=== PATIENT | female | born 1945 | race Caucasian/White ===

== ENCOUNTER 2017-01-01 18:23 | Observation (INO) ==
[2017-01-01 19:30] LABS: Activated Partial Thrombo Time 50.4 Seconds (26.0-36.0)
[2017-01-01 19:34] LABS: Prothrombin Time 44.6 Seconds (9.4-12.1)
--- NOTE | 2017-01-01 20:12 | Emergency Department Note ---
START Narrative - START START: Patient was sent in by primary care provider for recheck of coags as she had an elevated INR drawn at 3:30 this morning. It was greater than six. When I went in to assess the patient. She was sleeping quite soundly bent over the chair with her upper torso between her legs and her head, nearly touching the floor. She was difficult to arouse. Once awake, she was a note 3, however slightly confused and rather somnolent. I went to get her blanket, multivitamin back. She was already asleep again. Her vitals show mild tachycardia and hypoxia. This is new for her. She has a history of lung cancer and has a very productive sounding cough. Her repeat INR is four and she does not report any active bleeding. However, given her current presentation, I feel that she will require further evaluation than that which can be easily provided in a fast- track room.
[2017-01-01 20:48] LABS: Basophils % 0.4 %; Eosinophils # 0.1 K/mcL (0.0-0.6); Eosinophils % 0.8 %; Hematocrit 40.1 % (35.3-44.9); Immature Granulocytes % 0.6 % (0-4); Lymphocytes # 2.4 K/mcL (0.6-4.6); Lymphocytes % 30.4 %; Mean Corpuscular HGB Conc 32.4 g/dL (31.6-35.5); Mean Corpuscular Volume 95.7 fL (83.0-100.0); Mean Platelet Volume 11.5 fL (9.4-12.4); Monocytes # 0.6 K/mcL (0.0-1.3); Neutrophils # 4.8 K/mcL (1.6-8.9); Platelet Count 462 K/mcL (140-400); Red Blood Count 4.19 M/mcL (3.82-4.97); Red Cell Distribution Width 13.2 % (11.5-14.5); Segmented Neutrophils % 60.8 %
[2017-01-01 20:56] LABS: BUN/Creatinine Ratio 24 (6-26); Blood Urea Nitrogen 19 mg/dL (7-20); Calcium 9.6 mg/dL (8.6-10.8); Carbon Dioxide 28 mEq/L (19-29); Chloride 101 mEq/L (98-109); Glucose 123 mg/dL (70-99); Osmolality,Calculated 288 (280-300); Potassium 3.6 mEq/L (3.5-4.5); Sodium 137 mEq/L (136-145); eGFR For African Americans > 60 (> 60); eGFR For Non-African Americans > 60 (> 60)
--- NOTE | 2017-01-01 22:25 | Emergency Department Note ---
Disposition Clinical Impression: Shortness of breath, Elevated troponin Lung cancer Qualifiers: Laterality: unspecified laterality Lung location: unspecified part of lung Qualified Code(s): C34.90 - Malignant neoplasm of unspecified part of unspecified bronchus or lung Disposition: Admitted As Inpatient Condition: Fair Referrals: Martínez Ellis MD [Primary Care Provider] - Forms: ED Satisfaction Letter General Adult HPI - General Chief complaint: ED Recheck/Abnormal Lab/Rx Stated complaint: lab recheck Time Seen by Provider: 01/01/17 18:33 Nursing Notes Reviewed: Yes Vital Signs Reviewed: Yes - History of Present Illness HPI Narrative: Patient does have a history of lung cancer and was initially seen in triage and I did review this record however the patient was dyspneic and I did evaluate her and she does have a history of lung cancer and her dyspnea is worse than usual and is worse with exertion but she denies any chest pain or tightness or discomfort. Does have a dry cough. No hemoptysis. No complaint of fever. She did initially present because of a elevated INR for vitamin K and the story is that the INR was 0.0. She does not have any pain or swelling of the lower extremities, vomiting. Social history: She is still smoking. Does use home oxygen 2 Liters Pain Scale: 3 - Related Data Home Medications Medication Instructions Recorded Confirmed Ascorbic Acid [Vitamin C] 500 mg PO DAILY 10/22/15 11/09/16 Cyanocobalamin (Vitamin B-12) 1,000 mcg PO DAILY 10/22/15 11/09/16 [Vitamin B12] Acetaminophen [Tylenol] 500 mg PO Q6HR PRN 12/25/15 11/09/16 Budesonide/Formoterol 160/4.5 1 puff IH BIDR 12/25/15 11/09/16 [Symbicort 160/4.5] Calcium Carbonate/Vitamin D3 1 each PO DAILY 12/25/15 11/09/16 [Calcium 600 + Vit D Tablet] Promethazine [Phenergan] 25 mg PO Q8HR PRN 12/25/15 11/09/16 LevETIRAcetam [Levetiracetam] 500 mg PO BID 03/16/16 11/09/16 Sertraline [Zoloft] 50 mg PO DAILY 03/16/16 11/09/16 Simvastatin [Zocor] 20 mg PO DAILY 03/16/16 11/09/16 Previous Rx's Medication Instructions Recorded Loratadine [Claritin] 10 mg PO DAILY #30 tablet 11/21/14 Amitriptyline [Elavil] 50 mg PO HS #30 tablet 03/20/16 Butalbital/Aspirin/Caffeine 1 each PO TID PRN #10 capsule 03/20/16 [Fiorinal 50-325-40 mg Capsule] Gabapentin [Neurontin] 300 mg PO TID #30 capsule 03/20/16 OxyCODONE ER (12 HR) [OxyCONTIN] 20 mg PO Q12HR #20 tab.er.12h 03/20/16 OxyCODONE Immed Rel [Roxicodone 5 10 mg PO Q6HR PRN #20 tablet 03/20/16 MG] Warfarin [Coumadin] 5 mg PO HS #7 tablet 03/21/16 Allergies Allergy/AdvReac Type Severity Reaction Status Date / Time No Known Allergies Allergy Verified 10/22/15 16:45 Review of Systems: Constitutional: No fever Vision: No blurred vision ENT: No rhinorrhea Respiratory: + cough Allergic: No allergies : No blood in urine GI: No blood in stool Hematologic: No bruising Dermatologic: No skin rash Musculoskeletal: No pain in the extremities Neuro: No numbness of the extremities Past Medical History - Past Medical History Medical history: Reports: cancer, COPD, DVT, hypertension, osteoporosis, seizures, other Surgical history: Reports: hip replacement (Left hip repairs), orthopedic, other (Bilateral carpal tunnel release surgeries, left humerus fracture repair) , other (Tubal ligation) Psychiatric history: Reports: anxiety, depression MICROSTRATEGY BI DEVELOPER history: Reports: no MICROSTRATEGY BI DEVELOPER history - Social History Smoking Status: Current every day smoker Smokeless Tobacco Status: No Alcohol use: Reports: none Drug use: Reports: none Physical Exam CONSTITUTIONAL: Alert and oriented X3, well-nourished, well appearing, in no apparent distress HEAD: Normocephalic; atraumatic. EYES: PERRL, no scleral icterus. NOSE: The nose is normal in appearance without rhinorrhea RESP: Normal chest excursion with respiration; breath sounds with bilateral rhonchi which are symmetric, no wheezing CARD: Regular rhythm, without murmurs, rub or gallop ABD: Non-distended; non-tender, soft,without rigidity, rebound or guarding SKIN: Normal for age and race; warm and dry; no apparent lesions EXTREMITIES: Pulses are 2 plus and equal times 4 extremities, no peripheral edema or calf muscle pain. - General General appearance: alert, in no apparent distress Course Vital Signs Temperature 98 F 01/01/17 18:28 Pulse Rate 104 01/01/17 18:28 Respiratory Rate 18 01/01/17 18:28 Blood Pressure 130/75 01/01/17 18:28 O2 Sat by Pulse Oximetry 91 01/01/17 18:28 Temperature 98 F 01/01/17 18:28 Pulse Rate 83 01/01/17 22:36 Respiratory Rate 16 01/01/17 22:36 Blood Pressure 160/92 01/01/17 22:36 O2 Sat by Pulse Oximetry 98 01/01/17 22:36 Oxygen Delivery Oxygen Delivery Nasal Cannula Medical Decision Making - MDM Narrative Medical decision making narrative: I did review the patient's labs do show elevated troponin, the patient is on oxygen, will receive a DuoNeb, I did speak with the hospitalist who accepts the patient for admission. I did review the labs. 2025 I did review the patient's EKG showing normal sinus rhythm with a rate of 85 without evidence of acute change. The patient will be admitted. 2256 - Medical Records Medical records reviewed: Yes I reviewed the patient's medical records. - Lab Data Lab results reviewed: Yes I reviewed the patient's lab results. Result diagrams: 01/01/17 19:10 01/01/17 19:10 Lab Results 01/01/17 01/01/17 01/01/17 Range/Units 19:10 19:10 19:10 WBC 7.9 (4.3-11.1) K/mcL RBC 4.19 (3.82-4.97) M/mcL Hgb 13.0 (11.5-15.4) g/dL Hct 40.1 (35.3-44.9) % MCV 95.7 (83.0-100.0) fL MCH 31.0 (28.0-33.3) pg MCHC 32.4 (31.6-35.5) g/dL RDW 13.2 (11.5-14.5) % Plt Count 462 H (140-400) K/mcL MPV 11.5 (9.4-12.4) fL Immature Gran % 0.6 (0-4) % Seg Neutrophils % 60.8 % Lymphocytes % 30.4 % Monocytes % 7.0 % Eosinophils % 0.8 % Basophils % 0.4 % Neutrophils # 4.8 (1.6-8.9) K/mcL Lymphocytes # 2.4 (0.6-4.6) K/mcL Monocytes # 0.6 (0.0-1.3) K/mcL Eosinophils # 0.1 (0.0-0.6) K/mcL Basophils # 0.0 (0.0-0.2) K/mcL PT 44.6 H* (9.4-12.1) Seconds INR 4.0 APTT 50.4 H (26.0-36.0) Seconds Sodium 137 (136-145) mEq/L Potassium 3.6 (3.5-4.5) mEq/L Chloride 101 (98-109) mEq/L Carbon Dioxide 28 (19-29) mEq/L BUN 19 (7-20) mg/dL Creatinine 0.80 (0.57-1.11) mg/dL Est GFR ( Amer) > 60 (> 60) Est GFR (Non-Af Amer) > 60 (> 60) BUN/Creatinine Ratio 24 (6-26) Glucose 123 H (70-99) mg/dL Calculated Osmolality 288 (280-300) Calcium 9.6 (8.6-10.8) mg/dL Troponin I (0-0.03) ng/mL B-Natriuretic Peptide (0-100) pg/mL 01/01/17 01/01/17 Range/Units 19:10 19:10 WBC (4.3-11.1) K/mcL RBC (3.82-4.97) M/mcL Hgb (11.5-15.4) g/dL Hct (35.3-44.9) % MCV (83.0-100.0) fL MCH (28.0-33.3) pg MCHC (31.6-35.5) g/dL RDW (11.5-14.5) % Plt Count (140-400) K/mcL MPV (9.4-12.4) fL Immature Gran % (0-4) % Seg Neutrophils % % Lymphocytes % % Monocytes % % Eosinophils % % Basophils % % Neutrophils # (1.6-8.9) K/mcL Lymphocytes # (0.6-4.6) K/mcL Monocytes # (0.0-1.3) K/mcL Eosinophils # (0.0-0.6) K/mcL Basophils # (0.0-0.2) K/mcL PT (9.4-12.1) Seconds INR APTT (26.0-36.0) Seconds Sodium (136-145) mEq/L Potassium (3.5-4.5) mEq/L Chloride (98-109) mEq/L Carbon Dioxide (19-29) mEq/L BUN (7-20) mg/dL Creatinine (0.57-1.11) mg/dL Est GFR ( Amer) (> 60) Est GFR (Non-Af Amer) (> 60) BUN/Creatinine Ratio (6-26) Glucose (70-99) mg/dL Calculated Osmolality (280-300) Calcium (8.6-10.8) mg/dL Troponin I 0.06 H* (0-0.03) ng/mL B-Natriuretic Peptide 489 H (0-100) pg/mL - Radiology Data Radiology results reviewed: Yes I reviewed the patient's radiology results.
--- NOTE | 2017-01-01 23:47 | Internal Med History&Physical ---
<Addison Chambers - Last Filed: 01/02/17 00:21> Date of Encounter: 01/02/17 Time of Encounter: 23:10 Assessment and Plan (1) Bronchitis Current visit: Yes Status: Acute Patient reports subjective fever, but she did not measure, and dry cough for several days. She was seen by her PCP on 12/30/16 and was started on Levaquin at that time (which is likely what caused her increased INR). Chest x-ray showed no acute abnormalities, no leukocytosis present, and patient afebrile. She is on her home dose of oxygen and has no complaints of shortness of breath or productive cough. Likely patient has bronchitis, possibly viral. Will continue with started by her PCP. We will continue by mouth Levaquin We will continue to monitor INR Continuous pulse oximetry (2) Supratherapeutic INR Current visit: No Status: Resolved Patient found to have subtherapeutic INR as outpatient, up to 6.8. Sent to emergency department because of concern of elevated level INR. Patient has no complaints of bleeding, hematochezia, hematemesis, hemoptysis, hematuria. Will recheck in emergency room INR is 4.0. Elevation INR likely due to initiation of Levaquin for bronchitis yesterday. We will continue to monitor with repeat INR Hold Coumadin (3) Elevated troponin Current visit: Yes Status: Acute Patient has elevation of troponin 0.06, previously normal. Patient elevated troponin likely demand with recent respiratory infection and supratherapeutic INR. Highly unlikely as ACS given supratherapeutic INR and lack of ACS symptoms. Heart score 4, LENA Score 2. We will trend troponins Continue telemetry while troponins trended (4) Lung cancer Current visit: Yes Status: Acute Patient has history of left lung cancer, previously treated with radiation in . She was determined not to be candidate for chemotherapy or surgery at that time. She reports that in the past 6 months she has had a 30 pound weight loss , night sweats, and weakness. When as she is not interested in additional treatment at this time. Patient is with her [facility]. Qualifiers: Laterality: left Lung location: unspecified part of lung Qualified Code(s ): C34.92 - Malignant neoplasm of unspecified part of left bronchus or lung (5) COPD (chronic obstructive pulmonary disease) Current visit: No Status: Chronic Patient has history of COPD and admits to continuing to smoke. She does state she is decreasing the amount of cigarettes. She currently is at 5 cigarettes a day and previously she had been smoking a pack a day. No wheezings and auscultation. No shortness of breath and no increased phlegm production. Not in exacerbation currently. Continue home dose oxygen Continue home inhalers Breathing treatments as needed Qualifiers: COPD type: emphysema Emphysema type: unspecified Qualified Code(s): J43.9 - Emphysema, unspecified (6) History of seizure Current visit: No Status: Chronic Stable, patient reports no seizure in the last 6 years. Continue home medications Seizure precautions (7) DVT prophylaxis Current visit: No Status: Acute Patient on Coumadin, currently a suprapubic INR likely due to initiation of Levaquin therapy while taking Coumadin. Hold dose Coumadin Coumadin per pharmacy Continue monitor INR/PT (8) Tobacco abuse Current visit: No Status: Acute Patient reports actively trying to quit. She is down to 5 cigarettes a day from [address] [facility] Internal Medicine - H&P: HPI Chief complaint: Abnormal Labs Admitted From: Home Plans for Post Hospital Care: Home History of present illness: Ms. Hodge is a 71 year old female with prior medical history of DVT 6 years ago ( systolic Coumadin), COPD (still smoking), seizures, hypertension, and lung cancer (treated with radiation 1 year ago) who presented to [facility] today due to the finding of abnormal lab work. It was found she had an elevated INR of 6.8 was told to come the emergency room. She denies any bleeding currently, denies change in diet, reports only starting Levaquin for bronchitis yesterday. Recheck of INR in the emergency room was 4. Patient reports that she has had a slight, dry cough as well as subjective fever that she has not measured for the last few days which prompted her PCP started her on Levaquin. She reports that she has had subjective fevers, constipation, and diaphoresis. When asked she states she has had a 30 pound weight loss last 6 months, night sweats, and weakness and does have a history of lung cancer. She appears to received radiation treatment that was completed in 12/27/15 and was not a candidate for surgery or chemotherapy at that time. When asked today she is not interested in pursuing more treatment. She denies any shortness of breath or wheezing. Patient states she is with [facility] is not interested in further treatment, but when spoken to she reports that she would like to be a full code. When asked further she states she has a well visit. Relates her wishes, but no documents are present. Currently unsure what her wishes would be. Past Med Surg Social Fam HX - Past Medical History Medical history: cancer, COPD, DVT, hypertension, osteoporosis, seizures, other Psychiatric history: anxiety, depression - Past Surgical History Surgical History: hip replacement (Left hip repairs), orthopedic, other ( Bilateral carpal tunnel release surgeries, left humerus fracture repair), other (Tubal ligation) - Social History Smoking Status: Current every day smoker Smokeless Tobacco Status: No Alcohol use: none Drug use: none - Family History Father Hx Family Cardiac Disorders: Yes (CHF) Internal Medicine - H&P: Meds Loratadine [Claritin] 10 mg PO DAILY #30 tablet 11/21/14 [Rx] Ascorbic Acid [Vitamin C] 500 mg PO DAILY 10/22/15 [History] Cyanocobalamin (Vitamin B-12) [Vitamin B12] 1,000 mcg PO DAILY 10/22/15 [History ] Acetaminophen [Tylenol] 500 mg PO Q6HR PRN 12/25/15 [History] Budesonide/Formoterol 160/4.5 [Symbicort 160/4.5] 1 puff IH BIDR 12/25/15 [ History] Calcium Carbonate/Vitamin D3 [Calcium 600 + Vit D Tablet] 1 each PO DAILY [History] Promethazine [Phenergan] 25 mg PO Q8HR PRN 12/25/15 [History] LevETIRAcetam [Levetiracetam] 500 mg PO BID 03/16/16 [History] Sertraline [Zoloft] 50 mg PO DAILY 03/16/16 [History] Simvastatin [Zocor] 20 mg PO DAILY 03/16/16 [History] Amitriptyline [Elavil] 50 mg PO HS #30 tablet 03/20/16 [Rx] Butalbital/Aspirin/Caffeine [Fiorinal 50-325-40 mg Capsule] 1 each PO TID PRN # 10 capsule 03/20/16 [Rx] Gabapentin [Neurontin] 300 mg PO TID #30 capsule 03/20/16 [Rx] OxyCODONE ER (12 HR) [OxyCONTIN] 20 mg PO Q12HR #20 tab.er.12h 03/20/16 [Rx] OxyCODONE Immed Rel [Roxicodone 5 MG] 10 mg PO Q6HR PRN #20 tablet 03/20/16 [Rx] Warfarin [Coumadin] 5 mg PO HS #7 tablet 03/21/16 [Rx] 3 Allergy/AdvReac Type Severity Reaction Status Date / Time No Known Allergies Allergy Verified 10/22/15 16:45 All Systems PM: Gen: Reports fever and chills, reports weightloss, reports weakness, denies fatigue, reports diaphoresis CV: Denies chest pain, denies palpitations Resp: Denies shortness of breath, denies pleuritic pain, reports dry cough, denies changes in phlegm production, denies wheeze GI: Denies nausea, denies vomiting, denies abdominal pain, reports constipation , denies diarrhea, denies hematochezia, denies melena MSK: Reports chronic pain in back and legs, denies muscle weakness Neuro: Denies headache, denies confusion, denies focal weakness, denies numbness , denies tingling, denies vision changes Skin: Denies bruising, denies rash : Denies flank pain, denies dysuria, denies hematuria - Constitutional Vitals: Temp Pulse Resp BP Pulse Ox 98 F 83 12 144/88 98 01/01/17 18:28 01/01/17 22:36 01/01/17 23:32 01/01/17 23:32 01/01/17 22:36 Exam: General: Cooperative, pleasant, no acute distress, alert and oriented 3, answers questions appropriately, cachectic, slumped, on 2.5 L oxygen (her home dose) HEENT: Normocephalic, atraumatic, neck supple, trachea midline, Conjunctiva pink , sclera anicteric, PERRL, oral mucosa moist, no orophargeal erythema or exudates Respiratory: No accessory muscle usage, bibasilar Rales present right greater than left Cardiovascular: Regular rate and rhythm, S1 and S2 present, no murmurs/rubs/ gallops/clicks appreciated GI/abdominal: Nondistended, nontender, soft, normal bowel sounds, no peritoneal signs Extremities: No calf tenderness, noncyanotic, no pedal edema appreciated, warm, lower extremity pulses palpable and symmetrical Neurological: Alert and oriented 3, no facial droop, no focal deficits Skin: Dry, intact, normal color Internal Med - H&P Results - Labs CBC & Chem 7: 01/01/17 19:10 01/01/17 19:10 <Byron Celaya - Last Filed: 01/02/17 00:52> Date of Encounter: 01/02/17 Internal Medicine - H&P: HPI History of present illness: Ms. Hodge is a 71 year old female All Systems PM: A 10-system review of systems was performed and is negative for pertinent findings except as documented above in the HPI. - Constitutional Vitals: Temp Pulse Resp BP Pulse Ox 97.4 F L 83 16 153/94 92 01/02/17 00:32 01/02/17 00:32 01/02/17 00:32 01/02/17 00:32 01/02/17 00:32 Internal Med - H&P Results - Labs CBC & Chem 7: 01/01/17 19:10 01/01/17 19:10 - Attending Attestation I have independently seen and examined this patient on 01/02/17 and reviewed plan of care with the HEALTH INFORMATION ASSISTANT/resident physician and the patient 71 F with chronic respiratory failure on home O2, COPD/Emphysema, Lung CA, bronchitis on Levaquin, she drove herself to the ER on referral by her PCP for elevated INR following use of Levaquin for bronchitis. She denies any symptoms. She does not have chest pain, SOB is at baseline, she does not have any symptoms and she is actually really upset for being admitted to observation Physical exam: VSS, chronically ill-looking, not in distress, and ambulatory, she has a barrel-shaped chest, which is clear to auscultation. HS S1, S2 only, no m/g/r, abdomen is soft and not tender, no pedal edema Labs and Imaging reviewed: CBC: thrombocytosis otherwise unremarkable, troponin 0.06, BNP 485. EKG NSR, LAFB, no ST segment changes. CXR with no pulmonary edema, chronic fibrotic changes. Assessment/Plan: Supratherapeutic INR, Bronchitis, Elevated troponin, possibly from patients chronic hypoxia, patient is asymptomatic, trend troponin, continue Levaquin for bronchitis treatment, hold Coumadin, monitor INR. Rest of details as in resident physicians documentation
[2017-01-01] MEDS ORDERED: Acetaminophen 325 MG TABLET PO PRN (23:52)
[2017-01-01] MEDS ORDERED: Ondansetron 4 MG/2 ML VIAL IVP PRN (23:52)
[2017-01-01] MEDS ORDERED: Naloxone 0.4 MG/ML INJ IVP PRN (23:52)
[2017-01-02] MEDS ORDERED: *HR* OxyCODONE Immed Rel 5 MG TABLET PO PRN (00:11)
[2017-01-02] MEDS ORDERED: FIORINAL PO PRN (00:11)
[2017-01-02] MEDS ORDERED: Ipratropium/Albuterol Neb 3 ML IH PRN (00:18)
[2017-01-02] MEDS: Nicotine 7 MG PATCH.TD24 TD SCH ×2 (00:59→09:41)
[2017-01-02] MEDS ORDERED: *HR* OxyCODONE ER (12 HR) 20 MG TABLET PO SCH (06:00)
[2017-01-02 06:53] LABS: Basophils # 0.1 K/mcL (0.0-0.2); Basophils % 0.9 %; Eosinophils # 0.1 K/mcL (0.0-0.6); Eosinophils % 1.3 %; Hematocrit 36.2 % (35.3-44.9); Immature Granulocytes % 0.5 % (0-4); Lymphocytes # 2.1 K/mcL (0.6-4.6); Lymphocytes % 38.4 %; Mean Corpuscular HGB Conc 31.2 g/dL (31.6-35.5); Mean Corpuscular Hemoglobin 29.7 pg (28.0-33.3); Mean Corpuscular Volume 95.3 fL (83.0-100.0); Mean Platelet Volume 10.6 fL (9.4-12.4); Monocytes # 0.4 K/mcL (0.0-1.3); Monocytes % 7.9 %; Neutrophils # 2.8 K/mcL (1.6-8.9); Platelet Count 378 K/mcL (140-400); Red Cell Distribution Width 13.2 % (11.5-14.5)
[2017-01-02 06:57] LABS: INR 2.7; Prothrombin Time 29.3 Seconds (9.4-12.1)
[2017-01-02 06:59] LABS: Activated Partial Thrombo Time 43.5 Seconds (26.0-36.0)
[2017-01-02 07:00] LABS: Hemoglobin 11.3 g/dL (11.5-15.4)
[2017-01-02 07:05] LABS: BUN/Creatinine Ratio 22 (6-26); Blood Urea Nitrogen 15 mg/dL (7-20); Calcium 8.9 mg/dL (8.6-10.8); Carbon Dioxide 28 mEq/L (19-29); Chloride 105 mEq/L (98-109); Glucose 85 mg/dL (70-99); Magnesium 1.2 mg/dL (1.6-2.6); Osmolality,Calculated 288 (280-300); Phosphorous 3.4 mg/dL (2.3-4.7); Sodium 139 mEq/L (136-145); eGFR For African Americans > 60 (> 60); eGFR For Non-African Americans > 60 (> 60)
[2017-01-02] MEDS ORDERED: Magnesium Sulfate 2 GM in D5% in Water 100 ML IVPB ONE (07:54)
[2017-01-02] MEDS ORDERED: Loratadine 10 MG TABLET PO SCH (09:00)
[2017-01-02] MEDS ORDERED: Gabapentin 300 MG CAPSULE PO SCH (09:00)
[2017-01-02] MEDS ORDERED: levoFLOXacin 500 MG TABLET PO SCH (09:00)
[2017-01-02] MEDS ORDERED: Cyanocobalamin (B-12) 1,000 MCG TABLET PO SCH (09:00)
[2017-01-02] MEDS ORDERED: Calcium 600 + Vit D PO SCH (09:00)
[2017-01-02] MEDS ORDERED: levETIRAcetam 250 MG TABLET PO SCH (09:00)
[2017-01-02] MEDS ORDERED: Ascorbic Acid 500 MG TABLET PO SCH (09:00)
--- NOTE | 2017-01-02 09:27 | Discharge Summary ---
Date of Encounter: 01/02/17 Time of Encounter: 09:19 - Discharge Diagnosis (1) Bronchitis Priority: Primary Status: Acute (2) Elevated troponin Priority: Primary Status: Resolved (3) Supratherapeutic INR Priority: Primary Status: Resolved (4) Anxiety Priority: Secondary Status: Chronic (5) Depression Priority: Secondary Status: Chronic Qualifiers: Depression Type: unspecified Qualified Code(s): F32.9 - Major depressive disorder, single episode, unspecified (6) History of seizure Priority: Secondary Status: Chronic (7) Tobacco abuse Priority: Secondary Status: Chronic (8) HTN (hypertension) Priority: Secondary Status: Chronic Qualifiers: Hypertension type: essential hypertension Qualified Code(s): I10 - Essential (primary) hypertension (9) Cancer of left lung Priority: Secondary Status: Chronic Qualifiers: Lung location: upper lobe of lung Qualified Code(s): C34.12 - Malignant neoplasm of upper lobe, left bronchus or lung (10) COPD (chronic obstructive pulmonary disease) Priority: Secondary Status: Chronic Qualifiers: COPD type: emphysema Emphysema type: unspecified Qualified Code(s): J43.9 - Emphysema, unspecified - Discharge Medications Prescriptions: levoFLOXacin [Levaquin] 500 mg PO DAILY #4 tablet Home Medications: Loratadine [Claritin] 10 mg PO DAILY #30 tablet 11/21/14 [Rx] Ascorbic Acid [Vitamin C] 500 mg PO DAILY 10/22/15 [History] Cyanocobalamin (Vitamin B-12) [Vitamin B12] 1,000 mcg PO DAILY 10/22/15 [History ] Acetaminophen [Tylenol] 500 mg PO Q6HR PRN 12/25/15 [History] Budesonide/Formoterol 160/4.5 [Symbicort 160/4.5] 1 puff IH BIDR 12/25/15 [ History] Calcium Carbonate/Vitamin D3 [Calcium 600 + Vit D Tablet] 1 each PO DAILY [History] Promethazine [Phenergan] 25 mg PO Q8HR PRN 12/25/15 [History] LevETIRAcetam [Levetiracetam] 500 mg PO BID 03/16/16 [History] Sertraline [Zoloft] 50 mg PO DAILY 03/16/16 [History] Simvastatin [Zocor] 20 mg PO DAILY 03/16/16 [History] Amitriptyline [Elavil] 50 mg PO HS #30 tablet 03/20/16 [Rx] Butalbital/Aspirin/Caffeine [Fiorinal 50-325-40 mg Capsule] 1 each PO TID PRN # 10 capsule 03/20/16 [Rx] Gabapentin [Neurontin] 300 mg PO TID #30 capsule 03/20/16 [Rx] OxyCODONE ER (12 HR) [OxyCONTIN] 20 mg PO Q12HR #20 tab.er.12h 03/20/16 [Rx] OxyCODONE Immed Rel [Roxicodone 5 MG] 10 mg PO Q6HR PRN #20 tablet 03/20/16 [Rx] Warfarin [Coumadin] 2.5 mg PO HS #7 tablet 01/02/17 [Rx] levoFLOXacin [Levaquin] 500 mg PO DAILY #4 tablet 01/02/17 [Rx] Allergies/Adverse Reactions: 3 Allergy/AdvReac Type Severity Reaction Status Date / Time No Known Allergies Allergy Verified 10/22/15 16:45 Date of admission: 01/01/17 22:57 Primary care physician: Martínez Ellis MD Consults: 01/02/17 00:00 Consult to Counseling Services Manager [CONS] Routine Reason for SW Consult: Rescouces, d/c planning, [facility] hosp[facility] patient (?) 01/02/17 00:19 Consult to Nutrition [CONS] Routine Comment: Consulting Provider: NUTRITION Reason for Dietary Consult: MST Score Discharging clinician: Queenie Peralta Anticipated date of discharge: 01/02/17 - Patient Status Disposition: Home, Self-Care Condition: Fair Functional capacity at discharge: uses cane/walker Overall status at discharge: patient is progressing back to baseline - Discharge Instructions Instructions: Acute Bronchitis (DC), Elevated INR (DC) Follow Up With: Martínez Ellis MD [Primary Care Provider] - Additional Instructions: F/up with Coumadin clinic in 3 days for INR check F/up with PCP in 1-2 weeks - Diet and Activity Activity: resume usual activities as tolerated, wear oxygen at all times Diet: low fat, low cholesterol, low salt diet Hospital course: Ms. Hodge is a 71 year old female with history of COPD , lung cancer and DVT, who was admitted due to abnormal labs. She was noted to have supratherapeutic INR of 6.7 in the outpatient clinic and was referred to the emergency room. Patient was recently started on a course of oral levofloxacin for symptoms of acute bronchitis, which she still continues to have. Concomitant use of antibiotics was thought to be the reason for elevated INR. Coumadin has been held since admission and her INR quickly improved to 2.7 today. Patient was noted to have mild troponin leak, which is likely due to hypoxia and respiratory issues and demand ischemia. Her troponin is normal this morning. Patient continues to smoke, which contributes to some of her respiratory symptoms. She is otherwise medically stable and wishes to go home today. She is encouraged to follow up in Coumadin clinic in 2-3 days and she verbalized understanding. Her Coumadin is being restarted at a lower dose. - Time Spent with Patient Total time spent providing and/or coordinating discharge services: Greater than 30 minutes (40 min) - Constitutional Vitals: Temp Pulse Resp BP Pulse Ox 97.8 F 86 12 135/80 98 01/02/17 07:50 01/02/17 07:50 01/02/17 08:00 01/02/17 07:50 01/02/17 08:00 General appearance: Present: A&O X 3, answers questions appropriately - Respiratory Respiratory exam: Present: CTAB (coarse breath sounds B/L). Absent: accessory muscle use, rales, rhonchi, wheezes
[2017-01-02] MEDS ORDERED: Budesonide/Formoterol 160/4.5 MDI IH SCH (10:00)
[2017-01-02 11:22] VITALS: BP 132/77
[2017-01-02] MEDS ORDERED: Warfarin perPT PO PRN (18:00)
--- NOTE | 2017-01-04 08:38 | Electrocardiograph Report ---
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
== END 2017-01-02 13:42 | disposition home or self-care (01) ==
LOC: 2ANU 18:23 → EMEROO 18:23 → 2ANU 23:45
PROVIDERS: ADMIT Internal Medicine; ATTEND Internal Medicine

== ENCOUNTER 2017-01-04 13:34 | Inpatient (IN) ==
--- NOTE | 2017-01-04 14:04 | Emergency Department Note ---
Disposition Clinical Impression: Acute and chronic respiratory failure, Elevated troponin, Concussion Fall Qualifiers: Encounter type: initial encounter Qualified Code(s): W19.XXXA - Unspecified fall, initial encounter Disposition: Admitted As Inpatient Condition: Fair Time of Disposition: 17:17 Fall HPI - General Chief Complaint: ED Back Pain/Injury Stated Complaint: fall, neck/back pain Time Seen by Provider: 01/04/17 13:40 Source: patient Mode of arrival: EMS Limitations: no limitations Nursing Notes Reviewed: Yes Vital Signs Reviewed: Yes - History of Present Illness HPI Narrative: 71-year-old female hx of COPD O2 dependent on 2.5L presents status post mechanical fall she rolled out of bed hit her head and neck. Patient states that she is unsure if she lost consciousness patient reports 6 out of 10 pain, she says that the back of her head. She also states that she has pain "all over " patient does take warfarin she is anticoagulated for history of DVTs, patient has no chest pain or shortness of breath. Pt Subjective Complaint: fall Fall From: out of bed Fall Witnessed: yes Place Fall Occurred: home Loss of Consciousness: unsure Prolonged Down Time?: no Symptoms Prior to Fall: lightheadedness Location of injury: head, neck Severity: mild Associated symptoms (after fall): Reports: denies. Denies: headache, neck pain , numbness, weakness - Related Data Home Medications Medication Instructions Recorded Confirmed Ascorbic Acid [Vitamin C] 500 mg PO DAILY 10/22/15 11/09/16 Cyanocobalamin (Vitamin B-12) 1,000 mcg PO DAILY 10/22/15 01/02/17 [Vitamin B12] Acetaminophen [Tylenol] 500 mg PO Q6HR PRN 12/25/15 11/09/16 Budesonide/Formoterol 160/4.5 1 puff IH BIDR 12/25/15 11/09/16 [Symbicort 160/4.5] Calcium Carbonate/Vitamin D3 1 each PO DAILY 12/25/15 01/02/17 [Calcium 600 + Vit D Tablet] Promethazine [Phenergan] 25 mg PO Q8HR PRN 12/25/15 11/09/16 LevETIRAcetam [Levetiracetam] 500 mg PO BID 03/16/16 01/02/17 Sertraline [Zoloft] 50 mg PO DAILY 03/16/16 11/09/16 Simvastatin [Zocor] 20 mg PO DAILY 03/16/16 01/02/17 Previous Rx's Medication Instructions Recorded Loratadine [Claritin] 10 mg PO DAILY #30 tablet 11/21/14 Amitriptyline [Elavil] 50 mg PO HS #30 tablet 03/20/16 Butalbital/Aspirin/Caffeine 1 each PO TID PRN #10 capsule 03/20/16 [Fiorinal 50-325-40 mg Capsule] Gabapentin [Neurontin] 300 mg PO TID #30 capsule 03/20/16 OxyCODONE ER (12 HR) [OxyCONTIN] 20 mg PO Q12HR #20 tab.er.12h 03/20/16 OxyCODONE Immed Rel [Roxicodone 5 10 mg PO Q6HR PRN #20 tablet 03/20/16 MG] Warfarin [Coumadin] 2.5 mg PO HS #7 tablet 01/02/17 levoFLOXacin [Levaquin] 500 mg PO DAILY #4 tablet 01/02/17 Allergies Allergy/AdvReac Type Severity Reaction Status Date / Time No Known Allergies Allergy Verified 10/22/15 16:45 All systems ED: reviewed and negative except as stated. Review of Systems: As Per HPI Constitutional: Denies: fever, chills Eyes: Denies: eye pain ENT ED: Denies: ear pain Cardiovascular: Denies: chest pain Respiratory: Denies: cough Gastrointestinal: Denies: abdominal pain, nausea Genitourinary: Denies: urgency Musculoskeletal: Reports: as per HPI, back pain, neck pain Integumentary: Denies: rash Neurological: Reports: as per HPI, headache Fall PMH - Past Medical History Medical history: Reports: cancer, COPD, DVT, hypertension, osteoporosis, seizures, other Surgical history: Reports: hip replacement (Left hip repairs), orthopedic, other (Bilateral carpal tunnel release surgeries, left humerus fracture repair) , other (Tubal ligation) Psychiatric history: Reports: anxiety, depression 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: Reports: no 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 - Social History Smoking Status: Current every day smoker Alcohol use: Reports: none Drug use: Reports: none Physical Exam Constitutional: NAD, cachectic thin appearing female Head: NCAT mild ttp at occiput with no hematoma Eyes: PERRLA, sclera anicteric ENT & Mouth: MMM Neck: normal inspection, midline tenderness to palpation C3-C6, Cspine precautions in place Resp: scattered wheezes CV: RRR, no m/g/r +2 pulses UE and LE Back: no palpable stepoff or deformity mild ttp upper nad lower back diffusely t and l spine GI: normal inspection, soft, no guarding or rigidity Neuro: A&O3, CNII-XII grossly intact, MUNOZ Skin: on limited exam, skin intact with no rashes or lesions - General Limitations: no limitations General appearance: alert, in no apparent distress Course Course Narrative: 71yof with possible mechanical versus syncopal fall, her CBC BMP troponin basic lab work including C-spine T-spine and L-spine and head CT scan - Reevaluation(s) Reevaluation #1: Elevated troponin 0.04, given that the patient is antibiotic related on warfarin decision was and she no symptoms of chest pain or shortness of breath, and denies is currently plan is to follow up on additional anticoagulation at this time, she is previously supratherapeutic on her INR her INR today is 1.5, she did have a bicarbonate was elevated after I discussed the hospitalist, decision was made to have an ABG, this result was obtained under ABG, she was not acidemic but did have an elevated CO2 of 74, with bicarbonate showed appropriate metabolic compensation for respiratory acidosis however we will place patient on BiPAP, patient was transferred to the floor with respiratory placing BiPAP at bedside in her room into 2A Time: 17:16 Vital Signs Temperature 97.7 F 01/04/17 13:40 Pulse Rate 98 01/04/17 13:40 Respiratory Rate 20 01/04/17 13:40 Blood Pressure 149/82 01/04/17 13:40 O2 Sat by Pulse Oximetry 93 01/04/17 13:40 Temperature 96.6 F L 01/04/17 17:14 Pulse Rate 89 01/04/17 17:14 Respiratory Rate 17 01/04/17 17:14 Blood Pressure 118/76 01/04/17 17:14 O2 Sat by Pulse Oximetry 97 01/04/17 17:14 Oxygen Delivery Oxygen Delivery Nasal Cannula Fall - [facility] Narrative Medical decision making narrative: [address] 138 QRS [address] segment elevations or depressions - Differential Diagnosis Likely: traumatic injury - Medical Records Medical records reviewed: Yes I reviewed the patient's medical records. - Lab Data Lab results reviewed: Yes I reviewed the patient's lab results. Result diagrams: 01/04/17 14:50 01/04/17 14:50 Lab Results 01/04/17 01/04/17 01/04/17 Range/Units 14:50 14:50 14:50 WBC 6.1 (4.3-11.1) K/mcL RBC 4.12 (3.82-4.97) M/mcL Hgb 12.7 (11.5-15.4) g/dL Hct 40.0 (35.3-44.9) % MCV 97.1 (83.0-100.0) fL MCH 30.8 (28.0-33.3) pg MCHC 31.8 (31.6-35.5) g/dL RDW 13.2 (11.5-14.5) % Plt Count 444 H (140-400) K/mcL MPV 10.5 (9.4-12.4) fL Immature Gran % 0.3 (0-4) % Seg Neutrophils % 73.7 % Lymphocytes % 18.5 % Monocytes % 6.7 % Eosinophils % 0.3 % Basophils % 0.5 % Neutrophils # 4.5 (1.6-8.9) K/mcL Lymphocytes # 1.1 (0.6-4.6) K/mcL Monocytes # 0.4 (0.0-1.3) K/mcL Eosinophils # 0.0 (0.0-0.6) K/mcL Basophils # 0.0 (0.0-0.2) K/mcL PT (9.4-12.1) Seconds INR ABG pH (7.32-7.45) pH Units ABG pCO2 (35-45) mmHg ABG pO2 (85-104) mmHg ABG HCO3 (21-27) mEq/L ABG Total CO2 (20-26) mEq/L ABG O2 Saturation (95-98) % ABG Base Excess (-2.0 to 3.0) mEq/L Liter Flow L/MIN Blood Gas Modality Inspired O2 % Sodium 137 (136-145) mEq/L Potassium 3.9 (3.5-4.5) mEq/L Chloride 97 L (98-109) mEq/L Carbon Dioxide 33 H (19-29) mEq/L BUN 15 (7-20) mg/dL Creatinine 0.80 (0.57-1.11) mg/dL Est GFR ( Amer) > 60 (> 60) Est GFR (Non-Af Amer) > 60 (> 60) BUN/Creatinine Ratio 19 (6-26) Glucose 129 H (70-99) mg/dL Calculated Osmolality 287 (280-300) Calcium 10.3 D (8.6-10.8) mg/dL Troponin I 0.04 H* (0-0.03) ng/mL 01/04/17 01/04/17 Range/Units 14:50 16:22 WBC (4.3-11.1) K/mcL RBC (3.82-4.97) M/mcL Hgb (11.5-15.4) g/dL Hct (35.3-44.9) % MCV (83.0-100.0) fL MCH (28.0-33.3) pg MCHC (31.6-35.5) g/dL RDW (11.5-14.5) % Plt Count (140-400) K/mcL MPV (9.4-12.4) fL Immature Gran % (0-4) % Seg Neutrophils % % Lymphocytes % % Monocytes % % Eosinophils % % Basophils % % Neutrophils # (1.6-8.9) K/mcL Lymphocytes # (0.6-4.6) K/mcL Monocytes # (0.0-1.3) K/mcL Eosinophils # (0.0-0.6) K/mcL Basophils # (0.0-0.2) K/mcL PT 15.0 H (9.4-12.1) Seconds INR 1.4 ABG pH 7.35 (7.32-7.45) pH Units ABG pCO2 73 H* (35-45) mmHg ABG pO2 73 L (85-104) mmHg ABG HCO3 40 H (21-27) mEq/L ABG Total CO2 43 H (20-26) mEq/L ABG O2 Saturation 94 L (95-98) % ABG Base Excess 11.6 H (-2.0 to 3.0) mEq/L Liter Flow 3 L/MIN Blood Gas Modality NC Inspired O2 32 % Sodium (136-145) mEq/L Potassium (3.5-4.5) mEq/L Chloride (98-109) mEq/L Carbon Dioxide (19-29) mEq/L BUN (7-20) mg/dL Creatinine (0.57-1.11) mg/dL Est GFR ( Amer) (> 60) Est GFR (Non-Af Amer) (> 60) BUN/Creatinine Ratio (6-26) Glucose (70-99) mg/dL Calculated Osmolality (280-300) Calcium (8.6-10.8) mg/dL Troponin I (0-0.03) ng/mL - Radiology Data Radiology results reviewed: Yes I reviewed the patient's radiology results. Cervical Spine CT 01/04/17 14:00 IMPRESSION: 1. No acute abnormality of the cervical spine. D/ / Marck Munoz MD / Marck Munoz MD Interpreting Provider: Marck Munoz MD Head CT 01/04/17 14:00 IMPRESSION: No acute intracranial abnormality. D/ / Edgar Hernandez / Edgar Hernandez Interpreting Provider: Edgar Hernandez Lumbar Spine CT 01/04/17 14:00 IMPRESSION: 1. No acute abnormality in the thoracic or lumbar spine. 2. Degenerative changes are detailed above. D/ / Justo Koenig MD / Justo Koenig MD Interpreting Provider: Justo Koenig MD Thoracic Spine CT 01/04/17 14:00 IMPRESSION: 1. No acute abnormality in the thoracic or lumbar spine. 2. Degenerative changes are detailed above. D/ / Justo Koenig MD / Justo Koenig MD Interpreting Provider: Justo Koenig MD Chest X-Ray 01/04/17 14:01 IMPRESSION: 1. Stable cardiopulmonary status since 01/01/2017. D/ / 01/04/2017 14:57:33 Sofi Marquez MD / kaz Interpreting Provider: Sofi Marquez MD Pelvis X-Ray 01/04/17 14:01 IMPRESSION: No displaced fracture. D/ / Juan Luis Slade / Juan Luis Slade Interpreting Provider: Juan Luis Slade - EKG Data EKG attestation: Yes I reviewed and interpreted this EKG. EKG shows normal: sinus rhythm Rate: normal Rhythm: NSR [place]/QRS: normal Interpretation: no acute changes - Core Measures AMI Core Measures Followed: No Measure Exclusions: contraindicated (head injury and warfarin use) Attestation Statement - Attestation Attestation: I examined this patient and my medical decision-making was reviewed with the Resident Physician, Dr. Mzaa. I agree with the documented findings, disposition and treatment plan as described except to the extent set forth below. Patient is a 71-year-old elderly white female who is brought to us today by EMS after she sustained a mechanical fall. Patient reports that she was sleeping and rolled out of her bed causing her to fall onto the floor. Patient complains that she hit the back of her head and she is on Coumadin for history of DVTs. Patient denies any loss of consciousness no complaints of nausea or vomiting, no neck discomfort, no chest pain or pressure, no shortness of breath , no abdominal pain or extremity injuries. Patient denies any low back pain. Patient does complain of pain in the back of her head and there is a small palpable contusion in the area. Patient is very frail and osteoporotic appearing. Patient's not having any signs of respiratory distress. She is very drowsy but easily awakens to loud voice and answers questions appropriately with no focal neurologic deficits or slurred speech. Patient does have a history of COPD and is on 2-1/2 L nasal cannula oxygen at home. On arrival patient was placed on a monitor and continuous pulse ox and was placed on her home O2. Patient was placed in cervical spine precautions due to fall. I agree with patient's physical exam findings as documented. Patient's vital signs were stable on arrival. Patient was sent for CT of the head, CT of the cervical thoracic and lumbar spines as well as chest and pelvis. All of patient's imaging is unremarkable. On reevaluation we removed her cervical collar patient was do not very drowsy although awakened easily with loud voice. No evidence of head bleed on CT but concerned so obtain ABG. ABG shows a compensated respiratory acidosis with a CO2 of 73. We will place the patient on BiPAP for the hypercarbia, see this improves her mental status. Patient will also be observed for her headache injury on Coumadin with possible serial imaging. Patient's labs also showed an elevated troponin. We will recommend serial troponins on the patient as she is not having any chest pain has no EKG changes to suggest acute AL or ischemia. With watching her for neurologic changes at this time we will hold off on any anticoagulants further. Patient is subtherapeutic with her INR at this time. Discussed the case with the hospitalist who agrees with current management and accepted the patient for admission for further evaluation and management. Patient's neurologic status has remained stable over time in the ED. Patient with no EKG changes over time. Patient will be admitted for mechanical fall with closed head injury on anticoagulants, elevated troponin, and hypercarbia.
[2017-01-04 15:00] LABS: Basophils % 0.5 %; Eosinophils % 0.3 %; Hemoglobin 12.7 g/dL (11.5-15.4); Immature Granulocytes % 0.3 % (0-4); Lymphocytes # 1.1 K/mcL (0.6-4.6); Lymphocytes % 18.5 %; Mean Corpuscular HGB Conc 31.8 g/dL (31.6-35.5); Mean Corpuscular Hemoglobin 30.8 pg (28.0-33.3); Mean Corpuscular Volume 97.1 fL (83.0-100.0); Mean Platelet Volume 10.5 fL (9.4-12.4); Monocytes # 0.4 K/mcL (0.0-1.3); Monocytes % 6.7 %; Neutrophils # 4.5 K/mcL (1.6-8.9); Platelet Count 444 K/mcL (140-400); Red Blood Count 4.12 M/mcL (3.82-4.97); Red Cell Distribution Width 13.2 % (11.5-14.5); Segmented Neutrophils % 73.7 %
[2017-01-04 15:10] LABS: BUN/Creatinine Ratio 19 (6-26); Blood Urea Nitrogen 15 mg/dL (7-20); Carbon Dioxide 33 mEq/L (19-29); Chloride 97 mEq/L (98-109); Glucose 129 mg/dL (70-99); Osmolality,Calculated 287 (280-300); Potassium 3.9 mEq/L (3.5-4.5); Sodium 137 mEq/L (136-145); eGFR For African Americans > 60 (> 60); eGFR For Non-African Americans > 60 (> 60)
[2017-01-04 15:13] LABS: Calcium 10.3 mg/dL (8.6-10.8)
[2017-01-04 15:22] LABS: INR 1.4
[2017-01-04 16:31] LABS: ABG Base Excess 11.6 mEq/L (-2.0 to 3.0); ABG HCO3 40 mEq/L (21-27); ABG Oxygen Saturation 94 % (95-98); ABG PH 7.35 pH Units (7.32-7.45); ABG PO2 73 mmHg (85-104); ABG TCO2 43 mEq/L (20-26)
[2017-01-04 16:33] LABS: ABG PCO2 73 mmHg (35-45); Blood Gas Liter Flow 3 L/MIN; Blood Gas Modality NC
[2017-01-04 16:34] LABS: Blood Gas FiO2 32 %
[2017-01-04] MEDS ORDERED: Acetaminophen 325 MG TABLET PO PRN (16:59)
[2017-01-04] MEDS ORDERED: Ondansetron 4 MG/2 ML VIAL IVP PRN (16:59)
[2017-01-04] MEDS ORDERED: *HR* Promethazine 25 MG/ML VIAL IVP PRN (16:59)
[2017-01-04] MEDS ORDERED: Naloxone 0.4 MG/ML INJ IVP PRN (16:59)
--- NOTE | 2017-01-04 17:17 | Internal Med History&Physical ---
Date of Encounter: 01/04/17 Time of Encounter: 16:30 Assessment and Plan (1) Acute and chronic respiratory failure with hypercapnia Current visit: Yes Status: Acute Will admit the pt into Tele Reviewed ABG showed Acute respiratory acidosis with hypercapnea will start her on BiPAP 15/8, Fio2 40 repeat ABG in AM Duoneb and IV steroids (2) Acute and chronic respiratory failure with hypoxia Current visit: Yes Status: Acute see above (3) Acute delirium Current visit: Yes Status: Acute Mostly due to hypercapneic resp failure cont close monitoring (4) Syncope Current visit: Yes Status: Acute Unclear etiology could be due to resp failure however still need to r/o ACS, and arrythamias on Tele check serial trop 2 D Ehco and Carotid doppler resume all other home meds Qualifiers: Qualified Code(s): R55 - Syncope and collapse (5) History of DVT of lower extremity Current visit: No Status: Chronic resumed Coumadin INR - 1.4, will give higher dose tonight (6) Tobacco abuse Current visit: No Status: Chronic counseled to quit on nicotine patch (7) HTN (hypertension) Current visit: No Status: Chronic stable Qualifiers: Hypertension type: essential hypertension Qualified Code(s): I10 - Essential (primary) hypertension (8) Cancer of left lung Current visit: No Status: Chronic Qualifiers: Lung location: upper lobe of lung Qualified Code(s): C34.12 - Malignant neoplasm of upper lobe, left bronchus or lung (9) Fall Current visit: No Status: Acute PT / OT eval CT of head- negative for any hemorrhage Reviewed CT of Cervical, Thoracic spine -no fracture Qualifiers: Encounter type: initial encounter Qualified Code(s): W19.XXXA - Unspecified fall, initial encounter Internal Medicine - H&P: HPI Chief complaint: Fall / Syncope / Confused Admitted From: Emergency Dept Plans for Post Hospital Care: Home History of present illness: Ms. Hodge is a 71 year old female with hx of COPD O2 dependent on 2.5L. Lung cancer, h/o Left Leg DVT on Coumadin for anticoagulation, chronic tobacco dependence pt who was recently admitted here for acute bronchitis now she presented to ER after a mechanical fall she rolled out of bed hit her head and neck. Patient states that she is unsure if she lost consciousness. patient reports 6 out of 10 pain, she says that the back of her head. She looks little somnolent however she is alert, awake and O x 3, but falling asleep while talking to me. Denied any CP. Denied any cough with expectoration Past Med Surg Social Fam HX - Past Medical History Medical history: cancer, COPD, DVT, hypertension, osteoporosis, seizures, other Psychiatric history: anxiety, depression - Past Surgical History Surgical History: hip replacement (Left hip repairs), orthopedic, other ( Bilateral carpal tunnel release surgeries, left humerus fracture repair), other (Tubal ligation) - Social History Smoking Status: Current every day smoker Smokeless Tobacco Status: No Alcohol use: none Drug use: none - Family History Mother Hx Family Respiratory Disorders: Yes (COPD, emphysemza) Father Hx Family Cardiac Disorders: Yes (CHF) Internal Medicine - H&P: Meds Loratadine [Claritin] 10 mg PO DAILY #30 tablet 11/21/14 [Rx] Ascorbic Acid [Vitamin C] 500 mg PO DAILY 10/22/15 [History] Cyanocobalamin (Vitamin B-12) [Vitamin B12] 1,000 mcg PO DAILY 10/22/15 [History ] Acetaminophen [Tylenol] 500 mg PO Q6HR PRN 12/25/15 [History] Budesonide/Formoterol 160/4.5 [Symbicort 160/4.5] 1 puff IH BIDR 12/25/15 [ History] Calcium Carbonate/Vitamin D3 [Calcium 600 + Vit D Tablet] 1 each PO DAILY [History] Promethazine [Phenergan] 25 mg PO Q8HR PRN 12/25/15 [History] LevETIRAcetam [Levetiracetam] 500 mg PO BID 03/16/16 [History] Sertraline [Zoloft] 50 mg PO DAILY 03/16/16 [History] Simvastatin [Zocor] 20 mg PO DAILY 03/16/16 [History] Amitriptyline [Elavil] 50 mg PO HS #30 tablet 03/20/16 [Rx] Butalbital/Aspirin/Caffeine [Fiorinal 50-325-40 mg Capsule] 1 each PO TID PRN # 10 capsule 03/20/16 [Rx] Gabapentin [Neurontin] 300 mg PO TID #30 capsule 03/20/16 [Rx] OxyCODONE ER (12 HR) [OxyCONTIN] 20 mg PO Q12HR #20 tab.er.12h 03/20/16 [Rx] OxyCODONE Immed Rel [Roxicodone 5 MG] 10 mg PO Q6HR PRN #20 tablet 03/20/16 [Rx] Warfarin [Coumadin] 2.5 mg PO HS #7 tablet 01/02/17 [Rx] levoFLOXacin [Levaquin] 500 mg PO DAILY #4 tablet 01/02/17 [Rx] 3 Allergy/AdvReac Type Severity Reaction Status Date / Time No Known Allergies Allergy Verified 10/22/15 16:45 All Systems PM: A 10-system review of systems was performed and is negative for pertinent findings except as documented above in the HPI. Review of systems: All the systems are reviewed everything is benign except the systems and symptoms I mentioned in the history of present illness - Constitutional Vitals: Temp Pulse Resp BP Pulse Ox 97.7 F 91 18 154/86 99 01/04/17 16:48 01/04/17 15:54 01/04/17 16:54 01/04/17 16:48 01/04/17 16:54 General appearance: Present: A&O X 3 Exam: lethargic and sleepy. - Head Head exam: Present: atraumatic, normal inspection - Respiratory Respiratory exam: Present: decreased breath sounds, wheezes (moderate). Absent : rales, respiratory distress, rhonchi - Cardiovascular Cardiovascular exam: Present: RRR, +S1, +S2. Absent: diastolic murmur, gallop, rubs, systolic murmur - GI/Abdominal GI/Abdominal exam: Present: soft. Absent: rebound, rigid, tenderness - Extremities Exam Extremities exam: Absent: calf tenderness, pedal edema, tenderness - Neurological Exam Neurological exam: Present: alert, altered (slightly), oriented X3 - Psychiatric Psychiatric exam: Present: normal affect, normal mood Internal Med - H&P Results - Labs CBC & Chem 7: 01/04/17 14:50 01/04/17 14:50
[2017-01-04] MEDS ORDERED: *HR* Warfarin 3 MG TABLET PO ONE (18:00)
[2017-01-04] MEDS ORDERED: Warfarin perPT PO PRN (18:00)
[2017-01-04] MEDS: MethylPREDNISolone 40 MG/ML VIAL IVP SCH (18:25)
[2017-01-04] MEDS: *HR* HYDROcodone/Acet 5/325 mg TABLET PO PRN (18:29)
[2017-01-04] MEDS: Ipratropium/Albuterol Neb 3 ML IH SCH ×2 (19:42→23:35)
[2017-01-04] MEDS: *HR* Morphine 2 MG/ML SYRINGE IVP PRN (21:35)
[2017-01-04] MEDS: Famotidine 20 MG TABLET PO SCH (21:35)
--- NOTE | 2017-01-04 23:07 | Carotid Imaging Report ---
Carotid Duplex Patient Name:Claudia Hodge Order Number:[id number] Procedure Date:01/04/2017 Date:1945ge:71 yrs Gender:Female Lt BP:118 / 76 mmHg Rt.BP:118 / 76 mmHgHeart Rate: Location:[facility] Room #: 2A42 Environmental Health And Safety Manager:Azam Lo Referring MD:Jaqueline Barclay MD bilingual student tutor:Martínez Ellis M.D. Reading MD:Dada Patel MD , FACS Primary Indications:Syncope Risk Factors Yes/No Hypertension Yes Smoking Current Yes Impressions: Findings: Bilateral ICA have a moderate, 40-59% stenosis. Findings Carotid Duplex: Right: There is nonstenotic plaque in the right bifurcation. There is smooth homogeneous plaque. There is 40-59% stenosis in the right proximal internal carotid artery. There is smooth homogeneous plaque. There is 60-79% stenosis in the right mid internal carotid artery. There is smooth homogeneous plaque. Left: There is nonstenotic plaque in the left bifurcation. There is irregular homogeneous plaque. There is nonstenotic plaque in the left proximal internal carotid artery. There is smooth homogeneous plaque. There is 40-59% stenosis in the left distal internal carotid artery. There is smooth homogeneous plaque. Carotid Results Right PSV EDV Assessment Proximal CCA 79 13 Normal Mid CCA 91 18 Normal Distal CCA 87 28 Normal Bifurcation 69 18 Non Stenotic Plaque Proximal ICA 131 28 40-59% stenosis Mid ICA 135 52 60-79% stenosis Distal ICA 107 30 Post stenotic flow ECA 59 15 Normal Vertebral Artery 66 21 Antegrade Flow Left PSV EDV Assessment Proximal CCA 90 19 Normal Mid CCA 101 25 Normal Distal CCA 94 20 Normal Bifurcation 87 18 Non Stenotic Plaque Proximal ICA 86 27 Non Stenotic Plaque Mid ICA 92 27 Non Stenotic Plaque Distal ICA 132 49 40-59% stenosis ECA 77 6 Normal Vertebral Artery 58 11 Antegrade Flow Ratio's Right ICA/CCA Ratio: 1.48 ICA/CCA Values: 135/91 Left ICA/CCA Ratio: 1.31 ICA/CCA Values: 132/101 Updated by Dada Patel MD, FACS on 01/04/2017 11:01:45 PM Dada Patel MD electronically signed on 01/04/2017 11:02:05 PM with status of Final
[2017-01-05] MEDS: MethylPREDNISolone 40 MG/ML VIAL IVP SCH ×3 (02:54→11:24)
[2017-01-05] MEDS: *HR* HYDROcodone/Acet 5/325 mg TABLET PO PRN ×2 (03:14→09:28)
[2017-01-05] MEDS: Ipratropium/Albuterol Neb 3 ML IH SCH ×6 (03:21→23:34)
[2017-01-05 04:49] LABS: INR 1.4; Prothrombin Time 15.2 Seconds (9.4-12.1)
[2017-01-05 04:59] LABS: BUN/Creatinine Ratio 18 (6-26); Blood Urea Nitrogen 13 mg/dL (7-20); Calcium 9.4 mg/dL (8.6-10.8); Carbon Dioxide 32 mEq/L (19-29); Chloride 100 mEq/L (98-109); Glucose 124 mg/dL (70-99); Magnesium 1.2 mg/dL (1.6-2.6); Osmolality,Calculated 288 (280-300); Potassium 4.5 mEq/L (3.5-4.5); Sodium 138 mEq/L (136-145); eGFR For African Americans > 60 (> 60); eGFR For Non-African Americans > 60 (> 60)
[2017-01-05 05:04] LABS: Basophils % 0.7 %; Hematocrit 38.6 % (35.3-44.9); Immature Granulocytes % 0.5 % (0-4); Lymphocytes % 24.5 %; Mean Corpuscular HGB Conc 31.1 g/dL (31.6-35.5); Mean Corpuscular Hemoglobin 30.2 pg (28.0-33.3); Mean Platelet Volume 10.7 fL (9.4-12.4); Monocytes # 0.2 K/mcL (0.0-1.3); Monocytes % 3.6 %; Platelet Count 403 K/mcL (140-400); Red Blood Count 3.98 M/mcL (3.82-4.97); Red Cell Distribution Width 13.3 % (11.5-14.5); Segmented Neutrophils % 70.7 %
[2017-01-05] MEDS: *HR* Morphine 2 MG/ML SYRINGE IVP PRN (06:39)
[2017-01-05] MEDS: Famotidine 20 MG TABLET PO SCH ×2 (07:19→20:58)
[2017-01-05] MEDS ORDERED: Magnesium Sulfate 4 GM in D5% in Water 100 ML IVPB ONE (12:07)
[2017-01-05] MEDS ORDERED: Magnesium Sulfate 2 GM in D5% in Water 100 ML IVPB SCH (12:08)
--- NOTE | 2017-01-05 12:14 | Internal Med Progress Note ---
Date of Encounter: 01/05/17 Time of Encounter: 12:10 - Subjective Interval history: Ms. Claudia Hodge is a 71-year-old female who came in with his syncopal episode. And is on Coumadin for history of DVT and also has hypercapnic chronic respiratory failure while she still smokes. She is on heavy dose narcotic medication. Apparently she was trying to get out of bed and fell and hit her head with bed railing. CT head in ER is negative. Patient denies any unconsciousness. Patient seen and examined and discuss care and PCR around levels reviewed. #1 fall/near syncopal episode. CT head is negative as well as echocardiogram and ultrasound of the carotids. Carotid ultrasound showed 40-59% possible stenosis bilaterally while cardiac echocardiogram showed EF of 60%. Continue observing however I suspect it has to do something with her high-dose narcotic medication and hypercapnia and counseling provided. Check UA #2 acute on chronic hypercapnic respiratory failure continue nebulizer and BiPAP #3 history of DVT continue following INR. Patient failed outpatient antibiotic treatment. IV Solu-Medrol maintenance Mucinex added. Pain medication change to his home medication which is OxyContin and oxycodone at a lower dose though. - Constitutional Vitals: Temp Pulse Resp BP Pulse Ox 98.2 F 82 16 120/70 98 01/05/17 10:51 01/05/17 10:51 01/05/17 11:10 01/05/17 10:51 01/05/17 11:10 General appearance: Present: A&O X 3 - Head Head exam: Present: atraumatic, normocephalic - Eye Eye exam: Present: PERRL, conjuntiva pink, sclera anicteric Pupils: Present: PERRL - Neck Neck exam general surgery: Present: supple, trachea midline. Absent: lymphadenopathy - Respiratory Respiratory exam: Present: CTAB, rhonchi, wheezes. Absent: accessory muscle use , rales - Cardiovascular Cardiovascular exam: Present: RRR, +S1, +S2. Absent: diastolic murmur, gallop, rubs, systolic murmur - GI/Abdominal GI/Abdominal exam: Present: normal bowel sounds, soft, no peritoneal signs. Absent: distended, tenderness - Extremities Exam Extremities exam: Present: warm, radial pulses palpable and symmetrical. Absent : calf tenderness, cyanotic, pedal edema - Neurological Exam Neurological exam: Present: CN II-XII intact, oriented X3, no focal deficits. Absent: pronater drift, facial droop, speech deficit - Skin Skin exam: Present: dry, intact Internal Medicine: Result - Labs CBC & Chem 7: 01/05/17 04:34 01/05/17 04:34 Labs: Short CBC 01/05/17 Range/Units 04:34 WBC 4.2 L (4.3-11.1) K/mcL Hgb 12.0 (11.5-15.4) g/dL Hct 38.6 (35.3-44.9) % Plt Count 403 H (140-400) K/mcL Neutrophils # 3.0 (1.6-8.9) K/mcL BMP 01/05/17 04:34 Sodium 138 Potassium 4.5 Chloride 100 Carbon Dioxide 32 H BUN 13 Creatinine 0.71 Glucose 124 H Calcium 9.4 Cardiac Enzymes 01/04/17 01/05/17 Range/Units 21:29 04:34 Troponin I 0.03 0.02 (0-0.03) ng/mL - ABG Interpretation ABG results: ABG ABG pH 7.35 pH Units (7.32-7.45) 01/04/17 16:22 ABG pCO2 73 mmHg (35-45) H* 01/04/17 16:22 ABG pO2 73 mmHg (85-104) L 01/04/17 16:22 ABG O2 Saturation 94 % (95-98) L 01/04/17 16:22 PT/INR, D-dimer PT 15.2 Seconds (9.4-12.1) H 01/05/17 04:34 - Impressions Impressions Echocardiogram 01/04/17 17:06 Impressions: LVEF 60%. Normal left ventricular size and systolic function. There is evidence of mild diastolic dysfunction of the left ventricle. Normal right ventricular size and function. Mild pulmonic regurgitation. No pulmonary hypertension. Left Ventricular Wall Motion: Rest Echo Findings All wall segments showed normal motion. Findings: Study Quality * Technically adequate exam. ECG Findings * Normal sinus rhythm. Left Ventricle * LVEF 60%. * Normal LV chamber size, wall thickness and function. * Mild left ventricular diastolic dysfunction. Aorta * Normally sized aortic root. Aortic Valve * No aortic regurgitation. * No aortic stenosis. * Trileaflet aortic valve. * Normal aortic valve structure. Mitral Valve * No mitral regurgitation. * Normal mitral valve structure. * No mitral stenosis. Tricuspid Valve * Trace tricuspid regurgitation. * Normal tricuspid valve structure. * Estimated RA pressure is 3 mmHg. * Estimated RVSP is 21 mmHg. * No pulmonary hypertension. Pulmonic Valve * Pulmonic valve is not well visualized. * No pulmonic stenosis. * Mild pulmonic regurgitation. Pulmonary Artery * Pulmonary artery not well visualized. Right Ventricle * Normal RV size. Function appears normal. Lat S Venkat not performed. Left Atrium * Normal left atrial size. Right Atrium * Normal right atrial size. Pericardium * There is no pericardial effusion present. Interatrial Septum * No evidence of PFO by color Doppler. IVC * The IVC is not dilated. Consult Discharge Plan - Plan Referrals: Martínez Ellis MD [Primary Care Provider] -
[2017-01-05] MEDS: Magnesium Sulfate 2 GM in D5% in Water 100 ML IVPB SCH ×2 (14:18→16:43)
[2017-01-05] MEDS: *HR* OxyCODONE Immed Rel 5 MG TABLET PO PRN (16:42)
[2017-01-05] MEDS: levoFLOXacin 500 MG TABLET PO SCH (16:42)
[2017-01-05] MEDS: levETIRAcetam 250 MG TABLET PO SCH (17:42)
[2017-01-05] MEDS: *HR* LORazepam 0.5 MG TABLET PO PRN (17:59)
[2017-01-05] MEDS: Nicotine 21 MG PATCH.TD24 TD SCH (17:59)
[2017-01-05] MEDS ORDERED: *HR* Warfarin 2.5 MG TABLET PO ONE (18:00)
--- NOTE | 2017-01-05 19:11 | Electrocardiograph Report ---
[address] [address] Test Date: 2017-01-04 Pat Name: Claudia Hodge Department: 103 Room: 2A42 Gender: F Education Reporter: EKP : 1945 Requested By: Kade Maza Order Number: [id number] Reading MD: Beatrice Hassan Measurements Intervals [place] Rate: 96 P: 73 MT: 138 QRS: 47 QRSD: 91 T: 67 QT: 334 QTc: 388 Interpretive Statements SINUS RHYTHM Electronically Signed On 01-05-2017 19:09:43 EDT by Beatrice Hassan
[2017-01-05 20:08] LABS: Bilirubin,Urine Negative (Negative); Blood,Urine Trace (Negative); Clarity,Urine Clear (Clear); Color,Urine Yellow (Yellow); Glucose,Urine (UA) Normal (Normal); Ketones,Urine Negative (Negative); Leukocyte Esterase,Urine Trace (Negative); Nitrite,Urine Negative (Negative); Protein,Urine Negative (Neg-Trace); Specific Gravity,Urine 1.015 (1.010-1.025); Urobilinogen,Urine Normal (Normal)
[2017-01-05 20:11] LABS: Bacteria,Urine None Seen per hpf (None-Few); Hyaline Casts,Urine None Seen per lpf (None-Few); Squamous Epithelial Cell,Urine Many per lpf (None-Few)
[2017-01-05] MEDS: methylPREDNISolone 125 MG/2 ML VIAL IVP SCH (20:58)
[2017-01-06] MEDS: Ipratropium/Albuterol Neb 3 ML IH SCH ×5 (03:33→20:29)
[2017-01-06] MEDS: methylPREDNISolone 125 MG/2 ML VIAL IVP SCH ×3 (03:45→21:05)
[2017-01-06] MEDS: *HR* OxyCODONE Immed Rel 5 MG TABLET PO PRN ×3 (03:49→16:47)
[2017-01-06 05:32] LABS: INR 1.5; Prothrombin Time 16.8 Seconds (9.4-12.1)
[2017-01-06 05:38] LABS: Alanine Aminotransferase 22 Units/L (0-55); Albumin 2.4 g/dL (3.5-5.0); Albumin/Globulin Ratio 0.4 (1.1-2.2); Alkaline Phosphatase 88 Units/L (38-126); Aspartate Amino Transferase 25 Units/L (5-34); BUN/Creatinine Ratio 25 (6-26); Bilirubin,Total 0.3 mg/dL (0.2-1.2); Blood Urea Nitrogen 19 mg/dL (7-20); Calcium 9.5 mg/dL (8.6-10.8); Carbon Dioxide 32 mEq/L (19-29); Chloride 99 mEq/L (98-109); Globulin 5.6 g/dL (2.4-3.5); Glucose 115 mg/dL (70-99); Magnesium 1.8 mg/dL (1.6-2.6); Osmolality,Calculated 291 (280-300); Potassium 3.9 mEq/L (3.5-4.5); Sodium 139 mEq/L (136-145); eGFR For African Americans > 60 (> 60); eGFR For Non-African Americans > 60 (> 60)
[2017-01-06] MEDS: levETIRAcetam 250 MG TABLET PO SCH ×2 (06:02→17:14)
[2017-01-06] MEDS: Famotidine 20 MG TABLET PO SCH ×2 (09:02→21:04)
[2017-01-06] MEDS: levoFLOXacin 500 MG TABLET PO SCH (09:02)
[2017-01-06] MEDS: Nicotine 21 MG PATCH.TD24 TD SCH (09:03)
--- NOTE | 2017-01-06 16:47 | Internal Med Progress Note ---
Date of Encounter: 01/06/17 Time of Encounter: 16:43 - Assessment and plan (1) COPD with acute exacerbation Current Visit: Yes Status: Acute (2) DVT (deep venous thrombosis) Current Visit: Yes Status: Acute Qualifiers: DVT location: lower extremity Affected thrombotic vein of extremity: unspecified lower extremity distal vein Laterality: left Qualified Code(s): I82.4Z2 - Acute embolism and thrombosis of unspecified deep veins of left distal lower extremity (3) Tobacco abuse Current Visit: Yes Status: Chronic (4) Cancer of left lung Current Visit: No Status: Chronic Qualifiers: Lung location: upper lobe of lung Qualified Code(s): C34.12 - Malignant neoplasm of upper lobe, left bronchus or lung (5) Fall Current Visit: Yes Status: Acute Qualifiers: Encounter type: initial encounter Qualified Code(s): W19.XXXA - Unspecified fall, initial encounter (6) Acute and chronic respiratory failure with hypercapnia Current Visit: Yes Status: Acute (7) Syncope Current Visit: Yes Status: Acute Qualifiers: Syncope type: unspecified Qualified Code(s): R55 - Syncope and collapse - Subjective Interval history: Ms. Claudia Hodge is a 71-year-old female who came in with his syncopal episode. And is on Coumadin for history of DVT and also has hypercapnic chronic respiratory failure while she still smokes. She is on heavy dose narcotic medication. Apparently she was trying to get out of bed and fell and hit her head with bed railing. CT head in ER is negative. Patient denies any unconsciousness. Patient seen and examined and discuss care and PCR around levels reviewed. Patient seems much better as she was restarted on nebulizers and Solu-Medrol. She is on lower dose of her pain medication but is still quite comfortable and does not complain of any pain. #1 fall/near syncopal episode. CT head is negative as well as echocardiogram and ultrasound of the carotids. Carotid ultrasound showed 40-59% possible stenosis bilaterally while cardiac echocardiogram showed EF of 60%. Continue observing however I suspect it has to do something with her high-dose narcotic medication and hypercapnia and counseling provided. Urine though contaminated shows some leukocytes but negative for nitrite cultures pending. Patient is already on Levaquin #2 acute on chronic hypercapnic respiratory failure continue nebulizer. Patient failed outpatient antibiotic treatment. IV Solu-Medrol maintenance Mucinex added. Levaquin 500 added #3 history of DVT continue following INR. He is on Coumadin #4 chronic pain management: Pain medication change to her home medication which is OxyContin and oxycodone, at a lower dose though. - Constitutional Vitals: Temp Pulse Resp BP Pulse Ox 98.0 F 81 17 137/84 91 01/06/17 16:10 01/06/17 16:10 01/06/17 16:10 01/06/17 16:10 01/06/17 16:10 General appearance: Present: A&O X 3 - Head Head exam: Present: atraumatic, normocephalic - Eye Eye exam: Present: PERRL, conjuntiva pink, sclera anicteric Pupils: Present: PERRL - Neck Neck exam general surgery: Present: supple, trachea midline. Absent: lymphadenopathy - Respiratory Respiratory exam: Present: CTAB, wheezes. Absent: accessory muscle use, rales, rhonchi Additional comments: Breath sounds are much better scattered wheezing and some rhonchi but overall airflow is better - Cardiovascular Cardiovascular exam: Present: RRR, +S1, +S2. Absent: diastolic murmur, gallop, rubs, systolic murmur - GI/Abdominal GI/Abdominal exam: Present: normal bowel sounds, soft, no peritoneal signs. Absent: distended, tenderness - Extremities Exam Extremities exam: Present: warm, radial pulses palpable and symmetrical. Absent : calf tenderness, cyanotic, pedal edema - Neurological Exam Neurological exam: Present: CN II-XII intact, oriented X3, no focal deficits. Absent: pronater drift, facial droop, speech deficit - Skin Skin exam: Present: dry, intact Internal Medicine: Result - Labs CBC & Chem 7: 01/05/17 04:34 01/06/17 04:05 Labs: BMP 01/06/17 04:05 Sodium 139 Potassium 3.9 Chloride 99 Carbon Dioxide 32 H BUN 19 Creatinine 0.77 Glucose 115 H Calcium 9.5 Liver Function 01/06/17 Range/Units 04:05 Total Bilirubin 0.3 (0.2-1.2) mg/dL AST 25 (5-34) Units/L ALT 22 (0-55) Units/L Alkaline Phosphatase 88 (38-126) Units/L Albumin 2.4 L (3.5-5.0) g/dL Urine 01/05/17 Range/Units 19:56 Urine Color Yellow (Yellow) Urine Clarity Clear (Clear) Urine pH 6.0 (5.0-8.0) pH Units Ur Specific [place] 1.015 (1.010-1.025) Urine Protein Negative (Neg-Trace) mg/dL Urine Glucose (UA) Normal (Normal) mg/dL - ABG Interpretation ABG results: ABG ABG pH 7.35 pH Units (7.32-7.45) 01/04/17 16:22 ABG pCO2 73 mmHg (35-45) H* 01/04/17 16:22 ABG pO2 73 mmHg (85-104) L 01/04/17 16:22 ABG O2 Saturation 94 % (95-98) L 01/04/17 16:22 PT/INR, D-dimer PT 16.8 Seconds (9.4-12.1) H 01/06/17 04:05 Consult Discharge Plan - Plan Referrals: Martínez Ellis MD [Primary Care Provider] - 01/14/17 2:15 pm
[2017-01-06] MEDS ORDERED: *HR* Warfarin 2.5 MG TABLET PO ONE (18:00)
[2017-01-07] MEDS: *HR* OxyCODONE Immed Rel 5 MG TABLET PO PRN ×2 (00:19→09:55)
[2017-01-07] MEDS: Ipratropium/Albuterol Neb 3 ML IH SCH ×5 (00:24→15:27)
[2017-01-07] MEDS: methylPREDNISolone 125 MG/2 ML VIAL IVP SCH (05:17)
[2017-01-07] MEDS: levETIRAcetam 250 MG TABLET PO SCH (05:17)
[2017-01-07] MEDS: *HR* HYDROcodone/Acet 5/325 mg TABLET PO PRN (05:18)
[2017-01-07 05:33] LABS: INR 1.4; Prothrombin Time 15.4 Seconds (9.4-12.1)
[2017-01-07 05:45] LABS: Alanine Aminotransferase 57 Units/L (0-55); Albumin 2.5 g/dL (3.5-5.0); Albumin/Globulin Ratio 0.5 (1.1-2.2); Alkaline Phosphatase 88 Units/L (38-126); Aspartate Amino Transferase 77 Units/L (5-34); BUN/Creatinine Ratio 27 (6-26); Bilirubin,Total 0.4 mg/dL (0.2-1.2); Blood Urea Nitrogen 20 mg/dL (7-20); Calcium 9.2 mg/dL (8.6-10.8); Carbon Dioxide 29 mEq/L (19-29); Chloride 103 mEq/L (98-109); Globulin 5.3 g/dL (2.4-3.5); Glucose 112 mg/dL (70-99); Magnesium 1.7 mg/dL (1.6-2.6); Osmolality,Calculated 293 (280-300); Potassium 3.9 mEq/L (3.5-4.5); Sodium 140 mEq/L (136-145); Total Protein 7.8 g/dL (6.0-8.3); eGFR For African Americans > 60 (> 60); eGFR For Non-African Americans > 60 (> 60)
[2017-01-07] MEDS: *HR* LORazepam 0.5 MG TABLET PO PRN (09:54)
[2017-01-07] MEDS: levoFLOXacin 500 MG TABLET PO SCH (09:54)
[2017-01-07] MEDS: Famotidine 20 MG TABLET PO SCH (09:55)
[2017-01-07] MEDS: Nicotine 21 MG PATCH.TD24 TD SCH (09:56)
[2017-01-07] MEDS ORDERED: *HR* Warfarin 5 MG TABLET PO ONE ×4 (09:57→18:00)
[2017-01-07] MEDS ORDERED: *HR* Enoxaparin 40 MG/0.4 ML SYRINGE SQ SCH (10:00)
--- NOTE | 2017-01-07 10:01 | Internal Med Progress Note ---
Date of Encounter: 01/07/17 Time of Encounter: 09:59 - Assessment and plan (1) Acute and chronic respiratory failure with hypercapnia Current Visit: Yes Status: Acute (2) COPD with acute exacerbation Current Visit: Yes Status: Acute (3) DVT (deep venous thrombosis) Current Visit: Yes Status: Acute Qualifiers: DVT location: lower extremity Affected thrombotic vein of extremity: unspecified lower extremity distal vein Laterality: left Qualified Code(s): I82.4Z2 - Acute embolism and thrombosis of unspecified deep veins of left distal lower extremity (4) Syncope Current Visit: Yes Status: Acute Qualifiers: Syncope type: unspecified Qualified Code(s): R55 - Syncope and collapse (5) Fall Current Visit: Yes Status: Acute Qualifiers: Encounter type: initial encounter Qualified Code(s): W19.XXXA - Unspecified fall, initial encounter (6) Cancer of left lung Current Visit: No Status: Chronic Qualifiers: Lung location: upper lobe of lung Qualified Code(s): C34.12 - Malignant neoplasm of upper lobe, left bronchus or lung (7) Tobacco abuse Current Visit: Yes Status: Chronic - Subjective Interval history: Ms. Claudia Hodge is a 71-year-old female who came in with his syncopal episode. And is on Coumadin for history of DVT and also has hypercapnic chronic respiratory failure while she still smokes. She is on heavy dose narcotic medication. Apparently she was trying to get out of bed and fell and hit her head with bed railing. CT head in ER is negative. Patient denies any unconsciousness. Patient seen and examined and discuss care and PCR around levels reviewed. Patient seems much better as she was started on nebulizers and Solu-Medrol. She is on lower dose of her pain medication but is still quite comfortable and does not complain of any pain. #1 fall/near syncopal episode. CT head is negative as well as echocardiogram and ultrasound of the carotids. Carotid ultrasound showed 40-59% possible stenosis bilaterally while cardiac echocardiogram showed EF of 60%. Continue observing however I suspect it has to do something with her high-dose narcotic medication and hypercapnia and counseling provided. Urine though contaminated shows some leukocytes but negative for nitrite cultures pending. Patient is already on Levaquin #2 acute on chronic hypercapnic respiratory failure continue nebulizer. Patient failed outpatient antibiotic treatment. IV Solu-Medrol maintenance Mucinex added. Levaquin 500 added #3 history of DVT continue following INR. She is on Coumadin and INR is continuously going down. Today 1.4. Given extra 5 mg of Coumadin and start Lovenox for bridging #4 chronic pain management: Pain medication change to her home medication which is OxyContin and oxycodone, at a lower dose though. - Constitutional Vitals: Temp Pulse Resp BP Pulse Ox 98.1 F 90 18 155/76 100 01/07/17 07:41 01/07/17 07:41 01/07/17 07:52 01/07/17 07:41 01/07/17 07:58 General appearance: Present: A&O X 3 - Head Head exam: Present: atraumatic, normocephalic - Eye Eye exam: Present: PERRL, conjuntiva pink, sclera anicteric Pupils: Present: PERRL - Neck Neck exam general surgery: Present: supple, trachea midline. Absent: lymphadenopathy - Respiratory Respiratory exam: Present: CTAB. Absent: accessory muscle use, rales, rhonchi, wheezes - Cardiovascular Cardiovascular exam: Present: RRR, +S1, +S2. Absent: diastolic murmur, gallop, rubs, systolic murmur - GI/Abdominal GI/Abdominal exam: Present: normal bowel sounds, soft, no peritoneal signs. Absent: distended, tenderness - Extremities Exam Extremities exam: Present: warm, radial pulses palpable and symmetrical. Absent : calf tenderness, cyanotic, pedal edema - Neurological Exam Neurological exam: Present: CN II-XII intact, oriented X3, no focal deficits. Absent: pronater drift, facial droop, speech deficit - Skin Skin exam: Present: dry, intact Internal Medicine: Result - Labs CBC & Chem 7: 01/05/17 04:34 01/07/17 05:13 Labs: BMP 01/07/17 05:13 Sodium 140 Potassium 3.9 Chloride 103 Carbon Dioxide 29 BUN 20 Creatinine 0.73 Glucose 112 H Calcium 9.2 Liver Function 01/07/17 Range/Units 05:13 Total Bilirubin 0.4 (0.2-1.2) mg/dL AST 77 H (5-34) Units/L ALT 57 H (0-55) Units/L Alkaline Phosphatase 88 (38-126) Units/L Albumin 2.5 L (3.5-5.0) g/dL - ABG Interpretation ABG results: ABG ABG pH 7.35 pH Units (7.32-7.45) 01/04/17 16:22 ABG pCO2 73 mmHg (35-45) H* 01/04/17 16:22 ABG pO2 73 mmHg (85-104) L 01/04/17 16:22 ABG O2 Saturation 94 % (95-98) L 01/04/17 16:22 PT/INR, D-dimer PT 15.4 Seconds (9.4-12.1) H 01/07/17 05:13 Consult Discharge Plan - Plan Instructions: Acute Respiratory Distress Syndrome (DC), Chronic Obstructive Pulmonary Disease (DC), Fall Prevention (DC) Referrals: Martínez Ellis MD [Primary Care Provider] - 01/14/17 2:15 pm
[2017-01-07 12:36] VITALS: BP 118/70
--- NOTE | 2017-01-07 14:56 | Discharge Summary ---
Date of Encounter: 01/07/17 Time of Encounter: 14:45 - Discharge Diagnosis (1) Acute and chronic respiratory failure with hypercapnia Priority: Primary Status: Acute (2) COPD with acute exacerbation Priority: Primary Status: Acute (3) DVT (deep venous thrombosis) Priority: Secondary Status: Chronic Qualifiers: DVT location: lower extremity Affected thrombotic vein of extremity: unspecified lower extremity distal vein Laterality: left Qualified Code(s): I82.4Z2 - Acute embolism and thrombosis of unspecified deep veins of left distal lower extremity (4) Syncope Priority: Secondary Status: Acute Qualifiers: Syncope type: unspecified Qualified Code(s): R55 - Syncope and collapse (5) Fall Priority: Secondary Status: Acute Qualifiers: Encounter type: initial encounter Qualified Code(s): W19.XXXA - Unspecified fall, initial encounter (6) Cancer of left lung Priority: Secondary Status: Chronic Qualifiers: Lung location: upper lobe of lung Qualified Code(s): C34.12 - Malignant neoplasm of upper lobe, left bronchus or lung (7) Tobacco abuse Priority: Secondary Status: Chronic - Discharge Medications Prescriptions: Ipratropium/Albuterol Neb [Duoneb] 3 ml IH Q6HR #120 inhsol Enoxaparin [Lovenox] 40 mg SQ Q12HR #10 syr levoFLOXacin [Levaquin] 500 mg PO DAILY #7 tablet Nicotine Patch [Nicoderm] 21 mg TD DAILY #20 patch.td24 predniSONE [PredniSONE] 10 mg PO DAILY #40 tablet Warfarin [Coumadin] 5 mg PO HS #15 tablet Home Medications: Ascorbic Acid [Vitamin C] 500 mg PO DAILY 10/22/15 [History] Cyanocobalamin (Vitamin B-12) [Vitamin B12] 1,000 mcg PO DAILY 10/22/15 [History ] Acetaminophen [Tylenol] 1,000 mg PO Q6HR PRN 12/25/15 [History] Budesonide/Formoterol 160/4.5 [Symbicort 160/4.5] 1 puff IH BIDR 12/25/15 [ History] LevETIRAcetam [Levetiracetam] 500 mg PO BID 03/16/16 [History] Simvastatin [Zocor] 20 mg PO DAILY 03/16/16 [History] Amitriptyline [Elavil] 50 mg PO HS #30 tablet 03/20/16 [Rx] levoFLOXacin [Levaquin] 500 mg PO DAILY #4 tablet 01/02/17 [Rx] Calcium Carbonate [Calcium] 600 mg PO DAILY 01/04/17 [History] Diclofenac Sodium 4 gm TP QID PRN 01/04/17 [History] Ipratropium/Albuterol Sulfate [Combivent Respimat Inhal [place]] 2 puff IH Q4H PRN 01/04/17 [History] LORazepam [Ativan] 1 mg PO Q2H PRN 01/04/17 [History] Loratadine [Claritin] 10 mg PO DAILY PRN 01/04/17 [History] Oxycodone HCl 15 mg PO Q4H PRN 01/04/17 [History] Oxygen 2 l NS AD 01/04/17 [History] Ranitidine HCl [Zantac] 150 mg PO BID 01/04/17 [History] Sertraline [Zoloft] 100 mg PO DAILY 01/04/17 [History] Vitamin B Complex Vit C No.4 [Super B Complex] 150 mg PO DAILY 01/04/17 [History ] Enoxaparin [Lovenox] 40 mg SQ Q12HR #10 syr 01/07/17 [Rx] Ipratropium/Albuterol Neb [Duoneb] 3 ml IH Q6HR #120 inhsol 01/07/17 [Rx] Nicotine Patch [Nicoderm] 21 mg TD DAILY #20 patch.td24 01/07/17 [Rx] Warfarin [Coumadin] 5 mg PO HS #15 tablet 01/07/17 [Rx] levoFLOXacin [Levaquin] 500 mg PO DAILY #7 tablet 01/07/17 [Rx] predniSONE [PredniSONE] 10 mg PO DAILY #40 tablet 01/07/17 [Rx] Allergies/Adverse Reactions: 3 Allergy/AdvReac Type Severity Reaction Status Date / Time No Known Allergies Allergy Verified 10/22/15 16:45 Procedures/tests Complete & Pending: Procedures Performed prior 72 hours Category Date Time Status EV carotid duplex imaging BI Routine Y 01/04/17 17:06 Completed EV echocardiogram Routine Y 01/04/17 17:06 Completed Date of admission: 01/04/17 16:59 Primary care physician: Martínez Ellis MD Discharging clinician: Erin Plascencia Anticipated date of discharge: 01/07/17 - Patient Status Disposition: Hospice - Home Condition: Fair Functional capacity at discharge: independent ambulation - Discharge Instructions Instructions: Acute Respiratory Distress Syndrome (DC), Chronic Obstructive Pulmonary Disease (DC), Fall Prevention (DC) Follow Up With: Martínez Ellis MD [Primary Care Provider] - 01/14/17 2:15 pm - Diet and Activity Activity: resume usual activities as tolerated Diet: advance to your usual diet Hospital course: Ms. Claudia Hodge is a 71-year-old female who came in with his syncopal episode. She is on Coumadin for history of multiple multiple DVTs and also has hypercapnic chronic respiratory failure while she still smokes. She is on heavy dose narcotic medication. Apparently she was trying to get out of bed and fell and hit her head with bed railing. CT head in ER is negative. Patient denies any unconsciousness. Patient seen and examined and discuss care and PCR around levels reviewed. Patient seems much better as she was started on nebulizers and Solu-Medrol. She is on lower dose of her pain medication but is still quite comfortable and does not complain of any pain. #1 fall/near syncopal episode. CT head is negative as well as echocardiogram and ultrasound of the carotids. Carotid ultrasound showed 40-59% possible stenosis bilaterally while cardiac echocardiogram showed EF of 60%. Patient was observed closely however I suspect it has to do something with her high- dose narcotic medication and hypercapnia and counseling provided. Urine though contaminated shows some leukocytes but negative for nitrite cultures pending. Patient is already on Levaquin #2 acute on chronic hypercapnic respiratory failure continue nebulizer. Patient failed outpatient antibiotic treatment. Treated successfully with Levaquin IV steroid med nebs and now switched to oral substitutes. #3 history of DVT continue following INR. She is on Coumadin and INR is continuously going down. Today 1.4. Given extra 7.5 mg of Coumadin and start Lovenox for bridging. Apparently her INR was quite high recently therefore Coumadin dose was drastically reduced. She was taking 7.5 before but at home now she is at 5 which I think is a reasonable dose to continue while she is on Lovenox. We have asked her to follow with her family doctor's office for further checkup of INR and Coumadin dose adjustment on daily basis. #4 chronic pain management: Considering her weight our recommendation is to keep her on relatively less dose of oxycodone/OxyContin. Discussed with patient and explained to her.. - Time Spent with Patient Total time spent providing and/or coordinating discharge services: Greater than 30 minutes - Constitutional Vitals: Temp Pulse Resp BP Pulse Ox 98.0 F 96 18 118/70 95 01/07/17 10:40 01/07/17 10:40 01/07/17 11:05 01/07/17 10:40 01/07/17 11:05 General appearance: Present: A&O X 3 - Head Head exam: Present: atraumatic, normocephalic - Eye Eye exam: Present: PERRL, conjuntiva pink, sclera anicteric Pupils: Present: PERRL - Neck Neck exam general surgery: Present: supple, trachea midline. Absent: lymphadenopathy - Respiratory Respiratory exam: Present: CTAB. Absent: accessory muscle use, rales, rhonchi, wheezes - Cardiovascular Cardiovascular exam: Present: RRR, +S1, +S2. Absent: diastolic murmur, gallop, rubs, systolic murmur - GI/Abdominal GI/Abdominal exam: Present: normal bowel sounds, soft, no peritoneal signs. Absent: distended, tenderness - Extremities Exam Extremities exam: Present: warm, radial pulses palpable and symmetrical. Absent : calf tenderness, cyanotic, pedal edema - Neurological Exam Neurological exam: Present: CN II-XII intact, oriented X3, no focal deficits. Absent: pronater drift, facial droop, speech deficit - Skin Skin exam: Present: dry, intact
[2017-01-07] MEDS ORDERED: FLUARIX QUAD 2017-18 36MOS UP/PF 0.5 ML SYRINGE IM ONE (15:11)
--- NOTE | 2017-01-07 15:37 | Physician Discharge Referral ---
Home Health/Hosp Referral Info Transfer to: Home Health Attending Provider: ana cristina Provider in Charge Post Discharge: PCP - Diagnosis (1) Acute and chronic respiratory failure with hypercapnia Status: Acute (2) COPD with acute exacerbation Status: Acute (3) DVT (deep venous thrombosis) Status: Chronic (4) Syncope Status: Acute (5) Fall Status: Acute (6) Cancer of left lung Status: Chronic (7) Tobacco abuse Status: Chronic - Respiratory Orders Smoking Cessation: Smoking cessation has been advised. For more information, call the [place] Tobacco Quit Line at 8-516-ZROA-NOW. - Services Needed Following services are medically necessary services: Nursing, Home Health Aide, Physical Therapy - Transfer Medications Prescriptions: Ipratropium/Albuterol Neb [Duoneb] 3 ml IH Q6HR #120 inhsol Enoxaparin [Lovenox] 40 mg SQ Q12HR #10 syr levoFLOXacin [Levaquin] 500 mg PO DAILY #7 tablet Nicotine Patch [Nicoderm] 21 mg TD DAILY #20 patch.td24 predniSONE [PredniSONE] 10 mg PO DAILY #40 tablet Warfarin [Coumadin] 5 mg PO HS #15 tablet Home Medications: Ascorbic Acid [Vitamin C] 500 mg PO DAILY 10/22/15 [History] Cyanocobalamin (Vitamin B-12) [Vitamin B12] 1,000 mcg PO DAILY 10/22/15 [History ] Acetaminophen [Tylenol] 1,000 mg PO Q6HR PRN 12/25/15 [History] Budesonide/Formoterol 160/4.5 [Symbicort 160/4.5] 1 puff IH BIDR 12/25/15 [ History] LevETIRAcetam [Levetiracetam] 500 mg PO BID 03/16/16 [History] Simvastatin [Zocor] 20 mg PO DAILY 03/16/16 [History] Amitriptyline [Elavil] 50 mg PO HS #30 tablet 03/20/16 [Rx] levoFLOXacin [Levaquin] 500 mg PO DAILY #4 tablet 01/02/17 [Rx] Calcium Carbonate [Calcium] 600 mg PO DAILY 01/04/17 [History] Diclofenac Sodium 4 gm TP QID PRN 01/04/17 [History] Ipratropium/Albuterol Sulfate [Combivent Respimat Inhal [place]] 2 puff IH Q4H PRN 01/04/17 [History] LORazepam [Ativan] 1 mg PO Q2H PRN 01/04/17 [History] Loratadine [Claritin] 10 mg PO DAILY PRN 01/04/17 [History] Oxycodone HCl 15 mg PO Q4H PRN 01/04/17 [History] Oxygen 2 l NS AD 01/04/17 [History] Ranitidine HCl [Zantac] 150 mg PO BID 01/04/17 [History] Sertraline [Zoloft] 100 mg PO DAILY 01/04/17 [History] Vitamin B Complex Vit C No.4 [Super B Complex] 150 mg PO DAILY 01/04/17 [History ] Enoxaparin [Lovenox] 40 mg SQ Q12HR #10 syr 01/07/17 [Rx] Ipratropium/Albuterol Neb [Duoneb] 3 ml IH Q6HR #120 inhsol 01/07/17 [Rx] Nicotine Patch [Nicoderm] 21 mg TD DAILY #20 patch.td24 01/07/17 [Rx] Warfarin [Coumadin] 5 mg PO HS #15 tablet 01/07/17 [Rx] levoFLOXacin [Levaquin] 500 mg PO DAILY #7 tablet 01/07/17 [Rx] predniSONE [PredniSONE] 10 mg PO DAILY #40 tablet 01/07/17 [Rx] Allergies/Adverse Reactions: 3 Allergy/AdvReac Type Severity Reaction Status Date / Time No Known Allergies Allergy Verified 10/22/15 16:45 Certification: Further, I certify that my clinical findings support that this patient is homebound (i.e. absences from home require considerable and taxing effort and are for medical reasons or worship services or infrequently or short duration when for other reasons) because: Homebound Reason: Patient requires assistance of a person or device to safely leave home Attestation: My signature below is to certify that this patient is under my care and that I, or nurse practitioner, or a physician's assistant front desk manager working with me, has a face-to -face encounter with this patient.
[2017-01-07] MEDS ORDERED: predniSONE 20 MG TABLET PO SCH (17:00)
[2017-01-07] MEDS ORDERED: *HR* Warfarin 1 MG TABLET PO ONE (18:00)
== END 2017-01-07 16:31 | disposition hospice, home (50) | DRG 604 ==
LOC: EMEROO 13:34 → 2ANU 13:34
PROVIDERS: ADMIT Internal Medicine; ATTEND Internal Medicine

== ENCOUNTER 2017-01-21 13:09 | Observation (INO) ==
[2017-01-21 14:28] LABS: Basophils % 0.5 %; Eosinophils # 0.2 K/mcL (0.0-0.6); Eosinophils % 2.3 %; Hematocrit 42.9 % (35.3-44.9); Hemoglobin 14.5 g/dL (11.5-15.4); Immature Granulocytes % 0.3 % (0-4); Lymphocytes # 1.5 K/mcL (0.6-4.6); Lymphocytes % 19.4 %; Mean Corpuscular HGB Conc 33.8 g/dL (31.6-35.5); Mean Corpuscular Hemoglobin 32.1 pg (28.0-33.3); Mean Corpuscular Volume 94.9 fL (83.0-100.0); Mean Platelet Volume 10.7 fL (9.4-12.4); Monocytes # 0.4 K/mcL (0.0-1.3); Monocytes % 4.9 %; Neutrophils # 5.4 K/mcL (1.6-8.9); Platelet Count 170 K/mcL (140-400); Red Blood Count 4.52 M/mcL (3.82-4.97); Red Cell Distribution Width 15.2 % (11.5-14.5); Segmented Neutrophils % 72.6 %
[2017-01-21 14:41] LABS: BUN/Creatinine Ratio 22 (6-26); Blood Urea Nitrogen 15 mg/dL (7-20); Calcium 8.9 mg/dL (8.6-10.8); Carbon Dioxide 24 mEq/L (19-29); Chloride 105 mEq/L (98-109); Glucose 94 mg/dL (70-99); Osmolality,Calculated 285 (280-300); Potassium 3.7 mEq/L (3.5-4.5); Sodium 137 mEq/L (136-145); eGFR For African Americans > 60 (> 60); eGFR For Non-African Americans > 60 (> 60)
[2017-01-21] MEDS ORDERED: 0.9 % Sodium Chloride 1,000 ML IVC ONE (15:15)
[2017-01-21 15:18] LABS: Bilirubin,Urine Small (Negative); Blood,Urine Large (Negative); Glucose,Urine (UA) Normal (Normal); Ketones,Urine 80 mg/dL (Negative); Leukocyte Esterase,Urine Small (Negative); Nitrite,Urine Negative (Negative); PH,Urine 5.5 pH Units (5.0-8.0); Protein,Urine 100 mg/dL (Neg-Trace); Specific Gravity,Urine 1.028 (1.010-1.025); Urobilinogen,Urine Normal (Normal)
[2017-01-21 15:22] LABS: Hyaline Casts,Urine None Seen per lpf (None-Few)
[2017-01-21 15:27] LABS: Clarity,Urine Clear (Clear); Color,Urine Orange (Yellow)
--- NOTE | 2017-01-21 15:36 | Emergency Department Note ---
START Narrative - START START: I examined this patient and my medical decision-making was reviewed with the Resident Physician. I agree with the documented findings, disposition and treatment plan as described except to the extent set forth below. 71-year-old female presents emergency room for weakness. Patient has a history of lung cancer. She has had previous radiation treatments. Last treatment was partially 4 months ago. She has no focal complaints other than just generalized weakness. She is able to use her walker at home. She lives with her . Poor by mouth intake secondary to decreased appetite. She does admit to some intermittent diarrhea and nonbloody nonblack. We will obtain screening lab work. We will add on a CT head as she fell over the weekend has had headaches.
[2017-01-21 15:44] LABS: Squamous Epithelial Cell,Urine Moderate per lpf (None-Few)
[2017-01-21 15:45] LABS: Bacteria,Urine Few per hpf (None-Few); Mucus,Urine Moderate (Few)
[2017-01-21 15:51] LABS: INR 3.2
[2017-01-21 15:54] LABS: Activated Partial Thrombo Time 48.9 Seconds (26.0-36.0)
[2017-01-21 15:58] LABS: Alanine Aminotransferase 12 Units/L (0-55); Albumin 3.1 g/dL (3.5-5.0); Albumin/Globulin Ratio 0.7 (1.1-2.2); Alkaline Phosphatase 105 Units/L (38-126); Aspartate Amino Transferase 20 Units/L (5-34); Bilirubin,Direct 0.3 mg/dL (0.0-0.5); Bilirubin,Indirect 0.3 mg/dL (0.0-1.2); Bilirubin,Total 0.6 mg/dL (0.2-1.2); Globulin 4.5 g/dL (2.4-3.5); Total Protein 7.6 g/dL (6.0-8.3)
[2017-01-21 15:59] LABS: Lipase < 10 Units/L (8-78)
--- NOTE | 2017-01-21 16:17 | Emergency Department Note ---
Disposition Clinical Impression: UTI (urinary tract infection) Qualifiers: Urinary tract infection type: acute cystitis Hematuria presence: with hematuria Qualified Code(s): N30.01 - Acute cystitis with hematuria Failure to thrive Qualifiers: Failure to thrive age range: in adult Qualified Code(s): R62.7 - Adult failure to thrive Disposition: Admitted As Inpatient Condition: Fair Time of Disposition: 18:00 General Adult HPI - General Chief complaint: ED Weakness Stated complaint: "weak, just dont feel good" Time Seen by Provider: 01/21/17 14:49 Source: patient Limitations: no limitations Nursing Notes Reviewed: Yes Vital Signs Reviewed: Yes - History of Present Illness HPI Narrative: 71-year-old female with end-stage lung cancer presents to the emergency department with generalized weakness and complaint of a fall 5 days ago. Patient states she hit her head and her left hip. Patient was diagnosed with urinary tract infection about a week ago and treated with Macrobid. Pain Scale: 8 - Related Data Home Medications Medication Instructions Recorded Confirmed Ascorbic Acid [Vitamin C] 500 mg PO DAILY 10/22/15 01/04/17 Cyanocobalamin (Vitamin B-12) 1,000 mcg PO DAILY 10/22/15 01/04/17 [Vitamin B12] Acetaminophen [Tylenol] 1,000 mg PO Q6HR PRN 12/25/15 01/04/17 Budesonide/Formoterol 160/4.5 1 puff IH BIDR 12/25/15 01/04/17 [Symbicort 160/4.5] LevETIRAcetam [Levetiracetam] 500 mg PO BID 03/16/16 01/04/17 Simvastatin [Zocor] 20 mg PO DAILY 03/16/16 01/04/17 Calcium Carbonate [Calcium] 600 mg PO DAILY 01/04/17 01/04/17 Diclofenac Sodium 4 gm TP QID PRN 01/04/17 01/04/17 Ipratropium/Albuterol Sulfate 2 puff IH Q4H PRN 01/04/17 01/04/17 [Combivent Respimat Inhal [place]] LORazepam [Ativan] 1 mg PO Q2H PRN 01/04/17 01/04/17 Loratadine [Claritin] 10 mg PO DAILY PRN 01/04/17 01/04/17 Oxycodone HCl 15 mg PO Q4H PRN 01/04/17 01/04/17 Oxygen 2 l NS AD 01/04/17 01/04/17 Ranitidine HCl [Zantac] 150 mg PO BID 01/04/17 01/04/17 Sertraline [Zoloft] 100 mg PO DAILY 01/04/17 01/04/17 Vitamin B Complex Vit C No.4 150 mg PO DAILY 01/04/17 01/04/17 [Super B Complex] Previous Rx's Medication Instructions Recorded Amitriptyline [Elavil] 50 mg PO HS #30 tablet 03/20/16 levoFLOXacin [Levaquin] 500 mg PO DAILY #4 tablet 01/02/17 Enoxaparin [Lovenox] 40 mg SQ Q12HR #10 syr 01/07/17 Ipratropium/Albuterol Neb [Duoneb] 3 ml IH Q6HR #120 inhsol 01/07/17 Nicotine Patch [Nicoderm] 21 mg TD DAILY #20 patch.td24 01/07/17 Warfarin [Coumadin] 5 mg PO HS #15 tablet 01/07/17 levoFLOXacin [Levaquin] 500 mg PO DAILY #7 tablet 01/07/17 predniSONE [PredniSONE] 10 mg PO DAILY #40 tablet 01/07/17 Allergies Allergy/AdvReac Type Severity Reaction Status Date / Time No Known Allergies Allergy Verified 10/22/15 16:45 All systems ED: reviewed and negative except as stated. Review of Systems: As Per HPI Constitutional: Reports: chills. Denies: fever Eyes: Denies: eye pain ENT ED: Denies: throat pain Cardiovascular: Denies: chest pain Respiratory: Denies: cough, dyspnea Gastrointestinal: Denies: abdominal pain, nausea, vomiting Genitourinary: Reports: hematuria. Denies: urgency, dysuria, frequency Musculoskeletal: Reports: other (Left hip and) Integumentary: Reports: abrasion (Left hand and arm) Neurological: Denies: headache Endocrine: Reports: fatigue Past Medical History - Past Medical History Medical history: Reports: cancer, COPD, DVT, hypertension, osteoporosis, seizures, other Surgical history: Reports: hip replacement (Left hip repairs), orthopedic, other (Bilateral carpal tunnel release surgeries, left humerus fracture repair) , other (Tubal ligation) Psychiatric history: Reports: anxiety, depression QUALITY ASSURANCE MONITOR BODY history: Reports: no QUALITY ASSURANCE MONITOR BODY history - Social History Smoking Status: Former smoker Smokeless Tobacco Status: No Alcohol use: Reports: none Drug use: Reports: none Physical Exam General: Cachectic 71-year-old female Head: autraumatic, EOMI, no conjuncitval pallor, no scleral icterus, Mouth: oral mucous membranes moist Neck: neck soft, trachea midline Chest:: Equal chest wall rise Lungs: Normal lungs sounds bilaterally, no wheezes, no respiratory distress Heart: normal heart sounds, normal rate and rhythm, Abdomen: soft, non-tender, no rigidity, no guarding, no rebdound tenderness Lower Extremities: no pedal edema, calves non-tender, left-sided hip tenderness to palpation Integumentary: Skin warm, dry, and intact Neuro: Alert to person, place, and time. No focal neurologic deficits, negative pronator drift, negative [id number], 5 out of 5 strength in the upper and lower extremities bilaterally. Psych: normal affect, normal mood - General Limitations: no limitations General appearance: alert Course Course Narrative: 69-year-old female with end-stage lung cancer presents to emergency department with generalized weakness. He had also had a recent fall at home and is on blood thinners for previous DVT. It obtained a CT scan of the head and neck and they did not reveal any acute abnormality. Also performed a chest x-ray and that did not show any new abnormality. X-ray of the left hip did not show an acute dislocation. Patient's urinalysis revealed hematuria and small level of leukocyte Esterace. We started treatment with a gram of Rocephin. Patient was admitted for urinary tract infection and failure to thrive as this patient is becoming very cachectic. I suspect this is due to her lung cancer and the fact that she is without appetite and not eating. Patient was hemodynamically stable at time of admission. Spoke with the hospitalist on the phone and agreed to accept her. Spoke with our social service assistant and they had discussion with patient on possible placement in retirement facility after discharge from the hospital. Chest X-Ray 01/21/17 13:18 IMPRESSION: No new abnormality. Left apical nodule better characterized on previous imaging and could represent treated disease. D/ / Edward Chavarria MD / Edward Chavarria MD Interpreting Provider: Edward Chavarria MD Head CT 01/21/17 15:16 IMPRESSION: No acute intracranial abnormality. D/ / Tu Preston MD / Tu Preston MD Interpreting Provider: Tu Preston MD Cervical Spine CT 01/21/17 15:26 IMPRESSION: No acute abnormality of the cervical spine. Increased interstitial changes seen throughout the lung apices bilaterally, with a focal asymmetric area of increased density in the area of previous spiculated left upper lobe pulmonary mass. These changes appear similar to the most recent study in December of 2016, as well as 10/29/2016 but increased from May of 2016. Changes could be related to developing scarring status post treatment. Recommend continued follow-up. D/ / Sanchez Cleveland MD / Sanchez Cleveland MD Interpreting Provider: Sanchez Cleveland MD Hip X-Ray 01/21/17 15:26 IMPRESSION: Osteopenia. No displaced fracture. Prior proximal left femoral ORIF. Advanced bilateral hip degenerative change. D/ : / 01/21/2017 16:24:30 Carlos Elliott MD / alexandra Interpreting Provider: Carlos Elliott MD Vital Signs Temperature 97.5 F L 01/21/17 13:14 Pulse Rate 97 01/21/17 13:14 Respiratory Rate 20 01/21/17 13:14 Blood Pressure 138/84 01/21/17 13:14 O2 Sat by Pulse Oximetry 95 01/21/17 13:14 Temperature 97.5 F L 01/21/17 13:14 Pulse Rate 70 01/21/17 16:09 Respiratory Rate 20 01/21/17 18:35 Blood Pressure 144/106 01/21/17 18:35 O2 Sat by Pulse Oximetry 100 10/12/17 16:09 Oxygen Delivery Oxygen Delivery Nasal Cannula Medical Decision Making - Medical Records Medical records reviewed: Yes I reviewed the patient's medical records. - Lab Data Lab results reviewed: Yes I reviewed the patient's lab results. Result diagrams: 01/21/17 14:15 01/21/17 14:15 Lab Results 01/21/17 01/21/17 01/21/17 Range/Units 14:15 14:15 14:15 WBC 7.5 (4.3-11.1) K/mcL RBC 4.52 (3.82-4.97) M/mcL Hgb 14.5 (11.5-15.4) g/dL Hct 42.9 (35.3-44.9) % MCV 94.9 (83.0-100.0) fL MCH 32.1 (28.0-33.3) pg MCHC 33.8 (31.6-35.5) g/dL RDW 15.2 H (11.5-14.5) % Plt Count 170 (140-400) K/mcL MPV 10.7 (9.4-12.4) fL Immature Gran % 0.3 (0-4) % Seg Neutrophils % 72.6 % Lymphocytes % 19.4 % Monocytes % 4.9 % Eosinophils % 2.3 % Basophils % 0.5 % Neutrophils # 5.4 (1.6-8.9) K/mcL Lymphocytes # 1.5 (0.6-4.6) K/mcL Monocytes # 0.4 (0.0-1.3) K/mcL Eosinophils # 0.2 (0.0-0.6) K/mcL Basophils # 0.0 (0.0-0.2) K/mcL PT (9.4-12.1) Seconds INR APTT (26.0-36.0) Seconds Sodium 137 (136-145) mEq/L Potassium 3.7 (3.5-4.5) mEq/L Chloride 105 (98-109) mEq/L Carbon Dioxide 24 (19-29) mEq/L BUN 15 (7-20) mg/dL Creatinine 0.67 (0.57-1.11) mg/dL Est GFR ( Amer) > 60 (> 60) Est GFR (Non-Af Amer) > 60 (> 60) BUN/Creatinine Ratio 22 (6-26) Glucose 94 (70-99) mg/dL Calculated Osmolality 285 (280-300) Lactic Acid 0.9 (0.5-2.2) mmol/L Calcium 8.9 (8.6-10.8) mg/dL Total Bilirubin (0.2-1.2) mg/dL Direct Bilirubin (0.0-0.5) mg/dL Indirect Bilirubin (0.0-1.2) mg/dL AST (5-34) Units/L ALT (0-55) Units/L Alkaline Phosphatase (38-126) Units/L Troponin I (0-0.03) ng/mL B-Natriuretic Peptide (0-100) pg/mL Serum Total Protein (6.0-8.3) g/dL Albumin (3.5-5.0) g/dL Globulin (2.4-3.5) g/dL Albumin/Globulin Ratio (1.1-2.2) Lipase (8-78) Units/L TSH (0.350-4.840) mcIU/mL Urine Color (Yellow) Urine Clarity (Clear) Urine pH (5.0-8.0) pH Units Ur Specific [place] (1.010-1.025) Urine Protein (Neg-Trace) mg/dL Urine Glucose (UA) (Normal) mg/dL Urine Ketones (Negative) mg/dL Urine Blood (Negative) Urine Nitrite (Negative) Urine Bilirubin (Negative) Urine Urobilinogen (Normal) mg/dL Ur Leukocyte Esterase (Negative) Urine Microscopic RBC (0-3) per hpf Urine Microscopic WBC (0-3) per hpf Ur Squamous Epith Cells (None-Few) per lpf Urine Bacteria (None-Few) per hpf Hyaline Casts (None-Few) per lpf Urine Mucus (Few) Stool Occult Blood (Negative) 01/21/17 01/21/17 01/21/17 Range/Units 14:15 14:15 15:06 WBC (4.3-11.1) K/mcL RBC (3.82-4.97) M/mcL Hgb (11.5-15.4) g/dL Hct (35.3-44.9) % MCV (83.0-100.0) fL MCH (28.0-33.3) pg MCHC (31.6-35.5) g/dL RDW (11.5-14.5) % Plt Count (140-400) K/mcL MPV (9.4-12.4) fL Immature Gran % (0-4) % Seg Neutrophils % % Lymphocytes % % Monocytes % % Eosinophils % % Basophils % % Neutrophils # (1.6-8.9) K/mcL Lymphocytes # (0.6-4.6) K/mcL Monocytes # (0.0-1.3) K/mcL Eosinophils # (0.0-0.6) K/mcL Basophils # (0.0-0.2) K/mcL PT (9.4-12.1) Seconds INR APTT (26.0-36.0) Seconds Sodium (136-145) mEq/L Potassium (3.5-4.5) mEq/L Chloride (98-109) mEq/L Carbon Dioxide (19-29) mEq/L BUN (7-20) mg/dL Creatinine (0.57-1.11) mg/dL Est GFR ( Amer) (> 60) Est GFR (Non-Af Amer) (> 60) BUN/Creatinine Ratio (6-26) Glucose (70-99) mg/dL Calculated Osmolality (280-300) Lactic Acid (0.5-2.2) mmol/L Calcium (8.6-10.8) mg/dL Total Bilirubin (0.2-1.2) mg/dL Direct Bilirubin (0.0-0.5) mg/dL Indirect Bilirubin (0.0-1.2) mg/dL AST (5-34) Units/L ALT (0-55) Units/L Alkaline Phosphatase (38-126) Units/L Troponin I 0.04 H* (0-0.03) ng/mL B-Natriuretic Peptide 73 (0-100) pg/mL Serum Total Protein (6.0-8.3) g/dL Albumin (3.5-5.0) g/dL Globulin (2.4-3.5) g/dL Albumin/Globulin Ratio (1.1-2.2) Lipase (8-78) Units/L TSH (0.350-4.840) mcIU/mL Urine Color [place] A (Yellow) Urine Clarity Clear (Clear) Urine pH 5.5 (5.0-8.0) pH Units Ur Specific [place] 1.028 H (1.010-1.025) Urine Protein 100 H (Neg-Trace) mg/dL Urine Glucose (UA) Normal (Normal) mg/dL Urine Ketones 80 H (Negative) mg/dL Urine Blood Large H (Negative) Urine Nitrite Negative (Negative) Urine Bilirubin Small H (Negative) Urine Urobilinogen Normal (Normal) mg/dL Ur Leukocyte Esterase Small H (Negative) Urine Microscopic RBC 3-5 H (0-3) per hpf Urine Microscopic WBC 3-5 H (0-3) per hpf Ur Squamous Epith Cells Moderate H (None-Few) per lpf Urine Bacteria Few (None-Few) per hpf Hyaline Casts None Seen (None-Few) per lpf Urine Mucus Moderate H (Few) Stool Occult Blood (Negative) 01/21/17 01/21/17 01/21/17 Range/Units 15:18 15:34 15:34 WBC (4.3-11.1) K/mcL RBC (3.82-4.97) M/mcL Hgb (11.5-15.4) g/dL Hct (35.3-44.9) % MCV (83.0-100.0) fL MCH (28.0-33.3) pg MCHC (31.6-35.5) g/dL RDW (11.5-14.5) % Plt Count (140-400) K/mcL MPV (9.4-12.4) fL Immature Gran % (0-4) % Seg Neutrophils % % Lymphocytes % % Monocytes % % Eosinophils % % Basophils % % Neutrophils # (1.6-8.9) K/mcL Lymphocytes # (0.6-4.6) K/mcL Monocytes # (0.0-1.3) K/mcL Eosinophils # (0.0-0.6) K/mcL Basophils # (0.0-0.2) K/mcL PT 35.0 H (9.4-12.1) Seconds INR 3.2 APTT 48.9 H (26.0-36.0) Seconds Sodium (136-145) mEq/L Potassium (3.5-4.5) mEq/L Chloride (98-109) mEq/L Carbon Dioxide (19-29) mEq/L BUN (7-20) mg/dL Creatinine (0.57-1.11) mg/dL Est GFR ( Amer) (> 60) Est GFR (Non-Af Amer) (> 60) BUN/Creatinine Ratio (6-26) Glucose (70-99) mg/dL Calculated Osmolality (280-300) Lactic Acid (0.5-2.2) mmol/L Calcium (8.6-10.8) mg/dL Total Bilirubin (0.2-1.2) mg/dL Direct Bilirubin (0.0-0.5) mg/dL Indirect Bilirubin (0.0-1.2) mg/dL AST (5-34) Units/L ALT (0-55) Units/L Alkaline Phosphatase (38-126) Units/L Troponin I (0-0.03) ng/mL B-Natriuretic Peptide (0-100) pg/mL Serum Total Protein (6.0-8.3) g/dL Albumin (3.5-5.0) g/dL Globulin (2.4-3.5) g/dL Albumin/Globulin Ratio (1.1-2.2) Lipase (8-78) Units/L TSH 3.048 (0.350-4.840) mcIU/mL Urine Color (Yellow) Urine Clarity (Clear) Urine pH (5.0-8.0) pH Units Ur Specific [place] (1.010-1.025) Urine Protein (Neg-Trace) mg/dL Urine Glucose (UA) (Normal) mg/dL Urine Ketones (Negative) mg/dL Urine Blood (Negative) Urine Nitrite (Negative) Urine Bilirubin (Negative) Urine Urobilinogen (Normal) mg/dL Ur Leukocyte Esterase (Negative) Urine Microscopic RBC (0-3) per hpf Urine Microscopic WBC (0-3) per hpf Ur Squamous Epith Cells (None-Few) per lpf Urine Bacteria (None-Few) per hpf Hyaline Casts (None-Few) per lpf Urine Mucus (Few) Stool Occult Blood Negative (Negative) 01/21/17 Range/Units 15:34 WBC (4.3-11.1) K/mcL RBC (3.82-4.97) M/mcL Hgb (11.5-15.4) g/dL Hct (35.3-44.9) % MCV (83.0-100.0) fL MCH (28.0-33.3) pg MCHC (31.6-35.5) g/dL RDW (11.5-14.5) % Plt Count (140-400) K/mcL MPV (9.4-12.4) fL Immature Gran % (0-4) % Seg Neutrophils % % Lymphocytes % % Monocytes % % Eosinophils % % Basophils % % Neutrophils # (1.6-8.9) K/mcL Lymphocytes # (0.6-4.6) K/mcL Monocytes # (0.0-1.3) K/mcL Eosinophils # (0.0-0.6) K/mcL Basophils # (0.0-0.2) K/mcL PT (9.4-12.1) Seconds INR APTT (26.0-36.0) Seconds Sodium (136-145) mEq/L Potassium (3.5-4.5) mEq/L Chloride (98-109) mEq/L Carbon Dioxide (19-29) mEq/L BUN (7-20) mg/dL Creatinine (0.57-1.11) mg/dL Est GFR ( Amer) (> 60) Est GFR (Non-Af Amer) (> 60) BUN/Creatinine Ratio (6-26) Glucose (70-99) mg/dL Calculated Osmolality (280-300) Lactic Acid (0.5-2.2) mmol/L Calcium (8.6-10.8) mg/dL Total Bilirubin 0.6 (0.2-1.2) mg/dL Direct Bilirubin 0.3 (0.0-0.5) mg/dL Indirect Bilirubin 0.3 (0.0-1.2) mg/dL AST 20 (5-34) Units/L ALT 12 (0-55) Units/L Alkaline Phosphatase 105 (38-126) Units/L Troponin I (0-0.03) ng/mL B-Natriuretic Peptide (0-100) pg/mL Serum Total Protein 7.6 (6.0-8.3) g/dL Albumin 3.1 L (3.5-5.0) g/dL Globulin 4.5 H (2.4-3.5) g/dL Albumin/Globulin Ratio 0.7 L (1.1-2.2) Lipase < 10 (8-78) Units/L TSH (0.350-4.840) mcIU/mL Urine Color (Yellow) Urine Clarity (Clear) Urine pH (5.0-8.0) pH Units Ur Specific [place] (1.010-1.025) Urine Protein (Neg-Trace) mg/dL Urine Glucose (UA) (Normal) mg/dL Urine Ketones (Negative) mg/dL Urine Blood (Negative) Urine Nitrite (Negative) Urine Bilirubin (Negative) Urine Urobilinogen (Normal) mg/dL Ur Leukocyte Esterase (Negative) Urine Microscopic RBC (0-3) per hpf Urine Microscopic WBC (0-3) per hpf Ur Squamous Epith Cells (None-Few) per lpf Urine Bacteria (None-Few) per hpf Hyaline Casts (None-Few) per lpf Urine Mucus (Few) Stool Occult Blood (Negative) - Radiology Data Radiology results reviewed: Yes I reviewed the patient's radiology results.
[2017-01-21] MEDS ORDERED: Ondansetron 4 MG/2 ML VIAL IVP PRN (22:31)
[2017-01-21] MEDS ORDERED: Acetaminophen 325 MG TABLET PO PRN (22:31)
[2017-01-21] MEDS ORDERED: Naloxone 0.4 MG/ML INJ IVP PRN (22:31)
[2017-01-21] MEDS ORDERED: *HR* OxyCODONE Immed Rel 15 MG TABLET PO PRN (22:36)
[2017-01-21] MEDS ORDERED: 0.9 % Sodium Chloride 1,000 ML IVC SCH (22:45)
--- NOTE | 2017-01-21 22:46 | Internal Med History&Physical ---
<Jocy Hall - Last Filed: 01/21/17 22:56> Date of Encounter: 01/21/17 Time of Encounter: 22:41 Assessment and Plan (1) Falls frequently Current visit: Yes Status: Acute 1 patient has had recent falls and increasing weakness she is on Coumadin for DVT-Will place on fall precautions 2 patient does have home health however she feels she is unable to perform her own ADLs and so social worker possible ECF placement (2) UTI (urinary tract infection) Current visit: Yes Status: Acute 1 continue Rocephin awaiting sensitivity results we will adjust as needed Qualifiers: Urinary tract infection type: site unspecified Hematuria presence: without hematuria Qualified Code(s): N39.0 - Urinary tract infection, site not specified (3) History of DVT of lower extremity Current visit: No Status: Chronic Continue with Coumadin pharmacy to dose Daily INR (4) History of seizure Current visit: No Status: Chronic Patient has history of seizures last seizure was about 5 [address] on seizure precautions Continue with antiepileptic (5) Cancer of left lung Current visit: No Status: Chronic 1 patient has history of cancer is receiving radiation therapy last treatment was in June. Continue follow-up with oncology as outpatient in consult as needed 2 encouraged patient to stop smoking Qualifiers: Lung location: upper lobe of lung Qualified Code(s): C34.12 - Malignant neoplasm of upper lobe, left bronchus or lung (6) COPD (chronic obstructive pulmonary disease) Current visit: No Status: Chronic Continue with oxygen titrated to maintain SPO2 greater than 92% Continue with bronchodilators Encourage patient to stop smoking Qualifiers: COPD type: emphysema Emphysema type: unspecified Qualified Code(s): J43.9 - Emphysema, unspecified (7) Elevated troponin Current visit: Yes Status: Acute 1 patient's troponin was 0.04 it appears to been elevated in the past. We will continue to trend troponins 2 continuous cardiac monitoring (8) DVT prophylaxis Current visit: No Status: Acute Patient is on Coumadin Internal Medicine - H&P: HPI Chief complaint: weakness Admitted From: Emergency Dept Plans for Post Hospital Care: Home History of present illness: Ms. Hodge is a 71 year old female past uncle history of COPD oxygen use DVT hypertension seizures lung cancer. According to the patient she has been experiencing increasing weakness and has not been able to perform her ADLs. She has been short of breath on exertion and has a poor appetite and not eating well. She has lost approximately 25 pounds in 8 months. She does have home health nurse that comes in daily however she is cooking and caring for both herself and her . She had a recent fall denies striking head or any loss of consciousness. She denies fevers chills abdominal pain nausea vomiting or urinary symptoms She presented to the ER with the above complaints. CT of head and neck were obtained which showed no acute abnormalities as well as x- ray of left hip no acute dislocation. Urinalysis was completed which did reveal hematuria small amount leuk esterace. She has been admitted for further workup and evaluation. Presently she denies any chest pain or shortness of breath her troponin was slightly elevated at 0.04 mL Christopher stable at this time. I reviewed this case with Dr Keita who agrees with plan. Past Med Surg Social Fam HX - Past Medical History Medical history: cancer, COPD, DVT, hypertension, osteoporosis, seizures, other Psychiatric history: anxiety, depression - Past Surgical History Surgical History: hip replacement, orthopedic, other, other - Social History Smoking Status: Current some day smoker Smokeless Tobacco Status: No Alcohol use: none Drug use: none - Family History Mother Hx Family Respiratory Disorders: Yes (COPD, emphysemza) Father Hx Family Cardiac Disorders: Yes (CHF) Internal Medicine - H&P: Meds Ascorbic Acid [Vitamin C] 500 mg PO DAILY 10/22/15 [History] Cyanocobalamin (Vitamin B-12) [Vitamin B12] 1,000 mcg PO DAILY 10/22/15 [History ] Acetaminophen [Tylenol] 1,000 mg PO Q6HR PRN 12/25/15 [History] Budesonide/Formoterol 160/4.5 [Symbicort 160/4.5] 1 puff IH BIDR 12/25/15 [ History] LevETIRAcetam [Levetiracetam] 500 mg PO BID 03/16/16 [History] Simvastatin [Zocor] 20 mg PO DAILY 03/16/16 [History] Amitriptyline [Elavil] 50 mg PO HS #30 tablet 03/20/16 [Rx] Calcium Carbonate [Calcium] 600 mg PO DAILY 01/04/17 [History] Diclofenac Sodium 4 gm TP QID PRN 01/04/17 [History] Ipratropium/Albuterol Sulfate [Combivent Respimat Inhal [place]] 2 puff IH Q4H PRN 01/04/17 [History] LORazepam [Ativan] 1 mg PO Q2H PRN 01/04/17 [History] Loratadine [Claritin] 10 mg PO DAILY PRN 01/04/17 [History] Oxycodone HCl 15 mg PO Q4H PRN 01/04/17 [History] Oxygen 2 l NS AD 01/04/17 [History] Ranitidine HCl [Zantac] 150 mg PO BID 01/04/17 [History] Sertraline [Zoloft] 100 mg PO DAILY 01/04/17 [History] Vitamin B Complex Vit C No.4 [Super B Complex] 150 mg PO DAILY 01/04/17 [History ] Oxycodone HCl [Roxicodone 30 MG Immed Release] 60 mg PO Q4H 01/21/17 [History] Warfarin [Coumadin] 7.5 mg PO MOTUWETHFR 01/21/17 [History] Warfarin [Coumadin] 8 mg PO SUSA 01/21/17 [History] 3 Allergy/AdvReac Type Severity Reaction Status Date / Time No Known Allergies Allergy Verified 10/22/15 16:45 All Systems PM: A 10-system review of systems was performed and is negative for pertinent findings except as documented above in the HPI. - Constitutional Constitutional: anorexia, falls, weakness, weight loss, no chills, no fever(s), no night sweats - EENT Eyes: no change in vision, no discharge, no pain, no photophobia Nose, mouth and throat: no dysphagia, no nasal discharge, no neck pain, no sore throat - Cardiovascular Cardiovascular ROS IM: dyspnea on exertion, no chest pain, no diaphoresis, no dyspnea, no lightheadedness, no palpitations, no syncope - Respiratory Respiratory: cough, dyspnea on exertion, no dyspnea, no wheezing, no excessive phlegm production - Gastrointestinal Gastrointestinal: no abdominal pain, no diarrhea, no hematemesis, no hematochezia, no melena, no nausea, no vomiting - Genitourinary Genitourinary: no change in urinary stream, no dysuria, no flank pain, no hematuria - Musculoskeletal Musculoskeletal ROS IM: no numbness, no tingling - Integumentary Integumentary IM: no rash, no unusual bruising - Neurological Neurological ROS: no confusion, no convulsions, no focal weakness, no numbness, no tingling, no tremor(s) - Hematologic/Lymphatic Hematologic/Lymphatic: no easy bruising - Constitutional Vitals: Temp Pulse Resp BP Pulse Ox 98.4 F 80 18 126/78 96 01/21/17 19:40 01/21/17 19:40 01/21/17 19:40 01/21/17 19:40 01/21/17 19:40 General appearance: Present: cachectic, A&O X 3, answers questions appropriately - Head Head exam: Present: atraumatic, normocephalic - Eye Eye exam: Present: PERRL, conjuntiva pink, sclera anicteric Pupils: Present: PERRL - Neck Neck exam general surgery: Present: supple, trachea midline. Absent: lymphadenopathy - Respiratory Respiratory exam: Present: CTAB. Absent: accessory muscle use, rales, rhonchi, wheezes - Cardiovascular Cardiovascular exam: Present: RRR, +S1, +S2. Absent: diastolic murmur, gallop, rubs, systolic murmur - GI/Abdominal GI/Abdominal exam: Present: normal bowel sounds, soft, no peritoneal signs. Absent: distended, tenderness - Extremities Exam Extremities exam: Present: warm, radial pulses palpable and symmetrical. Absent : calf tenderness, cyanotic, pedal edema - Neurological Exam Neurological exam: Present: CN II-XII intact, oriented X3, no focal deficits. Absent: pronater drift, facial droop, speech deficit - Skin Skin exam: Present: dry, intact Internal Med - H&P Results - Labs CBC & Chem 7: 01/21/17 14:15 01/21/17 14:15 - Diagnostic Studies Other Images Additional comments: Chest X-Ray 01/21/17 13:18 IMPRESSION: No new abnormality. Left apical nodule better characterized on previous imaging and could represent treated disease. D/ / Edward Chavarria MD / Edward Chavarria MD Interpreting Provider: Edward Chavarria MD Head CT 01/21/17 15:16 IMPRESSION: No acute intracranial abnormality. D/ / Tu Preston MD / Tu Preston MD Interpreting Provider: Tu Preston MD Cervical Spine CT 01/21/17 15:26 IMPRESSION: No acute abnormality of the cervical spine. Increased interstitial changes seen throughout the lung apices bilaterally, with a focal asymmetric area of increased density in the area of previous spiculated left upper lobe pulmonary mass. These changes appear similar to the most recent study in December of 2016, as well as 10/29/2016 but increased from May of 2016. Changes could be related to developing scarring status post treatment. Recommend continued follow-up. D/ / Sanchez Cleveland MD / Sanchez Cleveland MD Interpreting Provider: Sanchez Cleveland MD Hip X-Ray 01/21/17 15:26 IMPRESSION: Osteopenia. No displaced fracture. Prior proximal left femoral ORIF. Advanced bilateral hip degenerative change. D/ : / 01/21/2017 16:24:30 Carlos Elliott MD / alexandra Interpreting Provider: Carlos Elliott MD <[email or web address] Chris - Last Filed: 01/22/17 03:36> Date of Encounter: 01/21/17 Internal Medicine - H&P: HPI History of present illness: Ms. Hodge is a 71 year old female All Systems PM: A 10-system review of systems was performed and is negative for pertinent findings except as documented above in the HPI. - Constitutional Vitals: Temp Pulse Resp BP Pulse Ox 98.3 F 75 18 97/60 98 01/21/17 23:27 01/21/17 23:27 01/21/17 23:27 01/21/17 23:27 01/21/17 23:27 Internal Med - H&P Results - Labs CBC & Chem 7: 01/21/17 14:15 01/21/17 14:15 Labs: Cardiac Enzymes 01/21/17 Range/Units 23:00 Troponin I 0.04 H* (0-0.03) ng/mL - Diagnostic Studies Chest x-ray Status: image reviewed by me - Attending Attestation I personally interviewed and examined this patient and my medical decision- making was reviewed with the Advanced Practice Nurse. I agree with the documented findings, disposition and treatment plan as described. Polo Keita MD, MPH Hospitalist
[2017-01-21] MEDS: *HR* OxyCODONE Immed Rel 15 MG TABLET PO SCH (23:37)
[2017-01-21] MEDS: levETIRAcetam 250 MG TABLET PO SCH (23:38)
[2017-01-22 04:48] LABS: Basophils % 0.3 %; Eosinophils # 0.3 K/mcL (0.0-0.6); Eosinophils % 4.8 %; Immature Granulocytes % 0.3 % (0-4); Lymphocytes # 1.7 K/mcL (0.6-4.6); Lymphocytes % 26.9 %; Mean Corpuscular HGB Conc 32.5 g/dL (31.6-35.5); Mean Corpuscular Volume 95.5 fL (83.0-100.0); Mean Platelet Volume 10.6 fL (9.4-12.4); Monocytes # 0.4 K/mcL (0.0-1.3); Monocytes % 6.5 %; Neutrophils # 3.9 K/mcL (1.6-8.9); Platelet Count 131 K/mcL (140-400); Red Blood Count 3.77 M/mcL (3.82-4.97); Red Cell Distribution Width 15.5 % (11.5-14.5); Segmented Neutrophils % 61.2 %
[2017-01-22 04:59] LABS: BUN/Creatinine Ratio 24 (6-26); Blood Urea Nitrogen 17 mg/dL (7-20); Calcium 8.2 mg/dL (8.6-10.8); Carbon Dioxide 28 mEq/L (19-29); Chloride 106 mEq/L (98-109); Glucose 101 mg/dL (70-99); Magnesium 1.3 mg/dL (1.6-2.6); Osmolality,Calculated 286 (280-300); Potassium 3.5 mEq/L (3.5-4.5); Sodium 137 mEq/L (136-145); eGFR For African Americans > 60 (> 60); eGFR For Non-African Americans > 60 (> 60)
[2017-01-22 05:15] LABS: Hemoglobin 11.7 g/dL (11.5-15.4)
[2017-01-22] MEDS: *HR* OxyCODONE Immed Rel 15 MG TABLET PO SCH ×6 (05:21→21:55)
[2017-01-22] MEDS ORDERED: Magnesium Sulfate 2 GM in D5% in Water 100 ML IVPB ONE (07:51)
[2017-01-22] MEDS: Budesonide/Formoterol 160/4.5 MDI IH SCH ×2 (08:17→20:21)
[2017-01-22] MEDS: Vitamin B Complex/Vit C/Vit E 1 EACH TABLET PO SCH (08:57)
[2017-01-22] MEDS: Cyanocobalamin (B-12) 1,000 MCG TABLET PO SCH (08:58)
[2017-01-22] MEDS: levETIRAcetam 250 MG TABLET PO SCH ×2 (08:58→21:55)
[2017-01-22] MEDS: Ascorbic Acid 500 MG TABLET PO SCH (08:59)
[2017-01-22] MEDS ORDERED: Famotidine 20 MG TABLET PO SCH (09:00)
--- NOTE | 2017-01-22 09:29 | Electrocardiograph Report ---
[place] Shoulder Tap Test Date: 2017-01-21 Pat Name: Claudia Hodge Department: 104 Room: 3A11 Gender: F [employer]: DIONICIO : 1945 Requested By: Boris Hopkins Order Number: [id number] Reading MD: Ravin Sanders MD Measurements Intervals [place] Rate: 97 P: 71 HI: 128 QRS: 23 QRSD: 87 T: 43 QT: 347 QTc: 402 Interpretive Statements SINUS RHYTHM Electronically Signed On 01-22-2017 9:28:25 EDT by Ravin Sanders MD
--- NOTE | 2017-01-22 11:29 | Internal Med Progress Note ---
Date of Encounter: 01/22/17 Time of Encounter: 10:30 - Assessment and plan (1) Fall Current Visit: Yes Status: Acute Assessment and plan: Patient has limited home health services but no physical therapy at home. 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 Patient reports generalized weakness and frequent falls at home. Physical and occupational therapy evaluation. human services professional consult for possible rehabilitation placement. Patient is interested in being placed at the senior living facility along with her . Supportive care and fall precautions. Qualifiers: Encounter type: initial encounter Qualified Code(s): W19.XXXA - Unspecified fall, initial encounter (2) Acute urinary tract infection Current Visit: Yes Status: Acute Assessment and plan: Asymptomatic. Urinalysis shows 3-5 WBC, negative nitrite, few leukocyte esterase and bacteria area not impressive for acute UTI. Urine culture has not been sent, patient has been started on IV Rocephin. Will continue for 3 days at this time. (3) Chronic respiratory failure Current Visit: Yes Status: Chronic Assessment and plan: Related to COPD and lung cancer. Continue supplemental oxygen via nasal cannula. Qualifiers: Respiratory failure complication: hypoxia Qualified Code(s): J96.11 - Chronic respiratory failure with hypoxia (4) History of DVT of lower extremity Current Visit: Yes Status: Chronic Assessment and plan: Continue anticoagulation with Coumadin. INR noted to be therapeutic. (5) History of seizure Current Visit: Yes Status: Chronic Assessment and plan: Continue home medications. Seizure precautions. (6) Tobacco abuse Current Visit: Yes Status: Chronic (7) HTN (hypertension) Current Visit: Yes Status: Chronic Qualifiers: Hypertension type: essential hypertension Qualified Code(s): I10 - Essential (primary) hypertension (8) Cancer of left lung Current Visit: Yes Status: Chronic Assessment and plan: Follows with oncology as outpatient. Qualifiers: Lung location: upper lobe of lung Qualified Code(s): C34.12 - Malignant neoplasm of upper lobe, left bronchus or lung (9) COPD (chronic obstructive pulmonary disease) Current Visit: Yes Status: Chronic Assessment and plan: Not in acute exacerbation. Continue when necessary bronchodilators, inhaled corticosteroids and supplemental oxygen. Qualifiers: COPD type: emphysema Emphysema type: unspecified Qualified Code(s): J43.9 - Emphysema, unspecified (10) Depression Current Visit: Yes Status: Chronic Qualifiers: Depression Type: unspecified Qualified Code(s): F32.9 - Major depressive disorder, single episode, unspecified - Subjective Interval history: Feels better; has generalized weakness but no chest pain, shortness of breath, palpitations, nausea/vomiting. She does have home O2 and HHS and would like to be placed in rehab along with her , at this time. - Constitutional Vitals: Temp Pulse Resp BP Pulse Ox 97.7 F 70 16 106/63 95 01/22/17 10:38 01/22/17 10:38 01/22/17 10:38 01/22/17 10:38 01/22/17 10:38 General appearance: Present: cachectic, A&O X 3, answers questions appropriately - Respiratory Respiratory exam: Present: CTAB (coarse breath sounds B/L). Absent: accessory muscle use, rales, rhonchi, wheezes - Cardiovascular Cardiovascular exam: Present: RRR, +S1, +S2. Absent: diastolic murmur, gallop, rubs, systolic murmur - GI/Abdominal GI/Abdominal exam: Present: normal bowel sounds, soft, no peritoneal signs. Absent: distended, tenderness - Extremities Exam Extremities exam: Present: full ROM, warm, radial pulses palpable and symmetrical. Absent: calf tenderness, cyanotic, pedal edema Internal Medicine: Result - Labs CBC & Chem 7: 01/22/17 04:33 01/22/17 04:33 Labs: Short CBC 01/22/17 Range/Units 04:33 WBC 6.3 (4.3-11.1) K/mcL Hgb 11.7 D (11.5-15.4) g/dL Hct 36.0 (35.3-44.9) % Plt Count 131 L (140-400) K/mcL Neutrophils # 3.9 (1.6-8.9) K/mcL BMP 01/22/17 04:33 Sodium 137 Potassium 3.5 Chloride 106 Carbon Dioxide 28 BUN 17 Creatinine 0.72 Glucose 101 H Calcium 8.2 L Cardiac Enzymes 01/21/17 01/22/17 Range/Units 23:00 04:33 Troponin I 0.04 H* 0.04 H* (0-0.03) ng/mL - ABG Interpretation ABG results: PT/INR, D-dimer PT 35.0 Seconds (9.4-12.1) H 01/21/17 15:34 Consult Discharge Plan - Plan Referrals: Martínez Ellis MD [Primary Care Provider] - 02/01/17 3:15 pm
[2017-01-22 15:13] LABS: INR 1.7; Prothrombin Time 18.5 Seconds (9.4-12.1)
[2017-01-22] MEDS ORDERED: *HR* Warfarin 7.5 MG TABLET PO ONE (18:00)
[2017-01-22] MEDS ORDERED: Warfarin perPT PO PRN (18:00)
[2017-01-22] MEDS: *HR* HYDROcodone/Acet 5/325 mg TABLET PO PRN (19:44)
[2017-01-23] MEDS: *HR* OxyCODONE Immed Rel 15 MG TABLET PO SCH ×5 (02:49→23:10)
[2017-01-23 04:00] LABS: BUN/Creatinine Ratio 30 (6-26); Blood Urea Nitrogen 18 mg/dL (7-20); Carbon Dioxide 26 mEq/L (19-29); Chloride 108 mEq/L (98-109); Glucose 107 mg/dL (70-99); Magnesium 1.5 mg/dL (1.6-2.6); Osmolality,Calculated 286 (280-300); Potassium 3.9 mEq/L (3.5-4.5); Sodium 137 mEq/L (136-145); eGFR For African Americans > 60 (> 60); eGFR For Non-African Americans > 60 (> 60)
[2017-01-23 04:01] LABS: INR 1.4; Prothrombin Time 15.3 Seconds (9.4-12.1)
[2017-01-23] MEDS ORDERED: CefTRIAXone 1,000 MG VIAL ONE ×2 (07:31→08:37)
[2017-01-23] MEDS: levETIRAcetam 250 MG TABLET PO SCH ×2 (07:40→20:55)
[2017-01-23] MEDS: Cyanocobalamin (B-12) 1,000 MCG TABLET PO SCH (07:41)
[2017-01-23] MEDS: Ascorbic Acid 500 MG TABLET PO SCH (07:41)
[2017-01-23] MEDS: Vitamin B Complex/Vit C/Vit E 1 EACH TABLET PO SCH (07:41)
[2017-01-23] MEDS: Famotidine 20 MG TABLET PO SCH (07:42)
[2017-01-23] MEDS: Budesonide/Formoterol 160/4.5 MDI IH SCH ×2 (08:15→20:33)
[2017-01-23] MEDS ORDERED: *HR* Warfarin 5 MG TABLET PO SCH (18:00)
[2017-01-23] MEDS: *HR* HYDROcodone/Acet 5/325 mg TABLET PO PRN (18:37)
--- NOTE | 2017-01-23 18:42 | Internal Med Progress Note ---
Date of Encounter: 01/23/17 Time of Encounter: 14:00 - Assessment and plan (1) Physical deconditioning Current Visit: Yes Status: Acute Assessment and plan: PT/OT to evaluate and treat. (2) Acute urinary tract infection Current Visit: Yes Status: Acute Assessment and plan: Okay to DC Rocephin tomorrow. (3) Falls frequently Current Visit: Yes Status: Acute Assessment and plan: Many medications put her at high risk for falls. Since these are chronic medications, will keep the current treatments as is except DC Pepcid. -PT consulted. Appreciate eval dispo planning. -Currently on fall precaution. Pepcid was held as this can cause some unfavorable side effects in the elderly. (4) UTI (urinary tract infection) Current Visit: Yes Status: Acute Qualifiers: Urinary tract infection type: site unspecified Hematuria presence: with hematuria Qualified Code(s): N39.0 - Urinary tract infection, site not specified; R31.9 - Hematuria, unspecified; R31.9 - Hematuria, unspecified (5) Depression Current Visit: Yes Status: Chronic Qualifiers: Depression Type: unspecified Qualified Code(s): F32.9 - Major depressive disorder, single episode, unspecified - Subjective Interval history: No complaints. Weakness persistent. Does not get up from bed much. States she is too tired. - Constitutional Vitals: Temp Pulse Resp BP Pulse Ox 98.3 F 74 19 101/61 99 01/23/17 14:59 01/23/17 14:59 01/23/17 14:59 01/23/17 14:59 01/23/17 14:59 General appearance: Present: cachectic, A&O X 3, answers questions appropriately Exam: NAD CVS: RRR Lungs: CTAB Ext: no edema Internal Medicine: Result - Labs CBC & Chem 7: 01/24/17 06:46 01/24/17 06:46 Labs: BMP 01/23/17 02:48 Sodium 137 Potassium 3.9 Chloride 108 Carbon Dioxide 26 BUN 18 Creatinine 0.61 Glucose 107 H Calcium 8.0 L - ABG Interpretation ABG results: PT/INR, D-dimer PT 15.3 Seconds (9.4-12.1) H 01/23/17 02:48 Consult Discharge Plan - Plan Referrals: Martínez Ellis MD [Primary Care Provider] - 02/01/17 3:15 pm
[2017-01-24] MEDS: *HR* OxyCODONE Immed Rel 15 MG TABLET PO SCH ×6 (03:55→22:56)
[2017-01-24 07:22] LABS: INR 1.7; Prothrombin Time 18.3 Seconds (9.4-12.1)
[2017-01-24 07:23] LABS: Basophils % 0.2 %; Eosinophils # 0.3 K/mcL (0.0-0.6); Eosinophils % 4.7 %; Hematocrit 32.3 % (35.3-44.9); Hemoglobin 10.2 g/dL (11.5-15.4); Immature Granulocytes % 0.2 % (0-4); Lymphocytes # 1.7 K/mcL (0.6-4.6); Lymphocytes % 31.5 %; Mean Corpuscular HGB Conc 31.6 g/dL (31.6-35.5); Mean Corpuscular Hemoglobin 31.3 pg (28.0-33.3); Mean Corpuscular Volume 99.1 fL (83.0-100.0); Mean Platelet Volume 11.5 fL (9.4-12.4); Monocytes # 0.5 K/mcL (0.0-1.3); Monocytes % 8.4 %; Neutrophils # 2.9 K/mcL (1.6-8.9); Platelet Count 122 K/mcL (140-400); Red Blood Count 3.26 M/mcL (3.82-4.97); Red Cell Distribution Width 15.4 % (11.5-14.5)
[2017-01-24 07:36] LABS: BUN/Creatinine Ratio 27 (6-26); Blood Urea Nitrogen 17 mg/dL (7-20); Calcium 8.7 mg/dL (8.6-10.8); Carbon Dioxide 28 mEq/L (19-29); Chloride 107 mEq/L (98-109); Glucose 93 mg/dL (70-99); Osmolality,Calculated 285 (280-300); Potassium 4.8 mEq/L (3.5-4.5); Sodium 137 mEq/L (136-145); eGFR For African Americans > 60 (> 60); eGFR For Non-African Americans > 60 (> 60)
[2017-01-24] MEDS: Vitamin B Complex/Vit C/Vit E 1 EACH TABLET PO SCH (08:20)
[2017-01-24] MEDS: Famotidine 20 MG TABLET PO SCH (08:20)
[2017-01-24] MEDS: Cyanocobalamin (B-12) 1,000 MCG TABLET PO SCH (08:21)
[2017-01-24] MEDS: Budesonide/Formoterol 160/4.5 MDI IH SCH ×2 (10:41→20:21)
[2017-01-24] MEDS: levETIRAcetam 250 MG TABLET PO SCH ×2 (12:01→20:57)
[2017-01-24] MEDS: Ascorbic Acid 500 MG TABLET PO SCH (12:04)
[2017-01-24] MEDS ORDERED: *HR* Warfarin 5 MG TABLET PO ONE (18:00)
--- NOTE | 2017-01-24 18:36 | Internal Med Progress Note ---
Date of Encounter: 01/24/17 Time of Encounter: 13:00 - Assessment and plan (1) Falls frequently Current Visit: Yes Status: Acute Assessment and plan: Many medications put her at high risk for falls. Since these are chronic medications, will keep the current treatments as is except DC Pepcid. -PT consulted. Appreciate eval dispo planning. -Currently on fall precaution. Pepcid was held as this can cause some unfavorable side effects in the elderly. (2) Physical deconditioning Current Visit: Yes Status: Acute Assessment and plan: PT/OT to evaluate and treat. (3) UTI (urinary tract infection) Current Visit: Yes Status: Acute Assessment and plan: Continue Rocephin, DC tomorrow. Qualifiers: Urinary tract infection type: site unspecified Hematuria presence: with hematuria Qualified Code(s): N39.0 - Urinary tract infection, site not specified; R31.9 - Hematuria, unspecified; R31.9 - Hematuria, unspecified (4) COPD (chronic obstructive pulmonary disease) Current Visit: Yes Status: Chronic Assessment and plan: Not in acute exacerbation. Continue when necessary bronchodilators, inhaled corticosteroids and supplemental oxygen. Qualifiers: COPD type: emphysema Emphysema type: unspecified Qualified Code(s): J43.9 - Emphysema, unspecified (5) History of DVT of lower extremity Current Visit: Yes Status: Chronic Assessment and plan: Continue anticoagulation with Coumadin. Currently on fall precautions. She is high risk for VTE. (6) History of seizure Current Visit: Yes Status: Chronic Assessment and plan: Continue home medications. Seizure precautions. - Subjective Interval history: No acute events. Still fatigued. - Constitutional Vitals: Temp Pulse Resp BP Pulse Ox 98.9 F 88 17 93/58 98 01/24/17 15:07 01/24/17 15:07 01/24/17 15:07 01/24/17 15:07 01/24/17 15:07 General appearance: Present: cachectic, A&O X 3, answers questions appropriately Internal Medicine: Result - Labs CBC & Chem 7: 01/24/17 06:46 01/24/17 06:46 Labs: Short CBC 01/24/17 Range/Units 06:46 WBC 5.3 (4.3-11.1) K/mcL Hgb 10.2 L D (11.5-15.4) g/dL Hct 32.3 L (35.3-44.9) % Plt Count 122 L (140-400) K/mcL Neutrophils # 2.9 (1.6-8.9) K/mcL BMP 01/24/17 06:46 Sodium 137 Potassium 4.8 H Chloride 107 Carbon Dioxide 28 BUN 17 Creatinine 0.64 Glucose 93 Calcium 8.7 - ABG Interpretation ABG results: PT/INR, D-dimer PT 18.3 Seconds (9.4-12.1) H 01/24/17 06:46 Consult Discharge Plan - Plan Referrals: Martínez Ellis MD [Primary Care Provider] - 02/01/17 3:15 pm
[2017-01-25] MEDS: *HR* OxyCODONE Immed Rel 15 MG TABLET PO SCH ×9 (03:57→23:15)
[2017-01-25 05:14] LABS: INR 1.9; Prothrombin Time 20.2 Seconds (9.4-12.1)
[2017-01-25 05:20] LABS: Basophils % 0.4 %; Eosinophils # 0.2 K/mcL (0.0-0.6); Eosinophils % 3.6 %; Hematocrit 32.1 % (35.3-44.9); Hemoglobin 10.4 g/dL (11.5-15.4); Immature Granulocytes % 0.5 % (0-4); Lymphocytes # 1.7 K/mcL (0.6-4.6); Lymphocytes % 31.1 %; Mean Corpuscular HGB Conc 32.4 g/dL (31.6-35.5); Mean Corpuscular Hemoglobin 32.2 pg (28.0-33.3); Mean Corpuscular Volume 99.4 fL (83.0-100.0); Mean Platelet Volume 11.3 fL (9.4-12.4); Monocytes # 0.5 K/mcL (0.0-1.3); Monocytes % 9.1 %; Platelet Count 138 K/mcL (140-400); Red Blood Count 3.23 M/mcL (3.82-4.97); Red Cell Distribution Width 15.2 % (11.5-14.5); Segmented Neutrophils % 55.3 %
[2017-01-25 05:21] LABS: BUN/Creatinine Ratio 28 (6-26); Blood Urea Nitrogen 20 mg/dL (7-20); Calcium 8.9 mg/dL (8.6-10.8); Carbon Dioxide 30 mEq/L (19-29); Chloride 106 mEq/L (98-109); Glucose 106 mg/dL (70-99); Osmolality,Calculated 289 (280-300); Potassium 5.1 mEq/L (3.5-4.5); Sodium 138 mEq/L (136-145); eGFR For African Americans > 60 (> 60); eGFR For Non-African Americans > 60 (> 60)
[2017-01-25] MEDS: Budesonide/Formoterol 160/4.5 MDI IH SCH ×2 (07:58→21:16)
[2017-01-25] MEDS: Vitamin B Complex/Vit C/Vit E 1 EACH TABLET PO SCH (09:00)
[2017-01-25] MEDS: Cyanocobalamin (B-12) 1,000 MCG TABLET PO SCH (09:00)
[2017-01-25] MEDS: levETIRAcetam 250 MG TABLET PO SCH ×2 (09:01→21:59)
[2017-01-25] MEDS: Ascorbic Acid 500 MG TABLET PO SCH (09:01)
[2017-01-25] MEDS: Magnesium Sulfate 2 GM in D5% in Water 100 ML IVPB SCH ×2 (10:59→13:18)
[2017-01-25] MEDS ORDERED: *HR* Warfarin 7.5 MG TABLET PO ONE (18:00)
[2017-01-26] MEDS: *HR* OxyCODONE Immed Rel 15 MG TABLET PO SCH ×6 (03:11→22:01)
[2017-01-26 03:16] LABS: Basophils % 0.2 %; Eosinophils # 0.2 K/mcL (0.0-0.6); Eosinophils % 2.7 %; Hematocrit 31.7 % (35.3-44.9); Hemoglobin 10.3 g/dL (11.5-15.4); Immature Granulocytes % 0.5 % (0-4); Immature Platelets 7.8 % (1.1-6.1); Lymphocytes # 1.6 K/mcL (0.6-4.6); Lymphocytes % 27.4 %; Mean Corpuscular HGB Conc 32.5 g/dL (31.6-35.5); Mean Corpuscular Volume 98.4 fL (83.0-100.0); Mean Platelet Volume 11.9 fL (9.4-12.4); Monocytes # 0.4 K/mcL (0.0-1.3); Monocytes % 7.1 %; Neutrophils # 3.7 K/mcL (1.6-8.9); Platelet Count 151 K/mcL (140-400); Red Blood Count 3.22 M/mcL (3.82-4.97); Red Cell Distribution Width 14.9 % (11.5-14.5); Segmented Neutrophils % 62.1 %
[2017-01-26 03:25] LABS: INR 1.6; Prothrombin Time 17.2 Seconds (9.4-12.1)
[2017-01-26 03:29] LABS: BUN/Creatinine Ratio 23 (6-26); Blood Urea Nitrogen 14 mg/dL (7-20); Carbon Dioxide 29 mEq/L (19-29); Chloride 102 mEq/L (98-109); Glucose 101 mg/dL (70-99); Osmolality,Calculated 279 (280-300); Potassium 4.5 mEq/L (3.5-4.5); Sodium 134 mEq/L (136-145); eGFR For African Americans > 60 (> 60); eGFR For Non-African Americans > 60 (> 60)
--- NOTE | 2017-01-26 06:31 | Internal Med Progress Note ---
Date of Encounter: 01/25/17 Time of Encounter: 09:30 - Assessment and plan (1) Falls frequently Current Visit: Yes Status: Acute Assessment and plan: Case management is working on placement. Currently patient would like to be placed somewhere with her who has dementia. (2) UTI (urinary tract infection) Current Visit: Yes Status: Acute Assessment and plan: She has completed 3 days of Rocephin and so will discontinue abx. Qualifiers: Urinary tract infection type: site unspecified Hematuria presence: with hematuria Qualified Code(s): N39.0 - Urinary tract infection, site not specified; R31.9 - Hematuria, unspecified; R31.9 - Hematuria, unspecified (3) COPD (chronic obstructive pulmonary disease) Current Visit: Yes Status: Chronic Qualifiers: COPD type: emphysema Emphysema type: unspecified Qualified Code(s): J43.9 - Emphysema, unspecified (4) History of DVT of lower extremity Current Visit: Yes Status: Chronic Assessment and plan: Continue anticoagulation with Coumadin. Currently on fall precautions. She is high risk for VTE. (5) History of seizure Current Visit: Yes Status: Chronic Assessment and plan: Continue home medications. Seizure precautions. - Subjective Interval history: No complaints, no acute events. Eating breakfast. - Constitutional Vitals: Temp Pulse Resp BP Pulse Ox 97.6 F 77 14 120/64 95 01/26/17 04:45 01/26/17 04:45 01/26/17 04:45 01/26/17 04:45 01/26/17 04:45 General appearance: Present: cachectic, A&O X 3, answers questions appropriately Exam: Lungs: Course breath sounds with fair aeration, scattered end expiratory wheezes Internal Medicine: Result - Labs CBC & Chem 7: 01/26/17 02:39 01/26/17 02:39 Labs: Short CBC 01/26/17 Range/Units 02:39 WBC 5.9 (4.3-11.1) K/mcL Hgb 10.3 L (11.5-15.4) g/dL Hct 31.7 L (35.3-44.9) % Plt Count 151 (140-400) K/mcL Neutrophils # 3.7 (1.6-8.9) K/mcL BMP 01/26/17 02:39 Sodium 134 L Potassium 4.5 Chloride 102 Carbon Dioxide 29 BUN 14 Creatinine 0.61 Glucose 101 H Calcium 9.0 - ABG Interpretation ABG results: PT/INR, D-dimer PT 17.2 Seconds (9.4-12.1) H 01/26/17 02:39 Consult Discharge Plan - Plan Referrals: Martínez Ellis MD [Primary Care Provider] - 02/01/17 3:15 pm
[2017-01-26] MEDS: Budesonide/Formoterol 160/4.5 MDI IH SCH ×2 (07:41→20:19)
[2017-01-26] MEDS: Ascorbic Acid 500 MG TABLET PO SCH (08:03)
[2017-01-26] MEDS: Vitamin B Complex/Vit C/Vit E 1 EACH TABLET PO SCH (08:03)
[2017-01-26] MEDS: levETIRAcetam 250 MG TABLET PO SCH ×2 (08:04→22:01)
[2017-01-26] MEDS: Cyanocobalamin (B-12) 1,000 MCG TABLET PO SCH (08:04)
--- NOTE | 2017-01-26 09:25 | Internal Med Progress Note ---
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 Patient reports generalized weakness and frequent falls at home. Physical and occupational therapy evaluation noted, recommend [facility]. health services coordinator on board for possible rehabilitation placement. Patient is interested in being placed at the [facility] facility along with her . Supportive care and fall precautions. Qualifiers: Encounter type: initial encounter Qualified Code(s): W19.XXXA - Unspecified fall, initial encounter (2) Acute urinary tract infection Current Visit: Yes Status: Ruled-out Assessment and plan: received 3 days of IV antibiotics; UA not impressive for UTI, urine culture has not been sent. (3) Chronic respiratory failure Current Visit: Yes Status: Chronic Assessment and plan: Related to COPD and lung cancer. Continue supplemental oxygen via nasal cannula. Qualifiers: Respiratory failure complication: hypoxia Qualified Code(s): J96.11 - Chronic respiratory failure with hypoxia (4) History of DVT of lower extremity Current Visit: Yes Status: Chronic Assessment and plan: Continue anticoagulation with Coumadin. Currently on fall precautions. She is high risk for VTE. (5) History of seizure Current Visit: Yes Status: Chronic Assessment and plan: Continue home medications. Seizure precautions. (6) Tobacco abuse Current Visit: Yes Status: Chronic (7) HTN (hypertension) Current Visit: Yes Status: Chronic Qualifiers: Hypertension type: essential hypertension Qualified Code(s): I10 - Essential (primary) hypertension (8) Cancer of left lung Current Visit: Yes Status: Chronic Assessment and plan: Follows with oncology as outpatient. Qualifiers: Lung location: upper lobe of lung Qualified Code(s): C34.12 - Malignant neoplasm of upper lobe, left bronchus or lung (9) COPD (chronic obstructive pulmonary disease) Current Visit: Yes Status: Chronic Assessment and plan: Not in acute exacerbation. Continue when necessary bronchodilators, inhaled corticosteroids and supplemental oxygen. Qualifiers: COPD type: emphysema Emphysema type: unspecified Qualified Code(s): J43.9 - Emphysema, unspecified (10) Depression Current Visit: Yes Status: Chronic Qualifiers: Depression Type: unspecified Qualified Code(s): F32.9 - Major depressive disorder, single episode, unspecified - Subjective Interval history: Denies new complaints except constipation. No chest pain, dyspnea, wheezing, abdominal pain. - Constitutional Vitals: Temp Pulse Resp BP Pulse Ox 98.0 F 68 16 104/64 94 01/26/17 06:53 01/26/17 06:53 01/26/17 07:44 01/26/17 06:53 01/26/17 07:44 General appearance: Present: cachectic, A&O X 3, answers questions appropriately - Respiratory Respiratory exam: Present: CTAB (coarse breath sounds B/L). Absent: accessory muscle use, rales, rhonchi, wheezes - Cardiovascular Cardiovascular exam: Present: RRR, +S1, +S2. Absent: diastolic murmur, gallop, rubs, systolic murmur - GI/Abdominal GI/Abdominal exam: Present: normal bowel sounds, soft, no peritoneal signs. Absent: distended, tenderness Internal Medicine: Result - Labs CBC & Chem 7: 01/26/17 02:39 01/26/17 02:39 Labs: Short CBC 01/26/17 Range/Units 02:39 WBC 5.9 (4.3-11.1) K/mcL Hgb 10.3 L (11.5-15.4) g/dL Hct 31.7 L (35.3-44.9) % Plt Count 151 (140-400) K/mcL Neutrophils # 3.7 (1.6-8.9) K/mcL BMP 01/26/17 02:39 Sodium 134 L Potassium 4.5 Chloride 102 Carbon Dioxide 29 BUN 14 Creatinine 0.61 Glucose 101 H Calcium 9.0 - ABG Interpretation ABG results: PT/INR, D-dimer PT 17.2 Seconds (9.4-12.1) H 01/26/17 02:39 Consult Discharge Plan - Plan Referrals: Martínez Ellis MD [Primary Care Provider] - 02/01/17 3:15 pm
[2017-01-26] MEDS: Sennosides/Docusate Sodium TABLET PO SCH ×2 (09:37→22:01)
[2017-01-26] MEDS ORDERED: *HR* Warfarin 7.5 MG TABLET PO ONE (18:00)
[2017-01-27] MEDS: *HR* OxyCODONE Immed Rel 15 MG TABLET PO SCH ×3 (02:24→09:08)
[2017-01-27 05:42] LABS: INR 1.9; Prothrombin Time 20.9 Seconds (9.4-12.1)
[2017-01-27 05:57] LABS: Basophils % 0.4 %; Eosinophils # 0.2 K/mcL (0.0-0.6); Eosinophils % 3.2 %; Hematocrit 33.9 % (35.3-44.9); Hemoglobin 10.9 g/dL (11.5-15.4); Immature Granulocytes % 0.2 % (0-4); Lymphocytes # 1.8 K/mcL (0.6-4.6); Mean Corpuscular HGB Conc 32.2 g/dL (31.6-35.5); Mean Corpuscular Hemoglobin 31.1 pg (28.0-33.3); Mean Corpuscular Volume 96.9 fL (83.0-100.0); Monocytes # 0.5 K/mcL (0.0-1.3); Monocytes % 9.5 %; Neutrophils # 2.7 K/mcL (1.6-8.9); Platelet Count 183 K/mcL (140-400); Red Cell Distribution Width 14.8 % (11.5-14.5); Segmented Neutrophils % 51.7 %
[2017-01-27 06:02] LABS: BUN/Creatinine Ratio 24 (6-26); Blood Urea Nitrogen 15 mg/dL (7-20); Calcium 9.4 mg/dL (8.6-10.8); Carbon Dioxide 31 mEq/L (19-29); Chloride 102 mEq/L (98-109); Glucose 101 mg/dL (70-99); Osmolality,Calculated 285 (280-300); Potassium 4.5 mEq/L (3.5-4.5); Sodium 137 mEq/L (136-145); eGFR For African Americans > 60 (> 60); eGFR For Non-African Americans > 60 (> 60)
[2017-01-27 06:43] VITALS: BP 121/73
[2017-01-27] MEDS: Budesonide/Formoterol 160/4.5 MDI IH SCH (08:09)
--- NOTE | 2017-01-27 08:51 | Discharge Summary ---
Date of Encounter: 01/27/17 Time of Encounter: 08:35 - Discharge Diagnosis (1) Fall Priority: Primary Status: Acute Qualifiers: Encounter type: initial encounter Qualified Code(s): W19.XXXA - Unspecified fall, initial encounter (2) Acute urinary tract infection Priority: Primary Status: Ruled-out (3) Chronic respiratory failure Priority: Secondary Status: Chronic Qualifiers: Respiratory failure complication: hypoxia Qualified Code(s): J96.11 - Chronic respiratory failure with hypoxia (4) History of DVT of lower extremity Priority: Secondary Status: Chronic (5) History of seizure Priority: Secondary Status: Chronic (6) Tobacco abuse Priority: Secondary Status: Chronic (7) HTN (hypertension) Priority: Secondary Status: Chronic Qualifiers: Hypertension type: essential hypertension Qualified Code(s): I10 - Essential (primary) hypertension (8) Cancer of left lung Priority: Secondary Status: Chronic Qualifiers: Lung location: upper lobe of lung Qualified Code(s): C34.12 - Malignant neoplasm of upper lobe, left bronchus or lung (9) COPD (chronic obstructive pulmonary disease) Priority: Secondary Status: Chronic Qualifiers: COPD type: emphysema Emphysema type: unspecified Qualified Code(s): J43.9 - Emphysema, unspecified (10) Depression Priority: Secondary Status: Chronic Qualifiers: Depression Type: unspecified Qualified Code(s): F32.9 - Major depressive disorder, single episode, unspecified - Discharge Medications Prescriptions: Polyethylene Glycol 3350 [MiraLAX] 17 gm PO DAILY PRN #20 powd.pack PRN Reason: Constipation Sennosides/Docusate Sodium [Senna Plus] 2 each PO BID #60 tablet Home Medications: Ascorbic Acid [Vitamin C] 500 mg PO DAILY 10/22/15 [History] Cyanocobalamin (Vitamin B-12) [Vitamin B12] 1,000 mcg PO DAILY 10/22/15 [History ] Acetaminophen [Tylenol] 1,000 mg PO Q6HR PRN 12/25/15 [History] Budesonide/Formoterol 160/4.5 [Symbicort 160/4.5] 1 puff IH BIDR 12/25/15 [ History] LevETIRAcetam [Levetiracetam] 500 mg PO BID 03/16/16 [History] Simvastatin [Zocor] 20 mg PO DAILY 03/16/16 [History] Amitriptyline [Elavil] 50 mg PO HS #30 tablet 03/20/16 [Rx] Calcium Carbonate [Calcium] 600 mg PO DAILY 01/04/17 [History] Diclofenac Sodium 4 gm TP QID PRN 01/04/17 [History] Ipratropium/Albuterol Sulfate [Combivent Respimat Inhal [place]] 2 puff IH Q4H PRN 01/04/17 [History] LORazepam [Ativan] 1 mg PO Q2H PRN 01/04/17 [History] Loratadine [Claritin] 10 mg PO DAILY PRN 01/04/17 [History] Oxycodone HCl 15 mg PO Q4H PRN 01/04/17 [History] Oxygen 2 l NS AD 01/04/17 [History] Ranitidine HCl [Zantac] 150 mg PO BID 01/04/17 [History] Sertraline [Zoloft] 100 mg PO DAILY 01/04/17 [History] Vitamin B Complex Vit C No.4 [Super B Complex] 150 mg PO DAILY 01/04/17 [History ] Oxycodone HCl [Roxicodone 30 MG Immed Release] 30 mg PO Q4H 01/21/17 [History] Warfarin [Coumadin] 7.5 mg PO MOTUWETHFR 01/21/17 [History] Warfarin [Coumadin] 8 mg PO SUSA 01/21/17 [History] Polyethylene Glycol 3350 [MiraLAX] 17 gm PO DAILY PRN #20 powd.pack 01/27/17 [Rx ] Sennosides/Docusate Sodium [Senna Plus] 2 each PO BID #60 tablet 01/27/17 [Rx] Allergies/Adverse Reactions: 3 Allergy/AdvReac Type Severity Reaction Status Date / Time No Known Allergies Allergy Verified 10/22/15 16:45 Date of admission: 01/21/17 18:14 Primary care physician: Martínez Ellis MD Consults: 01/21/17 22:34 Consult to Occupational Therapy [CONS] Routine Comment: Evaluate, develop and implement POC Reason for Consult: weakness Consult to Physical Therapy [CONS] Routine Comment: Evaluate, develop and implement POC Reason for Consult: weakness Consult to Vehicle Safety Inspector [CONS] Routine Reason for SW Consult: discharge planning ECF planning Discharging clinician: Queenie Peralta Anticipated date of discharge: 01/27/17 - Patient Status Disposition: Home Health Service Condition: Fair Functional capacity at discharge: uses cane/walker Overall status at discharge: patient is progressing back to baseline - Discharge Instructions Follow Up With: Martínez Ellis MD [Primary Care Provider] - 02/01/17 3:15 pm - Diet and Activity Activity: as per physical therapy, wear oxygen at all times Diet: low fat, low cholesterol, low salt diet Hospital course: Ms. Hodge is a 71 year old female with the above medical problems including left lung cancer, was admitted with generalized weakness and frequent falls at home. Patient was treated with a 3 day course of antibiotics for presumed urinary tract infection, however final urine culture showed no significant bacterial growth. She had no fever, leukocytosis or any other source of infection. Physical and occupational therapy evaluation was completed and recommended home health services. Patient was initially interested in being placed at a rehabilitation facility along with her , who has dementia. However, patient's could only be accepted at an out of town facility and patient is willing to be discharged home at this time. She is medically stable. - Time Spent with Patient Total time spent providing and/or coordinating discharge services: Greater than 30 minutes (45 min) - Constitutional Vitals: Temp Pulse Resp BP Pulse Ox 98.4 F 68 14 121/73 94 01/27/17 06:40 01/27/17 06:40 01/27/17 08:09 01/27/17 06:40 01/27/17 08:09 General appearance: Present: cachectic, A&O X 3, answers questions appropriately - Respiratory Respiratory exam: Present: CTAB. Absent: accessory muscle use, rales, rhonchi, wheezes
--- NOTE | 2017-01-27 08:59 | Physician Discharge Referral ---
Home Health/Hosp Referral Info Transfer to: Home Health Attending Provider: Queenie Peralta Provider in Charge Post Discharge: PCP - Diagnosis (1) Fall Priority: Primary Status: Acute (2) Acute urinary tract infection Priority: Primary Status: Ruled-out (3) Chronic respiratory failure Priority: Secondary Status: Chronic (4) History of DVT of lower extremity Priority: Secondary Status: Chronic (5) History of seizure Priority: Secondary Status: Chronic (6) Tobacco abuse Priority: Secondary Status: Chronic (7) HTN (hypertension) Priority: Secondary Status: Chronic (8) Cancer of left lung Priority: Secondary Status: Chronic (9) COPD (chronic obstructive pulmonary disease) Priority: Secondary Status: Chronic (10) Depression Priority: Secondary Status: Chronic - Respiratory Orders Oxygen / L per min (1-2L/min via NC PRN) Smoking Cessation: Smoking cessation has been advised. For more information, call the [place] Tobacco Quit Line at 5-861-NRVK-NOW. - Diet/Nutrition Diet/Nutrition Orders: Cardiac - Activity Activity Orders: Ambulate, Walker - Services Needed Following services are medically necessary services: Nursing, Physical Therapy, Occupational Therapy - Transfer Medications Prescriptions: Polyethylene Glycol 3350 [MiraLAX] 17 gm PO DAILY PRN #20 powd.pack PRN Reason: Constipation Sennosides/Docusate Sodium [Senna Plus] 2 each PO BID #60 tablet Home Medications: Ascorbic Acid [Vitamin C] 500 mg PO DAILY 10/22/15 [History] Cyanocobalamin (Vitamin B-12) [Vitamin B12] 1,000 mcg PO DAILY 10/22/15 [History ] Acetaminophen [Tylenol] 1,000 mg PO Q6HR PRN 12/25/15 [History] Budesonide/Formoterol 160/4.5 [Symbicort 160/4.5] 1 puff IH BIDR 12/25/15 [ History] LevETIRAcetam [Levetiracetam] 500 mg PO BID 03/16/16 [History] Simvastatin [Zocor] 20 mg PO DAILY 03/16/16 [History] Amitriptyline [Elavil] 50 mg PO HS #30 tablet 03/20/16 [Rx] Calcium Carbonate [Calcium] 600 mg PO DAILY 01/04/17 [History] Diclofenac Sodium 4 gm TP QID PRN 01/04/17 [History] Ipratropium/Albuterol Sulfate [Combivent Respimat Inhal [place]] 2 puff IH Q4H PRN 01/04/17 [History] LORazepam [Ativan] 1 mg PO Q2H PRN 01/04/17 [History] Loratadine [Claritin] 10 mg PO DAILY PRN 01/04/17 [History] Oxycodone HCl 15 mg PO Q4H PRN 01/04/17 [History] Oxygen 2 l NS AD 01/04/17 [History] Ranitidine HCl [Zantac] 150 mg PO BID 01/04/17 [History] Sertraline [Zoloft] 100 mg PO DAILY 01/04/17 [History] Vitamin B Complex Vit C No.4 [Super B Complex] 150 mg PO DAILY 01/04/17 [History ] Oxycodone HCl [Roxicodone 30 MG Immed Release] 30 mg PO Q4H 01/21/17 [History] Warfarin [Coumadin] 7.5 mg PO MOTUWETHFR 01/21/17 [History] Warfarin [Coumadin] 8 mg PO SUSA 01/21/17 [History] Polyethylene Glycol 3350 [MiraLAX] 17 gm PO DAILY PRN #20 powd.pack 01/27/17 [Rx ] Sennosides/Docusate Sodium [Senna Plus] 2 each PO BID #60 tablet 01/27/17 [Rx] Allergies/Adverse Reactions: 3 Allergy/AdvReac Type Severity Reaction Status Date / Time No Known Allergies Allergy Verified 10/22/15 16:45 Certification: Further, I certify that my clinical findings support that this patient is homebound (i.e. absences from home require considerable and taxing effort and are for medical reasons or religion services or infrequently or short duration when for other reasons) because: Homebound Reason: Patient requires assistance of a person or device to safely leave home, Leaving home requires considerable and taxing effort due to condition, Severity of cardiac or pulmonary status limits activity tolerance Attestation: My signature below is to certify that this patient is under my care and that I, or nurse practitioner, or a physician's physician assistant surgery working with me, has a face-to -face encounter with this patient.
[2017-01-27] MEDS: Sennosides/Docusate Sodium TABLET PO SCH (09:08)
[2017-01-27] MEDS: Ascorbic Acid 500 MG TABLET PO SCH (09:09)
[2017-01-27] MEDS: Vitamin B Complex/Vit C/Vit E 1 EACH TABLET PO SCH (09:09)
[2017-01-27] MEDS: levETIRAcetam 250 MG TABLET PO SCH (09:10)
[2017-01-27] MEDS: Cyanocobalamin (B-12) 1,000 MCG TABLET PO SCH (09:10)
[2017-01-27] MEDS ORDERED: *HR* Warfarin 7.5 MG TABLET PO ONE (18:00)
== END 2017-01-27 13:00 | disposition home health service (06) ==
LOC: 3ANU 13:09 → EMEROO 13:09 → SUATTDRO 18:14 → 3ANU 19:07
PROVIDERS: ADMIT Internal Medicine; ATTEND Internal Medicine

== ENCOUNTER 2017-08-06 22:26 | Inpatient (IN) ==
[2017-08-06 23:24] LABS: Basophils % 0.2 %; Hematocrit 44.1 % (35.3-44.9); Hemoglobin 14.6 g/dL (11.5-15.4); Immature Granulocytes % 0.4 % (0-4); Lymphocytes # 0.7 K/mcL (0.6-4.6); Lymphocytes % 4.1 %; Mean Corpuscular HGB Conc 33.1 g/dL (31.6-35.5); Mean Corpuscular Hemoglobin 29.8 pg (28.0-33.3); Mean Platelet Volume 10.9 fL (9.4-12.4); Monocytes # 0.8 K/mcL (0.0-1.3); Monocytes % 4.8 %; Neutrophils # 15.7 K/mcL (1.6-8.9); Platelet Count 186 K/mcL (140-400); Red Cell Distribution Width 14.9 % (11.5-14.5); Segmented Neutrophils % 90.5 %
[2017-08-06] MEDS ORDERED: Isovue-370 500 ML INFUS..BTL IV ONE (23:24)
[2017-08-06] MEDS ORDERED: 0.9 % Sodium Chloride 500 ML IVC ONE (23:26)
[2017-08-06] MEDS ORDERED: *HR* FentaNYL (PF) 100 MCG/2 ML VIAL IVP ONE (23:26)
--- NOTE | 2017-08-06 23:29 | Emergency Department Note ---
Disposition Clinical Impression: Pyelitis Sepsis Qualifiers: Sepsis type: sepsis due to unspecified organism Qualified Code(s): A41.9 - Sepsis, unspecified organism Pneumonia Qualifiers: Pneumonia type: due to unspecified organism Laterality: unspecified laterality Lung location: unspecified part of lung Qualified Code(s): J18.9 - Pneumonia, unspecified organism Lung cancer Qualifiers: Laterality: left Lung location: lower lobe of lung Qualified Code(s): C34.32 - Malignant neoplasm of lower lobe, left bronchus or lung Disposition: Admitted As Inpatient Condition: Fair General Adult HPI - General Chief complaint: ED Fever Stated complaint: Bilateral Flank Pain/Fever Time Seen by Provider: 08/06/17 22:47 Source: patient, family Mode of arrival: ambulatory Limitations: no limitations Nursing Notes Reviewed: Yes Vital Signs Reviewed: Yes - History of Present Illness HPI Narrative: 72-year-old female with history of lung cancer since for evaluation of fever and bilateral flank pain. Patient states that she start developing atraumatic bilateral flank pain that occurred earlier today. Patient notes left worse than right. Patient also has increased urination. Noted a fever earlier today as well. Patient states that she was started on antibiotics but was not clear which antibiotic she was started on. Patient also states he has had a cough. Patient's typically on oxygen only at night. Patient denies any chest pain. No nausea or vomiting. Patient has had constipation. No hematuria. Patient states she did have radiation therapy done in April but is not on any type of chemotherapy. Pain Scale: 8 - Related Data Home Medications Medication Instructions Recorded Confirmed Ascorbic Acid [Vitamin C] 500 mg PO DAILY 10/22/15 01/21/17 Cyanocobalamin (Vitamin B-12) 1,000 mcg PO DAILY 10/22/15 01/21/17 [Vitamin B12] Acetaminophen [Tylenol] 1,000 mg PO Q6HR PRN 12/25/15 01/21/17 Budesonide/Formoterol 160/4.5 1 puff IH BIDR 12/25/15 01/21/17 [Symbicort 160/4.5] LevETIRAcetam [Levetiracetam] 500 mg PO BID 03/16/16 01/21/17 Simvastatin [Zocor] 20 mg PO DAILY 03/16/16 01/21/17 Calcium Carbonate [Calcium] 600 mg PO DAILY 01/04/17 01/21/17 Diclofenac Sodium 4 gm TP QID PRN 01/04/17 01/21/17 Ipratropium/Albuterol Sulfate 2 puff IH Q4H PRN 01/04/17 01/21/17 [Combivent Respimat Inhal [place]] LORazepam [Ativan] 1 mg PO Q2H PRN 01/04/17 01/21/17 Loratadine [Claritin] 10 mg PO DAILY PRN 01/04/17 01/21/17 Oxycodone HCl 15 mg PO Q4H PRN 01/04/17 01/21/17 Oxygen 2 l NS AD 01/04/17 01/21/17 Ranitidine HCl [Zantac] 150 mg PO BID 01/04/17 01/21/17 Sertraline [Zoloft] 100 mg PO DAILY 01/04/17 01/21/17 Vitamin B Complex Vit C No.4 150 mg PO DAILY 01/04/17 01/21/17 [Super B Complex] Oxycodone HCl [Roxicodone 30] 30 mg PO Q4H 01/21/17 01/26/17 Warfarin [Coumadin] 7.5 mg PO MOTUWETHFR 01/21/17 01/21/17 Warfarin [Coumadin] 8 mg PO SUSA 01/21/17 01/21/17 Previous Rx's Medication Instructions Recorded Amitriptyline [Elavil] 50 mg PO HS #30 tablet 03/20/16 Polyethylene Glycol 3350 [MiraLAX] 17 gm PO DAILY PRN #20 powd.pack 01/27/17 Sennosides/Docusate Sodium [Senna 2 each PO BID #60 tablet 01/27/17 Plus] Allergies Allergy/AdvReac Type Severity Reaction Status Date / Time No Known Allergies Allergy Verified 10/22/15 16:45 All systems ED: reviewed and negative except as stated. Constitutional: Reports: fever Cardiovascular: Denies: chest pain Respiratory: Reports: cough. Denies: dyspnea Gastrointestinal: Reports: abdominal pain, constipation. Denies: nausea, vomiting Genitourinary: Reports: frequency Past Medical History - Past Medical History Source: patient Medical history: Reports: cancer, COPD, DVT, hypertension, osteoporosis, seizures, other Surgical history: Reports: hip replacement, orthopedic, other, other Psychiatric history: Reports: anxiety, depression WAIST PRESSER history: Reports: no WAIST PRESSER history - Social History Smoking Status: Current every day smoker Smokeless Tobacco Status: No Alcohol use: Reports: none Drug use: Reports: none Physical Exam - General Limitations: no limitations General appearance: alert, in no apparent distress, other (Appears chronically ill) - Head Head exam: atraumatic, normocephalic - Eye Eye exam: Present: normal appearance, PERRL, EOMI. Absent: miosis - ENT ENT exam: normal exam, mucous membranes dry - Neck Neck exam: Present: normal inspection - Chest Chest inspection: Present: normal inspection, symmetric chest wall rise - Respiratory Respiratory exam: Present: prolonged expiratory phase, other (Diffusely decreased breath sounds). Absent: accessory muscle use - Cardiovascular Cardiovascular exam: Present: normal rhythm, tachycardia. Absent: systolic murmur - Abdominal Exam Abdominal exam: Present: soft, Non-Tender - Extremities Exam Extremities exam: Present: normal inspection. Absent: pedal edema - Back Exam Back exam: Present: normal inspection - Neurological Exam Neurological exam: Present: alert, oriented X3, CN II-XII intact - Skin Skin exam: Present: warm, dry, intact, normal color Course Course Narrative: Patient seen and examined. Patient's in no acute distress. Patient does have a fever and is tachycardic can trigger surgical criteria. Likely source of infection is in the lungs or in the urine. Patient will be started with extensive evaluation with labs, CT of the chest abdomen pelvis given her history of lung cancer. Patient also has a pleuritic component to that pain. Disposition likely admission. - Reevaluation(s) Reevaluation #1: Patient seen and examined. Patient updated on plan of care. Patient likely has sepsis pneumonia given CT findings. Patient states she has been having a cough over the past couple days with has been productive in nature. Patient will be treated for hospital associated pneumonia given her recent hospitalizations. Time: 01:17 Vital Signs Temperature 100.4 F H 08/06/17 22:27 Pulse Rate 120 08/06/17 22:27 Respiratory Rate 18 08/06/17 22:27 Blood Pressure 118/74 08/06/17 22:27 O2 Sat by Pulse Oximetry 94 08/06/17 22:27 Temperature 97.9 F 08/07/17 01:02 Pulse Rate 83 08/07/17 01:48 Respiratory Rate 16 08/07/17 01:48 Blood Pressure 101/63 08/07/17 01:48 O2 Sat by Pulse Oximetry 98 08/07/17 01:48 Oxygen Delivery Oxygen Delivery Nasal Cannula Medical Decision Making - MDM Narrative Medical decision making narrative: 72-year-old female with history of lung cancer presents for evaluation of a fever. And bilateral flank pain. Patient was noting primary left lower back pain which is worse with deep inspiration. That in the setting of lung cancer prompted a CT of the chest abdomen pelvis. Patient did have a fever earlier today. Patient clinically has pneumonia with a productive cough for the past couple days. Patient also has increasing altered requirement as she only wears nocturnal oxygen. Patient also had an elevated gallbladder on her CAT scan however the patient has no tenderness in the right upper quadrant. Her lipase is normal. Patient also has no elevation in liver enzymes. Patient was treated with broad-spectrum antibiotics. Patient be admitted to hospital service for further evaluation and monitoring. Patient was not given a 30 mL/ kg bolus of fluid as she is hemodynamically stable with a normal lactate. - Lab Data Lab results reviewed: Yes I reviewed the patient's lab results. Result diagrams: 08/06/17 23:08 08/06/17 23:08 Lab Results 08/06/17 08/06/17 08/06/17 Range/Units 23:08 23:08 23:11 WBC 17.4 H (4.3-11.1) K/mcL RBC 4.90 (3.82-4.97) M/mcL Hgb 14.6 (11.5-15.4) g/dL Hct 44.1 (35.3-44.9) % MCV 90.0 (83.0-100.0) fL MCH 29.8 (28.0-33.3) pg MCHC 33.1 (31.6-35.5) g/dL RDW 14.9 H (11.5-14.5) % Plt Count 186 (140-400) K/mcL MPV 10.9 (9.4-12.4) fL Immature Gran % 0.4 (0-4) % Seg Neutrophils % 90.5 % Lymphocytes % 4.1 % Monocytes % 4.8 % Eosinophils % 0.0 % Basophils % 0.2 % Neutrophils # 15.7 H (1.6-8.9) K/mcL Lymphocytes # 0.7 (0.6-4.6) K/mcL Monocytes # 0.8 (0.0-1.3) K/mcL Eosinophils # 0.0 (0.0-0.6) K/mcL Basophils # 0.0 (0.0-0.2) K/mcL Sodium 131 L (136-145) mEq/L Potassium 3.6 (3.5-5.1) mEq/L Chloride 101 (98-107) mEq/L Carbon Dioxide 24 (23-29) mEq/L BUN 22 (8-23) mg/dL Creatinine 0.76 (0.60-1.20) mg/dL Est GFR ( Amer) > 60 (> 60) Est GFR (Non-Af Amer) > 60 (> 60) BUN/Creatinine Ratio 29 H (6-26) Glucose 125 H (70-105) mg/dL Calculated Osmolality 277 L (280-300) Lactic Acid (0.5-2.2) mmol/L Calcium 9.0 (8.6-10.3) mg/dL Total Bilirubin 0.9 (0.3-1.0) mg/dL Direct Bilirubin 0.2 (0.0-0.2) mg/dL Indirect Bilirubin 0.7 (0.0-1.2) mg/dL AST 13 (13-39) Units/L ALT 10 (7-52) Units/L Alkaline Phosphatase 74 (34-104) Units/L Serum Total Protein 8.1 (6.4-8.9) g/dL Albumin 3.9 (3.5-5.7) g/dL Globulin 4.2 H (2.4-3.5) g/dL Albumin/Globulin Ratio 0.9 L (1.1-2.2) Lipase < 3 L (11-82) Units/L Urine Color (Yellow) Urine Clarity (Clear) Urine pH (5.0-8.0) pH Units Ur Specific [place] (1.010-1.025) Urine Protein (Neg-Trace) mg/dL Urine Glucose (UA) (Normal) mg/dL Urine Ketones (Negative) mg/dL Urine Blood (Negative) Urine Nitrite (Negative) Urine Bilirubin (Negative) Urine Urobilinogen (Normal) mg/dL Ur Leukocyte Esterase (Negative) Urine Microscopic RBC (0-3) per hpf Urine Microscopic WBC (0-3) per hpf Ur Squamous Epith Cells (None-Few) per lpf Amorphous Sediment (Few) Urine Bacteria (None-Few) per hpf Hyaline Casts (None-Few) per lpf Ur Culture Indicated? (NO) 08/06/17 08/06/17 Range/Units 23:13 23:30 WBC (4.3-11.1) K/mcL RBC (3.82-4.97) M/mcL Hgb (11.5-15.4) g/dL Hct (35.3-44.9) % MCV (83.0-100.0) fL MCH (28.0-33.3) pg MCHC (31.6-35.5) g/dL RDW (11.5-14.5) % Plt Count (140-400) K/mcL MPV (9.4-12.4) fL Immature Gran % (0-4) % Seg Neutrophils % % Lymphocytes % % Monocytes % % Eosinophils % % Basophils % % Neutrophils # (1.6-8.9) K/mcL Lymphocytes # (0.6-4.6) K/mcL Monocytes # (0.0-1.3) K/mcL Eosinophils # (0.0-0.6) K/mcL Basophils # (0.0-0.2) K/mcL Sodium (136-145) mEq/L Potassium (3.5-5.1) mEq/L Chloride (98-107) mEq/L Carbon Dioxide (23-29) mEq/L BUN (8-23) mg/dL Creatinine (0.60-1.20) mg/dL Est GFR ( Amer) (> 60) Est GFR (Non-Af Amer) (> 60) BUN/Creatinine Ratio (6-26) Glucose (70-105) mg/dL Calculated Osmolality (280-300) Lactic Acid 1.1 (0.5-2.2) mmol/L Calcium (8.6-10.3) mg/dL Total Bilirubin (0.3-1.0) mg/dL Direct Bilirubin (0.0-0.2) mg/dL Indirect Bilirubin (0.0-1.2) mg/dL AST (13-39) Units/L ALT (7-52) Units/L Alkaline Phosphatase (34-104) Units/L Serum Total Protein (6.4-8.9) g/dL Albumin (3.5-5.7) g/dL Globulin (2.4-3.5) g/dL Albumin/Globulin Ratio (1.1-2.2) Lipase (11-82) Units/L Urine Color Straw (Yellow) Urine Clarity Clear (Clear) Urine pH 6.0 (5.0-8.0) pH Units Ur Specific [place] >= 1.030 H (1.010-1.025) Urine Protein >=300 H (Neg-Trace) mg/dL Urine Glucose (UA) Normal (Normal) mg/dL Urine Ketones Trace H (Negative) mg/dL Urine Blood Moderate H (Negative) Urine Nitrite Negative (Negative) Urine Bilirubin Small H (Negative) Urine Urobilinogen Normal (Normal) mg/dL Ur Leukocyte Esterase Negative (Negative) Urine Microscopic RBC 5-15 H (0-3) per hpf Urine Microscopic WBC 3-5 H (0-3) per hpf Ur Squamous Epith Cells Few (None-Few) per lpf Amorphous Sediment Moderate H (Few) Urine Bacteria Few (None-Few) per hpf Hyaline Casts None Seen (None-Few) per lpf Ur Culture Indicated? NO (NO) - Radiology Data Radiology results reviewed: Yes I reviewed the patient's radiology results. Abdomen/Pelvis CT 08/06/17 23:24 IMPRESSION: 1. Suspected pyelitis on the left. 2. The gallbladder is distended and there is biliary ductal dilation without identifiable cause. D/ / Jj Floyd MD / Jj Floyd MD Interpreting Provider: Jj Floyd MD Chest CTA 08/06/17 23:24 IMPRESSION: No evidence of pulmonary emboli. Interval development of a 5.5 x 4.7 x 3.8 cm area of consolidation the medial left lung base. Findings most likely represent pneumonia. However follow-up is recommended to exclude malignancy. Slightly increased fibronodular opacities in left apex may represent progressive scarring/fibrosis. Other infectious or inflammatory etiologies not excluded. Attention follow-up is recommended. Severe emphysema. Small mucus or debris in the trachea. Slightly prominent mediastinal lymph nodes, with a slightly larger subcarinal lymph node measuring 15 mm. Findings are nonspecific, possibly reactive. See separate same day CT report of the abdomen pelvis. D/ / Danny Warren MD / Danny Warren MD Interpreting Provider: Danny Warren MD - EKG Data EKG #1 EKG attestation: Yes I reviewed and interpreted this EKG. EKG shows normal: sinus rhythm Rate: normal Rhythm: NSR [place]/QRS: normal Interpretation: no acute changes S.B.A.R. - S.B.A.RMegan Situation: Demographics Background: Presenting Complaint Assessment: Vital Signs, Course and respsone to treatment Recommendation: Barrier(s) to disposition S.B.A.RMegan Report Given to: Dr. Remigio Araujo Repor Time: 01:30
[2017-08-06 23:41] LABS: Bilirubin,Urine Small (Negative); Blood,Urine Moderate (Negative); Clarity,Urine Clear (Clear); Glucose,Urine (UA) Normal (Normal); Ketones,Urine Trace mg/dL (Negative); Leukocyte Esterase,Urine Negative (Negative); Nitrite,Urine Negative (Negative); Protein,Urine >=300 mg/dL (Neg-Trace); Specific Gravity,Urine >= 1.030 (1.010-1.025); Urobilinogen,Urine Normal (Normal)
[2017-08-06 23:42] LABS: Color,Urine Straw (Yellow)
[2017-08-06 23:43] LABS: BUN/Creatinine Ratio 29 (6-26); Blood Urea Nitrogen 22 mg/dL (8-23); Carbon Dioxide 24 mEq/L (23-29); Chloride 101 mEq/L (98-107); Glucose 125 mg/dL (70-105); Osmolality,Calculated 277 (280-300); Potassium 3.6 mEq/L (3.5-5.1); Sodium 131 mEq/L (136-145); eGFR For African Americans > 60 (> 60); eGFR For Non-African Americans > 60 (> 60)
[2017-08-06 23:44] LABS: Albumin 3.9 g/dL (3.5-5.7); Albumin/Globulin Ratio 0.9 (1.1-2.2); Bilirubin,Direct 0.2 mg/dL (0.0-0.2); Bilirubin,Indirect 0.7 mg/dL (0.0-1.2); Bilirubin,Total 0.9 mg/dL (0.3-1.0); Globulin 4.2 g/dL (2.4-3.5); Total Protein 8.1 g/dL (6.4-8.9)
[2017-08-06 23:49] LABS: Hyaline Casts,Urine None Seen per lpf (None-Few)
[2017-08-06 23:50] LABS: Amorphous Sediment,Urine Moderate (Few); Bacteria,Urine Few per hpf (None-Few); Squamous Epithelial Cell,Urine Few per lpf (None-Few)
[2017-08-07] MEDS ORDERED: Piperacillin/Tazobactam 3.375 GM in 0.9 % Sodium Chloride Mini Bag 100 ML IVPB ONE (00:34)
[2017-08-07] MEDS ORDERED: 0.9 % Sodium Chloride 500 ML IVC ONE (00:35)
[2017-08-07 00:50] LABS: Lipase < 3 Units/L (11-82)
[2017-08-07] MEDS ORDERED: *HR* OxyCODONE/APAP 5/325 TABLET PO ONE (01:43)
--- NOTE | 2017-08-07 01:54 | Emergency Department Note ---
Disposition Clinical Impression: Sepsis Qualifiers: Sepsis type: sepsis due to unspecified organism Qualified Code(s): A41.9 - Sepsis, unspecified organism Pneumonia Qualifiers: Aspiration pneumonia type: unspecified Laterality: unspecified laterality Lung location: unspecified part of lung Disposition: Admitted As Inpatient Condition: Fair Referrals: NONE,PCP [Primary Care Provider] - General Adult HPI - General Chief complaint: ED Fever Stated complaint: Bilateral Flank Pain/Fever Time Seen by Provider: 08/06/17 22:47 Source: patient, family Mode of arrival: ambulatory Limitations: no limitations Nursing Notes Reviewed: Yes Vital Signs Reviewed: Yes - History of Present Illness Pain Scale: 8 - Related Data Home Medications Medication Instructions Recorded Confirmed Ascorbic Acid [Vitamin C] 500 mg PO DAILY 10/22/15 01/21/17 Cyanocobalamin (Vitamin B-12) 1,000 mcg PO DAILY 10/22/15 01/21/17 [Vitamin B12] Acetaminophen [Tylenol] 1,000 mg PO Q6HR PRN 12/25/15 01/21/17 Budesonide/Formoterol 160/4.5 1 puff IH BIDR 12/25/15 01/21/17 [Symbicort 160/4.5] LevETIRAcetam [Levetiracetam] 500 mg PO BID 03/16/16 01/21/17 Simvastatin [Zocor] 20 mg PO DAILY 03/16/16 01/21/17 Calcium Carbonate [Calcium] 600 mg PO DAILY 01/04/17 01/21/17 Diclofenac Sodium 4 gm TP QID PRN 01/04/17 01/21/17 Ipratropium/Albuterol Sulfate 2 puff IH Q4H PRN 01/04/17 01/21/17 [Combivent Respimat Inhal [place]] LORazepam [Ativan] 1 mg PO Q2H PRN 01/04/17 01/21/17 Loratadine [Claritin] 10 mg PO DAILY PRN 01/04/17 01/21/17 Oxycodone HCl 15 mg PO Q4H PRN 01/04/17 01/21/17 Oxygen 2 l NS AD 01/04/17 01/21/17 Ranitidine HCl [Zantac] 150 mg PO BID 01/04/17 01/21/17 Sertraline [Zoloft] 100 mg PO DAILY 01/04/17 01/21/17 Vitamin B Complex Vit C No.4 150 mg PO DAILY 01/04/17 01/21/17 [Super B Complex] Oxycodone HCl [Roxicodone 30] 30 mg PO Q4H 01/21/17 01/26/17 Warfarin [Coumadin] 7.5 mg PO MOTUWETHFR 01/21/17 01/21/17 Warfarin [Coumadin] 8 mg PO SUSA 01/21/17 01/21/17 Previous Rx's Medication Instructions Recorded Amitriptyline [Elavil] 50 mg PO HS #30 tablet 03/20/16 Polyethylene Glycol 3350 [MiraLAX] 17 gm PO DAILY PRN #20 powd.pack 01/27/17 Sennosides/Docusate Sodium [Senna 2 each PO BID #60 tablet 01/27/17 Plus] Allergies Allergy/AdvReac Type Severity Reaction Status Date / Time No Known Allergies Allergy Verified 10/22/15 16:45 Constitutional: Reports: fever Cardiovascular: Denies: chest pain Respiratory: Reports: cough. Denies: dyspnea Gastrointestinal: Reports: abdominal pain, constipation. Denies: nausea, vomiting Genitourinary: Reports: frequency Past Medical History - Past Medical History Medical history: Reports: cancer, COPD, DVT, hypertension, osteoporosis, seizures, other Surgical history: Reports: hip replacement, orthopedic, other, other Psychiatric history: Reports: anxiety, depression WATERMELON INSPECTOR history: Reports: no WATERMELON INSPECTOR history - Social History Smoking Status: Current every day smoker Smokeless Tobacco Status: No Alcohol use: Reports: none Drug use: Reports: none Physical Exam - General Limitations: no limitations General appearance: alert, in no apparent distress, other (Appears chronically ill) Course Vital Signs Temperature 100.4 F H 08/06/17 22:27 Pulse Rate 120 08/06/17 22:27 Respiratory Rate 18 08/06/17 22:27 Blood Pressure 118/74 08/06/17 22:27 O2 Sat by Pulse Oximetry 94 08/06/17 22:27 Temperature 97.9 F 08/07/17 01:02 Pulse Rate 83 08/07/17 01:48 Respiratory Rate 16 08/07/17 01:48 Blood Pressure 101/63 08/07/17 01:48 O2 Sat by Pulse Oximetry 98 08/07/17 01:48 Oxygen Delivery Oxygen Delivery Nasal Cannula Medical Decision Making - Lab Data Result diagrams: 08/06/17 23:08 08/06/17 23:08 Lab Results 08/06/17 08/06/17 08/06/17 Range/Units 23:08 23:08 23:11 WBC 17.4 H (4.3-11.1) K/mcL RBC 4.90 (3.82-4.97) M/mcL Hgb 14.6 (11.5-15.4) g/dL Hct 44.1 (35.3-44.9) % MCV 90.0 (83.0-100.0) fL MCH 29.8 (28.0-33.3) pg MCHC 33.1 (31.6-35.5) g/dL RDW 14.9 H (11.5-14.5) % Plt Count 186 (140-400) K/mcL MPV 10.9 (9.4-12.4) fL Immature Gran % 0.4 (0-4) % Seg Neutrophils % 90.5 % Lymphocytes % 4.1 % Monocytes % 4.8 % Eosinophils % 0.0 % Basophils % 0.2 % Neutrophils # 15.7 H (1.6-8.9) K/mcL Lymphocytes # 0.7 (0.6-4.6) K/mcL Monocytes # 0.8 (0.0-1.3) K/mcL Eosinophils # 0.0 (0.0-0.6) K/mcL Basophils # 0.0 (0.0-0.2) K/mcL Sodium 131 L (136-145) mEq/L Potassium 3.6 (3.5-5.1) mEq/L Chloride 101 (98-107) mEq/L Carbon Dioxide 24 (23-29) mEq/L BUN 22 (8-23) mg/dL Creatinine 0.76 (0.60-1.20) mg/dL Est GFR ( Amer) > 60 (> 60) Est GFR (Non-Af Amer) > 60 (> 60) BUN/Creatinine Ratio 29 H (6-26) Glucose 125 H (70-105) mg/dL Calculated Osmolality 277 L (280-300) Lactic Acid (0.5-2.2) mmol/L Calcium 9.0 (8.6-10.3) mg/dL Total Bilirubin 0.9 (0.3-1.0) mg/dL Direct Bilirubin 0.2 (0.0-0.2) mg/dL Indirect Bilirubin 0.7 (0.0-1.2) mg/dL AST 13 (13-39) Units/L ALT 10 (7-52) Units/L Alkaline Phosphatase 74 (34-104) Units/L Serum Total Protein 8.1 (6.4-8.9) g/dL Albumin 3.9 (3.5-5.7) g/dL Globulin 4.2 H (2.4-3.5) g/dL Albumin/Globulin Ratio 0.9 L (1.1-2.2) Lipase < 3 L (11-82) Units/L Urine Color (Yellow) Urine Clarity (Clear) Urine pH (5.0-8.0) pH Units Ur Specific [place] (1.010-1.025) Urine Protein (Neg-Trace) mg/dL Urine Glucose (UA) (Normal) mg/dL Urine Ketones (Negative) mg/dL Urine Blood (Negative) Urine Nitrite (Negative) Urine Bilirubin (Negative) Urine Urobilinogen (Normal) mg/dL Ur Leukocyte Esterase (Negative) Urine Microscopic RBC (0-3) per hpf Urine Microscopic WBC (0-3) per hpf Ur Squamous Epith Cells (None-Few) per lpf Amorphous Sediment (Few) Urine Bacteria (None-Few) per hpf Hyaline Casts (None-Few) per lpf Ur Culture Indicated? (NO) 08/06/17 08/06/17 Range/Units 23:13 23:30 WBC (4.3-11.1) K/mcL RBC (3.82-4.97) M/mcL Hgb (11.5-15.4) g/dL Hct (35.3-44.9) % MCV (83.0-100.0) fL MCH (28.0-33.3) pg MCHC (31.6-35.5) g/dL RDW (11.5-14.5) % Plt Count (140-400) K/mcL MPV (9.4-12.4) fL Immature Gran % (0-4) % Seg Neutrophils % % Lymphocytes % % Monocytes % % Eosinophils % % Basophils % % Neutrophils # (1.6-8.9) K/mcL Lymphocytes # (0.6-4.6) K/mcL Monocytes # (0.0-1.3) K/mcL Eosinophils # (0.0-0.6) K/mcL Basophils # (0.0-0.2) K/mcL Sodium (136-145) mEq/L Potassium (3.5-5.1) mEq/L Chloride (98-107) mEq/L Carbon Dioxide (23-29) mEq/L BUN (8-23) mg/dL Creatinine (0.60-1.20) mg/dL Est GFR ( Amer) (> 60) Est GFR (Non-Af Amer) (> 60) BUN/Creatinine Ratio (6-26) Glucose (70-105) mg/dL Calculated Osmolality (280-300) Lactic Acid 1.1 (0.5-2.2) mmol/L Calcium (8.6-10.3) mg/dL Total Bilirubin (0.3-1.0) mg/dL Direct Bilirubin (0.0-0.2) mg/dL Indirect Bilirubin (0.0-1.2) mg/dL AST (13-39) Units/L ALT (7-52) Units/L Alkaline Phosphatase (34-104) Units/L Serum Total Protein (6.4-8.9) g/dL Albumin (3.5-5.7) g/dL Globulin (2.4-3.5) g/dL Albumin/Globulin Ratio (1.1-2.2) Lipase (11-82) Units/L Urine Color Straw (Yellow) Urine Clarity Clear (Clear) Urine pH 6.0 (5.0-8.0) pH Units Ur Specific [place] >= 1.030 H (1.010-1.025) Urine Protein >=300 H (Neg-Trace) mg/dL Urine Glucose (UA) Normal (Normal) mg/dL Urine Ketones Trace H (Negative) mg/dL Urine Blood Moderate H (Negative) Urine Nitrite Negative (Negative) Urine Bilirubin Small H (Negative) Urine Urobilinogen Normal (Normal) mg/dL Ur Leukocyte Esterase Negative (Negative) Urine Microscopic RBC 5-15 H (0-3) per hpf Urine Microscopic WBC 3-5 H (0-3) per hpf Ur Squamous Epith Cells Few (None-Few) per lpf Amorphous Sediment Moderate H (Few) Urine Bacteria Few (None-Few) per hpf Hyaline Casts None Seen (None-Few) per lpf Ur Culture Indicated? NO (NO) Critical Care Time Critical Care Time: Yes Total Critical Care Time: 40 Attestation: Critical care performed: Time is exclusive of separately billable procedures. Time includes: direct patient care, patient reassessment, coordination of patient care, interpretation of data (laboratory data, radiology data, and respiratory data), review of patient's medical records, medical consultation and documentation of patient care. Procedures included in critical care time: Procedures excluded from critical care time: Attestation Statement - Attestation Attestation: I, Billy Hawley MD, personally evaluated this patient and discussed their management with the resident physician. I reviewed the resident's note and agree with the documented findings, medical decision making, and plan of care. 72-year-old female presents to the emergency department with a complaint of pain across her mid back in the flank area. She states she has had this a long time but it has been a lot worse since yesterday. It is worse on the left side. Today she developed a fever which she states was up to 104 at home. She denies dysuria or gross hematuria but admits to some increased urinary frequency. Some mild nausea but no vomiting or diarrhea. No GI bleed symptoms. There has been a mild cough. No increased shortness of breath. She does have a history of lung cancer and received radiation treatments several months ago for this. On examination patient is a well-developed thin elderly female in no acute distress. She is alert and oriented 3. There is no cyanosis or diaphoresis. Chest is nontender to palpation. Breath sounds are decreased but equal bilaterally without rales or wheezes noted. Heart regular rate and rhythm. Abdomen is soft and nontender with normal bowel sounds. Labs reviewed. WBC 17.4 with 90.5% segs. CTA of the chest shows no evidence of pulmonary embolism. There is some left lower lobe consolidation, likely representing pneumonia. CT of the abdomen and pelvis shows suspected pyelitis on the left. There is also a distended gallbladder. IV antibiotics initiated. The hospitalist, , was consulted and accepted admission of the patient.
[2017-08-07] MEDS ORDERED: Naloxone 0.4 MG/ML INJ IVP PRN (01:56)
[2017-08-07] MEDS ORDERED: Vancomycin (wt based) 1,000 MG VIAL IVPB SCH (02:00)
[2017-08-07] MEDS ORDERED: Ipratropium/Albuterol Neb 3 ML IH PRN (02:04)
--- NOTE | 2017-08-07 02:11 | Internal Med History&Physical ---
Date of Encounter: 08/07/17 Time of Encounter: 01:00 Internal Medicine - H&P: HPI Chief complaint: Bilateral flank pain Admitted From: Home Plans for Post Hospital Care: Home History of present illness: Ms. Hodge is a 72 year old female present to ER for fever and bilateral flank pain for 2 days. Past medical history is significant for left lung adenocarcinoma S/P radiation therapy, seizure, COPD. Patient said she started to have fever and bilateral flank pain since yesterday morning. Patient also has a cough for 2-3 days, with creamish sputum. Patient has nausea but no vomiting. Patient denies diarrhea. Patient denies shortness of breath or chest pain. Patient has increased the frequency of urination for 2 -3 days. Denies dysuria or burning. In the emergency room, CTA shows no PE but left lower lobe pneumonia. CT abdomen suggest pyelonephritis. Patient was admitted for HCAP and UTI. Past Med Surg Social Fam HX - Past Medical History Medical history: cancer, COPD, DVT, hypertension, osteoporosis, seizures, other Psychiatric history: anxiety, depression - Past Surgical History Surgical History: hip replacement, orthopedic, other, other - Social History Smoking Status: Current every day smoker Smokeless Tobacco Status: No Alcohol use: none Drug use: none - Family History Mother Hx Family Respiratory Disorders: Yes (COPD, emphysemza) Father Hx Family Cardiac Disorders: Yes (CHF) Internal Medicine - H&P: Meds Ascorbic Acid [Vitamin C] 500 mg PO DAILY 10/22/15 [History] Cyanocobalamin (Vitamin B-12) [Vitamin B12] 1,000 mcg PO DAILY 10/22/15 [History ] Acetaminophen [Tylenol] 1,000 mg PO Q6HR PRN 12/25/15 [History] Budesonide/Formoterol 160/4.5 [Symbicort 160/4.5] 1 puff IH BIDR 12/25/15 [ History] LevETIRAcetam [Levetiracetam] 500 mg PO BID 03/16/16 [History] Simvastatin [Zocor] 20 mg PO DAILY 03/16/16 [History] Amitriptyline [Elavil] 50 mg PO HS #30 tablet 03/20/16 [Rx] Calcium Carbonate [Calcium] 600 mg PO DAILY 01/04/17 [History] Diclofenac Sodium 4 gm TP QID PRN 01/04/17 [History] Ipratropium/Albuterol Sulfate [Combivent Respimat Inhal [place]] 2 puff IH Q4H PRN 01/04/17 [History] LORazepam [Ativan] 1 mg PO Q2H PRN 01/04/17 [History] Loratadine [Claritin] 10 mg PO DAILY PRN 01/04/17 [History] Oxycodone HCl 15 mg PO Q4H PRN 01/04/17 [History] Oxygen 2 l NS AD 01/04/17 [History] Ranitidine HCl [Zantac] 150 mg PO BID 01/04/17 [History] Sertraline [Zoloft] 100 mg PO DAILY 01/04/17 [History] Vitamin B Complex Vit C No.4 [Super B Complex] 150 mg PO DAILY 01/04/17 [History ] Oxycodone HCl [Roxicodone 30] 30 mg PO Q4H 01/21/17 [History] Warfarin [Coumadin] 7.5 mg PO MOTUWETHFR 01/21/17 [History] Warfarin [Coumadin] 8 mg PO SUSA 01/21/17 [History] Polyethylene Glycol 3350 [MiraLAX] 17 gm PO DAILY PRN #20 powd.pack 01/27/17 [Rx ] Sennosides/Docusate Sodium [Senna Plus] 2 each PO BID #60 tablet 01/27/17 [Rx] 3 Allergy/AdvReac Type Severity Reaction Status Date / Time No Known Allergies Allergy Verified 10/22/15 16:45 All Systems PM: A 10-system review of systems was performed and is negative for pertinent findings except as documented above in the HPI. - Constitutional Vitals: Temp Pulse Resp BP Pulse Ox 97.9 F 83 16 101/63 98 08/07/17 01:02 08/07/17 01:48 08/07/17 01:48 08/07/17 01:48 08/07/17 01:48 General appearance: Present: A&O X 3, no acute distress, answers questions appropriately - Head Head exam: Present: atraumatic, normocephalic - Eye Eye exam: Present: PERRL, conjuntiva pink, sclera anicteric Pupils: Present: PERRL - Neck Neck exam general surgery: Present: supple, trachea midline. Absent: lymphadenopathy - Respiratory Respiratory exam: Present: CTAB. Absent: accessory muscle use, rales, rhonchi, wheezes - Cardiovascular Cardiovascular exam: Present: RRR, +S1, +S2. Absent: diastolic murmur, gallop, rubs, systolic murmur - GI/Abdominal GI/Abdominal exam: Present: normal bowel sounds, soft, no peritoneal signs. Absent: distended, tenderness Additional comments: CVAT positive bilaterally - Extremities Exam Extremities exam: Present: warm, radial pulses palpable and symmetrical. Absent : calf tenderness, cyanotic, pedal edema - Neurological Exam Neurological exam: Present: CN II-XII intact, oriented X3, no focal deficits. Absent: pronater drift, facial droop, speech deficit - Skin Skin exam: Present: dry, intact Internal Med - H&P Results - Labs CBC & Chem 7: 08/06/17 23:08 08/06/17 23:08 - Assessment and plan (1) Sepsis Current Visit: Yes Status: Acute Assessment and plan: Patient meets sepsis criteria with fever and leukocytosis and tachycardia. Infectious source consider pneumonia and UTI. - Early goal directed IV fluid resuscitation started from ER. Initial lactate acid level within normal limits - Continue IV fluid - Place patient on Vanco and Zosyn - Follow up blood and urine culture Qualifiers: Sepsis type: sepsis due to unspecified organism Qualified Code(s): A41.9 - Sepsis, unspecified organism (2) HCAP (healthcare-associated pneumonia) Current Visit: Yes Status: Acute Assessment and plan: CTA shows pneumonia. Patient is accepting radiation therapy for lung cancer. Will treat patient as HCAP. - Place patient on Vanco and Zosyn - Symptomatic treatment as needed (3) Pyelonephritis Current Visit: Yes Status: Acute Assessment and plan: Patient has a bilateral CVAT positive. CT abdomen shows possible pyelonephritis. Patient has increased the frequency of urination. - Continue antibiotic as above. Follow-up urine culture (4) DVT prophylaxis Current Visit: No Status: Acute Assessment and plan: Lovenox sc (5) Lung cancer Current Visit: No Status: Acute Assessment and plan: Continue follow-up with oncology as outpatient Qualifiers: Laterality: left Lung location: unspecified part of lung Qualified Code(s ): C34.92 - Malignant neoplasm of unspecified part of left bronchus or lung (6) MGUS (monoclonal gammopathy of unknown significance) Current Visit: No Status: Chronic Assessment and plan: Continue outpatient oncology follow-up (7) Tobacco abuse Current Visit: No Status: Chronic Assessment and plan: Smoking cessation education. Place patient on nicotine patch (8) Bile duct abnormality Current Visit: Yes Status: Acute Assessment and plan: CT abdomen shows bile duct dilation with gallbladder distention. Patient denies right upper quadrant pain. Lab shows normal bilirubin and LFT. Possibly nonspecific. Will order liver US in AM. - Time Spent With Patient Total time spent is greater than 50% in coordination of care (as documented) at patient's floor/unit and/or counseling patient: 40 minutes Greater than 35 minutes
[2017-08-07] MEDS: 0.9 % Sodium Chloride 1,000 ML IVC SCH ×2 (03:21→17:29)
[2017-08-07 04:34] LABS: Basophils % 0.1 %; Hematocrit 36.7 % (35.3-44.9); Immature Granulocytes % 2.2 % (0-4); Lymphocytes # 1.7 K/mcL (0.6-4.6); Lymphocytes % 9.6 %; Mean Corpuscular Hemoglobin 30.4 pg (28.0-33.3); Mean Corpuscular Volume 92.2 fL (83.0-100.0); Mean Platelet Volume 10.9 fL (9.4-12.4); Monocytes # 1.1 K/mcL (0.0-1.3); Monocytes % 5.9 %; Neutrophils # 14.8 K/mcL (1.6-8.9); Platelet Count 154 K/mcL (140-400); Red Blood Count 3.98 M/mcL (3.82-4.97); Red Cell Distribution Width 14.8 % (11.5-14.5); Segmented Neutrophils % 82.2 %
[2017-08-07 04:38] LABS: Hemoglobin 12.1 g/dL (11.5-15.4)
[2017-08-07 04:54] LABS: BUN/Creatinine Ratio 26 (6-26); Blood Urea Nitrogen 22 mg/dL (8-23); Calcium 8.2 mg/dL (8.6-10.3); Carbon Dioxide 27 mEq/L (23-29); Chloride 104 mEq/L (98-107); Glucose 131 mg/dL (70-105); Magnesium 1.6 mg/dL (1.6-2.6); Osmolality,Calculated 281 (280-300); Potassium 4.4 mEq/L (3.5-5.1); Sodium 133 mEq/L (136-145); eGFR For African Americans > 60 (> 60); eGFR For Non-African Americans > 60 (> 60)
[2017-08-07] MEDS ORDERED: Acetaminophen 325 MG TABLET PO PRN (06:00)
[2017-08-07] MEDS: *HR* Enoxaparin 30 MG/0.3 ML SYRINGE SQ SCH (06:13)
[2017-08-07] MEDS ORDERED: Piperacillin/Tazobactam 3.375 GM in D5% in Water (Mini-Bag+) 100 ML IVPB SCH (09:00)
[2017-08-07] MEDS: levETIRAcetam 250 MG TABLET PO SCH ×2 (09:58→20:38)
[2017-08-07] MEDS: Nicotine 14 MG PATCH.TD24 TD SCH (09:58)
[2017-08-07] MEDS: *HR* HYDROcodone/Acet 5/325 mg TABLET PO PRN ×3 (09:59→22:41)
[2017-08-07] MEDS: Budesonide/Formoterol 160/4.5 MDI IH SCH ×2 (10:48→20:20)
[2017-08-07] MEDS: Piperacillin/Tazobactam 3.375 GM in 0.9 % Sodium Chloride Mini Bag 100 ML IVPB SCH ×2 (11:45→18:04)
--- NOTE | 2017-08-07 17:18 | Event Note ---
Date of Encounter: 08/07/17 Time of Encounter: 17:14 S: Patient had no acute events overnight. She is feeling "better" overall, but still with bilateral flank pain. She denies fever, chills, chest pain, SOB, abdominal pain, nausea, or vomiting. She has no other complaints. O: Gen - Awake, alert, well-nourished, no acute distress HEENT - NCAT, PERRLA, EOMI, hearing grossly intact, oropharynx benign CV - RRR, normal S1 and S2, no M/R/G, no BLE edema Resp - Normal WOB, CTAB, no W/R/R GI - Soft, NT/ND, no masses, normal bowel sounds, no HSP, bilateral flank TTP Skin - Warm, dry, no rashes/lesions/ulcers Psych - Normal mood and affect; no depression or anxiety A/P: 1) Sepsis/HCAP/Pyelonephritis - Continue IVF, IV vancomycin, and IV zosyn. Follow up on cultures. Recheck labwork in AM. 2) Bile Duct Abnormality - No abdominal pain or other symptoms of bile duct obstruction. U/S liver showed gall stones and duct dilatation, but no obstruction. Will monitor closely.
[2017-08-08] MEDS: Piperacillin/Tazobactam 3.375 GM in 0.9 % Sodium Chloride Mini Bag 100 ML IVPB SCH ×3 (03:48→18:02)
[2017-08-08 05:59] LABS: Basophils % 0.3 %; Eosinophils % 0.5 %; Hematocrit 35.8 % (35.3-44.9); Hemoglobin 11.4 g/dL (11.5-15.4); Immature Granulocytes % 0.2 % (0-4); Lymphocytes # 1.5 K/mcL (0.6-4.6); Lymphocytes % 16.7 %; Mean Corpuscular HGB Conc 31.8 g/dL (31.6-35.5); Mean Corpuscular Hemoglobin 29.6 pg (28.0-33.3); Mean Platelet Volume 11.6 fL (9.4-12.4); Monocytes # 0.4 K/mcL (0.0-1.3); Monocytes % 4.5 %; Neutrophils # 6.9 K/mcL (1.6-8.9); Platelet Count 141 K/mcL (140-400); Red Blood Count 3.85 M/mcL (3.82-4.97); Red Cell Distribution Width 15.2 % (11.5-14.5); Segmented Neutrophils % 77.8 %
[2017-08-08] MEDS: *HR* Enoxaparin 30 MG/0.3 ML SYRINGE SQ SCH (06:04)
[2017-08-08] MEDS: *HR* HYDROcodone/Acet 5/325 mg TABLET PO PRN ×2 (06:13→20:02)
[2017-08-08 06:15] LABS: BUN/Creatinine Ratio 25 (6-26); Blood Urea Nitrogen 17 mg/dL (8-23); Calcium 8.3 mg/dL (8.6-10.3); Carbon Dioxide 26 mEq/L (23-29); Chloride 112 mEq/L (98-107); Glucose 94 mg/dL (70-105); Osmolality,Calculated 293 (280-300); Potassium 3.8 mEq/L (3.5-5.1); Sodium 141 mEq/L (136-145); eGFR For African Americans > 60 (> 60); eGFR For Non-African Americans > 60 (> 60)
[2017-08-08] MEDS: 0.9 % Sodium Chloride 1,000 ML IVC SCH (07:16)
[2017-08-08] MEDS: levETIRAcetam 250 MG TABLET PO SCH ×2 (09:32→20:03)
[2017-08-08] MEDS: Nicotine 14 MG PATCH.TD24 TD SCH (09:32)
[2017-08-08] MEDS: *HR* OxyCODONE Immed Rel 5 MG TABLET PO PRN (10:10)
[2017-08-08] MEDS: Budesonide/Formoterol 160/4.5 MDI IH SCH ×2 (10:15→20:55)
[2017-08-08] MEDS ORDERED: *HR* LORazepam 1 MG TABLET PO PRN (14:35)
[2017-08-08] MEDS ORDERED: Loratadine 10 MG TABLET PO PRN (14:35)
--- NOTE | 2017-08-08 14:52 | Internal Med Progress Note ---
Date of Encounter: 08/08/17 Time of Encounter: 14:50 - Assessment and plan (1) Sepsis Current Visit: Yes Status: Acute Assessment and plan: Resolved. Discontinue IVF. Continue IV vancomycin and IV zosyn as per below. Blood and urine cultures no growth to date. Qualifiers: Sepsis type: sepsis due to unspecified organism Qualified Code(s): A41.9 - Sepsis, unspecified organism (2) Pyelonephritis Current Visit: Yes Status: Acute Assessment and plan: Continue IV vancomycin and IV zosyn. Urine culture no growth to date. (3) HCAP (healthcare-associated pneumonia) Current Visit: Yes Status: Acute Assessment and plan: Continue IV vancomycin and IV zosyn. Continue supplemental oxygen and nebs PRN. (4) Tobacco abuse Current Visit: Yes Status: Chronic Assessment and plan: Counselled on smoking cessation. Continue nicotine transdermal. (5) Lung cancer Current Visit: Yes Status: Chronic Assessment and plan: Continue follow-up with oncology as outpatient. Qualifiers: Laterality: left Lung location: unspecified part of lung Qualified Code(s ): C34.92 - Malignant neoplasm of unspecified part of left bronchus or lung (6) MGUS (monoclonal gammopathy of unknown significance) Current Visit: Yes Status: Chronic Assessment and plan: Continue outpatient oncology follow-up. (7) Debility Current Visit: Yes Status: Acute Assessment and plan: Will consult PT/OT. (8) DVT prophylaxis Current Visit: Yes Status: Acute Assessment and plan: Continue SQ lovenox. - Time Spent With Patient Total time spent is greater than 50% in coordination of care (as documented) at patient's floor/unit and/or counseling patient: less than 15 minutes - Subjective Interval history: Patient has no acute events overnight. She states that she is feeling better today. Flank pain is improved and better-controlled now with addition of oxycodone. She denies fever, chills, chest pain, SOB, nausea, vomiting, or abdominal pain. She has no other complaints today. - Constitutional Vitals: Temp Pulse Resp BP Pulse Ox 97.8 F 82 16 112/73 95 08/08/17 13:09 08/08/17 13:09 08/08/17 13:09 08/08/17 13:09 08/08/17 13:09 General appearance: Present: cooperative, A&O X 3, pleasant, no acute distress, answers questions appropriately - Respiratory Respiratory exam: Present: CTAB. Absent: accessory muscle use, rales, rhonchi, wheezes Additional comments: Normal WOB - Cardiovascular Cardiovascular exam: Present: RRR, +S1, +S2. Absent: diastolic murmur, gallop, rubs, systolic murmur Additional comments: No BLE edema - GI/Abdominal GI/Abdominal exam: Present: normal bowel sounds, soft. Absent: distended, hepatomegaly, mass, splenomegaly, tenderness - Back Exam Back exam: Present: CVA tenderness (L), CVA tenderness (R) - Psychiatric Psychiatric exam: Present: normal affect, normal mood. Absent: agitated, anxious, depressed - Skin Skin exam: Present: dry, intact, warm. Absent: cyanosis, rash Internal Medicine: Result - Labs CBC & Chem 7: 08/08/17 05:15 08/08/17 05:15 Labs: Short CBC 08/08/17 Range/Units 05:15 WBC 8.9 D (4.3-11.1) K/mcL Hgb 11.4 L (11.5-15.4) g/dL Hct 35.8 (35.3-44.9) % Plt Count 141 (140-400) K/mcL Neutrophils # 6.9 (1.6-8.9) K/mcL BMP 08/08/17 05:15 Sodium 141 Potassium 3.8 Chloride 112 H Carbon Dioxide 26 BUN 17 Creatinine 0.69 Glucose 94 Calcium 8.3 L Consult Discharge Plan - Plan Referrals: NONE,PCP [Primary Care Provider] -
[2017-08-08] MEDS: Vitamin B Complex/Vit C/Vit E 1 EACH TABLET PO SCH (15:03)
[2017-08-08] MEDS: Ascorbic Acid 500 MG TABLET PO SCH (15:03)
[2017-08-08] MEDS: Cyanocobalamin (B-12) 1,000 MCG TABLET PO SCH (15:03)
[2017-08-08] MEDS: Ondansetron 4 MG/2 ML VIAL IVP PRN (22:06)
[2017-08-09 01:23] LABS: Basophils % 0.2 %; Eosinophils % 0.8 %; Hematocrit 33.6 % (35.3-44.9); Hemoglobin 10.7 g/dL (11.5-15.4); Immature Granulocytes % 0.2 % (0-4); Lymphocytes # 1.7 K/mcL (0.6-4.6); Lymphocytes % 32.9 %; Mean Corpuscular HGB Conc 31.8 g/dL (31.6-35.5); Mean Corpuscular Hemoglobin 29.7 pg (28.0-33.3); Mean Corpuscular Volume 93.3 fL (83.0-100.0); Mean Platelet Volume 11.3 fL (9.4-12.4); Monocytes # 0.3 K/mcL (0.0-1.3); Monocytes % 6.6 %; Neutrophils # 3.1 K/mcL (1.6-8.9); Platelet Count 141 K/mcL (140-400); Red Cell Distribution Width 14.9 % (11.5-14.5); Segmented Neutrophils % 59.3 %
[2017-08-09 01:42] LABS: BUN/Creatinine Ratio 24 (6-26); Blood Urea Nitrogen 15 mg/dL (8-23); Calcium 8.2 mg/dL (8.6-10.3); Carbon Dioxide 26 mEq/L (23-29); Chloride 113 mEq/L (98-107); Glucose 107 mg/dL (70-105); Osmolality,Calculated 291 (280-300); Potassium 3.7 mEq/L (3.5-5.1); Sodium 140 mEq/L (136-145); eGFR For African Americans > 60 (> 60); eGFR For Non-African Americans > 60 (> 60)
[2017-08-09] MEDS: Piperacillin/Tazobactam 3.375 GM in 0.9 % Sodium Chloride Mini Bag 100 ML IVPB SCH ×3 (03:03→18:21)
[2017-08-09] MEDS: *HR* Enoxaparin 30 MG/0.3 ML SYRINGE SQ SCH (05:34)
[2017-08-09] MEDS: Budesonide/Formoterol 160/4.5 MDI IH SCH ×2 (07:54→19:39)
[2017-08-09] MEDS: Cyanocobalamin (B-12) 1,000 MCG TABLET PO SCH (09:28)
[2017-08-09] MEDS: Nicotine 14 MG PATCH.TD24 TD SCH (09:28)
[2017-08-09] MEDS: levETIRAcetam 250 MG TABLET PO SCH ×2 (09:28→21:39)
[2017-08-09] MEDS: Ascorbic Acid 500 MG TABLET PO SCH (09:28)
[2017-08-09] MEDS: Vitamin B Complex/Vit C/Vit E 1 EACH TABLET PO SCH (09:28)
[2017-08-09] MEDS: *HR* OxyCODONE Immed Rel 5 MG TABLET PO PRN (09:32)
--- NOTE | 2017-08-09 10:47 | Electrocardiograph Report ---
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
[2017-08-09] MEDS: *HR* HYDROcodone/Acet 5/325 mg TABLET PO PRN ×2 (15:01→22:27)
--- NOTE | 2017-08-09 19:29 | Internal Med Progress Note ---
Date of Encounter: 08/09/17 Time of Encounter: 14:07 - Assessment and plan (1) Sepsis Current Visit: Yes Status: Acute Assessment and plan: Resolved. Continue IV vancomycin and IV zosyn as per below. Blood cultures no growth to date. Urine culture no growth final. Qualifiers: Sepsis type: sepsis due to unspecified organism Qualified Code(s): A41.9 - Sepsis, unspecified organism (2) Pyelonephritis Current Visit: Yes Status: Acute Assessment and plan: Continue IV vancomycin and IV zosyn. Urine culture no growth final. (3) HCAP (healthcare-associated pneumonia) Current Visit: Yes Status: Acute Assessment and plan: Continue IV vancomycin and IV zosyn. Continue supplemental oxygen and nebs PRN. (4) Tobacco abuse Current Visit: Yes Status: Chronic Assessment and plan: Counselled on smoking cessation. Continue nicotine transdermal. (5) Lung cancer Current Visit: Yes Status: Chronic Assessment and plan: Continue follow-up with oncology as outpatient. Qualifiers: Laterality: left Lung location: unspecified part of lung Qualified Code(s ): C34.92 - Malignant neoplasm of unspecified part of left bronchus or lung (6) MGUS (monoclonal gammopathy of unknown significance) Current Visit: Yes Status: Chronic Assessment and plan: Continue outpatient oncology follow-up. (7) Debility Current Visit: Yes Status: Acute Assessment and plan: PT/OT consulted. (8) DVT prophylaxis Current Visit: Yes Status: Acute Assessment and plan: Continue SQ lovenox. - Time Spent With Patient Total time spent is greater than 50% in coordination of care (as documented) at patient's floor/unit and/or counseling patient: less than 15 minutes - Subjective Interval history: Patient has no acute events overnight. She states that she is feeling better today. Flank pain is improving. She denies fever, chills, chest pain, SOB, nausea, vomiting, or abdominal pain. She has no other complaints today. - Constitutional Vitals: Temp Pulse Resp BP Pulse Ox 98.6 F 76 17 129/68 95 08/09/17 19:05 08/09/17 19:05 08/09/17 19:05 08/09/17 19:05 08/09/17 19:05 General appearance: Present: cooperative, A&O X 3, pleasant, no acute distress, answers questions appropriately - Respiratory Respiratory exam: Present: CTAB. Absent: accessory muscle use, rales, rhonchi, wheezes Additional comments: Normal WOB - Cardiovascular Cardiovascular exam: Present: RRR, +S1, +S2. Absent: diastolic murmur, gallop, rubs, systolic murmur Additional comments: No BLE edema - GI/Abdominal GI/Abdominal exam: Present: normal bowel sounds, soft. Absent: distended, hepatomegaly, mass, splenomegaly, tenderness - Back Exam Back exam: Present: CVA tenderness (L), CVA tenderness (R) - Psychiatric Psychiatric exam: Present: normal affect, normal mood. Absent: agitated, anxious, depressed - Skin Skin exam: Present: dry, intact, warm. Absent: cyanosis, rash Internal Medicine: Result - Labs CBC & Chem 7: 08/09/17 00:36 08/09/17 00:36 Labs: Short CBC 08/09/17 Range/Units 00:36 WBC 5.2 (4.3-11.1) K/mcL Hgb 10.7 L (11.5-15.4) g/dL Hct 33.6 L (35.3-44.9) % Plt Count 141 (140-400) K/mcL Neutrophils # 3.1 (1.6-8.9) K/mcL BMP 08/09/17 00:36 Sodium 140 Potassium 3.7 Chloride 113 H Carbon Dioxide 26 BUN 15 Creatinine 0.63 Glucose 107 H Calcium 8.2 L Consult Discharge Plan - Plan Referrals: NONE,PCP [Non-Partnered Physician] -
[2017-08-09] MEDS: Ondansetron 4 MG/2 ML VIAL IVP PRN (22:26)
[2017-08-10] MEDS ORDERED: 0.9 % Sodium Chloride 250 ML ONE (03:54)
[2017-08-10] MEDS: Piperacillin/Tazobactam 3.375 GM in 0.9 % Sodium Chloride Mini Bag 100 ML IVPB SCH ×2 (04:33→10:09)
[2017-08-10 05:42] LABS: Basophils % 0.6 %; Eosinophils # 0.2 K/mcL (0.0-0.6); Eosinophils % 3.3 %; Hematocrit 35.2 % (35.3-44.9); Hemoglobin 11.4 g/dL (11.5-15.4); Immature Granulocytes % 0.2 % (0-4); Lymphocytes # 2.4 K/mcL (0.6-4.6); Lymphocytes % 46.1 %; Mean Corpuscular HGB Conc 32.4 g/dL (31.6-35.5); Mean Corpuscular Hemoglobin 30.3 pg (28.0-33.3); Mean Corpuscular Volume 93.6 fL (83.0-100.0); Monocytes # 0.3 K/mcL (0.0-1.3); Monocytes % 5.4 %; Neutrophils # 2.3 K/mcL (1.6-8.9); Platelet Count 167 K/mcL (140-400); Red Blood Count 3.76 M/mcL (3.82-4.97); Red Cell Distribution Width 14.9 % (11.5-14.5); Segmented Neutrophils % 44.4 %
[2017-08-10 06:00] LABS: BUN/Creatinine Ratio 22 (6-26); Blood Urea Nitrogen 14 mg/dL (8-23); Calcium 8.5 mg/dL (8.6-10.3); Carbon Dioxide 26 mEq/L (23-29); Chloride 110 mEq/L (98-107); Glucose 90 mg/dL (70-105); Osmolality,Calculated 290 (280-300); Potassium 3.8 mEq/L (3.5-5.1); Sodium 140 mEq/L (136-145); eGFR For African Americans > 60 (> 60); eGFR For Non-African Americans > 60 (> 60)
[2017-08-10] MEDS ORDERED: *HR* Enoxaparin 40 MG/0.4 ML SYRINGE SQ SCH (06:00)
[2017-08-10] MEDS: Budesonide/Formoterol 160/4.5 MDI IH SCH (07:32)
[2017-08-10] MEDS: levETIRAcetam 250 MG TABLET PO SCH (09:22)
[2017-08-10] MEDS: Cyanocobalamin (B-12) 1,000 MCG TABLET PO SCH (09:22)
[2017-08-10] MEDS: Ascorbic Acid 500 MG TABLET PO SCH (09:22)
[2017-08-10] MEDS: Vitamin B Complex/Vit C/Vit E 1 EACH TABLET PO SCH (09:22)
[2017-08-10] MEDS: Nicotine 14 MG PATCH.TD24 TD SCH (09:25)
[2017-08-10] MEDS: *HR* OxyCODONE Immed Rel 5 MG TABLET PO PRN (09:25)
--- NOTE | 2017-08-10 11:07 | Discharge Summary ---
- NOTES TO OUTPATIENT PROVIDER Notes to Outpatient Provider: f/u with PCP in one week Orders not resulted at time of discharge: Pending orders 08/10/17 13:30 Vancomycin,Trough Timed Date of Encounter: 08/10/17 Time of Encounter: 11:02 - Discharge Diagnosis (1) HCAP (healthcare-associated pneumonia) Priority: Primary Status: Acute (2) Sepsis Priority: Primary Status: Acute Qualifiers: Sepsis type: sepsis due to unspecified organism Qualified Code(s): A41.9 - Sepsis, unspecified organism (3) MGUS (monoclonal gammopathy of unknown significance) Priority: Secondary Status: Chronic (4) DVT prophylaxis Priority: Secondary Status: Acute (5) Tobacco abuse Priority: Secondary Status: Chronic (6) Lung cancer Priority: Secondary Status: Chronic Qualifiers: Laterality: left Lung location: unspecified part of lung Qualified Code(s ): C34.92 - Malignant neoplasm of unspecified part of left bronchus or lung (7) Pyelonephritis Priority: Secondary Status: Acute (8) Debility Priority: Secondary Status: Acute Hospital course: Ms. Hodge is a 72 year old female present to ER for fever and bilateral flank pain for 2 days. Past medical history is significant for left lung adenocarcinoma S/P radiation therapy, seizure, COPD. Her CTA shows no PE but left lower lobe pneumonia. CT abdomen suggest pyelonephritis. Pt was started on empirical abx Levofloxcin and IV hydration. Her urine cx did not grow any bacteria. Her flank pain seems to be due to PNA and advanced lung cancer. Pt states she back to baseline , breathing comfortably on RA and tolerating PO intake well. Her pain also tolerable with current medications. CT of Abd / pelvis showed cholelithiasis with ductal dilation. However her US of Liver showed no acute cholecystitis. Her LFT's are also WNL. She does not have any abdominal pain. So will d/c her back to home and ok to resume her home hospice care as before. - Time Spent with Patient Total time spent providing and/or coordinating discharge services: - Discharge Medications Prescriptions: levoFLOXacin [Levaquin] 500 mg PO DAILY #4 tablet Nicotine Patch [Nicoderm] 14 mg TD DAILY #30 patch.td24 Home Medications: Ascorbic Acid [Vitamin C] 500 mg PO DAILY 10/22/15 [History] Cyanocobalamin (Vitamin B-12) [Vitamin B12] 1,000 mcg PO DAILY 10/22/15 [History ] Acetaminophen [Tylenol] 1,000 mg PO Q6HR PRN 12/25/15 [History] Budesonide/Formoterol 160/4.5 [Symbicort 160/4.5] 1 puff IH BIDR 12/25/15 [ History] LevETIRAcetam [Levetiracetam] 500 mg PO BID 03/16/16 [History] Simvastatin [Zocor] 20 mg PO DAILY 03/16/16 [History] Amitriptyline [Elavil] 50 mg PO HS #30 tablet 03/20/16 [Rx] Calcium Carbonate [Calcium] 600 mg PO DAILY 01/04/17 [History] Ipratropium/Albuterol Sulfate [Combivent Respimat Inhal [place]] 2 puff IH Q4H PRN 01/04/17 [History] LORazepam [Ativan] 1 mg PO Q2H PRN 01/04/17 [History] Loratadine [Claritin] 10 mg PO DAILY PRN 01/04/17 [History] Oxygen 2 l NS AD 01/04/17 [History] Sertraline [Zoloft] 100 mg PO DAILY 01/04/17 [History] Vitamin B Complex Vit C No.4 [Super B Complex] 150 mg PO DAILY 01/04/17 [History ] Nicotine Patch [Nicoderm] 14 mg TD DAILY #30 patch.td24 08/10/17 [Rx] OxyCODONE Immed Rel [Roxicodone 20 MG] 20 mg PO Q4H PRN 1 Days #0 08/10/17 [Rx] levoFLOXacin [Levaquin] 500 mg PO DAILY #4 tablet 08/10/17 [Rx] Allergies/Adverse Reactions: 3 Allergy/AdvReac Type Severity Reaction Status Date / Time No Known Allergies Allergy Verified 08/07/17 11:17 Date of admission: 08/07/17 01:56 Primary care physician: Martínez Ellis MD Consults: 08/08/17 14:37 Consult to Occupational Therapy [CONS] Routine Comment: Evaluate, develop and implement POC Reason for Consult: DISCHARGE PLANNING Does patient have active BEDREST order?: No Is patient medically & hemodynamically stable?: Yes - Constitutional Vitals: Temp Pulse Resp BP Pulse Ox 99.0 F 68 16 163/77 95 08/10/17 06:53 08/10/17 06:53 08/10/17 06:53 08/10/17 06:53 08/10/17 06:53 General appearance: Present: cooperative, A&O X 3, pleasant, no acute distress, answers questions appropriately - Head Head exam: Present: atraumatic, normal inspection - Neck Neck exam general surgery: Present: supple - Respiratory Respiratory exam: Present: decreased breath sounds, wheezes (mild). Absent: rales, respiratory distress, rhonchi - Cardiovascular Cardiovascular exam: Present: +S1, +S2. Absent: tachycardia - GI/Abdominal GI/Abdominal exam: Present: normal bowel sounds, soft, no peritoneal signs. Absent: distended, hepatomegaly, rebound, rigid, splenomegaly, tenderness - Extremities Exam Extremities exam: Absent: calf tenderness, pedal edema, tenderness - Back Exam Back exam: Absent: CVA tenderness (L), CVA tenderness (R) - Psychiatric Psychiatric exam: Present: normal affect, normal mood - Patient Status Disposition: Hospice - Home Condition: Good Overall status at discharge: patient is back to baseline - Discharge Instructions Follow Up With: NONE,PCP [Non-Partnered Physician] - - Diet and Activity Activity: increase activity as tolerated Diet: low salt diet
--- NOTE | 2017-08-10 11:10 | Physician Discharge Referral ---
Home Health/Hosp Referral Info Transfer to: Home Health, Hospice Provider in Charge Post Discharge: PCP - Diagnosis (1) HCAP (healthcare-associated pneumonia) Status: Acute (2) Sepsis Status: Acute (3) MGUS (monoclonal gammopathy of unknown significance) Status: Chronic (4) DVT prophylaxis Status: Acute (5) Tobacco abuse Status: Chronic (6) Lung cancer Status: Chronic (7) Pyelonephritis Status: Acute (8) Debility Status: Acute - Respiratory Orders Smoking Cessation: Smoking cessation has been advised. For more information, call the [place] Tobacco Quit Line at 5-729-QVYB-NOW. - Services Needed Following services are medically necessary services: Nursing - Transfer Medications Prescriptions: levoFLOXacin [Levaquin] 500 mg PO DAILY #4 tablet Nicotine Patch [Nicoderm] 14 mg TD DAILY #30 patch.td24 Home Medications: Ascorbic Acid [Vitamin C] 500 mg PO DAILY 10/22/15 [History] Cyanocobalamin (Vitamin B-12) [Vitamin B12] 1,000 mcg PO DAILY 10/22/15 [History ] Acetaminophen [Tylenol] 1,000 mg PO Q6HR PRN 12/25/15 [History] Budesonide/Formoterol 160/4.5 [Symbicort 160/4.5] 1 puff IH BIDR 12/25/15 [ History] LevETIRAcetam [Levetiracetam] 500 mg PO BID 03/16/16 [History] Simvastatin [Zocor] 20 mg PO DAILY 03/16/16 [History] Amitriptyline [Elavil] 50 mg PO HS #30 tablet 03/20/16 [Rx] Calcium Carbonate [Calcium] 600 mg PO DAILY 01/04/17 [History] Ipratropium/Albuterol Sulfate [Combivent Respimat Inhal [place]] 2 puff IH Q4H PRN 01/04/17 [History] LORazepam [Ativan] 1 mg PO Q2H PRN 01/04/17 [History] Loratadine [Claritin] 10 mg PO DAILY PRN 01/04/17 [History] Oxygen 2 l NS AD 01/04/17 [History] Sertraline [Zoloft] 100 mg PO DAILY 01/04/17 [History] Vitamin B Complex Vit C No.4 [Super B Complex] 150 mg PO DAILY 01/04/17 [History ] Nicotine Patch [Nicoderm] 14 mg TD DAILY #30 patch.td24 08/10/17 [Rx] OxyCODONE Immed Rel [Roxicodone 20 MG] 20 mg PO Q4H PRN 1 Days #0 08/10/17 [Rx] levoFLOXacin [Levaquin] 500 mg PO DAILY #4 tablet 08/10/17 [Rx] Allergies/Adverse Reactions: 3 Allergy/AdvReac Type Severity Reaction Status Date / Time No Known Allergies Allergy Verified 08/07/17 11:17 Certification: Further, I certify that my clinical findings support that this patient is homebound (i.e. absences from home require considerable and taxing effort and are for medical reasons or taoist services or infrequently or short duration when for other reasons) because: Homebound Reason: Patient requires assistance of a person or device to safely leave home Attestation: My signature below is to certify that this patient is under my care and that I, or nurse practitioner, or a physician's physical therapy assistant instructor working with me, has a face-to -face encounter with this patient.
[2017-08-10 11:18] VITALS: BP 136/66
[2017-08-10] MEDS ORDERED: Aminoglycoside Consult 1 EACH MC ONE (15:59)
== END 2017-08-10 16:00 | disposition hospice, home (50) | DRG 871 ==
LOC: EMEROO 22:26 → 2SOUTHHOLD 22:26 → SUATTDRO 08-07 01:56 → 2SOUTHHOLD 08-07 02:20 → 2ANU 08-07 06:36
PROVIDERS: ADMIT Internal Medicine; ATTEND Family Medicine

== ENCOUNTER 2018-03-23 22:49 | Inpatient (IN) ==
--- NOTE | 2018-03-23 23:23 | Emergency Department Note ---
Addendum entered and electronically signed by Carlos Mckenna DO 03/24/18 03:16: EKG performed at 23:54 Heart rate 124 bpm, NM interval 122 ms, QRS duration 84 ms QT 370 ms, normal axis. No ischemic ST changes noted on this EKG. Original Note: Disposition Clinical Impression: Colitis, Adynamic ileus, Hematochezia Disposition: Admitted As Inpatient Condition: Fair Abdominal Pain HPI - General Chief Complaint: ED Abdominal Pain Stated Complaint: abdominal pain, rectal bleeding Time Seen by Provider: 03/23/18 23:22 Source: patient Nursing Notes Reviewed: Yes Vital Signs Reviewed: Yes - History of Present Illness HPI Narrative: 73-year-old female presents emergency Department concern for abdominal pain or patient localizes it to the entire lower quadrant. Reports a sharp in nature. Reports that she is also having blood in her stool. Denies ever having issues with this. Denies any history of abdominal aortic aneurysm. Does report history of lung cancer. Has not been on any blood thinners. She reports that she has a lot of blood coming out of her stool. Pain Scale: 8 - Related Data Home Medications Medication Instructions Recorded Confirmed RX: Ascorbic Acid [Vitamin C] 500 mg PO DAILY 10/22/15 08/07/17 RX: Cyanocobalamin (Vitamin B-12) 1,000 mcg PO DAILY 10/22/15 08/07/17 [Vitamin B12] RX: Acetaminophen [Tylenol] 1,000 mg PO Q6HR PRN 12/25/15 08/07/17 RX: Budesonide/Formoterol 160/4.5 1 puff IH BIDR 12/25/15 08/07/17 [Symbicort 160/4.5] RX: LevETIRAcetam [Levetiracetam] 500 mg PO BID 03/16/16 08/07/17 RX: Simvastatin [Zocor] 20 mg PO DAILY 03/16/16 08/07/17 RX: Calcium Carbonate [Calcium] 600 mg PO DAILY 01/04/17 08/07/17 RX: Ipratropium/Albuterol Sulfate 2 puff IH Q4H PRN 01/04/17 08/07/17 [Combivent Respimat Inhal [place]] RX: LORazepam [Ativan] 1 mg PO Q2H PRN 01/04/17 08/07/17 RX: Loratadine [Claritin] 10 mg PO DAILY PRN 01/04/17 08/07/17 RX: Oxygen 2 l NS AD 01/04/17 08/07/17 RX: Sertraline [Zoloft] 100 mg PO DAILY 01/04/17 08/07/17 RX: Vitamin B Complex Vit C No.4 150 mg PO DAILY 01/04/17 08/07/17 [Super B Complex] Previous Rx's Medication Instructions Recorded RX: Amitriptyline [Elavil] 50 mg PO HS #30 tablet 03/20/16 RX: Nicotine Patch [Nicoderm] 14 mg TD DAILY #30 patch.td24 08/10/17 RX: OxyCODONE Immed Rel 20 mg PO Q4H PRN 1 Days #0 08/10/17 [Roxicodone 20 MG] RX: levoFLOXacin [Levaquin] 500 mg PO DAILY #4 tablet 08/10/17 Allergies Allergy/AdvReac Type Severity Reaction Status Date / Time No Known Allergies Allergy Verified 08/07/17 11:17 All systems ED: reviewed and negative except as stated. Review of Systems: As Per HPI Constitutional: Denies: fever Cardiovascular: Denies: chest pain Respiratory: Denies: dyspnea Gastrointestinal: Reports: abdominal pain, nausea. Denies: vomiting Genitourinary: Denies: urgency, dysuria, frequency Musculoskeletal: Denies: back pain Abdominal Pain PMH - Past Medical History Medical history: Reports: cancer, COPD, DVT, hypertension, osteoporosis, seizures, other Female Surgical History: Reports: hip replacement, orthopedic, other, other ROBOTIC TECHNICIAN history: Reports: no ROBOTIC TECHNICIAN history Psychiatric history: Reports: anxiety, depression - Social History Smoking status: Current every day smoker Alcohol use: Reports: none Drug use: Reports: none Physical Exam - General Limitations: no limitations General appearance: alert, in no apparent distress - Head Head exam: normocephalic - Eye Eye exam: Present: EOMI - ENT ENT exam: mucous membranes moist - Neck Neck exam: Present: trachea midline - Chest Chest inspection: Present: symmetric chest wall rise - Respiratory Respiratory exam: Present: normal lung sounds bilaterally. Absent: respiratory distress, accessory muscle use - Cardiovascular Cardiovascular exam: Present: tachycardia, normal heart sounds - Abdominal Exam Abdominal exam: Present: soft, tenderness. Absent: distention, guarding, rebound, rigidity Abdominal tenderness: Present: RLQ, LLQ, suprapubic, moderate - Rectal Exam Technical Solutions Consultant present during exam: Yes Rectal exam: Present: normal rectal tone, bloody stool, hemorrhoids - Extremities Exam Extremities exam: Present: normal capillary refill - Back Exam Back exam: Present: full ROM Course Vital Signs Temperature 98.0 F 03/23/18 22:54 Pulse Rate 141 03/23/18 22:54 Respiratory Rate 20 03/23/18 22:54 Blood Pressure 152/93 03/23/18 22:54 O2 Sat by Pulse Oximetry 97 03/23/18 22:54 Temperature 98.0 F 03/23/18 22:54 Pulse Rate 111 03/24/18 01:45 Respiratory Rate 20 03/24/18 01:45 Blood Pressure 162/97 03/24/18 01:45 O2 Sat by Pulse Oximetry 99 03/24/18 01:45 Oxygen Delivery Oxygen Delivery Room Air Abdominal Pain - MDM Narrative Medical decision making narrative: 73-year-old female presents emergency department with concern for abdominal pain and bleeding from the rectum. Patient initially was tachycardic with a rate in the 140s on triage. In the room, she was in the 120s. We do give patient pain medication. We did give her a liter of fluids. On physical exam, there was no evidence of brisk rectal hemorrhage. Hemoglobin was 16.8. He did type and cross, but patient not requiring blood products at this time. We did obtain CT scan of abdomen and pelvis which revealed marked inflammation of the distal transverse, descending, sigmoid colon, most likely infectious colitis. Patient was given ciprofloxacin and Flagyl here in the emergency department. Is also concern for multiple loops of prominent small bowel that would be possibly concerning for an adynamic ileus. Patient not vomiting, has still been tolerating oral intake. Patient admitted to Dr. Berry. I discussed the plan with patient and her brothers at bedside. They agree with plan. Heart rate was significantly impr carmen. Rate was in the low 10Os at the time of admission. Chest X-Ray 03/23/18 23:25 IMPRESSION: Possible mild pulmonary edema D/ / Shen Chavarria MD / Shen Chavarria MD Interpreting Provider: Shen Chavarria MD Abdomen/Pelvis CT 03/24/18 23:25 IMPRESSION: Marked inflammation of the distal transverse, descending and sigmoid colon consistent with colitis, likely infectious in etiology. No intraperitoneal free air or abscess. Mild abdominopelvic ascites. Multiple loops of prominent small bowel demonstrate air-fluid levels and mucosal hyperenhancement. Findings may relate to underlying enteritis versus reactive changes with adynamic ileus. Partial small bowel obstruction is an additional consideration. Similar-appearing intrahepatic and extrahepatic biliary ductal prominence. Distended gallbladder without calcified stones. D/ / Victorino Valdez / Victorino Valdez Interpreting Provider: Victorino Sessions - Lab Data Result diagrams: 03/24/18 00:06 03/24/18 00:06 Lab Results 03/23/18 03/24/18 03/24/18 Range/Units 00:15 00:06 00:06 WBC 19.9 H (4.3-11.1) K/mcL RBC 5.31 H (3.82-4.97) M/mcL Hgb 16.8 H (11.5-15.4) g/dL Hct 49.8 H (35.3-44.9) % MCV 93.8 (83.0-100.0) fL MCH 31.6 (28.0-33.3) pg MCHC 33.7 (31.6-35.5) g/dL RDW 14.6 H (11.5-14.5) % Plt Count 233 (140-400) K/mcL MPV 10.1 (9.4-12.4) fL Immature Gran % 0.3 (0-4) % Seg Neutrophils % 90.2 % Lymphocytes % 5.0 % Monocytes % 4.3 % Eosinophils % 0.0 % Basophils % 0.2 % Neutrophils # 18.0 H (1.6-8.9) K/mcL Lymphocytes # 1.0 (0.6-4.6) K/mcL Monocytes # 0.9 (0.0-1.3) K/mcL Eosinophils # 0.0 (0.0-0.6) K/mcL Basophils # 0.0 (0.0-0.2) K/mcL Sodium 133 L (136-145) mEq/L Potassium 3.6 (3.5-5.1) mEq/L Chloride 102 (98-107) mEq/L Carbon Dioxide 22 L (23-29) mEq/L BUN 19 (8-23) mg/dL Creatinine 0.65 (0.60-1.20) mg/dL Est GFR ( Amer) > 60 (> 60) Est GFR (Non-Af Amer) > 60 (> 60) BUN/Creatinine Ratio 29 H (6-26) Glucose 183 H (70-105) mg/dL Calculated Osmolality 283 (280-300) Lactic Acid (0.5-2.2) mmol/L Calcium 9.6 (8.6-10.3) mg/dL Total Bilirubin 1.3 H (0.3-1.0) mg/dL AST 14 (13-39) Units/L ALT 8 (7-52) Units/L Alkaline Phosphatase 74 (34-104) Units/L Troponin I < 0.03 (< 0.04) ng/mL Serum Total Protein 8.0 (6.4-8.9) g/dL Albumin 3.9 (3.5-5.7) g/dL Globulin 4.1 H (2.4-3.5) g/dL Albumin/Globulin Ratio 1.0 L (1.1-2.2) Lipase 0 L (11-82) Units/L Urine Color Dark Yellow (Yellow) Urine Clarity Clear (Clear) Urine pH 7.0 (5.0-8.0) pH Units Ur Specific [place] 1.022 (1.010-1.025) Urine Protein >=300 H (Neg-Trace) mg/dL Urine Glucose (UA) Normal (Normal) mg/dL Urine Ketones Trace H (Negative) mg/dL Urine Blood Moderate H (Negative) Urine Nitrite Negative (Negative) Urine Bilirubin Small H (Negative) Urine Urobilinogen Normal (Normal) mg/dL Ur Leukocyte Esterase Trace H (Negative) Urine Microscopic RBC 50-100 H (0-3) per hpf Urine Microscopic WBC 0-3 (0-3) per hpf Ur Squamous Epith Cells Many H (None-Few) per lpf Urine Bacteria None Seen (None-Few) per hpf Hyaline Casts Few (None-Few) per lpf Ur Culture Indicated? NO. A (NO) Blood Type Antibody Screen 03/24/18 03/24/18 Range/Units 00:06 00:06 WBC (4.3-11.1) K/mcL RBC (3.82-4.97) M/mcL Hgb (11.5-15.4) g/dL Hct (35.3-44.9) % MCV (83.0-100.0) fL MCH (28.0-33.3) pg MCHC (31.6-35.5) g/dL RDW (11.5-14.5) % Plt Count (140-400) K/mcL MPV (9.4-12.4) fL Immature Gran % (0-4) % Seg Neutrophils % % Lymphocytes % % Monocytes % % Eosinophils % % Basophils % % Neutrophils # (1.6-8.9) K/mcL Lymphocytes # (0.6-4.6) K/mcL Monocytes # (0.0-1.3) K/mcL Eosinophils # (0.0-0.6) K/mcL Basophils # (0.0-0.2) K/mcL Sodium (136-145) mEq/L Potassium (3.5-5.1) mEq/L Chloride (98-107) mEq/L Carbon Dioxide (23-29) mEq/L BUN (8-23) mg/dL Creatinine (0.60-1.20) mg/dL Est GFR ( Amer) (> 60) Est GFR (Non-Af Amer) (> 60) BUN/Creatinine Ratio (6-26) Glucose (70-105) mg/dL Calculated Osmolality (280-300) Lactic Acid 1.7 (0.5-2.2) mmol/L Calcium (8.6-10.3) mg/dL Total Bilirubin (0.3-1.0) mg/dL AST (13-39) Units/L ALT (7-52) Units/L Alkaline Phosphatase (34-104) Units/L Troponin I (< 0.04) ng/mL Serum Total Protein (6.4-8.9) g/dL Albumin (3.5-5.7) g/dL Globulin (2.4-3.5) g/dL Albumin/Globulin Ratio (1.1-2.2) Lipase (11-82) Units/L Urine Color (Yellow) Urine Clarity (Clear) Urine pH (5.0-8.0) pH Units Ur Specific [place] (1.010-1.025) Urine Protein (Neg-Trace) mg/dL Urine Glucose (UA) (Normal) mg/dL Urine Ketones (Negative) mg/dL Urine Blood (Negative) Urine Nitrite (Negative) Urine Bilirubin (Negative) Urine Urobilinogen (Normal) mg/dL Ur Leukocyte Esterase (Negative) Urine Microscopic RBC (0-3) per hpf Urine Microscopic WBC (0-3) per hpf Ur Squamous Epith Cells (None-Few) per lpf Urine Bacteria (None-Few) per hpf Hyaline Casts (None-Few) per lpf Ur Culture Indicated? (NO) Blood Type A POSITIVE Antibody Screen NEGATIVE Attestation Statement - Attestation Attestation: DR Whalen note: Patient was seen in conjunction with resident Dr. Farley. Please see his charting for complete documentation. Assessment [id number] time with the patient and I agree with the patient's treatment and disposition. Pt arrives w/ acute lower GI bleed and tachycardia; denies a prior colonoscopy hr improved s/p fluids; no hypotension; spoke w/ admitted physician who accepted pt in stable/improved condition and would order a surgical consult on a non emergent basis due to the CT ; hemoglobin stable on admission w/o add'l lower GI bleeding in the ER; pt reports 6-7 bright red stools prior to ER today
[2018-03-23] MEDS ORDERED: Isovue-370 500 ML INFUS..BTL IV ONE (23:24)
[2018-03-23] MEDS ORDERED: *HR* FentaNYL (PF) 100 MCG/2 ML VIAL IVP ONE (23:34)
[2018-03-23] MEDS ORDERED: Ondansetron 4 MG/2 ML VIAL IVP ONE (23:34)
[2018-03-23] MEDS ORDERED: 0.9 % Sodium Chloride 1,000 ML IVC ONE (23:34)
[2018-03-24 00:21] LABS: Basophils % 0.2 %; Hematocrit 49.8 % (35.3-44.9); Hemoglobin 16.8 g/dL (11.5-15.4); Immature Granulocytes % 0.3 % (0-4); Mean Corpuscular HGB Conc 33.7 g/dL (31.6-35.5); Mean Corpuscular Hemoglobin 31.6 pg (28.0-33.3); Mean Corpuscular Volume 93.8 fL (83.0-100.0); Mean Platelet Volume 10.1 fL (9.4-12.4); Monocytes # 0.9 K/mcL (0.0-1.3); Monocytes % 4.3 %; Platelet Count 233 K/mcL (140-400); Red Blood Count 5.31 M/mcL (3.82-4.97); Red Cell Distribution Width 14.6 % (11.5-14.5); Segmented Neutrophils % 90.2 %
[2018-03-24 00:28] LABS: Bilirubin,Urine Small (Negative); Blood,Urine Moderate (Negative); Clarity,Urine Clear (Clear); Color,Urine Dark Yellow (Yellow); Glucose,Urine (UA) Normal (Normal); Ketones,Urine Trace mg/dL (Negative); Leukocyte Esterase,Urine Trace (Negative); Nitrite,Urine Negative (Negative); Protein,Urine >=300 mg/dL (Neg-Trace); Specific Gravity,Urine 1.022 (1.010-1.025); Urobilinogen,Urine Normal (Normal)
[2018-03-24 00:30] LABS: Bacteria,Urine None Seen per hpf (None-Few); Hyaline Casts,Urine Few per lpf (None-Few); RBC,Urine 50-100 per hpf (0-3); Squamous Epithelial Cell,Urine Many per lpf (None-Few); WBC,Urine 0-3 per hpf (0-3)
[2018-03-24 00:44] LABS: Alanine Aminotransferase 8 Units/L (7-52); Albumin 3.9 g/dL (3.5-5.7); Alkaline Phosphatase 74 Units/L (34-104); Aspartate Amino Transferase 14 Units/L (13-39); BUN/Creatinine Ratio 29 (6-26); Bilirubin,Total 1.3 mg/dL (0.3-1.0); Blood Urea Nitrogen 19 mg/dL (8-23); Calcium 9.6 mg/dL (8.6-10.3); Carbon Dioxide 22 mEq/L (23-29); Chloride 102 mEq/L (98-107); Globulin 4.1 g/dL (2.4-3.5); Glucose 183 mg/dL (70-105); Lipase 0 Units/L (11-82); Osmolality,Calculated 283 (280-300); Potassium 3.6 mEq/L (3.5-5.1); Sodium 133 mEq/L (136-145); Troponin I < 0.03 ng/mL (< 0.04); eGFR For Non-African Americans > 60 (> 60)
[2018-03-24] MEDS ORDERED: MetroNIDAZOLE 500 MG/100 ML 500 MG/100 ML BAG IVPB ONE (01:58)
[2018-03-24] MEDS ORDERED: *HR* HYDROmorphone (PF) 1 MG/ML SYRINGE IVP ONE (02:09)
--- NOTE | 2018-03-24 02:31 | Internal Med History&Physical ---
Date of Encounter: 03/24/18 Time of Encounter: 02:29 Internal Medicine - H&P: HPI Chief complaint: abd pain and bloody stool Admitted From: Emergency Dept Plans for Post Hospital Care: Home History of present illness: Ms. Hodge is a 73 year old female Patient with history of COPD, lung cancer status post radiation, seizure disorder, history of DVT, hypertension, osteoporosis, anxiety and depression. patient presented to emergency room with lower abdominal pain some blood in the stool, nausea but no vomiting CT of the abdomen shows inflammation of the distal transverse colon descending and sigmoid colon consistent with colitis white count was 19.9 patient denies any fever or chills no prior history of colitis patient will be admitted was started on Flagyl and Cipro consult GI. Hemoglobin is normal Past Med Surg Social Fam HX - Past Medical History Medical history: cancer, COPD, DVT, hypertension, osteoporosis, seizures, other Additional medical history: lung cancer Psychiatric history: anxiety, depression - Past Surgical History Surgical History: hip replacement, orthopedic, other, other Additional surgical history: carpal tunnel, left hip replacement, right hip and back surgery - Social History Smoking Status: Current every day smoker Smokeless Tobacco Status: No Alcohol use: none Drug use: none - Family History Mother Hx Family Respiratory Disorders: Yes (COPD, emphysemza) Father Hx Family Cardiac Disorders: Yes (CHF) Internal Medicine - H&P: Meds Ascorbic Acid [Vitamin C] 500 mg PO DAILY 10/22/15 [History] Cyanocobalamin (Vitamin B-12) [Vitamin B12] 1,000 mcg PO DAILY 10/22/15 [History] Acetaminophen [Tylenol] 1,000 mg PO Q6HR PRN 12/25/15 [History] Budesonide/Formoterol 160/4.5 [Symbicort 160/4.5] 1 puff IH BIDR 12/25/15 [History] LevETIRAcetam [Levetiracetam] 500 mg PO BID 03/16/16 [History] Simvastatin [Zocor] 20 mg PO DAILY 03/16/16 [History] Amitriptyline [Elavil] 50 mg PO HS #30 tablet 03/20/16 [Rx] Calcium Carbonate [Calcium] 600 mg PO DAILY 01/04/17 [History] Ipratropium/Albuterol Sulfate [Combivent Respimat Inhal [place]] 2 puff IH Q4H PRN 01/04/17 [History] LORazepam [Ativan] 1 mg PO Q2H PRN 01/04/17 [History] Loratadine [Claritin] 10 mg PO DAILY PRN 01/04/17 [History] Oxygen 2 l NS AD 01/04/17 [History] Sertraline [Zoloft] 100 mg PO DAILY 01/04/17 [History] Vitamin B Complex Vit C No.4 [Super B Complex] 150 mg PO DAILY 01/04/17 [History] Nicotine Patch [Nicoderm] 14 mg TD DAILY #30 patch.td24 08/10/17 [Rx] OxyCODONE Immed Rel [Roxicodone 20 MG] 20 mg PO Q4H PRN 1 Days #0 08/10/17 [Rx] levoFLOXacin [Levaquin] 500 mg PO DAILY #4 tablet 08/10/17 [Rx] Allergy/AdvReac Type Severity Reaction Status Date / Time No Known Allergies Allergy Verified 08/07/17 11:17 All Systems PM: A 10-system review of systems was performed and is negative for pertinent findings except as documented above in the HPI. - Constitutional Vitals: Temp Pulse Resp BP Pulse Ox 98.0 F 111 20 162/97 99 03/23/18 22:54 03/24/18 01:45 03/24/18 01:45 03/24/18 01:45 03/24/18 01:45 General appearance: Present: mild distress Exam: done - Eye Eye exam: Present: PERRL, conjuntiva pink, sclera anicteric Pupils: Present: PERRL - Neck Neck exam general surgery: Present: supple, trachea midline. Absent: lymphadenopathy - Respiratory Respiratory exam: Present: prolonged expiratory phase, rhonchi - Cardiovascular Cardiovascular exam: Present: RRR, +S1, +S2. Absent: diastolic murmur, gallop, rubs, systolic murmur - GI/Abdominal GI/Abdominal exam: Present: soft, tenderness - Extremities Exam Extremities exam: Present: warm, radial pulses palpable and symmetrical. Absent: calf tenderness, cyanotic, pedal edema Internal Med - H&P Results - Labs CBC & Chem 7: 03/24/18 00:06 03/24/18 00:06 Labs: Short CBC 12/13/18 Range/Units 00:06 WBC 19.9 H (4.3-11.1) K/mcL Hgb 16.8 H (11.5-15.4) g/dL Hct 49.8 H (35.3-44.9) % Plt Count 233 (140-400) K/mcL Neutrophils # 18.0 H (1.6-8.9) K/mcL BMP 03/24/18 00:06 Sodium 133 L Potassium 3.6 Chloride 102 Carbon Dioxide 22 L BUN 19 Creatinine 0.65 Glucose 183 H Calcium 9.6 Cardiac Enzymes 03/24/18 Range/Units 00:06 Troponin I < 0.03 (< 0.04) ng/mL Liver Function 03/24/18 Range/Units 00:06 Total Bilirubin 1.3 H (0.3-1.0) mg/dL AST 14 (13-39) Units/L ALT 8 (7-52) Units/L Alkaline Phosphatase 74 (34-104) Units/L Albumin 3.9 (3.5-5.7) g/dL Urine 03/23/18 Range/Units 00:15 Urine Color Dark Yellow (Yellow) Urine Clarity Clear (Clear) Urine pH 7.0 (5.0-8.0) pH Units Ur Specific [place] 1.022 (1.010-1.025) Urine Protein >=300 H (Neg-Trace) mg/dL Urine Glucose (UA) Normal (Normal) mg/dL - Impressions ITS Impressions Chest X-Ray 03/23/18 23:25 IMPRESSION: Possible mild pulmonary edema D/ / Shen Chavarria MD / Shen Chavarria MD Interpreting Provider: Shen Chavarria MD Abdomen/Pelvis CT 03/24/18 23:25 IMPRESSION: Marked inflammation of the distal transverse, descending and sigmoid colon consistent with colitis, likely infectious in etiology. No intraperitoneal free air or abscess. Mild abdominopelvic ascites. Multiple loops of prominent small bowel demonstrate air-fluid levels and mucosal hyperenhancement. Findings may relate to underlying enteritis versus reactive changes with adynamic ileus. Partial small bowel obstruction is an additional consideration. Similar-appearing intrahepatic and extrahepatic biliary ductal prominence. Distended gallbladder without calcified stones. D/ / Victorino Sessions / Victorino Sessions Interpreting Provider: Victorino Sessions - Assessment and plan (1) Colitis Current Visit: Yes Status: Acute Assessment and plan: Patient presenting with abdominal pain nausea and blood in the stool CT consistent with colitis was started on Flagyl and Cipro and consult GI (2) COPD (chronic obstructive pulmonary disease) Current Visit: No Status: Chronic Assessment and plan: Chronic with mild wheezing and prolonged expiratory phase we will resume home medication and place on DuoNeb when necessary Qualifiers: COPD type: emphysema Emphysema type: unspecified Qualified Code(s): J43.9 - Emphysema, unspecified (3) HTN (hypertension) Current Visit: No Status: Chronic Assessment and plan: Chronic and well controlled Qualifiers: Hypertension type: essential hypertension Qualified Code(s): I10 - Essential (primary) hypertension (4) History of DVT of lower extremity Current Visit: No Status: Chronic Assessment and plan: Would hold anticoagulation because of GI bleeding (5) History of seizure Current Visit: No Status: Chronic Assessment and plan: No recent seizure episode (6) Lung cancer Current Visit: No Status: Chronic Assessment and plan: Patient underwent radiation therapy Qualifiers: Laterality: left Lung location: unspecified part of lung Qualified Code(s): C34.92 - Malignant neoplasm of unspecified part of left bronchus or lung (7) Tobacco abuse Current Visit: No Status: Chronic Assessment and plan: Patient still continues to smoke (8) GI bleed Current Visit: Yes Status: Acute Assessment and plan: likely lower gi bleed hgb normal Qualifiers: GI bleed type/associated pathology: unspecified gastrointestinal hemorrhage type Qualified Code(s): K92.2 - Gastrointestinal hemorrhage, unspecified - Time Spent With Patient Total time spent is greater than 50% in coordination of care (as documented) at patient's floor/unit and/or counseling patient:
[2018-03-24] MEDS ORDERED: Acetaminophen 325 MG TABLET PO PRN (02:38)
[2018-03-24] MEDS ORDERED: Naloxone 0.4 MG/ML INJ IVP PRN (02:38)
[2018-03-24] MEDS ORDERED: 0.9 % Sodium Chloride 1,000 ML IVC ONE (02:38)
[2018-03-24] MEDS: traMADol 50 MG TABLET PO PRN ×3 (04:19→15:07)
[2018-03-24 05:53] LABS: Hematocrit 40.8 % (35.3-44.9); Mean Corpuscular HGB Conc 33.6 g/dL (31.6-35.5); Mean Corpuscular Volume 95.3 fL (83.0-100.0); Mean Platelet Volume 10.1 fL (9.4-12.4); Platelet Count 166 K/mcL (140-400); Red Blood Count 4.28 M/mcL (3.82-4.97); Red Cell Distribution Width 14.7 % (11.5-14.5)
[2018-03-24 05:55] LABS: Hemoglobin 13.7 g/dL (11.5-15.4)
[2018-03-24 05:59] LABS: INR 1.3; Prothrombin Time 14.4 Seconds (9.4-12.1)
[2018-03-24] MEDS: 0.9 % Sodium Chloride w KCl 20 MEQ/1,000 ML MLS IVC SCH ×2 (06:48→19:39)
[2018-03-24 07:09] LABS: Alanine Aminotransferase 7 Units/L (7-52); Albumin/Globulin Ratio 0.9 (1.1-2.2); Alkaline Phosphatase 55 Units/L (34-104); Aspartate Amino Transferase 16 Units/L (13-39); BUN/Creatinine Ratio 29 (6-26); Bilirubin,Total 0.8 mg/dL (0.3-1.0); Blood Urea Nitrogen 16 mg/dL (8-23); Calcium 8.1 mg/dL (8.6-10.3); Carbon Dioxide 19 mEq/L (23-29); Chloride 108 mEq/L (98-107); Cholesterol 131 mg/dL (< 200); Globulin 3.2 g/dL (2.4-3.5); Glucose 125 mg/dL (70-105); HDL Cholesterol 65 mg/dL (40-59); LDL Cholesterol,Calculated 53 mg/dL (0-99); Magnesium 1.2 mg/dL (1.6-2.6); Osmolality,Calculated 287 (280-300); Potassium 3.7 mEq/L (3.5-5.1); Sodium 137 mEq/L (136-145); Total Protein 6.2 g/dL (6.4-8.9); Triglycerides 66 mg/dL (< 150); eGFR For Non-African Americans > 60 (> 60)
[2018-03-24] MEDS ORDERED: Ipratropium/Albuterol Neb 3 ML IH PRN (09:30)
--- NOTE | 2018-03-24 10:00 | Event Note ---
Date of Encounter: 03/24/18 Time of Encounter: 09:57 Patient examined and reviewed clinical history. Patient is still has abdominal pain and rectal bleed but denies diarrhea nausea vomiting. Vitals are stable. Patient is nothing by mouth with IV fluid. Updated home medication with the help of pharmacist. Review of the CODE STATUS with DNR CCA. Patient is home hospice due to lung cancer status post radiation and not following oncologists. Awaiting for GI and general surgeon opinion. Serial hemoglobin H&H every 8 hour, PPI 40 mg twice a day is started. Patient is okay to get blood transfusion if needed.
[2018-03-24] MEDS: levETIRAcetam 250 MG TABLET PO SCH ×2 (10:05→17:13)
[2018-03-24] MEDS: MetroNIDAZOLE 500 MG/100 ML 500 MG/100 ML BAG IVPB SCH ×3 (10:05→23:51)
[2018-03-24 10:26] LABS: Hematocrit 37.9 % (35.3-44.9); Hemoglobin 12.7 g/dL (11.5-15.4)
--- NOTE | 2018-03-24 12:49 | Gastroenterology Consult Note ---
<Kristy Malone - Last Filed: 03/24/18 12:47> Date of Encounter: 03/24/18 Time of Encounter: 09:45 - Assessment and plan (1) GI bleed Current Visit: Yes Status: Acute Assessment and plan: Likely ischemic colitis. Monitor H&H, transfuse if needed. Continue antibiotics and supportive care. Discussed colonoscopy but pt is a poor candidate for sedation due to lung cancer and multiple comorbid conditions. She is a DNRCC and on hospice at home. Qualifiers: GI bleed type/associated pathology: unspecified gastrointestinal hemorrhage type Qualified Code(s): K92.2 - Gastrointestinal hemorrhage, unspecified (2) Lung cancer Current Visit: No Status: Chronic Assessment and plan: palliative care Qualifiers: Laterality: left Lung location: unspecified part of lung Qualified Code(s): C34.92 - Malignant neoplasm of unspecified part of left bronchus or lung (3) Bile duct abnormality Current Visit: No Status: Resolved Assessment and plan: stable on CT from 07/28, lfts wnl, no need for intervention or further workup (4) Colitis Current Visit: Yes Status: Acute - Time Spent With Patient Total time spent is greater than 50% in coordination of care (as documented) at patient's floor/unit and/or counseling patient: GI History of Present Illness - Data of Consult Patient: new to practice Consult date: 03/24/18 Requesting Physician: Archana Berry MD - Consult Narrative Reason for consult: colitis, gi bleed History of present illness: Ms. Hodge is a 73 year old female with a history of COPD, lung cancer status post radiation within the past year, seizure disorder, history of DVT, hypertension, osteoporosis, anxiety and depression. She is currently on hospice at home for lung cancer and she is no longer following with oncology. She presented to emergency room with lower abdominal pain some blood in the stool, nausea but no vomiting she reports 2 day history of abdominal pain that worsened yesterday and she had bright red bleeding from the rectum. She states pain is increased with eating. She denies any diarrhea she reports chronic constipation and usually has 1 bowel movement a week. She does admit to nausea without vomiting. CT of the abdomen shows inflammation of the distal transverse colon descending and sigmoid colon consistent with colitis. White count was 19.9. Patient denies any fever or chills. Patient was started on Flagyl and Cipro. Hemoglobin is normal. colonoscopy: January 2013 collagenous colitis, colon polyps. NSAIDs: Denies anticoagulants: Denies Past Med Surg Social Fam HX - Past Medical History Medical history: cancer, COPD, DVT, hypertension, osteoporosis, seizures, other Additional medical history: lung cancer Psychiatric history: anxiety, depression - Past Surgical History Surgical History: hip replacement, orthopedic, other, other Additional surgical history: carpal tunnel, left hip replacement. - Social History Smoking Status: Current every day smoker Smokeless Tobacco Status: No Alcohol use: none Drug use: none - Family History Mother Hx Family Respiratory Disorders: Yes (COPD, emphysemza) Father Hx Family Cardiac Disorders: Yes (CHF) Review of Systems: GI: as per [facility] GENERAL: denies fever or chills EYES: denies yellow discoloration ENT: denies pain with swallowing or difficulty swallowing CARDIO: denies chest pain, palpitations RESP: Shortness of breath with exertion : denies change in color of urine NEURO: weakness HEME: Denies any bruising MS: denies joint pain, joint swelling or back pain. DERM: denies rash or itching PSYCH: history of anxiety and depression - Constitutional Vitals: Temp Pulse Resp BP Pulse Ox 98.1 F 92 15 133/79 94 03/24/18 12:06 03/24/18 12:06 03/24/18 12:06 03/24/18 12:06 03/24/18 12:06 Exam: CONSTITUTIONAL:alert, no acute distress.HEAD:normocephalic, bitemporal wastingEYES:no jaundice.NECK:no obvious swelling.HEART:regular rate and rhythm, no murmurs.LUNGS:bilateral poorair entry.ABDOMEN:round and distended, soft, diffusely tender, no masses palpable, no organomegaly.RECTAL EXAM:Deferred.EXTREMITIES:no clubbing, cyanosis or edema.SKIN:pallor noted,no stigmata of chronic liver disease.NEUROLOGIC:no obvious focal defect. Results - Labs CBC & Chem 7: 03/24/18 09:58 03/24/18 05:15 Labs: Last Result Calcium 8.1 mg/dL (8.6-10.3) L 03/24/18 05:15 Troponin I < 0.03 ng/mL (< 0.04) 03/24/18 00:06 Triglycerides 66 mg/dL (< 150) 03/24/18 05:15 Entire Visit Hgb 12.7 g/dL (11.5-15.4) 03/24/18 09:58 Hct 37.9 % (35.3-44.9) 03/24/18 09:58 PT 14.4 Seconds (9.4-12.1) H 03/24/18 05:15 Total Bilirubin 0.8 mg/dL (0.3-1.0) 03/24/18 05:15 AST 16 Units/L (13-39) 03/24/18 05:15 ALT 7 Units/L (7-52) 03/24/18 05:15 Lipase 0 Units/L (11-82) L 03/24/18 00:06 - ABG ABG results: PT/INR, D-dimer PT 14.4 Seconds (9.4-12.1) H 03/24/18 05:15 - Impressions Impressions Chest X-Ray 03/23/18 23:25 IMPRESSION: Possible mild pulmonary edema D/ / Shen Chavarria MD / Shen Chavarria MD Interpreting Provider: Shen Chavarria MD Abdomen/Pelvis CT 03/24/18 23:25 IMPRESSION: Marked inflammation of the distal transverse, descending and sigmoid colon consistent with colitis, likely infectious in etiology. No intraperitoneal free air or abscess. Mild abdominopelvic ascites. Multiple loops of prominent small bowel demonstrate air-fluid levels and mucosal hyperenhancement. Findings may relate to underlying enteritis versus reactive changes with adynamic ileus. Partial small bowel obstruction is an additional consideration. Similar-appearing intrahepatic and extrahepatic biliary ductal prominence. Distended gallbladder without calcified stones. D/ / Victorino Valdez / Victorino Valdez Interpreting Provider: Victorino Valdez Consult Discharge Plan - Plan Referrals: NONE,PCP [Primary Care Provider] - <Maria Elena Kincaid - Last Filed: 03/24/18 21:18> Date of Encounter: 03/24/18 Time of Encounter: 18:00 - Time Spent With Patient Total time spent is greater than 50% in coordination of care (as documented) at patient's floor/unit and/or counseling patient: GI History of Present Illness - Data of Consult Requesting Physician: Archana Berry MD - Consult Narrative History of present illness: Ms. Hodge is a 73 year old female - Constitutional Vitals: Temp Pulse Resp BP Pulse Ox 98.1 F 91 12 123/78 94 03/24/18 20:16 03/24/18 20:16 03/24/18 20:16 03/24/18 20:16 03/24/18 20:16 Results - Labs CBC & Chem 7: 03/24/18 17:59 03/24/18 05:15 Labs: Last Result Calcium 8.1 mg/dL (8.6-10.3) L 03/24/18 05:15 Troponin I < 0.03 ng/mL (< 0.04) 03/24/18 00:06 Triglycerides 66 mg/dL (< 150) 03/24/18 05:15 Entire Visit Hgb 11.7 g/dL (11.5-15.4) 03/24/18 17:59 Hct 34.3 % (35.3-44.9) L 03/24/18 17:59 PT 14.4 Seconds (9.4-12.1) H 03/24/18 05:15 Total Bilirubin 0.8 mg/dL (0.3-1.0) 03/24/18 05:15 AST 16 Units/L (13-39) 03/24/18 05:15 ALT 7 Units/L (7-52) 03/24/18 05:15 Lipase 0 Units/L (11-82) L 03/24/18 00:06 - ABG ABG results: PT/INR, D-dimer PT 14.4 Seconds (9.4-12.1) H 03/24/18 05:15 - Impressions Impressions Chest X-Ray 03/23/18 23:25 IMPRESSION: Possible mild pulmonary edema D/ / Shen Chavarria MD / Shen Chavarria MD Interpreting Provider: Shen Chavarria MD Abdomen/Pelvis CT 03/24/18 23:25 IMPRESSION: Marked inflammation of the distal transverse, descending and sigmoid colon consistent with colitis, likely infectious in etiology. No intraperitoneal free air or abscess. Mild abdominopelvic ascites. Multiple loops of prominent small bowel demonstrate air-fluid levels and mucosal hyperenhancement. Findings may relate to underlying enteritis versus reactive changes with adynamic ileus. Partial small bowel obstruction is an additional consideration. Similar-appearing intrahepatic and extrahepatic biliary ductal prominence. Distended gallbladder without calcified stones. D/ / Victorino Valdez / Victorino Valdez Interpreting Provider: Victorino Valdez - Attending Attestation I have personally performed a face to face evaluation on this patient. I have reviewed and agree with the care plan. History and Exam by me shows: Pt seen. Pt with abd pain/rectal bleed. O/E: Has upper abd tanderness. A: Pt with multiple medical problems now with poss ischemic colitis. Rec: IV fluids, Abs, no colonoscopy indicated
--- NOTE | 2018-03-24 14:00 | Electrocardiograph Report ---
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
[2018-03-24] MEDS: Pantoprazole 40 MG VIAL IVP SCH (17:13)
[2018-03-24] MEDS: *HR* OxyCODONE Immed Rel 5 MG TABLET PO PRN ×2 (17:21→23:50)
[2018-03-24 18:21] LABS: Hematocrit 34.3 % (35.3-44.9); Hemoglobin 11.7 g/dL (11.5-15.4)
[2018-03-24] MEDS: *HR* LORazepam 1 MG TABLET PO PRN (19:59)
[2018-03-25] MEDS: *HR* LORazepam 1 MG TABLET PO PRN ×6 (00:39→22:08)
[2018-03-25] MEDS: *HR* OxyCODONE Immed Rel 5 MG TABLET PO PRN ×5 (04:47→22:09)
[2018-03-25 05:17] LABS: Basophils % 0.2 %; Eosinophils % 0.5 %; Hematocrit 33.2 % (35.3-44.9); Hemoglobin 11.1 g/dL (11.5-15.4); Immature Granulocytes % 0.4 % (0-4); Mean Corpuscular HGB Conc 33.4 g/dL (31.6-35.5); Mean Corpuscular Volume 95.7 fL (83.0-100.0); Mean Platelet Volume 10.3 fL (9.4-12.4); Monocytes % 4.2 %; Platelet Count 144 K/mcL (140-400); Red Blood Count 3.47 M/mcL (3.82-4.97); Red Cell Distribution Width 14.6 % (11.5-14.5); Segmented Neutrophils % 83.7 %
[2018-03-25 05:18] LABS: Eosinophils # 0.1 K/mcL (0.0-0.6); Lymphocytes # 1.5 K/mcL (0.6-4.6); Monocytes # 0.6 K/mcL (0.0-1.3); Neutrophils # 11.1 K/mcL (1.6-8.9)
[2018-03-25] MEDS: Pantoprazole 40 MG VIAL IVP SCH ×2 (05:26→17:16)
[2018-03-25] MEDS: levETIRAcetam 250 MG TABLET PO SCH ×2 (05:26→17:16)
[2018-03-25 05:37] LABS: BUN/Creatinine Ratio 24 (6-26); Blood Urea Nitrogen 12 mg/dL (8-23); Calcium 8.1 mg/dL (8.6-10.3); Carbon Dioxide 22 mEq/L (23-29); Chloride 112 mEq/L (98-107); Glucose 88 mg/dL (70-105); Magnesium 1.7 mg/dL (1.6-2.6); Osmolality,Calculated 281 (280-300); Potassium 3.7 mEq/L (3.5-5.1); Sodium 136 mEq/L (136-145); eGFR For Non-African Americans > 60 (> 60)
[2018-03-25 08:23] LABS: VBG Ionized Calcium 1.18 mmol/L (1.15-1.35)
[2018-03-25] MEDS: MetroNIDAZOLE 500 MG/100 ML 500 MG/100 ML BAG IVPB SCH ×3 (09:13→23:55)
--- NOTE | 2018-03-25 11:32 | Internal Med Progress Note ---
Hospitalist Progress Note - Encounter Date of Encounter: 03/25/18 Time of Encounter: 11:29 - Subjective Interval History: Patient is still has bloody diarrhea nausea and abdominal pain but slight better but denies vomiting. 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 Denies fever chills headache dizziness chest pain shortness of breath urinary complaint - Exam Vitals: Temp Pulse Resp BP Pulse Ox 98.4 F 88 16 118/73 94 03/25/18 07:51 03/25/18 07:51 03/25/18 07:51 03/25/18 07:51 03/25/18 07:51 Exam: General appearance: No acute distress, A&O X 3 Eye exam: EOMI, PERRLA ENT exam: Moist oral mucosa Neck nontender, supple Respiratory exam: Clear to auscultation bilaterally Cardiovascular exam: Regular rate and rhythm, no systolic murmur Abdominal exam: Soft, tender diffusely but more lower abdomen, no rebound tenderness or rigidity, nondistended, positive bowel sounds Extremities exam: No calf tenderness, no pedal edema Present: Skin-no rash, warm, dry, intact Neurological exam: CN II-XII intact, no focal deficits. No facial droop. Normal speech. - Assessment and Plan (1) GI bleed Current Visit: Yes Status: Acute Assessment and Plan: Serial hemoglobin with PPI. GI on board and found poor candidate for colonoscopy. Patient is also willing to get management medical rather procedure. Continue to monitor hemoglobin will consider PRC transfusion when appropriate. No blood thinner. SCDs for DVT prophylaxis (2) Colitis Current Visit: Yes Status: Acute Assessment and Plan: Possible ischemic colitis. Continue supportive treatment along with antibiotic Cipro and Flagyl. GI specialist on board. Trending down white count (3) Common bile duct dilation Current Visit: No Status: Acute Assessment and Plan: Continue to monitor at this time. (4) Lung cancer Current Visit: No Status: Chronic Assessment and Plan: has been in hospice (5) DVT prophylaxis Current Visit: No Status: Acute Assessment and Plan: SCDs - Time Spent with Patient Total time spent is greater than 50% in coordination of care (as documented) at patient's floor/unit and/or counseling patient: 25 - 35 minutes Plan of Care Discussed with: patient Internal Medicine: Result - Labs CBC & Chem 7: 03/25/18 04:52 03/25/18 04:52 Labs: Short CBC 03/24/18 03/25/18 Range/Units 17:59 04:52 WBC 13.2 H (4.3-11.1) K/mcL Hgb 11.7 11.1 L (11.5-15.4) g/dL Hct 34.3 L 33.2 L (35.3-44.9) % Plt Count 144 (140-400) K/mcL Neutrophils # 11.1 H (1.6-8.9) K/mcL BMP 03/25/18 04:52 Sodium 136 Potassium 3.7 Chloride 112 H Carbon Dioxide 22 L BUN 12 Creatinine 0.50 L Glucose 88 Calcium 8.1 L - ABG Interpretation ABG results: PT/INR, D-dimer PT 14.4 Seconds (9.4-12.1) H 03/24/18 05:15 Consult Discharge Plan - Plan Referrals: NONE,PCP [Primary Care Provider] - (1) GI bleed Qualifiers: GI bleed type/associated pathology: unspecified gastrointestinal hemorrhage t ype Qualified Code(s): K92.2 - Gastrointestinal hemorrhage, unspecified (4) Lung cancer Qualifiers: Laterality: left Lung location: unspecified part of lung Qualified Code(s): C34.92 - Malignant neoplasm of unspecified part of left bronchus or lung
[2018-03-25] MEDS: traMADol 50 MG TABLET PO PRN (13:15)
[2018-03-26] MEDS ORDERED: Dextrose Gel 15 GM/37.5 ML TUBE PO PRN ×2 (00:22)
[2018-03-26] MEDS ORDERED: D5% in Water 1,000 ML IVC PRN (00:22)
[2018-03-26] MEDS ORDERED: *HR* Dextrose 50 % in Water (Syg) 50 ML SYRINGE IVP PRN (00:22)
[2018-03-26] MEDS: traMADol 50 MG TABLET PO PRN (01:37)
[2018-03-26] MEDS: *HR* LORazepam 1 MG TABLET PO PRN ×4 (03:19→20:25)
[2018-03-26] MEDS: *HR* OxyCODONE Immed Rel 5 MG TABLET PO PRN ×4 (03:19→20:25)
[2018-03-26] MEDS: Insulin LISPRO 300 UNITS/3 ML VIAL SQ SCH ×3 (06:01→18:24)
[2018-03-26] MEDS: levETIRAcetam 250 MG TABLET PO SCH ×2 (06:05→18:28)
[2018-03-26] MEDS: Pantoprazole 40 MG VIAL IVP SCH ×2 (06:06→18:28)
[2018-03-26 09:30] LABS: Basophils % 0.3 %; Eosinophils # 0.1 K/mcL (0.0-0.6); Eosinophils % 1.3 %; Hematocrit 32.2 % (35.3-44.9); Hemoglobin 10.5 g/dL (11.5-15.4); Immature Granulocytes % 0.4 % (0-4); Lymphocytes # 1.4 K/mcL (0.6-4.6); Lymphocytes % 14.2 %; Mean Corpuscular HGB Conc 32.6 g/dL (31.6-35.5); Mean Corpuscular Hemoglobin 31.6 pg (28.0-33.3); Mean Platelet Volume 10.5 fL (9.4-12.4); Monocytes # 0.5 K/mcL (0.0-1.3); Monocytes % 5.3 %; Neutrophils # 7.9 K/mcL (1.6-8.9); Platelet Count 141 K/mcL (140-400); Red Blood Count 3.32 M/mcL (3.82-4.97); Red Cell Distribution Width 13.9 % (11.5-14.5); Segmented Neutrophils % 78.5 %
[2018-03-26 10:00] LABS: BUN/Creatinine Ratio 16 (6-26); Blood Urea Nitrogen 9 mg/dL (8-23); Calcium 8.2 mg/dL (8.6-10.3); Carbon Dioxide 21 mEq/L (23-29); Chloride 108 mEq/L (98-107); Glucose 86 mg/dL (70-105); Osmolality,Calculated 278 (280-300); Potassium 3.6 mEq/L (3.5-5.1); Sodium 135 mEq/L (136-145); eGFR For Non-African Americans > 60 (> 60)
[2018-03-26] MEDS: MetroNIDAZOLE 500 MG/100 ML 500 MG/100 ML BAG IVPB SCH ×2 (10:27→16:04)
[2018-03-26] MEDS: 0.9 % Sodium Chloride 1,000 ML IVC SCH (10:46)
--- NOTE | 2018-03-26 18:00 | Internal Med Progress Note ---
Hospitalist Progress Note - Encounter Date of Encounter: 03/26/18 Time of Encounter: 17:58 - Subjective Interval History: Slowing down bloody diarrhea still has abdominal pain and not passing flatus slight distention. Has nausea but denies vomiting. Review the lab with normal white count Denies fever chills headache dizziness chest pain shortness of breath urinary complaint - Exam Vitals: Temp Pulse Resp BP Pulse Ox 98.4 F 83 15 151/83 95 03/26/18 16:31 03/26/18 16:31 03/26/18 16:31 03/26/18 16:31 03/26/18 16:31 Exam: General appearance: No acute distress, A&O X 3 Eye exam: EOMI, PERRLA ENT exam: Moist oral mucosa Neck nontender, supple Respiratory exam: Clear to auscultation bilaterally Cardiovascular exam: Regular rate and rhythm, no systolic murmur Abdominal exam: Soft, tender diffusely but more lower abdomen, no rebound tenderness or rigidity, nondistended, hypoactive bowel sounds Extremities exam: No calf tenderness, no pedal edema Present: Skin-no rash, warm, dry, intact Neurological exam: CN II-XII intact, no focal deficits. No facial droop. Normal speech. - Assessment and Plan (1) GI bleed Current Visit: Yes Status: Acute Assessment and Plan: Serial hemoglobin with PPI. GI on board and found poor candidate for colonoscopy. Patient is also willing to get management medicallyrather procedure. Continue to monitor hemoglobin will consider PRC transfusion if needed. No blood thinner. SCDs for DVT prophylaxis Hemoglobin on admission 16.8 and today 10.5 (2) Colitis Current Visit: Yes Status: Acute Assessment and Plan: Possible ischemic colitis. Continue supportive treatment along with antibiotic Cipro and Flagyl. GI specialist on board. Normal white count. Will start ice chips today and advance to clear liquid if KUB x-ray with no acute finding. Patient has abdominal distention with hypoactive bowel sounds therefore KUB x- ray ordered. (3) Common bile duct dilation Current Visit: No Status: Acute Assessment and Plan: Continue to monitor at this time. (4) Lung cancer Current Visit: No Status: Chronic Assessment and Plan: Home hospice patient. Is stable (5) DVT prophylaxis Current Visit: No Status: Acute Assessment and Plan: SCDs (6) Electrolyte imbalance Current Visit: Yes Status: Acute Assessment and Plan: Low magnesium now corrected. Monitor magnesium level - Time Spent with Patient Total time spent is greater than 50% in coordination of care (as documented) at patient's floor/unit and/or counseling patient: 25 - 35 minutes Plan of Care Discussed with: patient Internal Medicine: Result - Labs CBC & Chem 7: 03/26/18 09:13 03/26/18 09:13 Labs: Short CBC 03/26/18 Range/Units 09:13 WBC 10.1 (4.3-11.1) K/mcL Hgb 10.5 L (11.5-15.4) g/dL Hct 32.2 L (35.3-44.9) % Plt Count 141 (140-400) K/mcL Neutrophils # 7.9 (1.6-8.9) K/mcL BMP 03/26/18 09:13 Sodium 135 L Potassium 3.6 Chloride 108 H Carbon Dioxide 21 L BUN 9 Creatinine 0.55 L Glucose 86 Calcium 8.2 L - ABG Interpretation ABG results: PT/INR, D-dimer PT 14.4 Seconds (9.4-12.1) H 03/24/18 05:15 - Impressions Impressions KUB X-Ray 03/26/18 12:02 IMPRESSION: Nonobstructed bowel-gas pattern. There is suggestion of colonic wall thickening involving the splenic flexure. Consider contrast-enhanced CT abdomen and pelvis for further evaluation. D/ : / 03/26/2018 14:02:27 Azucena Patrick MD / [email or web address] Interpreting Provider: Azucena Patrick MD Consult Discharge Plan - Plan Referrals: NONE,PCP [Primary Care Provider] - (1) GI bleed Qualifiers: GI bleed type/associated pathology: unspecified gastrointestinal hemorrhage type Qualified Code(s): K92.2 - Gastrointestinal hemorrhage, unspecified (4) Lung cancer Qualifiers: Laterality: left Lung location: unspecified part of lung Qualified Code(s): C34.92 - Malignant neoplasm of unspecified part of left bronchus or lung
[2018-03-27] MEDS: *HR* LORazepam 1 MG TABLET PO PRN ×5 (01:06→20:10)
[2018-03-27] MEDS: *HR* OxyCODONE Immed Rel 5 MG TABLET PO PRN ×5 (01:06→20:07)
[2018-03-27] MEDS: Insulin LISPRO 300 UNITS/3 ML VIAL SQ SCH ×4 (02:06→18:11)
[2018-03-27] MEDS: MetroNIDAZOLE 500 MG/100 ML 500 MG/100 ML BAG IVPB SCH ×3 (03:33→15:59)
[2018-03-27] MEDS: D5% in 0.9% NACL 1,000 ML IVC SCH ×2 (05:52→22:46)
[2018-03-27] MEDS: levETIRAcetam 250 MG TABLET PO SCH ×2 (05:53→18:15)
[2018-03-27] MEDS: Pantoprazole 40 MG VIAL IVP SCH ×2 (05:53→19:06)
[2018-03-27 06:56] LABS: Basophils # 0.1 K/mcL (0.0-0.2); Basophils % 0.5 %; Eosinophils # 0.1 K/mcL (0.0-0.6); Eosinophils % 1.2 %; Hematocrit 36.5 % (35.3-44.9); Hemoglobin 11.8 g/dL (11.5-15.4); Immature Granulocytes % 0.5 % (0-4); Lymphocytes # 1.5 K/mcL (0.6-4.6); Lymphocytes % 16.1 %; Mean Corpuscular HGB Conc 32.3 g/dL (31.6-35.5); Mean Corpuscular Hemoglobin 31.8 pg (28.0-33.3); Mean Corpuscular Volume 98.4 fL (83.0-100.0); Mean Platelet Volume 10.6 fL (9.4-12.4); Monocytes # 0.6 K/mcL (0.0-1.3); Monocytes % 6.4 %; Platelet Count 133 K/mcL (140-400); Red Blood Count 3.71 M/mcL (3.82-4.97); Red Cell Distribution Width 13.8 % (11.5-14.5); Segmented Neutrophils % 75.3 %
[2018-03-27 07:14] LABS: BUN/Creatinine Ratio 9 (6-26); Blood Urea Nitrogen 5 mg/dL (8-23); Calcium 8.7 mg/dL (8.6-10.3); Carbon Dioxide 19 mEq/L (23-29); Chloride 107 mEq/L (98-107); Glucose 112 mg/dL (70-105); Magnesium 1.2 mg/dL (1.6-2.6); Osmolality,Calculated 282 (280-300); Potassium 3.3 mEq/L (3.5-5.1); Sodium 137 mEq/L (136-145); eGFR For Non-African Americans > 60 (> 60)
--- NOTE | 2018-03-27 13:40 | Internal Med Progress Note ---
Hospitalist Progress Note - Encounter Date of Encounter: 03/27/18 Time of Encounter: 13:38 - Subjective Interval History: Last night started ice chips but today she noticed more bloody diarrhea therefore hesitant to advance the diet. He still has abdominal pain and some nausea but not worse. Review the lab with normal white count but low potassium and magnesium Denies fever chills vomiting headache dizziness chest pain shortness of breath urinary complaint - Exam Vitals: Temp Pulse Resp BP Pulse Ox 97.6 F 86 16 145/82 96 03/27/18 11:13 03/27/18 11:13 03/27/18 11:13 03/27/18 11:13 03/27/18 11:13 Exam: General appearance: No acute distress, A&O X 3 Eye exam: EOMI, PERRLA ENT exam: Moist oral mucosa Neck nontender, supple Respiratory exam: Clear to auscultation bilaterally Cardiovascular exam: Regular rate and rhythm, no systolic murmur Abdominal exam: Soft, tender diffusely but more lower abdomen, no rebound tenderness or rigidity, nondistended, + bowel sounds Extremities exam: No calf tenderness, no pedal edema Present: Skin-no rash, warm, dry, intact Neurological exam: CN II-XII intact, no focal deficits. No facial droop. No rmal speech. - Assessment and Plan (1) GI bleed Current Visit: Yes Status: Acute Assessment and Plan: Most likely due to ischemic colitis. GI on board and found poor candidate for colonoscopy. Patient is also willing to get management medically rather procedure. Continue to monitor hemoglobin will consider PRC transfusion if hemoglobin less than 7. No blood thinner. SCDs for DVT prophylaxis Hemoglobin on admission 16.8 (2) Colitis Current Visit: Yes Status: Acute Assessment and Plan: Possible ischemic colitis. Continue supportive treatment along with antibiotic Cipro and Flagyl. GI specialist on board. Normal white count. Continue ice chips. Will advance the diet tomorrow if tolerated (3) Common bile duct dilation Current Visit: No Status: Acute Assessment and Plan: Continue to monitor at this time. (4) Lung cancer Current Visit: No Status: Chronic (5) DVT prophylaxis Current Visit: No Status: Acute Assessment and Plan: SCDs (6) Electrolyte imbalance Current Visit: Yes Status: Acute Assessment and Plan: Low magnesium and potassium. Correction and monitoring - Time Spent with Patient Total time spent is greater than 50% in coordination of care (as documented) at patient's floor/unit and/or counseling patient: 25 - 35 minutes Internal Medicine: Result - Labs CBC & Chem 7: 03/27/18 06:44 03/27/18 06:44 Labs: Short CBC 03/27/18 Range/Units 06:44 WBC 9.3 (4.3-11.1) K/mcL Hgb 11.8 (11.5-15.4) g/dL Hct 36.5 (35.3-44.9) % Plt Count 133 L (140-400) K/mcL Neutrophils # 7.0 (1.6-8.9) K/mcL BMP 03/27/18 06:44 Sodium 137 Potassium 3.3 L Chloride 107 Carbon Dioxide 19 L BUN 5 L Creatinine 0.57 L Glucose 112 H Calcium 8.7 - ABG Interpretation ABG results: PT/INR, D-dimer PT 14.4 Seconds (9.4-12.1) H 03/24/18 05:15 - Impressions Impressions KUB X-Ray 03/26/18 12:02 IMPRESSION: Nonobstructed bowel-gas pattern. There is suggestion of colonic wall thickening involving the splenic flexure. Consider contrast-enhanced CT abdomen and pelvis for further evaluation. D/ / 03/26/2018 14:02:27 Azucena Patrick MD / bcarter Interpreting Provider: Azucena Patrick MD Consult Discharge Plan - Plan Referrals: NONE,PCP [Primary Care Provider] - (1) GI bleed Qualifiers: GI bleed type/associated pathology: unspecified gastrointestinal hemorrhage type Qualified Code(s): K92.2 - Gastrointestinal hemorrhage, unspecified (4) Lung cancer Qualifiers: Laterality: left Lung location: unspecified part of lung Qualified Code(s): C34.92 - Malignant neoplasm of unspecified part of left bronchus or lung
[2018-03-27 14:33] LABS: BUN/Creatinine Ratio 7 (6-26); Blood Urea Nitrogen 4 mg/dL (8-23); Calcium 8.6 mg/dL (8.6-10.3); Carbon Dioxide 23 mEq/L (23-29); Chloride 106 mEq/L (98-107); Glucose 115 mg/dL (70-105); Magnesium 1.6 mg/dL (1.6-2.6); Osmolality,Calculated 282 (280-300); Potassium 3.2 mEq/L (3.5-5.1); Sodium 137 mEq/L (136-145); eGFR For Non-African Americans > 60 (> 60)
[2018-03-28] MEDS: Insulin LISPRO 300 UNITS/3 ML VIAL SQ SCH ×4 (00:49→17:39)
[2018-03-28] MEDS: MetroNIDAZOLE 500 MG/100 ML 500 MG/100 ML BAG IVPB SCH ×3 (00:55→17:37)
[2018-03-28] MEDS: *HR* OxyCODONE Immed Rel 5 MG TABLET PO PRN ×4 (00:57→22:31)
[2018-03-28] MEDS: *HR* LORazepam 1 MG TABLET PO PRN ×5 (00:57→20:07)
[2018-03-28] MEDS: levETIRAcetam 250 MG TABLET PO SCH ×2 (05:33→17:37)
[2018-03-28] MEDS: Pantoprazole 40 MG VIAL IVP SCH ×2 (05:34→17:37)
[2018-03-28 08:44] LABS: Basophils % 0.3 %; Eosinophils # 0.2 K/mcL (0.0-0.6); Eosinophils % 1.7 %; Hematocrit 35.5 % (35.3-44.9); Hemoglobin 12.1 g/dL (11.5-15.4); Immature Granulocytes % 0.5 % (0-4); Mean Corpuscular HGB Conc 34.1 g/dL (31.6-35.5); Mean Corpuscular Hemoglobin 32.1 pg (28.0-33.3); Mean Corpuscular Volume 94.2 fL (83.0-100.0); Mean Platelet Volume 10.1 fL (9.4-12.4); Monocytes # 0.8 K/mcL (0.0-1.3); Monocytes % 8.2 %; Neutrophils # 6.4 K/mcL (1.6-8.9); Platelet Count 195 K/mcL (140-400); Red Blood Count 3.77 M/mcL (3.82-4.97); Red Cell Distribution Width 13.5 % (11.5-14.5); Segmented Neutrophils % 68.3 %
[2018-03-28 08:53] LABS: BUN/Creatinine Ratio 4 (6-26); Blood Urea Nitrogen 2 mg/dL (8-23); Calcium 8.6 mg/dL (8.6-10.3); Carbon Dioxide 24 mEq/L (23-29); Chloride 107 mEq/L (98-107); Glucose 99 mg/dL (70-105); Magnesium 1.2 mg/dL (1.6-2.6); Osmolality,Calculated 278 (280-300); Potassium 3.1 mEq/L (3.5-5.1); Sodium 136 mEq/L (136-145); eGFR For Non-African Americans > 60 (> 60)
[2018-03-28] MEDS: *HR* OxyCODONE Immed Rel 5 MG TABLET PO SCH ×3 (10:41→20:07)
--- NOTE | 2018-03-28 11:26 | Internal Med Progress Note ---
Hospitalist Progress Note - Encounter Date of Encounter: 03/28/18 Time of Encounter: 11:22 - Subjective Interval History: Patient is still has abdominal pain and bloody diarrhea. Patient is on prn narcotic and it seems like helping . She also want to try clear liquids Review the lab with normal white count but low potassium and magnesium Denies fever chills vomiting headache dizziness chest pain shortness of breath urinary complaint - Exam Vitals: Temp Pulse Resp BP Pulse Ox 98.3 F 93 15 156/84 97 03/28/18 10:44 03/28/18 10:44 03/28/18 10:44 03/28/18 10:44 03/28/18 10:44 Exam: General appearance: No acute distress, A&O X 3 Eye exam: EOMI, PERRLA ENT exam: Moist oral mucosa Neck nontender, supple Respiratory exam: Clear to auscultation bilaterally Cardiovascular exam: Regular rate and rhythm, no systolic murmur Abdominal exam: Soft, tender diffusely but more lower abdomen, no rebound tenderness or rigidity, nondistended, + bowel sounds Extremities exam: No calf tenderness, no pedal edema Present: Skin-no rash, warm, dry, intact Neurological exam: CN II-XII intact, no focal deficits. No facial droop. Normal speech. - Assessment and Plan (1) GI bleed Current Visit: Yes Status: Acute Assessment and Plan: Most likely due to ischemic colitis. GI on board and found poor candidate for colonoscopy. Patient is also willing to get management medically rather procedure. Continue to monitor hemoglobin will consider PRC transfusion if hemoglobin less than 7. No blood thinner. SCDs for DVT prophylaxis Hemoglobin on admission 16.8 and today around 11 Today will a scheduled pain medicine every 4 hours along with when necessary for better control and abdominal pain. Patient is willing to try a clear liquid therefore it is ordered. She also considering for possible colonoscopy but after discussing with GI specialist risk and benefits-GI was notified and is still thinking patient is poor candidate for any procedure. (2) Colitis Current Visit: Yes Status: Acute Assessment and Plan: Most like ischemic colitis. Continue supportive treatment along with antibiotic Cipro and Flagyl. GI specialist on board. Normal white count. Clear liquid diet. For pain management schedule oxycodone every 4 hours along with when necessary. Also consulted palliative care for pain management. (3) Common bile duct dilation Current Visit: No Status: Acute Assessment and Plan: Continue to monitor at this time. (4) Lung cancer Current Visit: No Status: Chronic Assessment and Plan: Home hospice patient. Is stable (5) DVT prophylaxis Current Visit: No Status: Acute Assessment and Plan: SCDs (6) Electrolyte imbalance Current Visit: Yes Status: Acute Assessment and Plan: Low magnesium and potassium. Will repeat potassium and magnesium in the afternoon today. Correction and monitoring (7) Goals of care, counseling/discussion Current Visit: Yes Status: Acute Assessment and Plan: Patient has ischemic colitis and has been nothing by mouth without nutrition supplementation since admission. Patient is also under hospice with comfort c are. Poor candidate for endoscopy as per GI team. Consulted palliative care for pain management and also discussion about short-term parenteral nutrition to give the trial to heal the colon versus continue just comfort care. He should not is not sure whether she want to try parent to nutrition but want to try to advance clear liquid today and decide further. Consulted chief airline radio operator for further recommendation and talked on phone. Spent almost 40 minute inpatient care and communication with GI team, palliative care team, patient and nursing staff - Time Spent with Patient Total time spent is greater than 50% in coordination of care (as documented) at patient's floor/unit and/or counseling patient: Greater than 35 minutes Internal Medicine: Result - Labs CBC & Chem 7: 03/28/18 07:59 03/28/18 08:00 Labs: Short CBC 03/28/18 Range/Units 07:59 WBC 9.4 (4.3-11.1) K/mcL Hgb 12.1 (11.5-15.4) g/dL Hct 35.5 (35.3-44.9) % Plt Count 195 (140-400) K/mcL Neutrophils # 6.4 (1.6-8.9) K/mcL BMP 03/27/18 03/28/18 14:04 08:00 Sodium 137 136 Potassium 3.2 L 3.1 L Chloride 106 107 Carbon Dioxide 23 24 BUN 4 L 2 L Creatinine 0.55 L 0.49 L Glucose 115 H 99 Calcium 8.6 8.6 - ABG Interpretation ABG results: PT/INR, D-dimer PT 14.4 Seconds (9.4-12.1) H 03/24/18 05:15 Consult Discharge Plan - Plan Referrals: NONE,PCP [Primary Care Provider] - (1) GI bleed Qualifiers: GI bleed type/associated pathology: unspecified gastrointestinal hemorrhage type Qualified Code(s): K92.2 - Gastrointestinal hemorrhage, unspecified (4) Lung cancer Qualifiers: Laterality: left Lung location: unspecified part of lung Qualified Code(s): C34.92 - Malignant neoplasm of unspecified part of left bronchus or lung
[2018-03-28] MEDS: 0.9 % Sodium Chloride w KCl 40 MEQ/1,000 ML MLS IVC SCH ×2 (12:38→20:07)
[2018-03-28] MEDS: 0.9 % Sodium Chloride 1,000 ML IVC SCH (15:13)
[2018-03-28 16:59] LABS: Magnesium 2.1 mg/dL (1.6-2.6)
[2018-03-28] MEDS: D5% in 0.9% NACL 1,000 ML IVC SCH (18:54)
[2018-03-29] MEDS: *HR* OxyCODONE Immed Rel 5 MG TABLET PO SCH ×7 (00:57→21:57)
[2018-03-29] MEDS: MetroNIDAZOLE 500 MG/100 ML 500 MG/100 ML BAG IVPB SCH ×4 (00:58→23:53)
[2018-03-29] MEDS: *HR* LORazepam 1 MG TABLET PO PRN ×4 (01:34→22:00)
[2018-03-29] MEDS: Insulin LISPRO 300 UNITS/3 ML VIAL SQ SCH ×4 (05:29→17:03)
[2018-03-29 06:07] LABS: Basophils % 0.4 %; Eosinophils # 0.2 K/mcL (0.0-0.6); Eosinophils % 2.6 %; Hematocrit 33.2 % (35.3-44.9); Hemoglobin 11.2 g/dL (11.5-15.4); Immature Granulocytes % 0.4 % (0-4); Lymphocytes # 1.7 K/mcL (0.6-4.6); Lymphocytes % 23.8 %; Mean Corpuscular HGB Conc 33.7 g/dL (31.6-35.5); Mean Corpuscular Hemoglobin 31.7 pg (28.0-33.3); Mean Corpuscular Volume 94.1 fL (83.0-100.0); Mean Platelet Volume 10.4 fL (9.4-12.4); Monocytes # 0.8 K/mcL (0.0-1.3); Monocytes % 10.3 %; Neutrophils # 4.6 K/mcL (1.6-8.9); Platelet Count 193 K/mcL (140-400); Red Blood Count 3.53 M/mcL (3.82-4.97); Red Cell Distribution Width 13.8 % (11.5-14.5); Segmented Neutrophils % 62.5 %
[2018-03-29 06:21] LABS: BUN/Creatinine Ratio 4 (6-26); Blood Urea Nitrogen 2 mg/dL (8-23); Calcium 8.3 mg/dL (8.6-10.3); Carbon Dioxide 20 mEq/L (23-29); Chloride 110 mEq/L (98-107); Glucose 101 mg/dL (70-105); Osmolality,Calculated 280 (280-300); Potassium 3.4 mEq/L (3.5-5.1); Sodium 137 mEq/L (136-145); eGFR For Non-African Americans > 60 (> 60)
[2018-03-29] MEDS: *HR* OxyCODONE Immed Rel 5 MG TABLET PO PRN ×3 (08:01→19:00)
--- NOTE | 2018-03-29 09:02 | Internal Med Progress Note ---
Hospitalist Progress Note - Encounter Date of Encounter: 03/29/18 Time of Encounter: 09:00 - Exam Vitals: Temp Pulse Resp BP Pulse Ox 100.1 F H 81 15 121/77 96 03/29/18 06:47 03/29/18 06:47 03/29/18 06:47 03/29/18 06:47 03/29/18 08:13 Exam: General appearance: No acute distress, A&O X 3 Eye exam: EOMI, PERRLA ENT exam: Moist oral mucosa Neck nontender, supple Respiratory exam: Clear to auscultation bilaterally Cardiovascular exam: Regular rate and rhythm, no systolic murmur Abdominal exam: Soft, tender diffusely but more lower abdomen, no rebound tenderness or rigidity, nondistended, + bowel sounds Extremities exam: No calf tenderness, no pedal edema Present: Skin-no rash, warm, dry, intact Neurological exam: CN II-XII intact, no focal deficits. No facial droop. Normal speech. - Assessment and Plan (1) Colitis Current Visit: Yes Status: Acute Assessment and Plan: Most like ischemic colitis. Continue supportive treatment along with antibiotic Cipro and Flagyl. GI on board. Normal white count. Clear liquid diet. For pain management schedule oxycodone every 4 hours along with when necessary. Also consulted palliative care for pain management. Advance diet as tolerated, goals of care per palliative care (2) Lung cancer Current Visit: No Status: Chronic Assessment and Plan: Home hospice patient. Is stable (3) Common bile duct dilation Current Visit: No Status: Acute Assessment and Plan: Continue to monitor at this time. (4) GI bleed Current Visit: Yes Status: Acute Assessment and Plan: Most likely due to ischemic colitis. GI on board and found poor candidate for c olonoscopy. Patient is also willing to get management medically rather procedure. Continue to monitor hemoglobin will consider PRC transfusion if hemoglobin less than 7. No blood thinner. SCDs for DVT prophylaxis Hemoglobin on admission 16.8 and today around 11. Poor candidate for endsoscopy/ colonscopy per GI (5) Electrolyte imbalance Current Visit: Yes Status: Acute Assessment and Plan: Low magnesium and potassium. Will repeat potassium and magnesium in the afternoon today. Correction and monitoring (6) Goals of care, counseling/discussion Current Visit: Yes Status: Acute Assessment and Plan: Patient has ischemic colitis and has been nothing by mouth without nutrition supplementation since admission. Patient is also under hospice with comfort care. Poor candidate for endoscopy as per GI team. Consulted palliative care for pain management and also discussion about short-term parenteral nutrition to give the trial to heal the colon versus continue just comfort care. He should n ot is not sure whether she want to try parent to nutrition but want to try to advance clear liquid today and decide further. Consulted departmental secretary for further recommendation and talked on phone. Spent almost 40 minute inpatient care and communication with GI team, palliative care team, patient and nursing staff (7) DVT prophylaxis Current Visit: Yes Status: Acute Assessment and Plan: SCDs - Time Spent with Patient Total time spent is greater than 50% in coordination of care (as documented) at patient's floor/unit and/or counseling patient: Internal Medicine: Result - Labs CBC & Chem 7: 03/29/18 05:22 03/29/18 05:22 Labs: Short CBC 03/29/18 Range/Units 05:22 WBC 7.3 (4.3-11.1) K/mcL Hgb 11.2 L (11.5-15.4) g/dL Hct 33.2 L (35.3-44.9) % Plt Count 193 (140-400) K/mcL Neutrophils # 4.6 (1.6-8.9) K/mcL BMP 03/28/18 03/29/18 16:10 05:22 Sodium 137 Potassium 3.0 L 3.4 L Chloride 110 H Carbon Dioxide 20 L BUN 2 L Creatinine 0.47 L Glucose 101 Calcium 8.3 L - ABG Interpretation ABG results: PT/INR, D-dimer PT 14.4 Seconds (9.4-12.1) H 03/24/18 05:15 Consult Discharge Plan - Plan Referrals: NONE,PCP [Primary Care Provider] - __ (2) Lung cancer Qualifiers: Laterality: left Lung location: unspecified part of lung Qualified Code(s): C34.92 - Malignant neoplasm of unspecified part of left bronchus or lung (4) GI bleed Qualifiers: GI bleed type/associated pathology: unspecified gastrointestinal hemorrhage type Qualified Code(s): K92.2 - Gastrointestinal hemorrhage, unspecified
[2018-03-29] MEDS: 0.9 % Sodium Chloride w KCl 40 MEQ/1,000 ML MLS IVC SCH ×3 (09:49→23:23)
[2018-03-29] MEDS: Potassium Chloride Elixir 20 MEQ/15 ML UDC PO SCH ×2 (10:05→14:51)
--- NOTE | 2018-03-29 11:31 | Palliative - Consult Note ---
Date of Encounter: 03/29/18 Time of Encounter: 11:26 - Assessment and Plan (1) Goals of care, counseling/discussion Current Visit: Yes Status: Acute Assessment and plan: Discussed with pt about her current medical condition, trajectory of illness, prognosis and treatment options. Pt was at home with [facility], but she states she was independent with ADLs. Her is in a NH, she has 3 sons, Marshall [phone] is her POA. Pt does not want any aggressive intervention, but on he other hand is reluctant to making any decision about next steps. Called pt's son Marshall, and attempted to set a family meeting. Marshall would like to reach out to his siblings and see when they are available. He was not willing to have a phone conversation. Provided call back number. Will discuss further GOC once meeting scheduled. Pt confirmed her code status as DNRCCA and would like to return home on hospice once stable. (2) Abdominal pain Current Visit: Yes Status: Acute Assessment and plan: Likely due to ischemic cholitis continue cipro and Metronizadole Patient is not likely to request medication as she does not want to "bother" Agree with Oxycodone 20 mg q4hrs scheduled, with 10 mg prn. Qualifiers: Abdominal location: periumbilical Qualified Code(s): R10.33 - Periumbilical pain (3) Cancer of left lung Current Visit: No Status: Chronic Assessment and plan: Patient has decided not to pursue any further treatment, will continue hospice care once stable. Qualifiers: Lung location: upper lobe of lung Qualified Code(s): C34.12 - Malignant neoplasm of upper lobe, left bronchus or lung Palliative-CN HPI - Data of Consult Patient: new to practice Consult date: 03/28/18 Requesting Physician: Archana Berry MD Primary Care Provider: PCP NONE - Consult Narrative Palliative Care/Comfort Measures: Palliative care Reason for consult: goals of care History of present illness: Ms. Hodge is a 73 year old female with history of COPD, lung cancer status post radiation, seizure disorder, history of DVT, hypertension, osteoporosis, anxiety and depression, that presented to the emergency room with lower abdominal pain some blood in the stool, nausea but no vomiting. On admission CT of the abdomen showed inflammation of the distal transverse colon descending and sigmoid colon consistent with colitis. Labs showed white count was 19.9. Patient was admitted and started on Flagyl and Cipro. Patient continued to have some bleeding in the stools, Hemoglobin dropped from 16 t0 13 to 11. but remained stable around 11 for 6 the last 6 days. GI recommended conservative management. Palliative care consult for [facility]. Patient at the bedside appeared in no acute distress, complaining of bloody BM, and eyal-umbilical abdominal pain. pain is constant, rated 8/10 at the time, responds to pain medication, but does not last long enough. She denies nausea, vomiting, diarrhea. Patient is on Home hospice with [facility] prior to current admission, for lung ca. CC: Archana Berry MD - Time Spent with Patient Time: Total time spent is greater than 50% in coordination of care (as documented) at patient's floor/unit and/or counseling patient: Time with patient: 60 minutes Past Med Surg Social Fam HX - Past Medical History Medical history: cancer, COPD, DVT, hypertension, osteoporosis, seizures, other Additional medical history: lung cancer Psychiatric history: anxiety, depression - Past Surgical History Surgical History: hip replacement, orthopedic, other, other Additional surgical history: carpal tunnel, left hip replacement. - Social History Smoking Status: Current every day smoker Smokeless Tobacco Status: No Alcohol use: none Drug use: none - Family History Mother Hx Family Respiratory Disorders: Yes (COPD, emphysemza) Father Hx Family Cardiac Disorders: Yes (CHF) Medications and Allergies Ascorbic Acid [Vitamin C] 500 mg PO DAILY 10/22/15 [History] Cyanocobalamin (Vitamin B-12) [Vitamin B12] 1,000 mcg PO DAILY 10/22/15 [History] LevETIRAcetam [Levetiracetam] 500 mg PO BID 03/16/16 [History] Calcium Carbonate [Calcium] 600 mg PO DAILY 01/04/17 [History] LORazepam [Ativan] 1 mg PO Q2H PRN 01/04/17 [History] Oxygen 2 l NS AD 01/04/17 [History] Vitamin B Complex Vit C No.4 [Super B Complex] 150 mg PO DAILY 01/04/17 [History] Amitriptyline [Elavil] 100 mg PO HS 03/24/18 [History] OxyCODONE Immed Rel [Roxicodone 20 MG] 20 mg PO Q1H PRN 03/24/18 [History] Allergy/AdvReac Type Severity Reaction Status Date / Time No Known Allergies Allergy Verified 08/07/17 11:17 - Constitutional Constitutional ROS PAL: malaise - EENT Eyes: no change in vision, no pain Ears, nose, mouth, throat: no dry mouth - Cardiovascular Cardiovascular ROS: no dyspnea on exertion, no leg edema - Respiratory Respiratory: no dyspnea - Gastrointestinal Gastrointestinal: abdominal pain, hematochezia, no nausea, no vomiting - Genitourinary Palliative ROS female: no dysuria - Musculoskeletal Musculoskeletal ROS IM: muscle weakness - Integumentary ROS Integumentary: no unusual bruising - Neurological Neurological ROS: no confusion Palliative Care-Exam - Constitutional Vitals: Temp Pulse Resp BP Pulse Ox 98.8 F 87 15 127/83 93 03/29/18 10:26 03/29/18 10:26 03/29/18 10:26 03/29/18 10:26 03/29/18 10:26 Exam: Vitals reviewed General appearance: alert, oriented x3, appears comfortable Eyes: nonicteric, left lower eyelid edema EENT: oropharynx moist Neck: supple, no lymphadenopathy, no JVD Chest: bilateral: normal breath sounds, normal effort Cardiovascular: regular rate and rhythm Gastrointestinal: soft, tender on epigastric and eyal-umbilical palpation. Integumentary: normal Extremities: no cyanosis, no edema, no clubbing Musculoskeletal: no deformities Neurologic: normal mental status, non-focal exam Psych: mood appropriate, affect normal Internal Medicine - CN: Reslt - Labs CBC & Chem 7: 03/29/18 05:22 03/29/18 05:22 Labs: Short CBC 03/29/18 Range/Units 05:22 WBC 7.3 (4.3-11.1) K/mcL Hgb 11.2 L (11.5-15.4) g/dL Hct 33.2 L (35.3-44.9) % Plt Count 193 (140-400) K/mcL Neutrophils # 4.6 (1.6-8.9) K/mcL BMP 03/28/18 03/29/18 16:10 05:22 Sodium 137 Potassium 3.0 L 3.4 L Chloride 110 H Carbon Dioxide 20 L BUN 2 L Creatinine 0.47 L Glucose 101 Calcium 8.3 L - ABG Interpretation ABG results: PT/INR, D-dimer PT 14.4 Seconds (9.4-12.1) H 03/24/18 05:15 Consult Discharge Plan - Plan Referrals: NONE,PCP [Primary Care Provider] - Palliative Quality Palliative Quality: Screen for Code Status: Yes, Screen for Goals of Care: Yes, Screen for Pain: Yes, If Pain Regimen Started, Initiate Bowel Regimen: No (GI bleed), Screen for Nausea/Vomitting: Yes Code Status: 03/24/18 02:38 Resuscitation Status: Active [RES] Routine Comment: Resuscitation Status: Full Code 03/24/18 09:53 DNR [Resuscitation Status: Active] [RES] Routine Comment: Resuscitation Status: DNR-Comfort Care-Arrest Palliative Scale - Palliative Performance Scale How ambulatory is this patient?: Reduced What is patient's level of activity and evidence of disease?: Unable hobby/housework, Significant disease How much self-care assistance does patient require?: Considerable assistance required How much oral intake does the patient have?: Minimal to sips What is this patient's level of consciousness?: Full Palliative Performance Score: 60 %
[2018-03-29] MEDS: levETIRAcetam 250 MG TABLET PO SCH (17:01)
[2018-03-29] MEDS: Pantoprazole 40 MG VIAL IVP SCH (17:01)
[2018-03-30] MEDS: Insulin LISPRO 300 UNITS/3 ML VIAL SQ SCH ×4 (00:11→17:12)
[2018-03-30] MEDS: *HR* OxyCODONE Immed Rel 5 MG TABLET PO SCH ×7 (01:04→21:20)
[2018-03-30] MEDS: *HR* OxyCODONE Immed Rel 5 MG TABLET PO PRN ×2 (02:05→11:20)
[2018-03-30] MEDS: *HR* LORazepam 1 MG TABLET PO PRN ×5 (02:08→21:20)
[2018-03-30] MEDS: levETIRAcetam 250 MG TABLET PO SCH ×3 (05:47→17:11)
[2018-03-30] MEDS: Pantoprazole 40 MG VIAL IVP SCH ×3 (05:50→17:10)
[2018-03-30 08:06] LABS: BUN/Creatinine Ratio 7 (6-26); Blood Urea Nitrogen 4 mg/dL (8-23); Calcium 8.5 mg/dL (8.6-10.3); Carbon Dioxide 23 mEq/L (23-29); Chloride 110 mEq/L (98-107); Glucose 123 mg/dL (70-105); Magnesium 1.3 mg/dL (1.6-2.6); Osmolality,Calculated 278 (280-300); Phosphorous 2.7 mg/dL (2.7-4.5); Sodium 135 mEq/L (136-145); eGFR For Non-African Americans > 60 (> 60)
[2018-03-30] MEDS: MetroNIDAZOLE 500 MG/100 ML 500 MG/100 ML BAG IVPB SCH (09:08)
--- NOTE | 2018-03-30 10:43 | Internal Med Progress Note ---
Hospitalist Progress Note - Encounter Date of Encounter: 03/30/18 Time of Encounter: 16:00 - Exam Vitals: Temp Pulse Resp BP Pulse Ox 98.6 F 93 14 124/73 95 03/30/18 07:51 03/30/18 07:51 03/30/18 07:51 03/30/18 07:51 03/30/18 07:51 Exam: General appearance: No acute distress, A&O X 3 Eye exam: EOMI, PERRLA ENT exam: Moist oral mucosa Neck nontender, supple Respiratory exam: Clear to auscultation bilaterally Cardiovascular exam: Regular rate and rhythm, no systolic murmur Abdominal exam: Soft, tender diffusely but more lower abdomen, no rebound tenderness or rigidity, nondistended, + bowel sounds Extremities exam: No calf tenderness, no pedal edema Present: Skin-no rash, warm, dry, intact Neurological exam: CN II-XII intact, no focal deficits. No facial droop. Normal speech. - Assessment and Plan (1) Colitis Current Visit: Yes Status: Acute Assessment and Plan: Most like ischemic colitis. Continue supportive treatment along with antibiotic Cipro and Flagyl. GI on board. Normal white count. For pain management schedule oxycodone every 4 hours along with when necessary. Also consulted palliative care for pain management. Advance diet as tolerated, goals of care per palliative care. Diet advanced to full liquid today and patient is tolerating her diet Plan for discharge back to hospice in am if patient continues to improve (2) Lung cancer Current Visit: Yes Status: Chronic Assessment and Plan: Home hospice patient. Is stable (3) Common bile duct dilation Current Visit: Yes Status: Acute Assessment and Plan: Continue to monitor at this time. No acute intervention per GI (4) GI bleed Current Visit: Yes Status: Acute Assessment and Plan: Most likely due to ischemic colitis. GI on board and found poor candidate for colonoscopy. Patient is also willing to get management medically rather procedure. Continue to monitor hemoglobin will consider PRC transfusion if hemoglobin less than 7. No blood thinner. SCDs for DVT prophylaxis Hemoglobin on has been stable on 11-12 Poor candidate for endsoscopy/ colonscopy per GI (5) Electrolyte imbalance Current Visit: Yes Status: Acute Assessment and Plan: Low magnesium and potassium. Will repeat potassium and magnesium in the afternoon today. Correction and monitoring (6) Goals of care, counseling/discussion Current Visit: Yes Status: Acute Assessment and Plan: Patient has ischemic colitis and has been nothing by mouth without nutrition supplementation since admission. Patient is also under hospice with comfort care. Poor candidate for endoscopy as per GI team. Consulted palliative care for pain management and also discussion about short-term parenteral nutrition to give the trial to heal the colon versus continue just comfort care. He should not is not sure whether she want to try parent to nutrition but want to try to advance clear liquid today and decide further. Consulted master hearth technician for furt her recommendation and talked on phone. (7) DVT prophylaxis Current Visit: Yes Status: Acute Assessment and Plan: SCDs - Time Spent with Patient Total time spent is greater than 50% in coordination of care (as documented) at patient's floor/unit and/or counseling patient: Internal Medicine: Result - Labs CBC & Chem 7: 03/29/18 05:22 03/30/18 07:14 Labs: BMP 03/30/18 07:14 Sodium 135 L Potassium 4.0 Chloride 110 H Carbon Dioxide 23 BUN 4 L Creatinine 0.58 L Glucose 123 H Calcium 8.5 L - ABG Interpretation ABG results: PT/INR, D-dimer PT 14.4 Seconds (9.4-12.1) H 03/24/18 05:15 Consult Discharge Plan - Plan Referrals: NONE,PCP [Primary Care Provider] - (2) Lung cancer Qualifiers: Laterality: left Lung location: unspecified part of lung Qualified Code(s): C34.92 - Malignant neoplasm of unspecified part of left bronchus or lung (4) GI bleed Qualifiers: GI bleed type/associated pathology: unspecified gastrointestinal hemorrhage type Qualified Code(s): K92.2 - Gastrointestinal hemorrhage, unspecified
--- NOTE | 2018-03-30 14:35 | Palliative Progress Note ---
Date of Encounter: 03/30/18 Time of Encounter: 09:00 - Assessment and plan (1) Goals of care, counseling/discussion Current Visit: Yes Status: Acute Assessment and plan: 9:00 30 minutes meeting with pt and son Marshall CANDELARIA). Discussed her current medical condition, trajectory of illness, treatment options and prognosis. Patient is concerned about the continuous bleeding in stool, explained that the bleeding is likely due to ischemic colitis, and that it is to be some trace of blood in stool in that case. However she was made aware that her Hb have remained stable over 11 since admission and for such reason the blood tinged stool are less concerning. Explained to patient that she is at high risk for any scope and the patient replied she did not want one anyway. Discussed goals of care, patient ultimately wants to go back home with [facility]. Patient would like to discuss more with primary team about alternative work up and treatment to stop the bleeding. Discussed with Dr Barrow, pt is completing her course of antibiotics and in her case, given her stable Hb and hemodynamics, no further work up would be warranted. 2:00 met again with pt and Brother Lance. Explained the discussion with primary team. pt and family were pleased with explanations, and she stated she would like to return home on hospice as soon as possible. She expressed the wish to have some physical therapy from hospice team, to help her with safe transfer. JEANNA Leonard was made aware of plan. (2) Abdominal pain Current Visit: Yes Status: Acute Assessment and plan: improving Likely due to ischemic cholitis continue cipro and Metronizadole Patient is not likely to request medication as she does not want to "bother" Agree with Oxycodone 20 mg q4hrs scheduled, with 10 mg prn. Qualifiers: Abdominal location: periumbilical Qualified Code(s): R10.33 - Periumbilical pain (3) Cancer of left lung Current Visit: No Status: Chronic Assessment and plan: Patient has decided not to pursue any further treatment, will continue hospice care once stable. Qualifiers: Lung location: upper lobe of lung Qualified Code(s): C34.12 - Malignant neoplasm of upper lobe, left bronchus or lung - Time Spent With Patient Total time spent is greater than 50% in coordination of care (as documented) at patient's floor/unit and/or counseling patient: Greater than 35 minutes - Subjective Interval history: patient was seen this morning at the bedside, son Marshall was present. She was still worried about having blood tinged stool, states her pain is better controlled with scheduled oxycodone, but still present on and off. She is refusing to eat because she worries about food causing more bleeding. Explained to pt that bleeding does not depend on food and encouraged her to eat. - Constitutional Vitals: Abnormal lab results RBC 3.53 M/mcL (3.82-4.97) L 03/29/18 05:22 Hgb 11.2 g/dL (11.5-15.4) L 03/29/18 05:22 Hct 33.2 % (35.3-44.9) L 03/29/18 05:22 PT 14.4 Seconds (9.4-12.1) H 03/24/18 05:15 Sodium 135 mEq/L (136-145) L 03/30/18 07:14 Chloride 110 mEq/L (98-107) H 03/30/18 07:14 BUN 4 mg/dL (8-23) L 03/30/18 07:14 Creatinine 0.58 mg/dL (0.60-1.20) L 03/30/18 07:14 Glucose 123 mg/dL (70-105) H 03/30/18 07:14 Calculated Osmolality 278 (280-300) L 03/30/18 07:14 Calcium 8.5 mg/dL (8.6-10.3) L 03/30/18 07:14 Magnesium 1.3 mg/dL (1.6-2.6) L 03/30/18 07:14 B-Natriuretic Peptide 138 pg/mL (Less than 100) H 03/24/18 05:15 Serum Total Protein 6.2 g/dL (6.4-8.9) L 03/24/18 05:15 Albumin 3.0 g/dL (3.5-5.7) L 03/24/18 05:15 Albumin/Globulin Ratio 0.9 (1.1-2.2) L 03/24/18 05:15 HDL Cholesterol 65 mg/dL (40-59) H 03/24/18 05:15 Lipase 0 Units/L (11-82) L 03/24/18 00:06 Urine Protein >=300 mg/dL (Neg-Trace) H 03/23/18 00:15 Urine Ketones Trace mg/dL (Negative) H 03/23/18 00:15 Urine Blood Moderate (Negative) H 03/23/18 00:15 Urine Bilirubin Small (Negative) H 03/23/18 00:15 Ur Leukocyte Esterase Trace (Negative) H 03/23/18 00:15 Urine Microscopic RBC 50-100 per hpf (0-3) H 03/23/18 00:15 Ur Squamous Epith Cells Many per lpf (None-Few) H 03/23/18 00:15 Ur Culture Indicated? NO. (NO) A 03/23/18 00:15 Exam: Vitals reviewed General appearance: alert, oriented x3, appears comfortable Eyes: nonicteric, left lower eyelid edema EENT: oropharynx moist Neck: supple, no lymphadenopathy, no JVD Chest: bilateral: normal breath sounds, normal effort Cardiovascular: regular rate and rhythm Gastrointestinal: soft, tender on epigastric and eyal-umbilical palpation. Integumentary: normal Extremities: no cyanosis, no edema, no clubbing Musculoskeletal: no deformities Neurologic: normal mental status, non-focal exam Psych: mood appropriate, affect normal Palliative Quality Palliative Quality: Screen for Code Status: Yes, Screen for Goals of Care: Yes, Screen for Pain: Yes, If Pain Regimen Started, Initiate Bowel Regimen: Yes (GI bleed), Screen for Nausea/Vomitting: Yes Code Status: 03/24/18 02:38 Resuscitation Status: Active [RES] Routine Comment: Resuscitation Status: Full Code 03/24/18 09:53 DNR [Resuscitation Status: Active] [RES] Routine Comment: Resuscitation Status: DNR-Comfort Care-Arrest - Labs CBC & Chem 7: 03/29/18 05:22 03/30/18 07:14 Labs: Laboratory Results - last 24 hr 03/29/18 03/29/18 03/29/18 01:03 12:21 23:58 Sodium Potassium Chloride Carbon Dioxide BUN Creatinine Est GFR ( Amer) Est GFR (Non-Af Amer) BUN/Creatinine Ratio Glucose POC Glucose 105 H 101 H 93 Calculated Osmolality Calcium Phosphorus Magnesium 03/30/18 03/30/18 05:27 07:14 Sodium 135 L Potassium 4.0 Chloride 110 H Carbon Dioxide 23 BUN 4 L Creatinine 0.58 L Est GFR ( Amer) > 60 Est GFR (Non-Af Amer) > 60 BUN/Creatinine Ratio 7 Glucose 123 H POC Glucose 86 Calculated Osmolality 278 L Calcium 8.5 L Phosphorus 2.7 Magnesium 1.3 L - ABG Interpretation ABG results: PT/INR, D-dimer PT 14.4 Seconds (9.4-12.1) H 03/24/18 05:15 Palliative Scale - Palliative Performance Scale How ambulatory is this patient?: Reduced What is patient's level of activity and evidence of disease?: Unable hobby/housework, Significant disease How much self-care assistance does patient require?: Considerable assistance required How much oral intake does the patient have?: Minimal to sips What is this patient's level of consciousness?: Full Palliative Performance Score: 60 % Consult Discharge Plan - Plan Referrals: NONE,PCP [Primary Care Provider] -
[2018-03-30] MEDS: 0.9 % Sodium Chloride w KCl 40 MEQ/1,000 ML MLS IVC SCH ×2 (17:07→17:11)
[2018-03-30] MEDS: metroNIDAZOLE 500 MG TABLET PO SCH (17:10)
[2018-03-31] MEDS: Insulin LISPRO 300 UNITS/3 ML VIAL SQ SCH ×2 (01:50→05:36)
[2018-03-31] MEDS: *HR* OxyCODONE Immed Rel 5 MG TABLET PO SCH ×3 (01:54→09:21)
[2018-03-31] MEDS: *HR* LORazepam 1 MG TABLET PO PRN ×2 (01:55→09:24)
[2018-03-31] MEDS: metroNIDAZOLE 500 MG TABLET PO SCH ×2 (01:55→09:21)
[2018-03-31] MEDS: Pantoprazole 40 MG VIAL IVP SCH (05:42)
[2018-03-31] MEDS: levETIRAcetam 250 MG TABLET PO SCH (05:42)
[2018-03-31] MEDS: 0.9 % Sodium Chloride w KCl 40 MEQ/1,000 ML MLS IVC SCH (05:43)
[2018-03-31 06:34] LABS: BUN/Creatinine Ratio 6 (6-26); Blood Urea Nitrogen 4 mg/dL (8-23); Calcium 8.5 mg/dL (8.6-10.3); Carbon Dioxide 22 mEq/L (23-29); Chloride 114 mEq/L (98-107); Glucose 95 mg/dL (70-105); Magnesium 1.5 mg/dL (1.6-2.6); Osmolality,Calculated 285 (280-300); Phosphorous 3.2 mg/dL (2.7-4.5); Potassium 4.5 mEq/L (3.5-5.1); Sodium 139 mEq/L (136-145); eGFR For Non-African Americans > 60 (> 60)
[2018-03-31 08:08] VITALS: BP 139/90
--- NOTE | 2018-03-31 10:57 | Discharge Summary ---
Orders not resulted at time of discharge: Pending orders 04/01/18 04:00 Basic Metabolic Panel AM 0400 Magnesium AM 0400 Phosphorous AM 0400 04/02/18 04:00 Basic Metabolic Panel AM 0400 Magnesium AM 0400 Phosphorous AM 0400 04/03/18 04:00 Basic Metabolic Panel AM 0400 Magnesium AM 0400 Phosphorous AM 0400 04/04/18 04:00 Basic Metabolic Panel AM 0400 Magnesium AM 0400 Phosphorous AM 0400 Date of Encounter: 03/31/18 Time of Encounter: 10:50 - Discharge Diagnosis (1) Colitis Priority: Primary Status: Acute Assessment and Plan: 73 year old female patient with history of COPD, lung cancer status post radiation, seizure disorder, history of DVT, hypertension, osteoporosis, anxiety and depression. patient presented to emergency room with lower abdominal pain some blood in the stool, nausea but no vomiting. CT of the abdomen shows inflammation of the distal transverse colon descending and sigmoid colon consistent with colitis. Her white count was 19.9 patient denies any fever or chills no prior history of colitis patient will be admitted was started on Flagyl and Cipro She was admitted with ischemic colitis and was started on cipro and flagyl. She improved on this regimen with resolution of her GI symptoms. She was initially unable to tolerate a diet but with antibiotics, her diarrhea resolved. Her bloody stools were likley secondary to her colitis and had resolved on discharge. Hemoglobin was stable and stayed above 11. She was seen by GI and deemed a poor candidate for colonoscopy/any invasive procedures due to her multiple comorbidities. She was seen by palliative care and discharged to hospice. 35minutes was spent discharging this patient (2) Lung cancer Priority: Primary Status: Chronic Qualifiers: Laterality: left Lung location: unspecified part of lung Qualified Code(s): C34.92 - Malignant neoplasm of unspecified part of left bronchus or lung (3) Common bile duct dilation Priority: Primary Status: Acute (4) GI bleed Priority: Primary Status: Acute Qualifiers: GI bleed type/associated pathology: unspecified gastrointestinal hemorrhage type Qualified Code(s): K92.2 - Gastrointestinal hemorrhage, unspecified (5) Electrolyte imbalance Priority: Primary Status: Acute (6) Goals of care, counseling/discussion Priority: Primary Status: Acute (7) DVT prophylaxis Priority: Primary Status: Acute Hospital course: Ms. Hodge is a 73 year old female - Time Spent with Patient Total time spent providing and/or coordinating discharge services: - Discharge Medications Prescriptions: metroNIDAZOLE [Flagyl] 500 mg PO Q8HR #9 tablet Ciprofloxacin [Cipro] 500 mg PO Q12H #6 tablet OxyCODONE Immed Rel [Roxicodone 5 MG] 20 mg PO Q4H 5 Days #20 tablet Home Medications: Ascorbic Acid [Vitamin C] 500 mg PO DAILY 10/22/15 [History] Cyanocobalamin (Vitamin B-12) [Vitamin B12] 1,000 mcg PO DAILY 10/22/15 [History] LevETIRAcetam [Levetiracetam] 500 mg PO BID 03/16/16 [History] Calcium Carbonate [Calcium] 600 mg PO DAILY 01/04/17 [History] LORazepam [Ativan] 1 mg PO Q2H PRN 01/04/17 [History] Oxygen 2 l NS AD 01/04/17 [History] Vitamin B Complex Vit C No.4 [Super B Complex] 150 mg PO DAILY 01/04/17 [History] Amitriptyline [Elavil] 100 mg PO HS 03/24/18 [History] Ciprofloxacin [Cipro] 500 mg PO Q12H #6 tablet 03/31/18 [Rx] OxyCODONE Immed Rel [Roxicodone 5 MG] 20 mg PO Q4H 5 Days #20 tablet 03/31/18 [Rx] metroNIDAZOLE [Flagyl] 500 mg PO Q8HR #9 tablet 03/31/18 [Rx] Allergies/Adverse Reactions: Allergy/AdvReac Type Severity Reaction Status Date / Time No Known Allergies Allergy Verified 08/07/17 11:17 Date of admission: 03/24/18 05:36 Primary care physician: PCP NONE Consults: 03/24/18 02:42 Consult to Gastroenterology [CONS] Routine Consulting Provider: [facility] [place] Reason for Consult: colitis with gi bleed Time Notified: 02:43 Call Completed: No 03/24/18 09:17 Consult to Nurse Navigator [CONS] Routine Comment: COPD education 03/28/18 07:47 Consult to Nutrition [CONS] Routine Comment: Consulting Provider: NUTRITION Reason for Dietary Consult: TPN Start and Manage 03/28/18 11:34 Consult to Palliative Care [CONS] Routine Comment: Consulting Provider: [facility] [place] Reason for Consult: pain management, ischeamic collitis Call Completed: Yes - Constitutional Vitals: Temp Pulse Resp BP Pulse Ox 98.8 F 81 16 139/90 98 03/31/18 08:07 03/31/18 08:07 03/31/18 08:07 03/31/18 08:07 03/31/18 08:07 General appearance: Present: mild distress Exam: General appearance: No acute distress, A&O X 3 Eye exam: EOMI, PERRLA ENT exam: Moist oral mucosa Neck nontender, supple Respiratory exam: Clear to auscultation bilaterally Cardiovascular exam: Regular rate and rhythm, no systolic murmur Abdominal exam: Soft, tender diffusely but more lower abdomen, no rebound tenderness or rigidity, nondistended, + bowel sounds Extremities exam: No calf tenderness, no pedal edema Present: Skin-no rash, warm, dry, intact Neurological exam: CN II-XII intact, no focal deficits. No facial droop. Normal speech. - Patient Status Disposition: Hospice - Home Condition: Fair - Discharge Instructions Instructions: Gastrointestinal Bleeding (DC) Follow Up With: NONE,PCP [Primary Care Provider] -
--- NOTE | 2018-03-31 10:58 | Physician Discharge Referral ---
- Diagnosis (1) Colitis Priority: Primary Status: Acute (2) Lung cancer Priority: Primary Status: Chronic (3) Common bile duct dilation Priority: Primary Status: Acute (4) GI bleed Priority: Primary Status: Acute (5) Electrolyte imbalance Priority: Primary Status: Acute (6) Goals of care, counseling/discussion Priority: Primary Status: Acute (7) DVT prophylaxis Priority: Primary Status: Acute - Transfer Medications Prescriptions: metroNIDAZOLE [Flagyl] 500 mg PO Q8HR #9 tablet Ciprofloxacin [Cipro] 500 mg PO Q12H #6 tablet OxyCODONE Immed Rel [Roxicodone 5 MG] 20 mg PO Q4H 5 Days #20 tablet Home Medications: Ascorbic Acid [Vitamin C] 500 mg PO DAILY 10/22/15 [History] Cyanocobalamin (Vitamin B-12) [Vitamin B12] 1,000 mcg PO DAILY 10/22/15 [History] LevETIRAcetam [Levetiracetam] 500 mg PO BID 03/16/16 [History] Calcium Carbonate [Calcium] 600 mg PO DAILY 01/04/17 [History] LORazepam [Ativan] 1 mg PO Q2H PRN 01/04/17 [History] Oxygen 2 l NS AD 01/04/17 [History] Vitamin B Complex Vit C No.4 [Super B Complex] 150 mg PO DAILY 01/04/17 [History] Amitriptyline [Elavil] 100 mg PO HS 03/24/18 [History] Ciprofloxacin [Cipro] 500 mg PO Q12H #6 tablet 03/31/18 [Rx] OxyCODONE Immed Rel [Roxicodone 5 MG] 20 mg PO Q4H 5 Days #20 tablet 03/31/18 [Rx] metroNIDAZOLE [Flagyl] 500 mg PO Q8HR #9 tablet 03/31/18 [Rx] Allergies/Adverse Reactions: Allergy/AdvReac Type Severity Reaction Status Date / Time No Known Allergies Allergy Verified 08/07/17 11:17 - Respiratory Orders Smoking Cessation: Smoking cessation has been advised. For more information, call the [place] Tobacco Quit Line at 7-046-YNVV-NOW. - Mobility Orders Ambulate - Diet Orders Cardiac CERTIFICATION: I certify that the transfer of the above named patient to an Extended Care Facility is necessary for the continuing treatment of the diagnosis listed. The above information is true and accurate reflection of patient's current condition. Confidential - Redisclosure prohibited without a patient's written consent.
== END 2018-03-31 14:31 | disposition hospice, home (50) | DRG 394 ==
LOC: EMEROOARM 22:49 → 3ANU 22:49
PROVIDERS: ADMIT Internal Medicine Cardiovascular Disease; ATTEND Internal Medicine Cardiovascular Disease

== ENCOUNTER 2018-04-22 13:45 | Inpatient (IN) ==
[2018-04-22] MEDS ORDERED: 0.9 % Sodium Chloride 500 ML IVC ONE (13:53)
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
[2018-04-22] MEDS ORDERED: *HR* FentaNYL (PF) 100 MCG/2 ML VIAL IVP ONE (14:15)
[2018-04-22 14:36] LABS: Basophils % 0.1 %; Hematocrit 39.9 % (35.3-44.9); Hemoglobin 13.2 g/dL (11.5-15.4); Immature Granulocytes % 0.4 % (0-4); Lymphocytes # 1.1 K/mcL (0.6-4.6); Lymphocytes % 5.3 %; Mean Corpuscular HGB Conc 33.1 g/dL (31.6-35.5); Mean Corpuscular Hemoglobin 31.1 pg (28.0-33.3); Mean Corpuscular Volume 94.1 fL (83.0-100.0); Mean Platelet Volume 11.6 fL (9.4-12.4); Monocytes # 0.8 K/mcL (0.0-1.3); Neutrophils # 18.5 K/mcL (1.6-8.9); Platelet Count 293 K/mcL (140-400); Red Blood Count 4.24 M/mcL (3.82-4.97); Red Cell Distribution Width 14.1 % (11.5-14.5); Segmented Neutrophils % 90.2 %
[2018-04-22 14:46] LABS: Bilirubin,Urine Large (Negative); Blood,Urine Large (Negative); Clarity,Urine Turbid (Clear); Color,Urine Orange (Yellow); Glucose,Urine (UA) Normal (Normal); Ketones,Urine 15 mg/dL (Negative); Leukocyte Esterase,Urine Small (Negative); Nitrite,Urine Negative (Negative); Protein,Urine 100 mg/dL (Neg-Trace); Specific Gravity,Urine 1.027 (1.010-1.025); Urobilinogen,Urine Normal (Normal)
[2018-04-22 14:48] LABS: Calcium 9.9 mg/dL (8.6-10.3); Potassium 3.7 mEq/L (3.5-5.1)
[2018-04-22 14:51] LABS: Squamous Epithelial Cell,Urine Many per lpf (None-Few); WBC,Urine 50-100 per hpf (0-3)
[2018-04-22 14:55] LABS: Troponin I 0.05 ng/mL (< 0.04)
[2018-04-22 15:07] LABS: Renal Epithelial Cells,Urine Moderate per hpf (None-Few); Transitional Epi Cells,Urine Few per hpf (None-Few)
[2018-04-22 15:09] LABS: Amorphous Sediment,Urine Moderate (Few); Bacteria,Urine Many per hpf (None-Few); Hyaline Casts,Urine Few per lpf (None-Few)
[2018-04-22] MEDS ORDERED: cefTRIAXone 1,000 MG in Water for inj. (sterile) 20 ML 10 ML IVP ONE (15:38)
[2018-04-22] MEDS ORDERED: 0.9 % Sodium Chloride 1,000 ML IVC ONE (15:41)
[2018-04-22] MEDS ORDERED: Naloxone 0.4 MG/ML INJ IVP PRN (16:46)
[2018-04-22] MEDS ORDERED: Acetaminophen 325 MG TABLET PO PRN (16:46)
[2018-04-22] MEDS ORDERED: Azithromycin 500 MG in D5% in Water 250 ML IVPB STA (16:47)
[2018-04-22] MEDS ORDERED: Cefepime HCl 2,000 MG in Water for inj. (sterile) 20 ML 20 ML IVP STA (16:47)
[2018-04-22] MEDS ORDERED: Vancomycin 1,000 MG in D5% in Water 250 ML IVPB ONE (16:48)
--- NOTE | 2018-04-22 17:06 | Internal Med History&Physical ---
Date of Encounter: 04/22/18 Time of Encounter: 16:00 Internal Medicine - H&P: HPI Chief complaint: Fall Admitted From: Home Plans for Post Hospital Care: Home History of present illness: Ms. Hodge is a 73 year old female present to ER for fall at home. Past medical history is significant for COPD, lung cancer, hypertension, frequent fall, tobacco abuse. Patient said she fell at home because of weakness. Patient denies loss of consciousness. She also denies head/neck injury. Patient cannot getup from floor by herself. Patient fell at 8 PM yesterday evening and was found on floor until this morning 11 AM. Patient complaint right hip pain which is new. She also has chronic back pain which is unchanged. Further history shows she has cough with greenish and yellowish sputum for about 1 week. Symptoms gradually getting worse and the patient has nausea and vomited 3-4 times, the vomiting is greenish fluid, no blood in it. Patient denies fever, chest pain, shortness of breath, diarrhea. She also has burning on urination for about 3 days. In the emergency room, hip x-ray negative. Chest x-ray shows left lower lobe pneumonia. Urine analysis shows UTI. CK level is elevated and the patient also has elevated creatinine from baseline. Patient was admitted for pneumonia, UTI, rhabdomyolysis, and acute renal failure. Patient is on home hospice. However, patient is AAO 3 when I saw her and clearly told me she does want CPR if cardiac arrest happens. Conversation witnessed by patient's [id number] who is at bedside. Full code order placed. Past Med Surg Social Fam HX - Past Medical History Medical history: cancer, COPD, DVT, hypertension, osteoporosis, seizures, other Additional medical history: lung cancer Psychiatric history: anxiety, depression - Past Surgical History Surgical History: hip replacement, orthopedic, other, other Additional surgical history: carpal tunnel, left hip replacement. - Social History Smoking Status: Current every day smoker Smokeless Tobacco Status: No (10 cigarretes/day) Alcohol use: none Drug use: none - Family History Mother Hx Family Respiratory Disorders: Yes (COPD, emphysemza) Father Hx Family Cardiac Disorders: Yes (CHF) Internal Medicine - H&P: Meds Ascorbic Acid [Vitamin C] 500 mg PO DAILY 10/22/15 [History] Cyanocobalamin (Vitamin B-12) [Vitamin B12] 1,000 mcg PO DAILY 10/22/15 [History] LevETIRAcetam [Levetiracetam] 500 mg PO BID 03/16/16 [History] Calcium Carbonate [Calcium] 600 mg PO DAILY 01/04/17 [History] LORazepam [Ativan] 1 mg PO Q2H PRN 01/04/17 [History] Oxygen 2 l NS AD 01/04/17 [History] Vitamin B Complex Vit C No.4 [Super B Complex] 150 mg PO DAILY 01/04/17 [History] Amitriptyline [Elavil] 100 mg PO HS 03/24/18 [History] Allergy/AdvReac Type Severity Reaction Status Date / Time No Known Allergies Allergy Verified 08/07/17 11:17 All Systems PM: A 10-system review of systems was performed and is negative for pertinent findings except as documented above in the HPI. - Constitutional Vitals: Temp Pulse Resp BP Pulse Ox 97.8 F 109 20 126/73 97 04/22/18 13:52 04/22/18 15:00 04/22/18 15:00 04/22/18 15:00 04/22/18 15:00 Exam: Pt is AAO x 3, in NAD, thin built HEENT: NC/AT, PERRL Neck: Supple, no JVD, no LAD Lungs: CTA b/l Heart: S1S2, RRR Abd: Soft, nontender, BS present Ext: ROM wnl, Right hip pain on movement, no pedal edema Neuro: No focal deficit Internal Med - H&P Results - Labs CBC & Chem 7: 04/22/18 14:03 04/22/18 14:03 Labs: Short CBC 04/22/18 Range/Units 14:03 WBC 20.5 H (4.3-11.1) K/mcL Hgb 13.2 (11.5-15.4) g/dL Hct 39.9 (35.3-44.9) % Plt Count 293 (140-400) K/mcL Neutrophils # 18.5 H (1.6-8.9) K/mcL BMP 04/22/18 14:03 Sodium 134 L Potassium 3.7 Chloride 98 Carbon Dioxide 25 BUN 48 H Creatinine 1.39 H Glucose 91 Calcium 9.9 Cardiac Enzymes 04/22/18 Range/Units 14:03 Troponin I 0.05 H* (< 0.04) ng/mL Urine 04/22/18 Range/Units 14:35 Urine Color [place] A (Yellow) Urine Clarity Turbid A (Clear) Urine pH 5.0 (5.0-8.0) pH Units Ur Specific [place] 1.027 H (1.010-1.025) Urine Protein 100 H (Neg-Trace) mg/dL Urine Glucose (UA) Normal (Normal) mg/dL - Impressions ITS Impressions Chest X-Ray 04/22/18 13:53 IMPRESSION: Left lower lobe pneumonia D/ / Boris Felton MD / Boris Felton MD Interpreting Provider: Boris Felton MD Head CT 04/22/18 13:54 IMPRESSION: No acute intracranial abnormality. Chronic left maxillary sinusitis. D/ / Addison Garcia MD / Addison Garcia MD Interpreting Provider: Addison Garcia MD Hip/Pelvis X-Ray 04/22/18 14:04 IMPRESSION: No acute fracture is identified. Intramedullary nail in the left hip is in normal position, without evidence of complication. Moderate osteoarthritis of both hips. D/ / Christopher Vaughan MD / Christopher Vaughan MD Interpreting Provider: Christopher Vaughan MD - Assessment and plan (1) Acute kidney injury Current Visit: Yes Status: Acute Assessment and plan: Most likely due to dehydration and rhabdomyolysis. - Continue IV fluid - Follow up her renal function - Avoid nephrotoxic medications - [place] catheter for strict I and O (2) Fall Current Visit: Yes Status: Acute Assessment and plan: Patient has history of frequent fall, because of old age and general weakness. - We will consult PT OT for evaluation and inpatient PTOT - Patient clearly told me she does not want to go to any facility, she would like to go home. She has good home support but only last night her brother cannot go to her house because of some emergency. Qualifiers: Encounter type: initial encounter Qualified Code(s): W19.XXXA - Unspecified fall, initial encounter (3) HCAP (healthcare-associated pneumonia) Current Visit: Yes Status: Acute Assessment and plan: Patient was recently admitted in hospital. Newly developed pneumonia. We will treat patient as HCAP - Place patient on Vanco, cefepime, and azithromycin - Check blood culture and sputum culture - Check MRSA screen to directed deescalate antibiotics - Check legionella and strep pneumonia Ag - Continue supportive treatment (4) Rhabdomyolysis Current Visit: Yes Status: Acute Assessment and plan: Because of long time on floor cannot get up. - CK level 1976 - Continue IV fluid, monitor renal function and CK level - Potassium level is within normal limit Qualifiers: Rhabdomyolysis type: traumatic Encounter type: initial encounter Qualified Code(s): T79.6XXA - Traumatic ischemia of muscle, initial encounter (5) DVT prophylaxis Current Visit: No Status: Acute Assessment and plan: Heparin subcutaneously (6) UTI (urinary tract infection) Current Visit: No Status: Acute Assessment and plan: Patient was covered with cefepime. Follow-up urine culture Qualifiers: Urinary tract infection type: site unspecified Hematuria presence: with hematuria Qualified Code(s): N39.0 - Urinary tract infection, site not specified; R31.9 - Hematuria, unspecified; R31.9 - Hematuria, unspecified (7) Lung cancer Current Visit: No Status: Chronic Assessment and plan: Patient had radiation therapy previously. Patient decided not to have any more treatment for lung cancer. Qualifiers: Laterality: left Lung location: unspecified part of lung Qualified Code(s): C34.92 - Malignant neoplasm of unspecified part of left bronchus or lung (8) Tobacco abuse Current Visit: No Status: Chronic Assessment and plan: Smoking cessation education, nicotine patch ordered - Time Spent With Patient Total time spent is greater than 50% in coordination of care (as documented) at patient's floor/unit and/or counseling patient: 40 minutes Greater than 35 minutes
[2018-04-22] MEDS: Nicotine 14 MG PATCH.TD24 TD SCH (18:51)
[2018-04-22] MEDS: *HR* Heparin 5,000 UNIT/ML VIAL SQ SCH (18:53)
[2018-04-22] MEDS: levETIRAcetam 250 MG TABLET PO SCH (20:00)
[2018-04-22] MEDS: Ringers Solution, Lactated 1,000 ML IVC SCH (20:03)
[2018-04-22 20:25] LABS: Adenovirus Not Detected (Not Detect); Bordetella Pertussis Not Detected (Not Detect); Chlamydophila pneumoniae Not Detected (Not Detect); Coronavirus 229E Not Detected (Not Detect); Coronavirus HKU1 Not Detected (Not Detect); Coronavirus NL63 Not Detected (Not Detect); Coronavirus OC43 Not Detected (Not Detect); Human Metapneumovirus Not Detected (Not Detect); Human Rhinovirus/Enterovirus Not Detected (Not Detect); Influenza A Subtype 2009 H1 Not Detected (Not Detect); Influenza A Untypeable Not Detected (Not Detect); Influenza B Not Detected (Not Detect); Mycoplasma pneumoniae Not Detected (Not Detect); Parainfluenza Virus 1 Not Detected (Not Detect); Parainfluenza Virus 2 Not Detected (Not Detect); Parainfluenza Virus 3 Not Detected (Not Detect); Parainfluenza Virus 4 Not Detected (Not Detect); Respiratory Syncytial Virus Not Detected (Not Detect)
[2018-04-23 00:44] LABS: Basophils % 0.1 %; Hemoglobin 10.1 g/dL (11.5-15.4); Immature Granulocytes % 0.7 % (0-4); Lymphocytes # 1.6 K/mcL (0.6-4.6); Lymphocytes % 12.1 %; Mean Corpuscular HGB Conc 32.6 g/dL (31.6-35.5); Mean Corpuscular Volume 95.1 fL (83.0-100.0); Mean Platelet Volume 11.6 fL (9.4-12.4); Monocytes # 0.7 K/mcL (0.0-1.3); Monocytes % 5.2 %; Neutrophils # 10.7 K/mcL (1.6-8.9); Platelet Count 223 K/mcL (140-400); Red Blood Count 3.26 M/mcL (3.82-4.97); Red Cell Distribution Width 14.1 % (11.5-14.5); Segmented Neutrophils % 81.9 %
[2018-04-23 01:05] LABS: BUN/Creatinine Ratio 42 (6-26); Blood Urea Nitrogen 40 mg/dL (8-23); Calcium 8.5 mg/dL (8.6-10.3); Carbon Dioxide 25 mEq/L (23-29); Chloride 104 mEq/L (98-107); Glucose 98 mg/dL (70-105); Magnesium 1.6 mg/dL (1.6-2.6); Osmolality,Calculated 286 (280-300); Potassium 3.7 mEq/L (3.5-5.1); Sodium 133 mEq/L (136-145); eGFR For Non-African Americans 58 (> 60)
[2018-04-23] MEDS ORDERED: Cefepime HCl 2,000 MG in Water for inj. (sterile) 20 ML 20 ML IVP SCH (04:00)
[2018-04-23] MEDS: *HR* Heparin 5,000 UNIT/ML VIAL SQ SCH ×2 (05:47→16:28)
[2018-04-23] MEDS: Ringers Solution, Lactated 1,000 ML IVC SCH (06:11)
[2018-04-23] MEDS: *HR* HYDROcodone/Acet 5/325 mg TABLET PO PRN ×3 (06:11→20:44)
[2018-04-23] MEDS: levETIRAcetam 250 MG TABLET PO SCH ×2 (08:00→20:38)
[2018-04-23] MEDS: Nicotine 14 MG PATCH.TD24 TD SCH (08:00)
--- NOTE | 2018-04-23 12:31 | Internal Med Progress Note ---
Hospitalist Progress Note - Encounter Date of Encounter: 04/23/18 Time of Encounter: 09:00 - Subjective Interval History: Still weak, still cough with production. Improved SOB. Vitals stable. No fever. - Exam Vitals: Temp Pulse Resp BP Pulse Ox 98.0 F 108 16 145/87 95 04/23/18 12:22 04/23/18 12:22 04/23/18 12:22 04/23/18 12:22 04/23/18 12:22 Exam: Pt is AAO x 3, in NAD, thin built HEENT: NC/AT, PERRL Neck: Supple, no JVD, no LAD Lungs: Mild rhonchi on left lung base Heart: S1S2, RRR Abd: Soft, nontender, BS present Ext: ROM wnl, Right hip pain on movement, no pedal edema Neuro: No focal deficit - Assessment and Plan (1) Acute kidney injury Current Visit: Yes Status: Acute Assessment and Plan: Most likely due to dehydration and rhabdomyolysis. - Continue IV fluid - Improved renal function today, Cr 0.95 - Avoid nephrotoxic medications (2) Fall Current Visit: Yes Status: Acute Assessment and Plan: Patient has history of frequent fall, because of old age and general weakness. - We will consult PT OT for evaluation and have PTOT during hospitalization - Patient clearly told me she does not want to go to any facility, she would like to go home. She has good home support but only that night her brother cannot go to her house because of some other emergency. (3) HCAP (healthcare-associated pneumonia) Current Visit: Yes Status: Acute Assessment and Plan: Patient was recently admitted in hospital. Newly developed pneumonia. We will treat patient as HCAP - Place patient on cefepime, and azithromycin, dc vanco as MRSA screen negative. - Check blood culture and sputum culture - Check legionella and strep pneumonia Ag - Continue supportive treatment (4) Rhabdomyolysis Current Visit: Yes Status: Acute Assessment and Plan: Because of long time on floor cannot get up. - CK level trend down - Continue IV fluid, monitor renal function and CK level - Potassium level is within normal limit (5) DVT prophylaxis Current Visit: No Status: Acute Assessment and Plan: Heparin subcutaneously (6) UTI (urinary tract infection) Current Visit: No Status: Acute Assessment and Plan: Patient was covered with cefepime. Follow-up urine culture (7) Lung cancer Current Visit: No Status: Chronic Assessment and Plan: Patient had radiation therapy previously. Patient decided not to have any more treatment for lung cancer. (8) Tobacco abuse Current Visit: No Status: Chronic Assessment and Plan: Smoking cessation education, nicotine patch ordered - Time Spent with Patient Total time spent is greater than 50% in coordination of care (as documented) at patient's floor/unit and/or counseling patient: 30 minutes 25 - 35 minutes Plan of Care Discussed with: patient Internal Medicine: Result - Labs CBC & Chem 7: 04/23/18 00:10 04/23/18 00:10 Labs: Short CBC 04/22/18 04/23/18 Range/Units 14:03 00:10 WBC 20.5 H 13.1 H (4.3-11.1) K/mcL Hgb 13.2 10.1 L D (11.5-15.4) g/dL Hct 39.9 31.0 L (35.3-44.9) % Plt Count 293 223 (140-400) K/mcL Neutrophils # 18.5 H 10.7 H (1.6-8.9) K/mcL BMP 04/22/18 04/23/18 14:03 00:10 Sodium 134 L 133 L Potassium 3.7 3.7 Chloride 98 104 Carbon Dioxide 25 25 BUN 48 H 40 H Creatinine 1.39 H 0.95 Glucose 91 98 Calcium 9.9 8.5 L Cardiac Enzymes 04/22/18 04/23/18 04/23/18 Range/Units 14:03 00:10 05:28 Troponin I 0.05 H* < 0.03 < 0.03 (< 0.04) ng/mL Urine 04/22/18 Range/Units 14:35 Urine Color [place] A (Yellow) Urine Clarity Turbid A (Clear) Urine pH 5.0 (5.0-8.0) pH Units Ur Specific [place] 1.027 H (1.010-1.025) Urine Protein 100 H (Neg-Trace) mg/dL Urine Glucose (UA) Normal (Normal) mg/dL - Impressions Impressions Chest X-Ray 04/22/18 13:53 IMPRESSION: Left lower lobe pneumonia D/ / Boris Felton MD / Boris Felton MD Interpreting Provider: Boris Felton MD Head CT 04/22/18 13:54 IMPRESSION: No acute intracranial abnormality. Chronic left maxillary sinusitis. D/ / Addison Garcia MD / Addison Garcia MD Interpreting Provider: Addison Garcia MD Hip/Pelvis X-Ray 04/22/18 14:04 IMPRESSION: No acute fracture is identified. Intramedullary nail in the left hip is in normal position, without evidence of complication. Moderate osteoarthritis of both hips. D/ / Christopher Vaughan MD / Christopher Vaughan MD Interpreting Provider: Christopher Vaughan MD Consult Discharge Plan - Plan (2) Fall Qualifiers: Encounter type: initial encounter Qualified Code(s): W19.XXXA - Unspecified fall, initial encounter (4) Rhabdomyolysis Qualifiers: Rhabdomyolysis type: traumatic Encounter type: initial encounter Qualified Code(s): T79.6XXA - Traumatic ischemia of muscle, initial encounter (6) UTI (urinary tract infection) Qualifiers: Urinary tract infection type: site unspecified Hematuria presence: with hematuria Qualified Code(s): N39.0 - Urinary tract infection, site not specified; R31.9 - Hematuria, unspecified; R31.9 - Hematuria, unspecified (7) Lung cancer Qualifiers: Laterality: left Lung location: unspecified part of lung Qualified Code(s): C34.92 - Malignant neoplasm of unspecified part of left bronchus or lung
[2018-04-23] MEDS ORDERED: Aminoglycoside Consult 1 EACH MC ONE (12:33)
[2018-04-23] MEDS ORDERED: *HR* LORazepam 1 MG TABLET PO PRN (12:34)
[2018-04-23] MEDS ORDERED: Ipratropium/Albuterol Neb 3 ML IH PRN (15:33)
[2018-04-23] MEDS: Ondansetron ODT 4 MG TAB.RAPDIS PO PRN (16:25)
[2018-04-23] MEDS: Cefepime HCl 2,000 MG in Water for inj. (sterile) 20 ML 20 ML IVP SCH (16:27)
[2018-04-23] MEDS ORDERED: Azithromycin 500 MG in D5% in Water 250 ML IVPB SCH (17:00)
[2018-04-24] MEDS: *HR* HYDROcodone/Acet 5/325 mg TABLET PO PRN (03:08)
[2018-04-24] MEDS: Cefepime HCl 2,000 MG in Water for inj. (sterile) 20 ML 20 ML IVP SCH ×2 (03:08→16:22)
[2018-04-24] MEDS: *HR* Heparin 5,000 UNIT/ML VIAL SQ SCH ×2 (05:23→16:23)
[2018-04-24] MEDS: *HR* OxyCODONE Immed Rel 5 MG TABLET PO PRN ×4 (05:25→23:02)
[2018-04-24 05:50] LABS: Basophils % 0.5 %; Eosinophils % 0.3 %; Hematocrit 32.7 % (35.3-44.9); Hemoglobin 10.7 g/dL (11.5-15.4); Immature Granulocytes % 0.8 % (0-4); Lymphocytes # 1.5 K/mcL (0.6-4.6); Lymphocytes % 24.4 %; Mean Corpuscular HGB Conc 32.7 g/dL (31.6-35.5); Mean Corpuscular Hemoglobin 30.8 pg (28.0-33.3); Mean Corpuscular Volume 94.2 fL (83.0-100.0); Mean Platelet Volume 11.2 fL (9.4-12.4); Monocytes # 0.6 K/mcL (0.0-1.3); Monocytes % 9.1 %; Neutrophils # 3.9 K/mcL (1.6-8.9); Platelet Count 248 K/mcL (140-400); Red Blood Count 3.47 M/mcL (3.82-4.97); Red Cell Distribution Width 13.8 % (11.5-14.5); Segmented Neutrophils % 64.9 %
[2018-04-24 06:09] LABS: BUN/Creatinine Ratio 31 (6-26); Blood Urea Nitrogen 18 mg/dL (8-23); Calcium 8.8 mg/dL (8.6-10.3); Carbon Dioxide 29 mEq/L (23-29); Chloride 106 mEq/L (98-107); Glucose 97 mg/dL (70-105); Osmolality,Calculated 292 (280-300); Potassium 3.3 mEq/L (3.5-5.1); Sodium 140 mEq/L (136-145); eGFR For Non-African Americans > 60 (> 60)
[2018-04-24 06:12] LABS: Platelet Estimate Normal (Normal); Reactive Lymphocytes Present (Not Present)
[2018-04-24] MEDS: levETIRAcetam 250 MG TABLET PO SCH ×2 (08:09→20:01)
[2018-04-24] MEDS: Nicotine 14 MG PATCH.TD24 TD SCH (08:09)
--- NOTE | 2018-04-24 12:09 | Internal Med Progress Note ---
Hospitalist Progress Note - Encounter Date of Encounter: 04/24/18 Time of Encounter: 09:00 - Subjective Interval History: Feels better, less cough. Improved SOB. Vitals stable. No fever. - Exam Vitals: Temp Pulse Resp BP Pulse Ox 98.0 F 92 14 146/96 98 04/24/18 08:31 04/24/18 08:31 04/24/18 08:31 04/24/18 08:31 04/24/18 08:31 Exam: Pt is AAO x 3, in NAD, thin built HEENT: NC/AT, PERRL Neck: Supple, no JVD, no LAD Lungs: Mild rhonchi on left lung base, improved Heart: S1S2, RRR Abd: Soft, nontender, BS present Ext: ROM wnl, no pedal edema Neuro: No focal deficit - Assessment and Plan (1) Acute kidney injury Current Visit: Yes Status: Acute Assessment and Plan: Most likely due to dehydration and rhabdomyolysis. - Improved renal function, Cr wnl - Avoid nephrotoxic medications - IVF stopped, encourage po hydration. (2) Fall Current Visit: Yes Status: Acute Assessment and Plan: Patient has history of frequent fall, because of old age and general weakness. - We will consult PT OT for evaluation and have PTOT during hospitalization - Patient clearly told me she does not want to go to any facility, she would like to go home. She has good home support but only that night her brother cannot go to her house because of some other emergency. (3) HCAP (healthcare-associated pneumonia) Current Visit: Yes Status: Acute Assessment and Plan: Patient was recently admitted in hospital. Newly developed pneumonia. We will treat patient as HCAP - Place patient on cefepime, D/C azithromycin as strep pneumo and legionella negative, dc vanco as MRSA screen negative. - Check blood culture and sputum culture - Check legionella and strep pneumonia Ag - Continue supportive treatment (4) Rhabdomyolysis Current Visit: Yes Status: Acute Assessment and Plan: Because of long time on floor cannot get up. - CK level trend down - D/C IVF, encourage po hydration. - Potassium level is low, supplement given (5) DVT prophylaxis Current Visit: No Status: Acute Assessment and Plan: Heparin subcutaneously (6) UTI (urinary tract infection) Current Visit: No Status: Acute Assessment and Plan: Patient was covered with cefepime. Follow-up urine culture (7) Lung cancer Current Visit: No Status: Chronic Assessment and Plan: Patient had radiation therapy previously. Patient decided not to have any more treatment for lung cancer. (8) Tobacco abuse Current Visit: No Status: Chronic Assessment and Plan: Smoking cessation education, nicotine patch ordered - Time Spent with Patient Total time spent is greater than 50% in coordination of care (as documented) at patient's floor/unit and/or counseling patient: 30 min 25 - 35 minutes Plan of Care Discussed with: patient Internal Medicine: Result - Labs CBC & Chem 7: 04/24/18 05:23 04/24/18 05:23 Labs: Short CBC 04/24/18 Range/Units 05:23 WBC 6.0 D (4.3-11.1) K/mcL Hgb 10.7 L (11.5-15.4) g/dL Hct 32.7 L (35.3-44.9) % Plt Count 248 (140-400) K/mcL Neutrophils # 3.9 (1.6-8.9) K/mcL BMP 04/24/18 05:23 Sodium 140 Potassium 3.3 L Chloride 106 Carbon Dioxide 29 BUN 18 Creatinine 0.58 L Glucose 97 Calcium 8.8 Consult Discharge Plan - Plan Referrals: NONE,PCP [Primary Care Provider] - (2) Fall Qualifiers: Encounter type: initial encounter Qualified Code(s): W19.XXXA - Unspecified fall, initial encounter (4) Rhabdomyolysis Qualifiers: Rhabdomyolysis type: traumatic Encounter type: initial encounter Qualified Code(s): T79.6XXA - Traumatic ischemia of muscle, initial encounter (6) UTI (urinary tract infection) Qualifiers: Urinary tract infection type: site unspecified Hematuria presence: with hematuria Qualified Code(s): N39.0 - Urinary tract infection, site not specified; R31.9 - Hematuria, unspecified; R31.9 - Hematuria, unspecified (7) Lung cancer Qualifiers: Laterality: left Lung location: unspecified part of lung Qualified Code(s): C34.92 - Malignant neoplasm of unspecified part of left bronchus or lung
[2018-04-25] MEDS: *HR* OxyCODONE Immed Rel 5 MG TABLET PO PRN ×4 (04:33→17:57)
[2018-04-25] MEDS: Cefepime HCl 2,000 MG in Water for inj. (sterile) 20 ML 20 ML IVP SCH ×2 (04:34→14:54)
[2018-04-25] MEDS: *HR* Heparin 5,000 UNIT/ML VIAL SQ SCH ×2 (04:35→17:57)
[2018-04-25 04:59] LABS: Basophils % 0.6 %; Eosinophils # 0.1 K/mcL (0.0-0.6); Eosinophils % 1.2 %; Hematocrit 32.7 % (35.3-44.9); Hemoglobin 10.6 g/dL (11.5-15.4); Immature Granulocytes % 1.4 % (0-4); Lymphocytes # 2.3 K/mcL (0.6-4.6); Lymphocytes % 45.6 %; Mean Corpuscular HGB Conc 32.4 g/dL (31.6-35.5); Mean Corpuscular Hemoglobin 30.2 pg (28.0-33.3); Mean Corpuscular Volume 93.2 fL (83.0-100.0); Mean Platelet Volume 11.2 fL (9.4-12.4); Monocytes # 0.4 K/mcL (0.0-1.3); Monocytes % 7.6 %; Neutrophils # 2.2 K/mcL (1.6-8.9); Platelet Count 271 K/mcL (140-400); Red Blood Count 3.51 M/mcL (3.82-4.97); Red Cell Distribution Width 13.9 % (11.5-14.5); Segmented Neutrophils % 43.6 %
[2018-04-25 05:15] LABS: BUN/Creatinine Ratio 26 (6-26); Blood Urea Nitrogen 13 mg/dL (8-23); Calcium 8.7 mg/dL (8.6-10.3); Carbon Dioxide 27 mEq/L (23-29); Chloride 106 mEq/L (98-107); Glucose 93 mg/dL (70-105); Osmolality,Calculated 286 (280-300); Potassium 3.8 mEq/L (3.5-5.1); Sodium 138 mEq/L (136-145); eGFR For Non-African Americans > 60 (> 60)
[2018-04-25] MEDS: Ondansetron ODT 4 MG TAB.RAPDIS PO PRN (05:15)
[2018-04-25 05:23] LABS: Platelet Estimate Normal (Normal)
[2018-04-25] MEDS: Nicotine 14 MG PATCH.TD24 TD SCH (08:41)
[2018-04-25] MEDS: levETIRAcetam 250 MG TABLET PO SCH ×2 (08:41→20:53)
--- NOTE | 2018-04-25 12:09 | Internal Med Progress Note ---
Hospitalist Progress Note - Encounter Date of Encounter: 04/25/18 Time of Encounter: 09:00 - Subjective Interval History: Feels better, less cough. Improved SOB. Mild left-sided pleural pain. Vitals stable. No fever. - Exam Vitals: Temp Pulse Resp BP Pulse Ox 98.6 F 88 16 122/88 93 04/25/18 11:18 04/25/18 11:18 04/25/18 03:58 04/25/18 11:18 04/25/18 11:18 Exam: Pt is AAO x 3, in NAD, thin built HEENT: NC/AT, PERRL Neck: Supple, no JVD, no LAD Lungs: Mild rhonchi on left lung base, improved Heart: S1S2, RRR Abd: Soft, nontender, BS present Ext: ROM wnl, no pedal edema Neuro: No focal deficit - Assessment and Plan (1) Acute kidney injury Current Visit: Yes Status: Acute Assessment and Plan: Most likely due to dehydration and rhabdomyolysis. - Improved renal function, Cr wnl - Avoid nephrotoxic medications - IVF stopped, encourage po hydration. (2) Fall Current Visit: Yes Status: Acute Assessment and Plan: Patient has history of frequent fall, because of old age and general weakness. - We will consult PT OT for evaluation and have PTOT during hospitalization - Patient clearly told me she does not want to go to any facility, she would lik e to go home. She has good home support but only that night her brother cannot go to her house because of some other emergency. (3) HCAP (healthcare-associated pneumonia) Current Visit: Yes Status: Acute Assessment and Plan: Patient was recently admitted in hospital. Newly developed pneumonia. We will treat patient as HCAP - Place patient on cefepime, D/C azithromycin as strep pneumo and legionella negative, dc vanco as MRSA screen negative. - Blood culture and sputum culture unremarkable so far - Continue supportive treatment (4) Rhabdomyolysis Current Visit: Yes Status: Acute Assessment and Plan: Because of long time on floor cannot get up. Resolved - CK level trend down to normal - Encourage po hydration. (5) DVT prophylaxis Current Visit: No Status: Acute Assessment and Plan: Heparin subcutaneously (6) UTI (urinary tract infection) Current Visit: No Status: Acute Assessment and Plan: Patient was covered with cefepime. Urine culture no growth. (7) Lung cancer Current Visit: No Status: Chronic Assessment and Plan: Patient had radiation therapy previously. Patient decided not to have any more treatment for lung cancer. (8) Tobacco abuse Current Visit: No Status: Chronic Assessment and Plan: Smoking cessation education, nicotine patch ordered - Time Spent with Patient Total time spent is greater than 50% in coordination of care (as documented) at patient's floor/unit and/or counseling patient: 30 min 25 - 35 minutes Plan of Care Discussed with: patient Internal Medicine: Result - Labs CBC & Chem 7: 04/25/18 04:25 04/25/18 04:25 Labs: Short CBC 04/25/18 Range/Units 04:25 WBC 5.1 (4.3-11.1) K/mcL Hgb 10.6 L (11.5-15.4) g/dL Hct 32.7 L (35.3-44.9) % Plt Count 271 (140-400) K/mcL Neutrophils # 2.2 (1.6-8.9) K/mcL BMP 04/25/18 04:25 Sodium 138 Potassium 3.8 Chloride 106 Carbon Dioxide 27 BUN 13 Creatinine 0.50 L Glucose 93 Calcium 8.7 Consult Discharge Plan - Plan Instructions: Chest Pain (DC), Acute Respiratory Distress Syndrome (DC), Urinary Tract Infection in Women (DC), Syncope (DC), Depression (DC), Chronic Obstructive Pulmonary Disease (DC), Sepsis (DC), Chronic Hypertension (DC), Anxiety (DC), Fall Prevention (DC), Pneumonia (DC), Cigarette Smoking and Your Health, Blade Boner (GEN) Referrals: NONE,PCP [Primary Care Provider] - (2) Fall Qualifiers: Encounter type: initial encounter Qualified Code(s): W19.XXXA - Unspecified fall, initial encounter (4) Rhabdomyolysis Qualifiers: Rhabdomyolysis type: traumatic Encounter type: initial encounter Qualified Code(s): T79.6XXA - Traumatic ischemia of muscle, initial encounter (6) UTI (urinary tract infection) Qualifiers: Urinary tract infection type: site unspecified Hematuria presence: with hematuria Qualified Code(s): N39.0 - Urinary tract infection, site not specified; R31.9 - Hematuria, unspecified; R31.9 - Hematuria, unspecified (7) Lung cancer Qualifiers: Laterality: left Lung location: unspecified part of lung Qualified Code(s): C34.92 - Malignant neoplasm of unspecified part of left bronchus or lung
--- NOTE | 2018-04-25 12:48 | Electrocardiograph Report ---
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
[2018-04-25] MEDS: *HR* HYDROcodone/Acet 5/325 mg TABLET PO PRN (22:20)
[2018-04-26] MEDS: *HR* OxyCODONE Immed Rel 5 MG TABLET PO PRN (00:19)
[2018-04-26] MEDS: Cefepime HCl 2,000 MG in Water for inj. (sterile) 20 ML 20 ML IVP SCH (04:08)
[2018-04-26] MEDS: *HR* Heparin 5,000 UNIT/ML VIAL SQ SCH (05:53)
[2018-04-26 06:07] LABS: Basophils % 0.7 %; Eosinophils # 0.2 K/mcL (0.0-0.6); Eosinophils % 2.7 %; Hematocrit 33.8 % (35.3-44.9); Hemoglobin 10.8 g/dL (11.5-15.4); Immature Granulocytes % 1.6 % (0-4); Lymphocytes % 36.8 %; Mean Corpuscular Hemoglobin 30.4 pg (28.0-33.3); Mean Corpuscular Volume 95.2 fL (83.0-100.0); Mean Platelet Volume 11.2 fL (9.4-12.4); Monocytes # 0.4 K/mcL (0.0-1.3); Monocytes % 7.5 %; Neutrophils # 2.8 K/mcL (1.6-8.9); Platelet Count 283 K/mcL (140-400); Red Blood Count 3.55 M/mcL (3.82-4.97); Segmented Neutrophils % 50.7 %
[2018-04-26 06:21] LABS: BUN/Creatinine Ratio 31 (6-26); Blood Urea Nitrogen 16 mg/dL (8-23); Calcium 8.9 mg/dL (8.6-10.3); Carbon Dioxide 25 mEq/L (23-29); Chloride 106 mEq/L (98-107); Glucose 105 mg/dL (70-105); Osmolality,Calculated 282 (280-300); Sodium 135 mEq/L (136-145); eGFR For Non-African Americans > 60 (> 60)
[2018-04-26 06:46] LABS: Platelet Estimate Normal (Normal); Reactive Lymphocytes Present (Not Present)
[2018-04-26 08:33] VITALS: BP 135/82
[2018-04-26] MEDS: *HR* HYDROcodone/Acet 5/325 mg TABLET PO PRN (09:22)
[2018-04-26] MEDS: levETIRAcetam 250 MG TABLET PO SCH (09:22)
[2018-04-26] MEDS: Nicotine 14 MG PATCH.TD24 TD SCH (09:23)
--- NOTE | 2018-04-26 10:48 | Discharge Summary ---
- NOTES TO OUTPATIENT PROVIDER Notes to Outpatient Provider: 1. cont po augmentin for 5 more days to finish a ten-day course. Orders not resulted at time of discharge: Pending orders 04/22/18 17:10 Culture,Blood [BC] Stat Date of Encounter: 04/26/18 Time of Encounter: 10:00 - Discharge Diagnosis (1) Acute kidney injury Priority: Primary Status: Acute Assessment and Plan: Most likely due to dehydration and rhabdomyolysis. - Improved renal function, Cr wnl - Avoid nephrotoxic medications - IVF stopped, encourage po hydration. (2) Fall Priority: Primary Status: Acute Qualifiers: Encounter type: initial encounter Qualified Code(s): W19.XXXA - Unspecified fall, initial encounter (3) HCAP (healthcare-associated pneumonia) Priority: Primary Status: Acute (4) Rhabdomyolysis Priority: Primary Status: Acute Qualifiers: Rhabdomyolysis type: traumatic Encounter type: initial encounter Qualified Code(s): T79.6XXA - Traumatic ischemia of muscle, initial encounter (5) DVT prophylaxis Priority: Secondary Status: Acute (6) UTI (urinary tract infection) Priority: Secondary Status: Acute Qualifiers: Urinary tract infection type: site unspecified Hematuria presence: with hematuria Qualified Code(s): N39.0 - Urinary tract infection, site not specified; R31.9 - Hematuria, unspecified; R31.9 - Hematuria, unspecified (7) Lung cancer Priority: Secondary Status: Chronic Qualifiers: Laterality: left Lung location: unspecified part of lung Qualified Code(s): C34.92 - Malignant neoplasm of unspecified part of left bronchus or lung (8) Tobacco abuse Priority: Secondary Status: Chronic Hospital course: Ms. Hodge is a 73 year old female present to ER for fall and stay on floor for overnight at home. Patient was also found left lower lobe pneumonia. Patient was treated with IV fluid for [place] and rhabdomyolysis. IV antibiotics for HCAP. After treatment, her condition has improved. No cough or difficulty breathing. No fever. Renal function and white count get back to normal. CK level get back to normal. Vitals are stable. Patient feels fine. PTOT evaluation recommend ECF discharge, however, patient refused to ECF and insist to go home. Patient said she has good home support with girlfriend stay with her during daytime and brother stay with her during night. Will discharge patient home and resume previous home hospice. I have seen and examined this patient today. Patient is awake alert oriented 3. In no acute distress. Denies shortness of breasts or cough. Left-sided pleural pain has improved. Vitals are stable. We will discharge patient home with by mouth antibiotics and continue follow-up with PCP as outpatient. Discharge discussed with: patient Time spent discussing smoking cessation with patient: 3 to 10 minutes - Time Spent with Patient Total time spent providing and/or coordinating discharge services: 25 minutes Less than 30 minutes - Discharge Medications Prescriptions: Amoxicillin/Clavulanate [Augmentin] 875 mg PO BIDWM 5 Days #10 tablet Nicotine Patch [Nicoderm] 14 mg TD DAILY 14 Days #14 patch.td24 Home Medications: LORazepam [Ativan] 1 mg PO Q2H PRN 01/04/17 [History] Oxygen 2 l NS AD 01/04/17 [History] Amitriptyline HCl 100 mg PO HS 04/22/18 [History] Lisinopril [Zestril] 10 mg PO DAILY 04/22/18 [History] Ondansetron HCl 4 mg PO Q6H PRN 04/22/18 [History] OxyCODONE Immed Rel [Roxicodone 20 MG] 20 mg PO Q4H PRN 04/22/18 [History] OxyCODONE Immed Rel [Roxicodone 30 MG] 60 mg PO Q6H 04/22/18 [History] Amoxicillin/Clavulanate [Augmentin] 875 mg PO BIDWM 5 Days #10 tablet 04/26/18 [Rx] Nicotine Patch [Nicoderm] 14 mg TD DAILY 14 Days #14 patch.td24 04/26/18 [Rx] levETIRAcetam [Keppra] 500 mg PO BID tablet 04/26/18 [Rx] Allergies/Adverse Reactions: Allergy/AdvReac Type Severity Reaction Status Date / Time No Known Allergies Allergy Verified 08/07/17 11:17 Date of admission: 04/23/18 07:21 Primary care physician: PCP NONE Consults: 04/22/18 16:49 Consult to Occupational Therapy [CONS] Routine Comment: Evaluate, develop and implement POC Reason for Consult: Weakness Does patient have active BEDREST order?: No Is patient medically & hemodynamically stable?: Yes Consult to Physical Therapy [CONS] Routine Comment: Evaluate, develop and implement POC Reason for Consult: Weakness fall Does patient have active BEDREST order?: No Is patient medically & hemodynamically stable?: Yes 04/23/18 15:13 Consult to [place] [CONS] Routine Reason for SW Consult: Patient requesting change of POA Discharging clinician: Yanique Bar Anticipated date of discharge: 04/26/18 - Constitutional Vitals: Temp Pulse Resp BP Pulse Ox 98.6 F 88 14 135/82 97 04/26/18 08:00 04/26/18 08:00 04/26/18 08:00 04/26/18 08:00 04/26/18 08:00 Exam: Pt is AAO x 3, in NAD, thin built HEENT: NC/AT, PERRL Neck: Supple, no JVD, no LAD Lungs: CTA b/l Heart: S1S2, RRR Abd: Soft, nontender, BS present Ext: ROM wnl, no pedal edema Neuro: No focal deficit - Patient Status Disposition: Hospice - Home Condition: Good Functional capacity at discharge: uses cane/walker Overall status at discharge: patient is back to baseline - Discharge Instructions Instructions: Chest Pain (DC), Acute Respiratory Distress Syndrome (DC), Urinary Tract Infection in Women (DC), Syncope (DC), Depression (DC), Chronic Obstructive Pulmonary Disease (DC), Sepsis (DC), Chronic Hypertension (DC), Anxiety (DC), Fall Prevention (DC), Pneumonia (DC), Cigarette Smoking and Your Health, 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
--- NOTE | 2018-04-26 10:58 | Physician Discharge Referral ---
Home Health/Hosp Referral Info Transfer to: Hospice Provider in Charge Post Discharge: PCP - Diagnosis (1) Acute kidney injury Status: Acute (2) Fall Status: Acute (3) HCAP (healthcare-associated pneumonia) Status: Acute (4) Rhabdomyolysis Status: Acute (5) DVT prophylaxis Status: Acute (6) UTI (urinary tract infection) Status: Acute (7) Lung cancer Status: Chronic (8) Tobacco abuse Status: Chronic - Respiratory Orders Oxygen / L per min (2) Smoking Cessation: Smoking cessation has been advised. For more information, call the [place] Tobacco Quit Line at 6-441-QEXX-NOW. - Services Needed Following services are medically necessary services: Nursing, Home Health Aide, Physical Therapy, Occupational Therapy - Transfer Medications Prescriptions: Amoxicillin/Clavulanate [Augmentin] 875 mg PO BIDWM 5 Days #10 tablet Nicotine Patch [Nicoderm] 14 mg TD DAILY 14 Days #14 patch.td24 Home Medications: LORazepam [Ativan] 1 mg PO Q2H PRN 01/04/17 [History] Oxygen 2 l NS AD 01/04/17 [History] Amitriptyline HCl 100 mg PO HS 04/22/18 [History] Lisinopril [Zestril] 10 mg PO DAILY 04/22/18 [History] Ondansetron HCl 4 mg PO Q6H PRN 04/22/18 [History] OxyCODONE Immed Rel [Roxicodone 20 MG] 20 mg PO Q4H PRN 04/22/18 [History] OxyCODONE Immed Rel [Roxicodone 30 MG] 60 mg PO Q6H 04/22/18 [History] Amoxicillin/Clavulanate [Augmentin] 875 mg PO BIDWM 5 Days #10 tablet 04/26/18 [Rx] Nicotine Patch [Nicoderm] 14 mg TD DAILY 14 Days #14 patch.td24 04/26/18 [Rx] levETIRAcetam [Keppra] 500 mg PO BID tablet 04/26/18 [Rx] Allergies/Adverse Reactions: Allergy/AdvReac Type Severity Reaction Status Date / Time No Known Allergies Allergy Verified 08/07/17 11:17 Certification: Further, I certify that my clinical findings support that this patient is homebo und (i.e. absences from home require considerable and taxing effort and are for medical reasons or rastafarian services or infrequently or short duration when for other reasons) because: Homebound Reason: Patient requires assistance of a person or device to safely leave home Attestation: My signature below is to certify that this patient is under my care and that I, or nurse practitioner, or a physician's assistant pastry chef working with me, has a [id number] encounter with this patient.
== END 2018-04-26 12:34 | disposition hospice, home (50) | DRG 564 ==
LOC: 2NENU 13:45 → EMEROOARM 13:45 → 2NENU 18:26
PROVIDERS: ADMIT Internal Medicine; ATTEND Internal Medicine

== ENCOUNTER 2018-12-29 20:32 | Inpatient (IN) ==
[2018-12-29 21:52] LABS: Hemoglobin 16.2 g/dL (11.5-15.4); Mean Corpuscular HGB Conc 32.4 g/dL (31.6-35.5); Mean Corpuscular Hemoglobin 32.7 pg (28.0-33.3); Mean Platelet Volume 10.8 fL (9.4-12.4); Platelet Count 144 K/mcL (140-400); Red Blood Count 4.95 M/mcL (3.82-4.97); Red Cell Distribution Width 14.5 % (11.5-14.5); White Blood Count 10.5 K/mcL (4.3-11.1)
[2018-12-29 22:14] LABS: BUN/Creatinine Ratio 46 (6-26); Blood Urea Nitrogen 42 mg/dL (8-23); Calcium 9.5 mg/dL (8.6-10.3); Carbon Dioxide 31 mEq/L (23-29); Chloride 98 mEq/L (98-107); Glucose 153 mg/dL (70-105); Osmolality,Calculated 300 (280-300); Potassium 4.2 mEq/L (3.5-5.1); Sodium 138 mEq/L (136-145); eGFR For African Americans > 60 (> 60); eGFR For Non-African Americans > 60 (> 60)
[2018-12-29 22:25] LABS: Troponin I 0.05 ng/mL (< 0.04)
--- NOTE | 2018-12-29 22:27 | Emergency Department Note ---
Disposition Clinical Impression: Hypoxemia, Compression fracture, Compression fracture of body of thoracic vertebra, Troponin I above reference range Shoulder fracture, left Qualifiers: Encounter type: initial encounter Fracture type: closed Qualified Code(s): S42.92XA - Fracture of left shoulder girdle, part unspecified, initial encounter for closed fracture Thoracic compression fracture Qualifiers: Encounter type: initial encounter Thoracic vertebra fracture level: T2 Qualified Code(s): S22.020A - Wedge compression fracture of second thoracic vertebra, initial encounter for closed fracture Fall Qualifiers: Encounter type: initial encounter Qualified Code(s): W19.XXXA - Unspecified fall, initial encounter Disposition: Admitted As Inpatient Condition: Fair Time of Disposition: 23:13 General Adult HPI - General Chief complaint: ED Fall Stated complaint: fall Time Seen by Provider: 12/29/18 20:34 Source: patient, EMS Nursing Notes Reviewed: Yes Vital Signs Reviewed: Yes - History of Present Illness HPI Narrative: Presents after she stood up to answer the door and lost her balance and fell and does have pain in the head and neck and left shoulder as well as both hips. She said the pain is sharp and worse with range of motion. Did not lose consciousness. No syncope. No preceding lightheadedness. She did have hypoxemia when the paramedics arrived with his oxygen saturation 74%. She reportedly does use oxygen at night. Social history: Smoker. Lives with her brother. Pain Scale: 7 - Related Data Home Medications Medication Instructions Recorded Confirmed LORazepam [Ativan] 1 mg PO Q2H PRN 01/04/17 12/30/18 Oxygen 2 l NS AD 01/04/17 12/30/18 Amitriptyline HCl 100 mg PO HS 04/22/18 12/30/18 Lisinopril [Zestril] 20 mg PO DAILY 04/22/18 12/30/18 Ondansetron HCl 4 mg PO Q6H PRN 04/22/18 12/30/18 OxyCODONE Immed Rel [Roxicodone 20 20 mg PO Q4H PRN 04/22/18 12/30/18 MG] OxyCODONE Immed Rel [Roxicodone 30 60 mg PO Q8H 04/22/18 12/30/18 MG] Allergies Allergy/AdvReac Type Severity Reaction Status Date / Time No Known Allergies Allergy Verified 04/28/18 11:17 All systems ED: reviewed and negative except as stated. Past Medical History - Past Medical History Medical history: Reports: cancer, COPD, DVT, hypertension, osteoporosis, seizures, other Surgical history: Reports: hip replacement, orthopedic, other, other Psychiatric history: Reports: anxiety, depression BUSINESS TRAVEL CONSULTANT history: Reports: no BUSINESS TRAVEL CONSULTANT history - Social History Smoking Status: Current every day smoker Smokeless Tobacco Status: No (10 cigarretes/day) Alcohol use: Reports: none Drug use: Reports: none Physical Exam CONSTITUTIONAL: Alert and oriented X3, well-nourished, well appearing, in no apparent distress HEAD: Normocephalic; atraumatic. EYES: PERRL, no scleral icterus. NOSE: The nose is normal in appearance without rhinorrhea RESP: Normal chest excursion with respiration; breath sounds clear and equal b ilaterally; no wheezes, rhonchi, or rales CARD: Regular rhythm, without murmurs, rub or gallop ABD: Non-distended; non-tender, soft,without rigidity, rebound or guarding SKIN: Normal for age and race; warm and dry; no apparent lesions Extremities: Does have pain with palpation left shoulder, minimal pain with palpation both hips, pulses 2+ and equal 4 extremities - General General appearance: alert Course Vital Signs Temperature 97.4 F L 12/29/18 20:33 Pulse Rate 126 12/29/18 20:33 Respiratory Rate 18 12/29/18 20:33 Blood Pressure 135/98 12/29/18 20:33 O2 Sat by Pulse Oximetry 92 12/29/18 20:33 Temperature 97.4 F L 12/29/18 20:33 Pulse Rate 113 12/29/18 22:30 Respiratory Rate 16 12/29/18 22:30 Blood Pressure 115/82 12/29/18 22:30 O2 Sat by Pulse Oximetry 96 12/29/18 22:30 Oxygen Delivery Oxygen Delivery Nasal Cannula Medical Decision Making - [facility] Narrative Medical decision making narrative: Patient will be admitted based on the hypoxemia but her head CT and neck CT are both negative. The chest x-ray does show possible thoracic fractures with recommendation to get a CT scan of his tests is ordered. She does have a left shoulder fracture and will be placed in a sling and swath. I did review the patient's lab test results. I did review her EKG showing sinus tachycardia with a rate of 127 bpm without acute ischemic change this was the EKG on arrival 2226 Care is transitioned to Dr. Salazar at change of shift. I did review test results up to this point. 2312 05 ECG with sinus tach with rate 124 without acute ischemic change or arrhythmia I did see and evaluate the patient. Reviewed the patient's x-rays and CT scans. She does have 2 compression fractures T-2 and T5 without retropulsion of fragments. I did speak to the orthopedist Dr. Tabor who will see the patient in the morning concerning the left humeral fracture Patient's troponin was indeterminate at 0.05 patient will be observed to the hospitalist - Medical Records Medical records reviewed: Yes I reviewed the patient's medical records. - Lab Data Lab results reviewed: Yes I reviewed the patient's lab results. Result diagrams: 12/29/18 21:36 12/29/18 21:36 Lab Results 12/29/18 12/29/18 Range/Units 21:36 21:36 WBC 10.5 (4.3-11.1) K/mcL RBC 4.95 (3.82-4.97) M/mcL Hgb 16.2 H (11.5-15.4) g/dL Hct 50.0 H (35.3-44.9) % MCV 101.0 H (83.0-100.0) fL MCH 32.7 (28.0-33.3) pg MCHC 32.4 (31.6-35.5) g/dL RDW 14.5 (11.5-14.5) % Plt Count 144 (140-400) K/mcL MPV 10.8 (9.4-12.4) fL Sodium 138 (136-145) mEq/L Potassium 4.2 (3.5-5.1) mEq/L Chloride 98 (98-107) mEq/L Carbon Dioxide 31 H (23-29) mEq/L BUN 42 H (8-23) mg/dL Creatinine 0.91 (0.60-1.20) mg/dL Est GFR ( Amer) > 60 (> 60) Est GFR (Non-Af Amer) > 60 (> 60) BUN/Creatinine Ratio 46 H (6-26) Glucose 153 H (70-105) mg/dL Calculated Osmolality 300 (280-300) Calcium 9.5 (8.6-10.3) mg/dL Troponin I 0.05 H* (< 0.04) ng/mL - Radiology Data Radiology results reviewed: Yes I reviewed the patient's radiology results.
[2018-12-30 02:18] LABS: Prothrombin Time 10.9 Seconds (9.4-12.1)
--- NOTE | 2018-12-30 04:10 | Emergency Department Note ---
Disposition Clinical Impression: Hypoxemia, Compression fracture, Compression fracture of body of thoracic vertebra, Troponin I above reference range Shoulder fracture, left Qualifiers: Encounter type: initial encounter Fracture type: closed Qualified Code(s): S42.92XA - Fracture of left shoulder girdle, part unspecified, initial encounter for closed fracture Thoracic compression fracture Qualifiers: Encounter type: initial encounter Thoracic vertebra fracture level: T2 Qualified Code(s): S22.020A - Wedge compression fracture of second thoracic vertebra, initial encounter for closed fracture Fall Qualifiers: Encounter type: initial encounter Qualified Code(s): W19.XXXA - Unspecified fall, initial encounter Disposition: Admitted As Inpatient Condition: Fair Time of Disposition: 04:12 General Adult HPI - General Chief complaint: ED Fall Stated complaint: fall Time Seen by Provider: 12/30/18 00:39 Source: patient, EMS Nursing Notes Reviewed: Yes Vital Signs Reviewed: Yes - History of Present Illness HPI Narrative: This is a continuity of care note Please see Dr. Hopkins's note for full H&P Pain Scale: 7 - Related Data Home Medications Medication Instructions Recorded Confirmed LORazepam [Ativan] 1 mg PO Q2H PRN 01/04/17 12/30/18 Oxygen 2 l NS AD 01/04/17 12/30/18 Amitriptyline HCl 100 mg PO HS 04/22/18 12/30/18 Lisinopril [Zestril] 20 mg PO DAILY 04/22/18 12/30/18 Ondansetron HCl 4 mg PO Q6H PRN 04/22/18 12/30/18 OxyCODONE Immed Rel [Roxicodone 20 20 mg PO Q4H PRN 04/22/18 12/30/18 MG] OxyCODONE Immed Rel [Roxicodone 30 60 mg PO Q8H 04/22/18 12/30/18 MG] Allergies Allergy/AdvReac Type Severity Reaction Status Date / Time No Known Allergies Allergy Verified 08/07/17 11:17 All systems ED: reviewed and negative except as stated. Past Medical History - Past Medical History Attestation: Yes The following information was validated with the patient. Source: patient, old records reviewed, nursing notes reviewed Medical history: Reports: cancer, COPD, DVT, hypertension, osteoporosis, seizures, other Surgical history: Reports: hip replacement, orthopedic, other, other Psychiatric history: Reports: anxiety, depression SHOP BLACKSMITH history: Reports: no SHOP BLACKSMITH history - Social History Smoking Status: Current every day smoker Smokeless Tobacco Status: No (10 cigarretes/day) Alcohol use: Reports: none Drug use: Reports: none Physical Exam - General Limitations: no limitations General appearance: alert, in no apparent distress - Head Head exam: atraumatic, normocephalic, normal inspection - Eye Eye exam: Present: normal appearance, PERRL, EOMI - ENT ENT exam: normal exam, normal oropharynx, mucous membranes moist - Neck Neck exam: Present: normal inspection, full ROM, trachea midline - Chest Chest inspection: Present: normal inspection, symmetric chest wall rise - Respiratory Respiratory exam: Present: normal lung sounds bilaterally. Absent: respiratory distress, wheezes - Cardiovascular Cardiovascular exam: Present: regular rate, normal rhythm, normal heart sounds - Abdominal Exam Abdominal exam: Present: soft, Non-Tender, normal bowel sounds. Absent: tenderness, distention, guarding, rebound, rigidity - Extremities Exam Extremities exam: Present: normal inspection, full ROM, normal capillary refill. Absent: tenderness, pedal edema - Expanded Upper Extremity Exam Shoulder exam: Present: normal inspection, tenderness, deformity (Obvious fracture). Absent: full ROM - Neurological Exam Neurological exam: Present: alert, oriented X3, CN II-XII intact Course - Consultations Consultation #1: I spoke to Dr. Tabor orthopedics concerning the left humeral fracture Time: 02:30 Consultation #2: Dr Dunn Time: 01:45 Vital Signs Temperature 97.4 F L 12/29/18 20:33 Pulse Rate 126 12/29/18 20:33 Respiratory Rate 18 12/29/18 20:33 Blood Pressure 135/98 12/29/18 20:33 O2 Sat by Pulse Oximetry 92 12/29/18 20:33 Temperature 97.4 F L 12/29/18 20:33 Pulse Rate 104 12/30/18 04:05 Respiratory Rate 16 12/30/18 04:05 Blood Pressure 113/80 12/30/18 04:05 O2 Sat by Pulse Oximetry 96 12/30/18 04:05 Oxygen Delivery Oxygen Delivery Room Air Medical Decision Making - MDM Narrative Medical decision making narrative: I did see and evaluate the patient. Reviewed the patient's x-rays and CT scans. She does have 2 compression fractures T-2 and T5 without retropulsion of fragments. I did speak to the orthopedist Dr. Tabor who will see the patient in the morning concerning the left humeral fracture Patient's troponin was indeterminate at 0.05 patient will be observed to the hospitalist - Medical Records Medical records reviewed: Yes I reviewed the patient's medical records. - Lab Data Lab results reviewed: Yes I reviewed the patient's lab results. Result diagrams: 12/29/18 21:36 12/29/18 21:36 Lab Results 12/29/18 12/29/18 12/29/18 Range/Units 21:36 21:36 21:36 WBC 10.5 (4.3-11.1) K/mcL RBC 4.95 (3.82-4.97) M/mcL Hgb 16.2 H (11.5-15.4) g/dL Hct 50.0 H (35.3-44.9) % MCV 101.0 H (83.0-100.0) fL MCH 32.7 (28.0-33.3) pg MCHC 32.4 (31.6-35.5) g/dL RDW 14.5 (11.5-14.5) % Plt Count 144 (140-400) K/mcL MPV 10.8 (9.4-12.4) fL PT 10.9 (9.4-12.1) Seconds INR 1.0 Sodium 138 (136-145) mEq/L Potassium 4.2 (3.5-5.1) mEq/L Chloride 98 (98-107) mEq/L Carbon Dioxide 31 H (23-29) mEq/L BUN 42 H (8-23) mg/dL Creatinine 0.91 (0.60-1.20) mg/dL Est GFR ( Amer) > 60 (> 60) Est GFR (Non-Af Amer) > 60 (> 60) BUN/Creatinine Ratio 46 H (6-26) Glucose 153 H (70-105) mg/dL Calculated Osmolality 300 (280-300) Calcium 9.5 (8.6-10.3) mg/dL Troponin I 0.05 H* (< 0.04) ng/mL - Radiology Data Radiology results reviewed: Yes I reviewed the patient's radiology results. Head CT 12/29/18 21:17 IMPRESSION: No acute intracranial abnormality. Bilateral maxillary sinus disease, correlate for for signs of infection Diffuse atrophic changes with findings suggesting chronic microvascular ischemia D/ / Boris Felton MD / Boris Felton MD Interpreting Provider: Boris Felton MD Cervical Spine CT 12/29/18 21:20 IMPRESSION: No acute abnormality of the cervical spine. Superior endplate compression deformities of T2 and T5 appear new compared to 2017. A thoracic spine CT is suggested for further evaluation D/ / Boris Felton MD / Boris Felton MD Interpreting Provider: Boris Felton MD Chest X-Ray 12/29/18 21:57 IMPRESSION: Emphysema with shallow inspiratory effort. Left basilar opacities could reflect atelectasis, infectious airspace disease or pulmonary infarct in the appropriate context. D/ / Danny Leal / Danny Leal Interpreting Provider: Danny Leal Hip/Pelvis X-Ray 12/29/18 21:57 IMPRESSION: Acute fracture of the left shoulder. D/ / Brayan Mckeon MD / Brayan Mckeon MD Interpreting Provider: Brayan Mckeon MD Shoulder X-Ray 12/29/18 21:57 IMPRESSION: Acute fracture of the left shoulder. D/ / Brayan Mckeon MD / Brayan Mckeon MD Interpreting Provider: Brayan Mckeon MD Thoracic Spine CT 12/29/18 22:54 IMPRESSION: Compression fractures of the T2 and T5 vertebral bodies of indeterminate age but new since 08/06/2017. Band of masslike consolidation in the posterior left upper lobe which is increased in size and extent since 08/06/2017. A PET-CT would be helpful to further evaluate as neoplasm is not excluded. Dependent airspace disease superimposed upon emphysema, likely atelectasis. D/ / Sirena Mejia Cha, MD / Sirena Mejia Cha, MD Interpreting Provider: Sirena Mejia Cha, MD - EKG Data EKG #1 EKG attestation: Yes I reviewed and interpreted this EKG. EKG results narrative: EKG that was obtained was reviewed and interpreted by me shows a heart rate of 124 consistent with sinus tachycardia, left axis deviation, normal GA and QRS duration, no acute ST elevations
[2018-12-30] MEDS ORDERED: Naloxone 0.4 MG/ML INJ IVP PRN (07:10)
--- NOTE | 2018-12-30 07:30 | Internal Med History&Physical ---
Date of Encounter: 12/30/18 Time of Encounter: 05:45 Internal Medicine - H&P: HPI Chief complaint: Left humerus fracture Admitted From: Emergency Dept Plans for Post Hospital Care: Home History of present illness: Ms. Hodge is a 73 year old female Patient presented to the ER after sustaining a fall at home. She states that she got up from a chair to answer the door, when she fell to the ground. She says that she thinks she became dizzy prior to falling, but when she fell she did not loose consciousness. She landed on her left side, and hit her head. After the fall she was unable to get up. An ambulance was called and she was transported to the ER for further evaluation. As reported by the EMS, she was hypoxic with oxygen saturation of 74%. Emergency room vital signs: Temperature 97.4, pulse 126, respiratory rate 18, Blood pressure 135/98, oxygen saturation 92% on 2 liters. CBC: Within normal limits BMP: Unremarkable, elevated glucose of 153. Troponin 0.[address]: no acute intracrnial abnormality Cervical spine CT: no acute abnormality Thoracic spine CT: Compression fractures of T2 and T5 vertebral bodies of indeterminate age, new since 08/06/17. Chest x-ray: Emphysema with shallow inspiratory effort. Left basilar opacities could reflect atelectasis, infectious airspace disease or pulmonary infarct in the appropriate context. Left shoulder xray: Acute fracture of the left shoulder Hip X-ray: No acute fracture or dislocation identified. Emergency room physician consulted orthopedic surgery who will see the patient in the morning. Patient was admitted to the hospital for further management. Upon my evaluation, patient is resting comfortably in the hospital bed in no acute distress. She denies chest pain, abdominal pain, nausea, vomiting, diarrhea and constipation. She has been having falls at home, she says the last fall was 6 months ago. She does not recall the circumstances, but in the last year or so she as fallen around 5 times. With this fall she is unsure if she was dizzy or not, but she had been sitting in a chair prior to standing up to answer the door. She is a full code. Past Med Surg Social Fam HX - Past Medical History Medical history: cancer, COPD, DVT, hypertension, osteoporosis, seizures, other Additional medical history: lung cancer Psychiatric history: anxiety, depression - Past Surgical History Surgical History: hip replacement, orthopedic, other, other Additional surgical history: carpal tunnel, left hip replacement. - Social History Smoking Status: Current every day smoker Packs per day: 1/2 Smokeless Tobacco Status: No (10 cigarretes/day) Alcohol use: none Drug use: none - Family History Mother Hx Family Respiratory Disorders: Yes (COPD, emphysemza) Father Hx Family Cardiac Disorders: Yes (CHF) Internal Medicine - H&P: Meds LORazepam [Ativan] 1 mg PO Q2H PRN 01/04/17 [History] Oxygen 2 l NS AD 01/04/17 [History] Amitriptyline HCl 100 mg PO HS 04/22/18 [History] Lisinopril [Zestril] 20 mg PO DAILY 04/22/18 [History] Ondansetron HCl 4 mg PO Q6H PRN 04/22/18 [History] OxyCODONE Immed Rel [Roxicodone 20 MG] 20 mg PO Q4H PRN 04/22/18 [History] OxyCODONE Immed Rel [Roxicodone 30 MG] 60 mg PO Q8H 04/22/18 [History] Allergy/AdvReac Type Severity Reaction Status Date / Time No Known Allergies Allergy Verified 08/07/17 11:17 All Systems PM: A 10-system review of systems was performed and is negative for pertinent fin dings except as documented above in the HPI. - Constitutional Vitals: Temp Pulse Resp BP Pulse Ox 97.6 F 75 20 128/86 93 12/30/18 04:38 12/30/18 04:38 12/30/18 04:38 12/30/18 04:38 12/30/18 04:38 General appearance: Present: cooperative, A&O X 3, pleasant, no acute distress, answers questions appropriately Exam: - - Head Head exam: Present: normal inspection - Eye Eye exam: Present: EOMI, normal appearance - Respiratory Respiratory exam: Present: CTAB. Absent: rales, respiratory distress, rhonchi, wheezes - Cardiovascular Cardiovascular exam: Present: RRR. Absent: diastolic murmur, systolic murmur - GI/Abdominal GI/Abdominal exam: Present: normal bowel sounds, soft. Absent: tenderness - Extremities Exam Extremities exam: Present: tenderness, warm, radial pulses palpable and symmetrical. Absent: calf tenderness, pedal edema Additional comments: Tenderness over left shoulder, arm in sling - Neurological Exam Neurological exam: Present: no focal deficits, strengths equal and symetr throughout. Absent: motor sensory deficit, facial droop, speech deficit Additional comments: patient's sensation intact in left arm, pulses felt - Skin Skin exam: Present: dry, normal color, warm Internal Med - H&P Results - Labs CBC & Chem 7: 12/29/18 21:36 12/29/18 21:36 Labs: Short CBC 12/29/18 Range/Units 21:36 WBC 10.5 (4.3-11.1) K/mcL Hgb 16.2 H (11.5-15.4) g/dL Hct 50.0 H (35.3-44.9) % Plt Count 144 (140-400) K/mcL BMP 12/29/18 21:36 Sodium 138 Potassium 4.2 Chloride 98 Carbon Dioxide 31 H BUN 42 H Creatinine 0.91 Glucose 153 H Calcium 9.5 Cardiac Enzymes 12/29/18 Range/Units 21:36 Troponin I 0.05 H* (< 0.04) ng/mL - Impressions ITS Impressions Head CT 12/29/18 21:17 IMPRESSION: No acute intracranial abnormality. Bilateral maxillary sinus disease, correlate for for signs of infection Diffuse atrophic changes with findings suggesting chronic microvascular ischemia D/ / Boris Felton MD / Boris Felton MD Interpreting Provider: Boris Felton MD Cervical Spine CT 12/29/18 21:20 IMPRESSION: No acute abnormality of the cervical spine. Superior endplate compression deformities of T2 and T5 appear new compared to 2017. A thoracic spine CT is suggested for further evaluation D/ / Boris Felton MD / Boris Felton MD Interpreting Provider: Boris Felton MD Chest X-Ray 12/29/18 21:57 IMPRESSION: Emphysema with shallow inspiratory effort. Left basilar opacities could reflect atelectasis, infectious airspace disease or pulmonary infarct in the appropriate context. D/ / Danny Leal / Danny Leal Interpreting Provider: Danny Leal Hip/Pelvis X-Ray 12/29/18 21:57 IMPRESSION: Acute fracture of the left shoulder. D/ / Brayan Mckeon MD / Brayan Mckeon MD Interpreting Provider: Brayan Mckeon MD Shoulder X-Ray 12/29/18 21:57 IMPRESSION: Acute fracture of the left shoulder. D/ / Brayan Mckeon MD / Brayan Mckeon MD Interpreting Provider: Brayan Mckeon MD Thoracic Spine CT 12/29/18 22:54 IMPRESSION: Compression fractures of the T2 and T5 vertebral bodies of indeterminate age but new since 08/06/2017. Band of masslike consolidation in the posterior left upper lobe which is increased in size and extent since 08/06/2017. A PET-CT would be helpful to further evaluate as neoplasm is not excluded. Dependent airspace disease superimposed upon emphysema, likely atelectasis. D/ / Sirena Mejia Cha, MD / Sirena Mejia Cha, MD Interpreting Provider: Sirena Mejia Cha, MD - Assessment and Plan (1) Shoulder fracture, left Current Visit: Yes Status: Acute Assessment and plan: Secondary to fall. Patient to be seen by orthopedic surgery. Left arm currently in a sling. Follow up orthopedic surgery recommendations Continue arm in sling Pain management as needed Evaluation for fall as below. Qualifiers: Encounter type: initial encounter Fracture type: closed Qualified Code(s ): S42.92XA - Fracture of left shoulder girdle, part unspecified, initial encounter for closed fracture (2) Falls frequently Current Visit: No Status: Acute Assessment and plan: Patient has been having falls at home, possibly orthostatic hypotension as she has fallen after rising from a chair. She denies loss of consciousness however. Orthostatic vital signs PT/OT consultation Echocardiogram Cardiac telemetry (3) Hypoxemia Current Visit: Yes Status: Acute Assessment and plan: Patient does wear oxygen at home, 2L mainly at night. Chest xray showed emphysema but was poor inspiratory effort. On exam patient's lung sounds are clear. Patient does have a known history of COPD as well. Oxygen supplementation as needed Continuous pulse oximetry Monitor for signs of infection Breathing treatments (4) Elevated troponin Current Visit: No Status: Acute Assessment and plan: Patient denies chest pain, EKG non-ischemic. Troponin level 0.05. Patient has had elevated troponins in the past but not since the begninning of this month. Renal function is normal. Cardiac monitoring Continue to trend troponins Echocardiogram in the morning (5) Compression fracture Current Visit: Yes Status: Acute Assessment and plan: Compression fractures of indeterminate age. Continue to monitor (6) DVT prophylaxis Current Visit: No Status: Acute Assessment and plan: SCDs - Time Spent With Patient Total time spent is greater than 50% in coordination of care (as documented) at patient's floor/unit and/or counseling patient:
[2018-12-30] MEDS ORDERED: Albuterol 2.5 MG/3 ML NEBULIZER IH PRN (07:51)
[2018-12-30] MEDS ORDERED: Ketorolac 30 MG/ML VIAL IVP PRN (07:55)
--- NOTE | 2018-12-30 08:03 | Orthopedics Progress Note ---
Date of Encounter: 12/30/18 Time of Encounter: 08:02 Subjective Interval history: Patient seen, status post fall, injury to left shoulder. Patient is in a sling resting comfortably Left upper extremity Decreased range motion secondary to pain Neurovascular intact X-rays show displaced left proximal humerus fracture, surgical recommendation is left total shoulder replacement reverse ball and socket. Objective Vital signs: Vital Signs Temp Pulse Resp BP Pulse Ox 12/30/18 07:44 97.6 F 93 16 117/75 93 12/30/18 04:38 97.6 F 75 20 128/86 93 12/30/18 04:05 104 16 113/80 96 12/30/18 03:30 105 14 114/80 92 12/30/18 02:35 103 12 131/95 92 12/30/18 01:00 95 14 119/84 98 12/30/18 00:10 105 12 111/79 98 12/29/18 22:30 113 16 115/82 96 12/29/18 21:52 123 18 124/87 93 12/29/18 20:33 97.4 F L 126 18 135/98 92 Intake and Output 12/29/18 12/30/18 12/30/18 23:59 07:59 15:59 Other: Weight 66.814 kg 60 kg Patient Weight 12/30/18 23:59 Weight 60 kg - Labs CBC & BMP: 12/29/18 21:36 12/29/18 21:36 Labs: Abnormal lab results Hgb 16.2 g/dL (11.5-15.4) H 12/29/18 21:36 Hct 50.0 % (35.3-44.9) H 12/29/18 21:36 MCV 101.0 fL (83.0-100.0) H 12/29/18 21:36 Carbon Dioxide 31 mEq/L (23-29) H 12/29/18 21:36 BUN 42 mg/dL (8-23) H 12/29/18 21:36 BUN/Creatinine Ratio 46 (6-26) H 12/29/18 21:36 Glucose 153 mg/dL (70-105) H 12/29/18 21:36 Troponin I 0.05 ng/mL (< 0.04) H* 12/29/18 21:36 Consult Discharge Plan - Plan Referrals: NONE,PCP [Primary Care Provider] -
[2018-12-30 09:54] LABS: Hematocrit 46.8 % (35.3-44.9); Hemoglobin 15.1 g/dL (11.5-15.4); Mean Corpuscular HGB Conc 32.3 g/dL (31.6-35.5); Mean Corpuscular Hemoglobin 32.8 pg (28.0-33.3); Mean Corpuscular Volume 101.5 fL (83.0-100.0); Mean Platelet Volume 10.3 fL (9.4-12.4); Platelet Count 142 K/mcL (140-400); Red Blood Count 4.61 M/mcL (3.82-4.97); Red Cell Distribution Width 14.4 % (11.5-14.5); White Blood Count 9.7 K/mcL (4.3-11.1)
[2018-12-30 10:03] LABS: Prothrombin Time 11.1 Seconds (9.4-12.1)
[2018-12-30 10:05] LABS: Activated Partial Thrombo Time 27.5 Seconds (26.0-36.0)
[2018-12-30 11:53] LABS: Hematocrit 48.4 % (35.3-44.9); Hemoglobin 15.4 g/dL (11.5-15.4)
--- NOTE | 2018-12-30 12:09 | Event Note ---
Date of Encounter: 12/30/18 Time of Encounter: 12:06 Patient states not comfortable agreeing to surgery herself despite being A&Ox3. Patient requests review consent with her POA "Aaron", son Marshall Pope. Attempted to reach at as well as
[2018-12-30 12:14] LABS: BUN/Creatinine Ratio 59 (6-26); Blood Urea Nitrogen 44 mg/dL (8-23); Calcium 9.4 mg/dL (8.6-10.3); Carbon Dioxide 31 mEq/L (23-29); Chloride 99 mEq/L (98-107); Glucose 116 mg/dL (70-105); Osmolality,Calculated 296 (280-300); Potassium 4.2 mEq/L (3.5-5.1); Sodium 137 mEq/L (136-145); eGFR For African Americans > 60 (> 60); eGFR For Non-African Americans > 60 (> 60)
[2018-12-30 12:25] LABS: Troponin I 0.05 ng/mL (< 0.04)
[2018-12-30] MEDS ORDERED: *HR* Midazolam HCl 2 MG/2 ML VIAL ONE (15:52)
[2018-12-30] MEDS ORDERED: *HR* Propofol 200 MG/20 ML VIAL IVP ONE (15:52)
[2018-12-30] MEDS ORDERED: Lidocaine -MPF 2% 2 ML VIAL ONE (15:54)
[2018-12-30] MEDS ORDERED: Dexamethasone 4 MG/ML VIAL ONE (15:54)
[2018-12-30] MEDS: Ipratropium/Albuterol Neb 3 ML IH SCH ×3 (16:10→22:57)
[2018-12-30] MEDS ORDERED: Acetaminophen 325 MG TABLET PO PRN (16:19)
--- NOTE | 2018-12-30 16:23 | Event Note ---
Date of Encounter: 12/30/18 Time of Encounter: 12:00 Pt was seen at bedside. h & P was reviewed. Planned for the surgery, discussed wiht the anesthesia, troponin mildly elevated at 0.05, also had previous elevations. Stat echo ordered by the anesthesia, if EF is normal with no significnat wall motion abnormalities, then no further wo rkup would be required prior to surgery. Pt RCRI index would still be 1 with 6% , 30 day risk of , [place] or cardaic arrest.
--- NOTE | 2018-12-30 16:30 | Orthopedics Progress Note ---
Date of Encounter: 12/30/18 Time of Encounter: 16:29 Subjective Interval history: Patient seen in holding area with anesthesiologist, patient now reporting active chest pain radiating to job. Patient did have an echo which was pending official read, she getting stat echo stature components, case discussed with patient's son as well as hospitalists in charge of her care patient will require a complete cardiac workup, shoulder surgery is put on hold until clearance complete Objective Vital signs: Vital Signs Temp Pulse Resp BP Pulse Ox 12/30/18 12:14 97.8 F 99 16 111/77 93 12/30/18 07:44 97.6 F 93 16 117/75 93 12/30/18 04:38 97.6 F 75 20 128/86 93 12/30/18 04:05 104 16 113/80 96 12/30/18 03:30 105 14 114/80 92 12/30/18 02:35 103 12 131/95 92 12/30/18 01:00 95 14 119/84 98 12/30/18 00:10 105 12 111/79 98 12/29/18 22:30 113 16 115/82 96 12/29/18 21:52 123 18 124/87 93 12/29/18 20:33 97.4 F L 126 18 135/98 92 Intake and Output 12/30/18 12/30/18 12/30/18 07:59 15:59 23:59 Intake Total 0 / 0 Balance 0 / 0 Intake: Oral 0 / 0 Other: Weight 60 kg Patient Weight 12/30/18 23:59 Weight 60 kg - Labs CBC & BMP: 12/30/18 11:42 12/30/18 11:42 Labs: Abnormal lab results Hgb 16.2 g/dL (11.5-15.4) H 12/29/18 21:36 Hct 48.4 % (35.3-44.9) H 12/30/18 11:42 MCV 101.5 fL (83.0-100.0) H 12/30/18 09:34 Carbon Dioxide 31 mEq/L (23-29) H 12/30/18 11:42 BUN 44 mg/dL (8-23) H 12/30/18 11:42 BUN/Creatinine Ratio 59 (6-26) H 12/30/18 11:42 Glucose 116 mg/dL (70-105) H 12/30/18 11:42 Troponin I 0.05 ng/mL (< 0.04) H* 12/30/18 11:42 Consult Discharge Plan - Plan Referrals: NONE,PCP [Primary Care Provider] -
--- NOTE | 2018-12-30 16:37 | Event Note ---
Date of Encounter: 12/30/18 Time of Encounter: 16:30 Pt compalined of chest pain in the OR. Stat troponis and EKG ordered. WIll follow up. Cardioloy conuslt placed.
--- NOTE | 2018-12-30 16:46 | Anesthesia Progress Note ---
Date of Encounter: 12/30/18 Time of Encounter: 16:39 Anesthesia Note - Note Note: 12/30/18 16:39 Pt here for Left total shoulder replacement, pt has hx of COPD on oxygen at night as well as lung ca, of note patient has elevated troponin x 2 and was supposed to get an echo today. Upon interview, she complains of chest pain with radiation to left Jaw intermittently today but has not reported this to her nurse or care team. Case will be cancelled today for further cardiac workup prior to undergoing general anesthesia. STAT EKG and troponin ordered. Discussed with Dr Tabor Reason for Cancellation: Chest Pain
[2018-12-30] MEDS: *HR* OxyCODONE Immed Rel 5 MG TABLET PO PRN (20:46)
[2018-12-30] MEDS ORDERED: *HR* Metoprolol 5 MG/5 ML VIAL IVP ONE (23:48)
[2018-12-31] MEDS ORDERED: 0.9 % Sodium Chloride 500 ML IVC ONE ×2 (00:57→02:16)
[2018-12-31] MEDS: Ipratropium/Albuterol Neb 3 ML IH SCH ×4 (04:19→23:01)
[2018-12-31] MEDS: *HR* OxyCODONE Immed Rel 5 MG TABLET PO PRN ×4 (05:44→22:34)
--- NOTE | 2018-12-31 06:43 | Electrocardiograph Report ---
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
[2018-12-31] MEDS: *HR* HYDROcodone/Acet 5/325 mg TABLET PO PRN ×2 (08:47→15:39)
--- NOTE | 2018-12-31 11:42 | Cardiology Consult Note ---
Date of Encounter: 12/31/18 Time of Encounter: 09:00 Assessment and Plan (1) Preoperative cardiovascular examination Current Visit: Yes Status: Acute Pt with multiple risk factor for CAD and intermittent chest/jaw discomfort. Slight increase in troponin to 0.05, 0.05, 0.05. Flat, adynamic- likely related to hypoxia. Do not think ACS. Will schedule for stress test tomorrow to evaluate for ischemia, risk stratify for surgery. Pt unable to have stress test today- drank coffee. Further recommendations pending results. (2) Syncope Current Visit: Yes Status: Acute Pt with multiple falls. Unclear if mechanical or due to LOC. Will continue to monitor on telemetry. Qualifiers: Syncope type: unspecified Qualified Code(s): R55 - Syncope and collapse (3) Shoulder fracture, left Current Visit: Yes Status: Acute Per orthopedic surgery team. Qualifiers: Encounter type: initial encounter Fracture type: closed Qualified Code(s): S42.92XA - Fracture of left shoulder girdle, part unspecified, initial encounter for closed fracture Discussion w patient/family: The assessment and plan as outlined above was discussed with the patient and/or family members who expressed understanding and agreement. All questions were answered. Thank you for involving us in the care of your patient. Please call with any questions. History of Present Illness Consult date: 12/31/18 Requesting physician: Abby Bustillo Consult reason: chest pain, preoperative cardiac clearance Chief complaint: fall History of present illness: Ms. Hodge is a 73 year old female with COPD on home O2, tobacco use, HTN, lung CA presents to [facility] after a fall. Pt states was up walking using her walker when became dizzy/lightheaded. Reached out for a chair to sit down, but next thing knew was on the floor. Thinks she had LOC for few seconds. She was unable to get off floor, so contacted EMS. On arrival of EMS, per notes, O2 sats were 74%. Taken to [place] ED and noted to have acute L shoulder fracture. Pt was to have surgery yesterday evening but mentioned to anesthesia that had been having intermittent chest discomfort. Surgery postponed. For past few months, pt has had intermittent chest pain radiating to jaw. Asso ciated with diaphoresis. Symptoms can occur at rest or with exertion. Has increased in frequency over past few weeks. Denies prior cardiac history. Pt states has had multiple falls over past year. Unsure if has had LOC during all of them. Of note, pt has been in hospice earlier this year due to lung CA as well as ischemic colitis. ---- Echocardiogram 12/30/18: Impressions: LVEF >70%. Normal LV chamber size, wall thickness and function. Mild left ventricular diastolic dysfunction. Normal right ventricular structure and function. No evidence of pulmonary hypertension. No significant valvular dysfunction. Past Med Surg Social Fam HX - Past Medical History Medical history: cancer, COPD, DVT, hypertension, osteoporosis, seizures, other Additional medical history: lung cancer Psychiatric history: anxiety, depression - Past Surgical History Surgical History: hip replacement, orthopedic, other, other Additional surgical history: carpal tunnel, left hip replacement. - Social History Smoking Status: Current every day smoker Packs per day: 1/2 Smokeless Tobacco Status: No (10 cigarretes/day) Alcohol use: none Drug use: none - Family History Mother Living Status: Age at : 72 Hx Family Respiratory Disorders: Yes (COPD, emphysema) Father Living Status: Age at : 68 Cause of : WA Hx Family Cardiac Disorders: Yes (WA) Brother Hx Family Cardiac Disorders: Yes (CAD s/p PCI) Sister Hx Family Cardiac Disorders: Yes (CAD s/p PCI) Medications and Allergies LORazepam [Ativan] 1 mg PO Q2H PRN 01/04/17 [History] Oxygen 2 l NS AD 01/04/17 [History] Amitriptyline HCl 100 mg PO HS 04/22/18 [History] Lisinopril [Zestril] 20 mg PO DAILY 04/22/18 [History] Ondansetron HCl 4 mg PO Q6H PRN 04/22/18 [History] OxyCODONE Immed Rel [Roxicodone 20 MG] 20 mg PO Q4H PRN 04/22/18 [History] OxyCODONE Immed Rel [Roxicodone 30 MG] 60 mg PO Q8H 04/22/18 [History] Docusate Sodium [Stool Softener] 100 mg PO BID 12/31/18 [History] Sertraline HCl 100 mg PO DAILY 12/31/18 [History] dexAMETHasone [Decadron] TID 12/31/18 [History] levETIRAcetam [Roweepra] 500 mg PO BID 12/31/18 [History] Allergy/AdvReac Type Severity Reaction Status Date / Time No Known Allergies Allergy Verified 08/07/17 11:17 All Systems Review: The remainder of the systems were reviewed and are negative - Cardiovascular Cardiovascular: as per HPI Physical Examination Vital Signs, Last 4 Hours Resp Pulse Ox 12/31/18 09:49 18 94 General: Conversant, No Apparent Distress, Other (appears chronically ill) HEENT: Atraumatic, Normocephaly, Mucus Membranes Moist Neck: No JVD, Normal carotid pulses Cardiac: Reg Rate and Rhythm, Normal S1 and S2, No Murmur Lungs: Other (decreased BS throughout b/l) Neuro: Alert and responsive, No focal deficits noted Abdomen: Soft, Non-Tender Skin: No rashes noted on visualized skin Musculoskeletal: No Chest Wall Tenderness Extremities: No Clubbing, No Cyanosis, No Edema, Normal Pulses, Other (L arm in sling) Results 12/30/18 11:42 12/30/18 11:42 Lab Results 12/30/18 12/30/18 12/30/18 11:42 11:42 16:54 Hgb 15.4 Hct 48.4 H Sodium 137 Potassium 4.2 Chloride 99 Carbon Dioxide 31 H BUN 44 H Creatinine 0.74 Glucose 116 H Calcium 9.4 Troponin I 0.05 H* 0.05 H* - EKG Interpretation EKG results cardiology: personally reviewed (EKG- sinus tachycardia with short TN interval, possible prior inferior WA) Consult Discharge Plan - Plan Referrals: NONE,PCP [Primary Care Provider] -
--- NOTE | 2018-12-31 11:58 | Internal Med Progress Note ---
Hospitalist Progress Note - Encounter Date of Encounter: 12/31/18 Time of Encounter: 10:00 - Subjective Interval History: Patient was seen at bedside. Denies any chest pain. Mentioned that her pain is currently in control. Was scheduled for the surgery yesterday which was not done because of the patient's chest pain, cardiology was consulted yesterday. Patient troponins were repeated which were within reasonable range, no new EKG changes were noted on the repeat EKG. Discussed with the patient that she is scheduled for surgery on Wednesday. - Exam Vitals: Temp Pulse Resp BP Pulse Ox 98.3 F 100 18 137/92 94 12/31/18 07:19 12/31/18 07:19 12/31/18 09:49 12/31/18 07:12/31/18 09:49 Exam: General: Alert and oriented, mild physical distress, able to follow commands. HEENT: No thyromegaly, no lymphadenopathy, no discharge. Eyes: No discharge. Normal conjuctiva, no icterus Respiratory: Normal vesicular breathing, no added sounds, breathing equal in both sides. on 2L NC. CVS: Normal heart sounds, no murmurs, regular rhthm, no edema Extremities: No peripheral edema, peripheral pulses intact. Left arm in sling. Gastrointestinal: Soft, nontender abdomen, normal abdominal sounds. No distention noted. Genitourinary: No paravertebral tenderness. Neurological: Alert and oriented. No focal deficits. Cranial nerves II-XII intact. - Assessment and Plan (1) Left humeral fracture Current Visit: Yes Status: Acute Assessment and Plan: Fracture of the left humerus noted on the x-ray. Patient was scheduled for surgery yesterday but it was not done because of the elevated troponins, chest pain. She will be optimized before the surgery on Wednesday. Orthopedics on board. Pain management. Pt RCRI index 1 with 6% , 30 day risk of , [place] or cardaic arrest Nothing by mouth after midnight on Wednesday. (2) Chest pain Current Visit: Yes Status: Acute Assessment and Plan: Patient mention yesterday about the chest pain before she was going for surgery. Described the chest pain is dull, radiating to the left arm and jaw. Stat echocardiogram was done which did not show any wall motion abnormalities or reduced ejection fraction. Troponins were repeated which were 0.05, she has been at 0.05 since the time of admission, no up for trend. EKG did not show any new changes. Cardiology was consulted. Patient is planned to get a stress test tomorrow. Nothing by mouth after midnight. (3) Falls frequently Current Visit: No Status: Acute Assessment and Plan: Seems to be related to physical deconditioning. Patient is unsure patient was dizzy before she falls down. She thinks that she was not likely dizzy. PT/OT consultation (4) Hypoxemia Current Visit: Yes Status: Acute Assessment and Plan: She has a history of lung cancer. Hypoxemia could be related to date. Currently she is on 2 L of oxygen, saturation high 90s. Breathing treatments as needed. (5) Elevated troponin Current Visit: No Status: Acute Assessment and Plan: Likely nonspecific. Low likelihood for ACS. Plan mentioned above. (6) Compression fracture Current Visit: Yes Status: Acute Assessment and Plan: Compression fractures of indeterminate age. Continue to monitor (7) DVT prophylaxis Current Visit: No Status: Acute Assessment and Plan: SCDs (8) Fall Current Visit: Yes Status: Acute Assessment and Plan: As mentioned previously, likely due to physical deconditioning. PT/OT. (9) Lung cancer Current Visit: No Status: Chronic Assessment and Plan: She has a history of lung cancer. Outpatient follow-up. (10) Seizure Current Visit: No Status: Chronic Assessment and Plan: On keppra for the seizure disorder continue - Time Spent with Patient Total time spent is greater than 50% in coordination of care (as documented) at patient's floor/unit and/or counseling patient: Internal Medicine: Result - Labs CBC & Chem 7: 12/30/18 11:42 12/30/18 11:42 Labs: Short CBC 12/30/18 Range/Units 11:42 Hgb 15.4 (11.5-15.4) g/dL Hct 48.4 H (35.3-44.9) % BMP 12/30/18 11:42 Sodium 137 Potassium 4.2 Chloride 99 Carbon Dioxide 31 H BUN 44 H Creatinine 0.74 Glucose 116 H Calcium 9.4 Cardiac Enzymes 12/30/18 12/30/18 Range/Units 11:42 16:54 Troponin I 0.05 H* 0.05 H* (< 0.04) ng/mL - ABG Interpretation ABG results: PT/INR, D-dimer PT 11.1 Seconds (9.4-12.1) 12/30/18 09:34 - Impressions Impressions Echocardiogram 12/30/18 13:56 Impressions: LVEF >70%. Normal LV chamber size, wall thickness and function. Mild left ventricular diastolic dysfunction. Normal right ventricular structure and function. No evidence of pulmonary hypertension. No significant valvular dysfunction. Left Ventricular Wall Motion: Rest Echo Findings The apex, apical inferior, mid inferior, basal inferior, apical anterior, mid anterior, basal anterior, apical septal, mid inferior septal, basal inferior septal, apical lateral, mid anterior lateral, basal anterior lateral, mid anterior septal, mid inferior lateral, basal anterior septal and basal inferior lateral lange were hyperkinetic. Findings: Study Quality * Technically adequate exam. ECG Findings * Normal sinus rhythm. Left Ventricle * LVEF >70%. * Normal LV chamber size, wall thickness and function. * Mild left ventricular diastolic dysfunction. Right Ventricle * Normal right ventricular structure and function. Left Atrium * Normal left atrial size. Right Atrium * Normal right atrial size. Interatrial Septum * Interatrial septum not well evaluated. Aortic Valve * Aortic valve not well visualized. * No aortic regurgitation. * No aortic stenosis. Mitral Valve * Normal mitral valve structure and function. * No mitral regurgitation. * No mitral stenosis. Tricuspid Valve * Normal tricuspid valve structure and function. * Trace tricuspid regurgitation. * No evidence of pulmonary hypertension. Pulmonic Valve * Pulmonic valve not well visualized. * No pulmonic regurgitation. Aorta * Normally sized aortic root. Pericardium * There is a trivial pericardial effusion present. IVC * Normal IVC dimensions and inspiratory collapse. Pulmonary Artery * Normal visualized portions of the main pulmonary artery. Consult Discharge Plan - Plan Referrals: NONE,PCP [Primary Care Provider] - (1) Left humeral fracture Qualifiers: Encounter type: initial encounter Humerus Location: proximal Fracture type: closed Fracture morphology: other fracture Fracture alignment: displaced Qualified Code(s): S42.292A - Other displaced fracture of upper end of left humerus, initial encounter for closed fracture (2) Chest pain Qualifiers: Chest pain type: unspecified Qualified Code(s): R07.9 - Chest pain, unspecified (8) Fall Qualifiers: Encounter type: initial encounter Qualified Code(s): W19.XXXA - Unspecified fall, initial encounter (9) Lung cancer Qualifiers: Laterality: left Lung location: unspecified part of lung Qualified Code(s): C34.92 - Malignant neoplasm of unspecified part of left bronchus or lung
[2018-12-31] MEDS: levETIRAcetam 250 MG TABLET PO SCH ×2 (13:09→20:28)
--- NOTE | 2018-12-31 15:10 | Electrocardiograph Report ---
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
--- NOTE | 2018-12-31 15:25 | Electrocardiograph Report ---
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
[2018-12-31] MEDS ORDERED: Acetaminophen IV 500 MG/50 ML INFUS..BTL IVPB ONE (21:42)
[2018-12-31] MEDS ORDERED: *HR* OxyCODONE Immed Rel 5 MG TABLET PO ONE (21:42)
[2019-01-01] MEDS: *HR* OxyCODONE Immed Rel 5 MG TABLET PO PRN ×5 (03:55→21:30)
[2019-01-01] MEDS: Ipratropium/Albuterol Neb 3 ML IH SCH ×4 (04:14→22:13)
[2019-01-01] MEDS: *HR* HYDROcodone/Acet 5/325 mg TABLET PO PRN ×3 (06:24→23:12)
[2019-01-01] MEDS ORDERED: Regadenoson 0.4 MG/5 ML SYRINGE IVP ONE (07:53)
[2019-01-01] MEDS: levETIRAcetam 250 MG TABLET PO SCH ×2 (08:49→20:58)
[2019-01-01] MEDS: Lisinopril 20 MG TABLET PO SCH (08:49)
[2019-01-01] MEDS ORDERED: SERTRALINE HCL 100 MG PO SCH (09:00)
--- NOTE | 2019-01-01 13:52 | Event Note ---
Date of Encounter: 01/01/19 Time of Encounter: 13:00 - Cardiology Event Note Pharmacologic nuclear stress test negative for ischemia/infarct, EF 68% Pt can proceed with planned orthopedic surgery with no further cardiac testing per ACC/AHA guidelines. Pt is at intermediate risk for perioperative cardiovascular complications.
--- NOTE | 2019-01-01 14:01 | Internal Med Progress Note ---
Hospitalist Progress Note - Encounter Date of Encounter: 01/01/19 Time of Encounter: 08:55 - Subjective Interval History: Seen at bedside. Denies chest pain, shortness of breath. Pain at the fracture site is well controlled. Got the stress test today. No Other overnight events. - Exam Vitals: Temp Pulse Resp BP Pulse Ox 98.0 F 100 19 158/95 97 01/01/19 11:54 01/01/19 11:54 01/01/19 11:54 01/01/19 11:54 01/01/19 11:54 Exam: General: Alert and oriented, mild physical distress, able to follow commands. HEENT: No thyromegaly, no lymphadenopathy, no discharge. Eyes: No discharge. Normal conjuctiva, no icterus Respiratory: Normal vesicular breathing, no added sounds, breathing equal in both sides. on 2L NC. CVS: Normal heart sounds, no murmurs, regular rhthm, no edema Extremities: No peripheral edema, peripheral pulses intact. Left arm in sling. Gastrointestinal: Soft, nontender abdomen, normal abdominal sounds. No distention noted. Genitourinary: No paravertebral tenderness. Neurological: Alert and oriented. No focal deficits. Cranial nerves II-XII intact. - Assessment and Plan (1) Left humeral fracture Current Visit: Yes Status: Acute Assessment and Plan: Fracture of the left humerus noted on the x-ray. Patient was scheduled for surgery but it was not done because of the elevated troponins, chest pain. Orthopedics on board. Pain management. Pt RCRI index 1 with 6% , 30 day risk of , [place] or cardaic arrest Nothing by mouth after midnight on Wednesday. (2) Chest pain Current Visit: Yes Status: Acute Assessment and Plan: Patient mentioned chest pain before she was going for surgery. Described the chest pain is dull, radiating to the left arm and jaw. Stat echocardiogram was done which did not show any wall motion abnormalities or reduced ejection fraction. Troponins were repeated which were 0.05, she has been at 0.05 since the time of admission, no up for trend. EKG did not show any new changes. Stress test is negative for any ischemia or infarct. Cardiology on board. Patient is proceeding with surgery tomorrow. (3) Hypoxemia Current Visit: Yes Status: Acute Assessment and Plan: She has a history of lung cancer. Hypoxemia could be related to that Currently she is on 2 L of oxygen, saturation high 90s. Breathing treatments as needed. (4) Elevated troponin Current Visit: No Status: Acute Assessment and Plan: Likely nonspecific. Low likelihood for ACS. Plan mentioned above. (5) Compression fracture Current Visit: Yes Status: Acute Assessment and Plan: Compression fractures of indeterminate age. Continue to monitor (6) DVT prophylaxis Current Visit: No Status: Acute Assessment and Plan: SCDs (7) Fall Current Visit: Yes Status: Acute Assessment and Plan: Liikely due to physical deconditioning. PT/OT. (8) Lung cancer Current Visit: No Status: Chronic Assessment and Plan: She has a history of lung cancer. Outpatient follow-up. (9) Seizure Current Visit: No Status: Chronic Assessment and Plan: On keppra for the seizure disorder continue - Time Spent with Patient Total time spent is greater than 50% in coordination of care (as documented) at patient's floor/unit and/or counseling patient: Internal Medicine: Result - Labs CBC & Chem 7: 12/30/18 11:42 12/30/18 11:42 - ABG Interpretation ABG results: PT/INR, D-dimer PT 11.1 Seconds (9.4-12.1) 12/30/18 09:34 Consult Discharge Plan - Plan Referrals: NONE,PCP [Primary Care Provider] - (1) Left humeral fracture Qualifiers: Encounter type: initial encounter Humerus Location: proximal Fracture type: closed Fracture morphology: other fracture Fracture alignment: displaced Qualified Code(s): S42.292A - Other displaced fracture of upper end of left humerus, initial encounter for closed fracture (2) Chest pain Qualifiers: Chest pain type: unspecified Qualified Code(s): R07.9 - Chest pain, unspecified (7) Fall Qualifiers: Encounter type: initial encounter Qualified Code(s): W19.XXXA - Unspecified fall, initial encounter (8) Lung cancer Qualifiers: Laterality: left Lung location: unspecified part of lung Qualified Code(s): C34.92 - Malignant neoplasm of unspecified part of left bronchus or lung
--- NOTE | 2019-01-01 21:00 | Orthopedics Progress Note ---
Date of Encounter: 01/01/19 Time of Encounter: 20:58 Subjective Principal diagnosis: Left shoulder fracture Interval history: The patient is without complaints except left shoulder pain. Afebrile vital signs are stable. Left arm in sling. Neurovascularly intact with regard to bilateral upper extremities. Assessment :stable. Plan : Has been cleared by hospitalist service for left total shoulder replacement tomorrow by Dr. Tabor. Dr. Tabor to provide any additional preoperative instructions and a.m. Objective Vital signs: Vital Signs Temp Pulse Resp BP Pulse Ox 01/01/19 18:41 98.0 F 107 20 123/75 96 01/01/19 16:19 97.4 F L 115 17 123/91 98 01/01/19 15:45 20 100 01/01/19 11:54 98.0 F 100 19 158/95 97 01/01/19 07:08 98.2 F 103 19 147/81 99 01/01/19 04:15 18 96 01/01/19 03:57 98.2 F 102 14 118/83 97 12/31/18 23:02 18 99 12/31/18 22:20 98.2 F 110 18 109/75 98 12/31/18 21:15 98.3 F 110 16 129/83 98 Intake and Output 01/01/19 01/01/19 01/01/19 07:59 15:59 23:59 Intake Total 0 / 50 0 / 50 50 / 50 Balance 0 / 50 0 / 50 50 / 50 Intake: Oral 0 / 50 0 / 50 50 / 50 Other: Meal Breakfast Dinner Percent of Meal Consumed 0% 10% Stool Size Moderate Stool Consistency formed Stool Characteristics Normal for Patient Stool Color Brown # Voids 0 1 1 # Bowel Movements 1 Weight 60.24 kg Patient Weight 01/01/19 23:59 Weight 60.24 kg - Labs CBC & BMP: 12/30/18 11:42 12/30/18 11:42 Labs: Abnormal lab results Hgb 16.2 g/dL (11.5-15.4) H 12/29/18 21:36 Hct 48.4 % (35.3-44.9) H 12/30/18 11:42 MCV 101.5 fL (83.0-100.0) H 12/30/18 09:34 Carbon Dioxide 31 mEq/L (23-29) H 12/30/18 11:42 BUN 44 mg/dL (8-23) H 12/30/18 11:42 BUN/Creatinine Ratio 59 (6-26) H 12/30/18 11:42 Glucose 116 mg/dL (70-105) H 12/30/18 11:42 Troponin I 0.05 ng/mL (< 0.04) H* 12/30/18 16:54 Consult Discharge Plan - Plan Referrals: NONE,PCP [Primary Care Provider] -
[2019-01-01] MEDS ORDERED: Ondansetron 4 MG/2 ML VIAL IVP PRN (21:16)
[2019-01-02] MEDS: Ipratropium/Albuterol Neb 3 ML IH SCH ×4 (04:01→22:03)
[2019-01-02] MEDS: *HR* OxyCODONE Immed Rel 5 MG TABLET PO PRN ×4 (04:50→21:37)
[2019-01-02 05:25] LABS: Basophils % 0.4 %; Eosinophils # 0.1 K/mcL (0.0-0.6); Eosinophils % 1.1 %; Hematocrit 34.9 % (35.3-44.9); Immature Granulocytes % 1.8 % (0-4); Lymphocytes # 1.6 K/mcL (0.6-4.6); Lymphocytes % 29.7 %; Mean Corpuscular HGB Conc 31.5 g/dL (31.6-35.5); Mean Corpuscular Hemoglobin 32.6 pg (28.0-33.3); Mean Corpuscular Volume 103.6 fL (83.0-100.0); Mean Platelet Volume 10.6 fL (9.4-12.4); Monocytes # 0.3 K/mcL (0.0-1.3); Monocytes % 6.3 %; Neutrophils # 3.3 K/mcL (1.6-8.9); Platelet Count 150 K/mcL (140-400); Red Blood Count 3.37 M/mcL (3.82-4.97); Red Cell Distribution Width 14.5 % (11.5-14.5); Segmented Neutrophils % 60.7 %; White Blood Count 5.4 K/mcL (4.3-11.1)
[2019-01-02 05:47] LABS: BUN/Creatinine Ratio 37 (6-26); Blood Urea Nitrogen 22 mg/dL (8-23); Calcium 8.5 mg/dL (8.6-10.3); Carbon Dioxide 28 mEq/L (23-29); Chloride 108 mEq/L (98-107); Glucose 115 mg/dL (70-105); Osmolality,Calculated 302 (280-300); Potassium 3.6 mEq/L (3.5-5.1); Sodium 144 mEq/L (136-145); eGFR For African Americans > 60 (> 60); eGFR For Non-African Americans > 60 (> 60)
--- NOTE | 2019-01-02 06:40 | Orthopedics Progress Note ---
Date of Encounter: 01/02/19 Time of Encounter: 06:39 Subjective Principal diagnosis: Left shoulder fracture Interval history: Patient seen this morning, by report cleared by cardiac perspective, plan for left total shoulder replacement reverse ball and socket. We reviewed the risks and benefits as well as recovery. All questions were answered. The patient agreed to this treatment plan and acknowledged an understanding of the treatment plan as described. Objective Vital signs: Vital Signs Temp Pulse Resp BP Pulse Ox 01/02/19 05:22 98.1 F 98 20 147/87 96 01/02/19 04:02 18 99 01/02/19 00:33 98.2 F 98 20 122/71 98 01/01/19 22:13 18 98 01/01/19 18:41 98.0 F 107 20 123/75 96 01/01/19 16:19 97.4 F L 115 17 123/91 98 01/01/19 15:45 20 100 01/01/19 11:54 98.0 F 100 19 158/95 97 01/01/19 07:08 98.2 F 103 19 147/81 99 Intake and Output 01/01/19 01/01/19 01/02/19 15:59 23:59 07:59 Intake Total 0 / 50 50 / 50 Balance 0 / 50 50 / 50 Intake: Oral 0 / 50 50 / 50 Other: Meal Breakfast Dinner Percent of Meal Consumed 0% 10% Stool Size Moderate Stool Consistency formed Stool Characteristics Normal for Patient Stool Color Brown # Voids 1 1 # Bowel Movements 1 Weight 60.25 kg Patient Weight 01/02/19 23:59 Weight 60.25 kg - Labs CBC & BMP: 01/02/19 05:00 01/02/19 05:00 Labs: Abnormal lab results RBC 3.37 M/mcL (3.82-4.97) L 01/02/19 05:00 Hgb 11.0 g/dL (11.5-15.4) L D 01/02/19 05:00 Hct 34.9 % (35.3-44.9) L 01/02/19 05:00 MCV 103.6 fL (83.0-100.0) H 01/02/19 05:00 MCHC 31.5 g/dL (31.6-35.5) L 01/02/19 05:00 Chloride 108 mEq/L (98-107) H 01/02/19 05:00 Carbon Dioxide 31 mEq/L (23-29) H 12/30/18 11:42 BUN 44 mg/dL (8-23) H 12/30/18 11:42 BUN/Creatinine Ratio 37 (6-26) H 01/02/19 05:00 Glucose 115 mg/dL (70-105) H 01/02/19 05:00 Calculated Osmolality 302 (280-300) H 01/02/19 05:00 Calcium 8.5 mg/dL (8.6-10.3) L 01/02/19 05:00 Troponin I 0.05 ng/mL (< 0.04) H* 12/30/18 16:54 Consult Discharge Plan - Plan Referrals: NONE,PCP [Primary Care Provider] -
[2019-01-02 08:13] LABS: Hematocrit 33.4 % (35.3-44.9); Hemoglobin 10.8 g/dL (11.5-15.4)
[2019-01-02] MEDS: levETIRAcetam 250 MG TABLET PO SCH ×2 (10:20→21:37)
--- NOTE | 2019-01-02 10:37 | Internal Med Progress Note ---
Hospitalist Progress Note - Encounter Date of Encounter: 01/02/19 Time of Encounter: 09:00 - Subjective Interval History: Stenosing at bedside. Denies any chest pain, shortness of breath, fever, chills, rigors. Her pain is well controlled. Currently nothing by mouth for possible surgery today. - Exam Vitals: Temp Pulse Resp BP Pulse Ox 98.1 F 52 16 131/87 97 01/02/19 10:15 01/02/19 10:15 01/02/19 10:15 01/02/19 10:15 01/02/19 10:15 Exam: General: Alert and oriented, no physical distress, able to follow commands. Respiratory: Normal vesicular breathing, no added sounds, breathing equal in both sides. on 2L NC. CVS: Normal heart sounds, no murmurs, regular rhthm, no edema Extremities: No peripheral edema, peripheral pulses intact. Left arm in sling. Gastrointestinal: Soft, nontender abdomen, normal abdominal sounds. No distenti on noted. Genitourinary: No paravertebral tenderness. Neurological: Alert and oriented. No focal deficits. Cranial nerves II-XII intact. - Assessment and Plan (1) Left humeral fracture Current Visit: Yes Status: Acute Assessment and Plan: Fracture of the left humerus noted on the x-ray. Orthopedics on board. Pain management. Pt RCRI index 1 with 6% , 30 day risk of , [place] or cardaic arrest Scheduled for the surgery today (2) Chest pain Current Visit: Yes Status: Acute Assessment and Plan: Patient mentioned chest pain before she was going for surgery on 12/30/2018. Stat echocardiogram was done which did not show any wall motion abnormalities or reduced ejection fraction. Troponins were repeated which were 0.05, she has been at 0.05 since the time of admission, no up for trend. EKG did not show any new changes. Stress test is negative for any ischemia or infarct. Patient is proceeding with surgery today (3) Hypoxemia Current Visit: Yes Status: Acute Assessment and Plan: She has a history of lung cancer. Hypoxemia could be related to that Currently she is on 2 L of oxygen, saturation high 90s. Breathing treatments as needed. (4) Elevated troponin Current Visit: No Status: Acute Assessment and Plan: Likely nonspecific. Low likelihood for ACS. Plan mentioned above. (5) Compression fracture Current Visit: Yes Status: Acute Assessment and Plan: Compression fractures of indeterminate age. Continue to monitor (6) DVT prophylaxis Current Visit: No Status: Acute Assessment and Plan: SCDs (7) Fall Current Visit: Yes Status: Acute Assessment and Plan: Liikely due to physical deconditioning. PT/OT. (8) Lung cancer Current Visit: No Status: Chronic Assessment and Plan: She has a history of lung cancer. Outpatient follow-up. (9) Drop in hemoglobin Current Visit: Yes Status: Acute Assessment and Plan: Hgb is 11, was 15 2 days back Seems like pt close to her actul hemoglobin now as she was dehydrated at presntaion. Hgb noted to be around 10-11 last year Repeat H & H did not show any further signifcant drop No signs of acitve bleed Can proceed with the surgery - Time Spent with Patient Total time spent is greater than 50% in coordination of care (as documented) at patient's floor/unit and/or counseling patient: Internal Medicine: Result - Labs CBC & Chem 7: 01/02/19 08:03 01/02/19 05:00 Labs: Short CBC 01/02/19 01/02/19 Range/Units 05:00 08:03 WBC 5.4 (4.3-11.1) K/mcL Hgb 11.0 L D 10.8 L (11.5-15.4) g/dL Hct 34.9 L 33.4 L (35.3-44.9) % Plt Count 150 (140-400) K/mcL Neutrophils # 3.3 (1.6-8.9) K/mcL BMP 01/02/19 05:00 Sodium 144 Potassium 3.6 Chloride 108 H Carbon Dioxide 28 BUN 22 Creatinine 0.60 Glucose 115 H Calcium 8.5 L - ABG Interpretation ABG results: PT/INR, D-dimer PT 11.1 Seconds (9.4-12.1) 12/30/18 09:34 Consult Discharge Plan - Plan Referrals: NONE,PCP [Primary Care Provider] - (1) Left humeral fracture Qualifiers: Encounter type: initial encounter Humerus Location: proximal Fracture type: closed Fracture morphology: other fracture Fracture alignment: displaced Qualified Code(s): S42.292A - Other displaced fracture of upper end of left humerus, initial encounter for closed fracture (2) Chest pain Qualifiers: Chest pain type: unspecified Qualified Code(s): R07.9 - Chest pain, unspecified (7) Fall Qualifiers: Encounter type: initial encounter Qualified Code(s): W19.XXXA - Unspecified fall, initial encounter (8) Lung cancer Qualifiers: Laterality: left Lung location: unspecified part of lung Qualified Code(s): C34.92 - Malignant neoplasm of unspecified part of left bronchus or lung
--- NOTE | 2019-01-02 12:34 | Anesthesia Evaluation PreOp ---
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: Seizures (last seizure 5 years ago, well controlled on medication), Syncope Other Medical History: Other (anxiety/depression) Anesthesia History: No Prior Anesthetic Complications, Past Anesthesia Alcohol Use: none Drug use: none Medications and Allergies LORazepam [Ativan] 1 mg PO BID PRN 01/04/17 [History] Amitriptyline HCl 100 mg PO HS 04/22/18 [History] Ondansetron HCl 4 mg PO Q6H PRN 04/22/18 [History] OxyCODONE Immed Rel [Roxicodone 20 MG] 20 mg PO Q4H PRN 04/22/18 [History] OxyCODONE Immed Rel [Roxicodone 30 MG] 60 mg PO Q8H 04/22/18 [History] Docusate Sodium [Stool Softener] 100 mg PO BID 12/31/18 [History] Lisinopril [Zestril] 40 mg PO DAILY 12/31/18 [History] Morphine Sulfate [Morphine Sulfate ER] 100 mg PO TID 12/31/18 [History] Sertraline [Zoloft] 100 mg PO DAILY 12/31/18 [History] dexAMETHasone [Decadron] 4 mg PO TID 12/31/18 [History] levETIRAcetam [Roweepra] 500 mg PO BID 12/31/18 [History] Allergy/AdvReac Type Severity Reaction Status Date / Time No Known Allergies Allergy Verified 08/07/17 11:17 - Meds/Allergy Pre-op Review Medications Reviewed: Yes Allergies Reviewed: Yes Beta Blockers on Current Med List: No Anesthesia Results - Labs 01/02/19 08:03 01/02/19 05:00 - Imaging EKG: report reviewed (12/31/2018 SINUS TACHYCARDIA WITH SHORT VA INTERVAL PATTERN CONSISTENT WITH PULMONARY DISEASE INFERIOR MYOCARDIAL INFARCTION, OF INDETERMINATE AGE) Chest x-ray: report reviewed (12/29/2018 IMPRESSION: Emphysema with shallow inspiratory effort. Left basilar opacities could reflect atelectasis, infectious airspace disease or pulmonary infarct in the appropriate context.) Additional studies: 01/01/2019 Stress Impression: Pharmacologic stress ECG is negative for ischemia at level of heart rate achieved. Gated EF = 68%. Perfusion imaging was negative for ischemia or infarct. 12/30/2018 Echo Impressions: LVEF >70%. Normal LV chamber size, wall thickness and function. Mild left ventricular diastolic dysfunction. Normal right ventricular structure and function. No evidence of pulmonary hypertension. No significant valvular dysfunction. Anesthesia Exam Vital Signs/O2 Sat, Most Current Temp Pulse Resp BP Pulse Ox 98.1 F 52 16 131/87 99 01/02/19 10:15 01/02/19 10:15 01/02/19 10:48 01/02/19 10:15 01/02/19 10:48 Height: 5'2''/1.57m Weight: 132 lbs/60 kg NPO (# of Hours): 8 Pain Scale: 7 (left arm) Pain Scale Used: Numeric (1 - 10) - HEENT Pupil (Motor): EOMI Mallampati: II Teeth: Normal, Poor dentition Denture Type: Upper: Complete Oral Opening: Greater than 3 - COKE WORKER LOC: Oriented COKE WORKER Motor: Normal RUE, Normal LUE, Normal RLE, Normal LLE, Normal Face COKE WORKER Sensory: Normal: RUE, LUE, RLE, LLE, Face - Cardiac Rhythm: Regular Murmur: None - Pulmonary Breath Sounds: bilateral Clear (decreased BS) Respiratory Effort: Symmetrical Anesthesia Assess/Plan ASA Score: 4 Level of consciousness: Cooperative, Oriented, Tranquil Anesthetic Plan: General, Regional Nerve Block Regional Nerve Block Plan: Supraclavicular Monitoring Plan: Standard Monitors Recovery Plan: PACU
[2019-01-02] MEDS: Lisinopril 20 MG TABLET PO SCH (14:36)
[2019-01-02] MEDS ORDERED: Ethanol\\Acetic Acid\\Na Ace\\Ben 1,000 ML IRRIG.SOLN IR ONE (17:07)
[2019-01-02] MEDS ORDERED: Ropivacaine/PF 0.5% 30 ML VIAL ONE (17:14)
[2019-01-02] MEDS ORDERED: Dexamethasone 4 MG/ML VIAL ONE (18:03)
[2019-01-02] MEDS ORDERED: Ondansetron 4 MG/2 ML VIAL ONE (18:03)
[2019-01-02] MEDS ORDERED: *HR* Succinylcholine 200 MG/10 ML VIAL IVP ONE (18:15)
[2019-01-02] MEDS ORDERED: Lidocaine -MPF 2% 2 ML VIAL ONE (18:15)
[2019-01-02] MEDS ORDERED: *HR* Propofol 200 MG/20 ML VIAL IVP ONE (18:15)
[2019-01-02] MEDS ORDERED: *HR* FentaNYL (PF) 100 MCG/2 ML VIAL ONE (18:15)
[2019-01-02] MEDS ORDERED: *HR* Midazolam HCl 2 MG/2 ML VIAL ONE (18:18)
[2019-01-02] MEDS ORDERED: ceFAZolin 2,000 MG in Water for inj. (sterile) 20 ML IVP ONE (18:20)
--- NOTE | 2019-01-02 18:33 | Orthopedic Operative Note ---
Date of procedure: 01/02/19 Pre-op diagnosis: Displaced left proximal humerus fracture Post-op diagnosis: same Procedure: Procedure: Total Shoulder Replacment Reverse, left Estimated blood loss: 100 cc Hardware: Metal and polyethylene replacement: Arthrex 24, +4 , 30 mm screw gle noid baseplate, 4 locking 5.5 screw, 42+4 glenosphere, 9 revision humeral stem, poly insert 6 constrained Procedural Notes: Displaced proximal humerus fracture Operative procedure: The patient was brought to the operating room and placed on the operating room table. After general anesthesia was administered the operative shoulder was examined. Findings were noted. The patient was placed in the modified beachchair position. All pressure points were padded appropriately. And the head was stabilized in the neutral position. The operative extremity was prepped and draped in the sterile surgical fashion. The patient received IV antibiotics prior to skin incision. A standard deltopectoral approach was made to the operative shoulder. Incision was made to the skin and subcutaneous tissue,hemo stasis was obtained with Bovie cautery. Using careful blunt dissection the cephalic vein was identified and mobilized medially. The deltopectoral interval was developed and the clavipecto ral fascia was incised. The patient had a displaced proximal humerus fracture, the humeral shaft was poking through the clavipectoral fascia the humeral head was identified and excised and removed. Anterior and posterior Bankart retractors were placed to expose the glenoid. The glenoid guide was seated and the centering hole was made. It was reamed with the appropriate reamer. The baseplate was seated and secured with 4 locking 5.5 screw. The baseplate was irrigated and dried and the Glenosphere was seated and secured with the Dennison taper. The Dennison taper was tested and found to be secure, glenosphere fixation was secondarily secured with the central screw. The humerus was redislocated and prepared with the diaphyseal reamers, followed by a broaching process up to the 9 revision stem in 20 degrees of retroversion. Trial reduction found the shoulder to be relocatable. Trial components were removed and the 9 revision stem was impacted in place in 20 degrees of retroversion. Trial reduction found the shoulder to be relocatable and stable with the appropriate 6 constrained poly. Trial component was removed and the real implant was seated and secured the shoulder was reduced. The shoulder had excellent motion and excellent stability and no evidence of dislocation. The deep tissue was irrigated with pulse irrigation. The PA close the shoulder. The deltopectoral interval was closed with a running #1 PDS suture, subcutaneous tissue was irrigated and closed with 0 PDS suture, the skin was closed with skin josue The patient was placed in a sterile dressing, abduction brace and extubated. The patient was then transferred to the recovery room in stable condition. Anesthesia: GETA Surgeon: Cooper Tabor Was there an child life assistant present: No Estimated blood loss (cc): 100 Condition: stable Disposition: PACU
--- NOTE | 2019-01-02 18:35 | Anesthesia Procedures ---
Date of Encounter: 01/02/19 Time of Encounter: 17:35 Procedures: Anesthesia - Nerve Block Procedure Date: 01/02/19 Time: 17:35 Allergies/Adv Reactions: nkda Surgical Procedure: left shoulder reverse ball Checklist: Correct Patient Identifier, Correct procedure, History checked Correct side: Left Blood Thinner: No Monitor Applied: EKG, BP, Pulse Oximetry Supplemental Oxygen via Nasal Cannula (L/min): 2 Sedation: Versed (mg): 1 Indication: Post Op Analgesia Block Type: Supraclavicular Catheter placed: No Sterile Technique: Yes Ultrasound used: Yes Anatomy identified: Yes Visual spread of Local: Yes Neuro Stimulation: No Blood on Needle Aspiration: No Smooth Injection of Local: Yes Pain with Injection of Local: No Prep: Chlorhexadine Needle: 22 x 50 mm Stimuplex Local: Ropivacaine (0.2%) Volume (cc): 30 Number of Attempts: 1 Complications: None/effective block
[2019-01-02] MEDS ORDERED: Albuterol 2.5 MG/3 ML NEBULIZER IH PRN (19:43)
[2019-01-02] MEDS ORDERED: MOM Conc 10 ML UD.LIQ PO PRN (19:43)
[2019-01-02] MEDS ORDERED: Ondansetron 4 MG/2 ML VIAL IVP PRN (19:43)
[2019-01-02] MEDS ORDERED: Ringers Solution, Lactated 1,000 ML IVC SCH (19:43)
[2019-01-02] MEDS ORDERED: Naloxone 0.4 MG/ML INJ IVP PRN (19:43)
[2019-01-02] MEDS ORDERED: Sennosides 8.6 MG TABLET PO PRN (19:43)
[2019-01-02] MEDS ORDERED: Temazepam 15 MG CAPSULE PO PRN (19:43)
--- NOTE | 2019-01-02 20:17 | Anesthesia Evaluation Post Op ---
Date of Encounter: 01/02/19 Time of Encounter: 20:16 - Vital Signs Vital Signs: Vital Signs/O2 Sat, Most Current Temp Pulse Resp BP Pulse Ox 97.8 F 94 16 131/88 98 01/02/19 19:47 01/02/19 19:47 01/02/19 19:47 01/02/19 19:47 01/02/19 19:47 - Lungs Lungs: Clear Ascult./Percussion - Airway Airway: Non-obstructed - Cardiovascular Regular Rate - Mental Status Mental Status: Baseline Status - Pain Pain Scale: 0 Pain Scale used: Numeric (1 - 10) - Nausea Vomiting Nausea Vomiting: Not Present - Hydration Hydration: Ice chips - Discharge PostOp Status: Transfer Patient to floor
[2019-01-02 20:59] LABS: Hematocrit 35.4 % (35.3-44.9); Hemoglobin 11.3 g/dL (11.5-15.4)
[2019-01-02] MEDS: *HR* HYDROcodone/Acet 5/325 mg TABLET PO PRN (22:43)
[2019-01-03] MEDS: Ipratropium/Albuterol Neb 3 ML IH SCH ×4 (04:11→22:36)
--- NOTE | 2019-01-03 06:20 | Orthopedics Progress Note ---
Date of Encounter: 01/03/19 Time of Encounter: 06:20 Subjective Principal diagnosis: Left shoulder fracture Interval history: Patient was seen this morning doing well without complaints. Afebrile vital signs stable. Operative extremity: Neurovascularly intact Dressing clean dry and intact Calves nontender Assessment and plan: Continue with postoperative care Objective Vital signs: Vital Signs Temp Pulse Resp BP Pulse Ox 01/03/19 04:12 16 98 01/03/19 03:45 98.2 F 101 14 124/88 98 01/02/19 22:40 97.7 F 112 18 137/80 93 01/02/19 22:03 16 97 01/02/19 21:34 98 F 104 16 130/85 98 01/02/19 20:43 97.7 F 102 16 134/84 97 01/02/19 20:34 97.5 F L 97 16 136/82 99 01/02/19 19:47 97.8 F 94 16 131/88 98 01/02/19 19:21 97.9 F 96 16 141/82 97 01/02/19 19:11 95 16 122/85 97 01/02/19 19:01 91 16 135/79 99 01/02/19 18:51 97.9 F 91 16 133/83 98 01/02/19 17:39 109 129/81 98 01/02/19 16:01 16 99 01/02/19 14:58 97.6 F 106 17 143/81 95 01/02/19 10:48 16 99 01/02/19 10:15 98.1 F 52 16 131/87 97 01/02/19 09:00 98 01/02/19 06:57 98.4 F 94 15 119/76 99 Intake and Output 01/02/19 01/02/19 01/03/19 15:59 23:59 07:59 Intake Total 100 / 100 200 / 200 Output Total 300 / 700 100 / 700 0 / 0 Balance -300 / -600 0 / -600 200 / 200 Intake: IV Fluids 100 / 100 Ancef 2,000 MG In 0.9 % Sodium 100 / 100 Chloride 100 ML @ 200 mls/hr IVPB Q8HR [facility] Rx#:[id number] Oral 100 / 100 100 / 100 Output: Urine 300 / 600 0 / 600 0 / 0 Estimated Blood Loss 100 / 100 Other: Weight 61.45 kg Patient Weight 01/03/19 23:59 Weight 61.45 kg - Labs CBC & BMP: 01/02/19 20:42 01/02/19 05:00 Labs: Abnormal lab results RBC 3.37 M/mcL (3.82-4.97) L 01/02/19 05:00 Hgb 11.3 g/dL (11.5-15.4) L 01/02/19 20:42 Hct 33.4 % (35.3-44.9) L 01/02/19 08:03 MCV 103.6 fL (83.0-100.0) H 01/02/19 05:00 MCHC 31.5 g/dL (31.6-35.5) L 01/02/19 05:00 Chloride 108 mEq/L (98-107) H 01/02/19 05:00 Carbon Dioxide 31 mEq/L (23-29) H 12/30/18 11:42 BUN 44 mg/dL (8-23) H 12/30/18 11:42 BUN/Creatinine Ratio 37 (6-26) H 01/02/19 05:00 Glucose 115 mg/dL (70-105) H 01/02/19 05:00 POC Glucose 120 mg/dL (70-99) H 01/02/19 06:57 Calculated Osmolality 302 (280-300) H 01/02/19 05:00 Calcium 8.5 mg/dL (8.6-10.3) L 01/02/19 05:00 Troponin I 0.05 ng/mL (< 0.04) H* 12/30/18 16:54 Consult Discharge Plan - Plan Referrals: NONE,PCP [Primary Care Provider] -
[2019-01-03] MEDS: *HR* OxyCODONE Immed Rel 5 MG TABLET PO PRN ×4 (08:03→20:58)
[2019-01-03] MEDS: Lisinopril 20 MG TABLET PO SCH (08:03)
[2019-01-03] MEDS: levETIRAcetam 250 MG TABLET PO SCH ×2 (08:03→20:58)
--- NOTE | 2019-01-03 09:13 | Internal Med Progress Note ---
Hospitalist Progress Note - Encounter Date of Encounter: 01/03/19 Time of Encounter: 08:15 - Subjective Interval History: Pt was seen at bedside. Cardiology surgery yesterday. Complaining of mild pain at the surgical site that is not controlled with the current pain medication regimen. Denies any chest pain or shortness of breath. No other overnight events. Looking comfortable. Eating the breakfast. - Exam Vitals: Temp Pulse Resp BP Pulse Ox 97.8 F 105 16 133/85 98 01/03/19 06:58 01/03/19 06:58 01/03/19 06:58 01/03/19 06:58 01/03/19 06:58 Exam: General: Alert and oriented, no physical distress, able to follow commands. Respiratory: Normal vesicular breathing, no added sounds, breathing equal in both sides. on 2L NC. CVS: Normal heart sounds, no murmurs, regular rhthm, no edema Extremities: No peripheral edema, peripheral pulses intact. Left arm in sling. Gastrointestinal: Soft, nontender abdomen, normal abdominal sounds. No distention noted. Genitourinary: No paravertebral tenderness. Neurological: Alert and oriented. No focal deficits. Cranial nerves II-XII intact. - Assessment and Plan (1) Left humeral fracture Current Visit: Yes Status: Acute Assessment and Plan: Fracture of the left humerus noted on the x-ray. Patient got the surgery yesterday. Tolerated it well. Currently postop with c omplaints of more pain as compared to prior to surgery. Orthopedics on board. PT/OT. Plan placement. Pain management. (2) Chest pain Current Visit: Yes Status: Acute Assessment and Plan: Patient mentioned chest pain before she was going for surgery on 12/30/2018. Stat echocardiogram was done which did not show any wall motion abnormalities or reduced ejection fraction. Troponins were repeated which were 0.05, she has been at 0.05 since the time of admission, no up for trend. EKG did not show any new changes. Stress test is negative for any ischemia or infarct. Patient got surgery yesterday without any troubles, tolerated it well. (3) Elevated troponin Current Visit: No Status: Acute Assessment and Plan: Likely nonspecific. Low likelihood for ACS. Plan mentioned above. (4) Compression fracture Current Visit: Yes Status: Acute Assessment and Plan: Compression fractures of indeterminate age. Continue to monitor Pain management. (5) DVT prophylaxis Current Visit: No Status: Acute Assessment and Plan: SCDs (6) Fall Current Visit: Yes Status: Acute Assessment and Plan: Liikely due to physical deconditioning. PT/OT. (7) Lung cancer Current Visit: No Status: Chronic Assessment and Plan: She has a history of lung cancer. Outpatient follow-up. (8) Drop in hemoglobin Current Visit: Yes Status: Acute Assessment and Plan: Hgb is 11, was 15 at the time of presentation Seems like pt close to her actul hemoglobin now as she was dehydrated at presntaion. Hgb noted to be around 10-11 last year Current hemoglobin stable. (9) Acute respiratory failure with hypoxia Current Visit: Yes Status: Acute Assessment and Plan: Patient was found to be hypoxemic with a saturation and 74 partial coming to the hospital. Was most likely related to underlying lung cancer. Current saturations are in high 90s on 2 L of oxygen.. Continue to monitor. - Time Spent with Patient Total time spent is greater than 50% in coordination of care (as documented) at patient's floor/unit and/or counseling patient: Internal Medicine: Result - Labs CBC & Chem 7: 01/02/19 20:42 01/02/19 05:00 Labs: Short CBC 01/02/19 Range/Units 20:42 Hgb 11.3 L (11.5-15.4) g/dL Hct 35.4 (35.3-44.9) % - ABG Interpretation ABG results: PT/INR, D-dimer PT 11.1 Seconds (9.4-12.1) 12/30/18 09:34 - Impressions Impressions Shoulder X-Ray 01/02/19 19:50 IMPRESSION: Satisfactory appearance status post reverse shoulder arthroplasty D/ / Boris Felton MD / Boris Felton MD Interpreting Provider: Boris Felton MD Consult Discharge Plan - Plan Referrals: NONE,PCP [Primary Care Provider] - (1) Left humeral fracture Qualifiers: Encounter type: initial encounter Humerus Location: proximal Fracture type: closed Fracture morphology: other fracture Fracture alignment: displaced Qualified Code(s): S42.292A - Other displaced fracture of upper end of left humerus, initial encounter for closed fracture (2) Chest pain Qualifiers: Chest pain type: unspecified Qualified Code(s): R07.9 - Chest pain, unspecified (6) Fall Qualifiers: Encounter type: initial encounter Qualified Code(s): W19.XXXA - Unspecified fall, initial encounter (7) Lung cancer Qualifiers: Laterality: left Lung location: unspecified part of lung Qualified Code(s): C34.92 - Malignant neoplasm of unspecified part of left bronchus or lung
[2019-01-03] MEDS: *HR* HYDROcodone/Acet 5/325 mg TABLET PO PRN ×2 (10:19→18:29)
--- NOTE | 2019-01-03 11:22 | Event Note ---
Date of Encounter: 01/03/19 Time of Encounter: 09:30 POD#1 s/p left total shoulder reverse 01/02 Dr. Tabor Patient seen at bedside. A&Ox3 Dressing and incision c/d/i Brace in place No calf tenderness, erythema, or warmth. Neurovascularly intact b/l LE. Labwork, vitals, and medications reviewed. Pain control: Adequate Participating in therapy. All questions and concerns addressed. Educated on use of incentive spirometer, ambulation, and hydration. Patient educated on post-operative restrictions and care. Addressed: NO SHOULDER MOTION X 6 WEEKS POSTOPERATIVELY APPLY BRACE AT ALL TIMES X 6 WEEKS POSTOPERATIVELY REMOVE FOR HYGIENE AND HAND/ELBOW EXERCISES ONLY ICE and elevate extremity frequently throughout the day. PT/OT FOR ELBOW/WRIST MOTION ONLY, AGAIN, NO SHOULDER MOTION NONWEIGHTBEARING TO THE LEFT UPPER EXTREMITY Patient course and disposition discussed with Dr. Tabor D/C plan: Appropriate for discharge from orthopedic perspective
[2019-01-03] MEDS: Acetaminophen 325 MG TABLET PO PRN ×2 (15:47→22:55)
[2019-01-03] MEDS ORDERED: Isovue-370 500 ML BOTTLE IVP ONE (18:17)
[2019-01-03] MEDS ORDERED: 0.9 % Sodium Chloride 500 ML ONE (18:23)
[2019-01-03] MEDS: *HR* Heparin 5,000 UNIT/ML VIAL SQ SCH (18:29)
[2019-01-03] MEDS ORDERED: 0.9 % Sodium Chloride 1,000 ML IVC SCH (18:30)
[2019-01-04] MEDS: *HR* OxyCODONE Immed Rel 5 MG TABLET PO PRN ×4 (02:41→18:34)
[2019-01-04] MEDS: Ipratropium/Albuterol Neb 3 ML IH SCH ×3 (04:07→15:57)
[2019-01-04 05:00] LABS: Basophils % 0.3 %; Eosinophils # 0.1 K/mcL (0.0-0.6); Eosinophils % 0.7 %; Hematocrit 30.2 % (35.3-44.9); Hemoglobin 9.8 g/dL (11.5-15.4); Immature Granulocytes % 1.3 % (0-4); Lymphocytes # 1.6 K/mcL (0.6-4.6); Lymphocytes % 23.2 %; Mean Corpuscular HGB Conc 32.5 g/dL (31.6-35.5); Mean Corpuscular Hemoglobin 33.1 pg (28.0-33.3); Mean Platelet Volume 10.9 fL (9.4-12.4); Monocytes # 0.4 K/mcL (0.0-1.3); Monocytes % 5.8 %; Neutrophils # 4.6 K/mcL (1.6-8.9); Platelet Count 195 K/mcL (140-400); Red Blood Count 2.96 M/mcL (3.82-4.97); Red Cell Distribution Width 14.9 % (11.5-14.5); Segmented Neutrophils % 68.7 %; White Blood Count 6.7 K/mcL (4.3-11.1)
[2019-01-04] MEDS: *HR* Heparin 5,000 UNIT/ML VIAL SQ SCH (05:03)
[2019-01-04] MEDS: *HR* HYDROcodone/Acet 5/325 mg TABLET PO PRN ×3 (05:07→17:22)
[2019-01-04 05:19] LABS: BUN/Creatinine Ratio 39 (6-26); Blood Urea Nitrogen 23 mg/dL (8-23); Calcium 8.7 mg/dL (8.6-10.3); Carbon Dioxide 21 mEq/L (23-29); Chloride 109 mEq/L (98-107); Glucose 131 mg/dL (70-105); Osmolality,Calculated 291 (280-300); Potassium 3.7 mEq/L (3.5-5.1); Sodium 138 mEq/L (136-145); eGFR For African Americans > 60 (> 60); eGFR For Non-African Americans > 60 (> 60)
--- NOTE | 2019-01-04 08:00 | Orthopedics Progress Note ---
Date of Encounter: 01/04/19 Time of Encounter: 08:00 Subjective Principal diagnosis: Left shoulder fracture Interval history: Patient was seen this morning doing well without complaints. Afebrile vital signs stable. Operative extremity: Neurovascularly intact Dressing clean dry and intact Calves nontender Assessment and plan: Continue with postoperative care Awaiting placement Objective Vital signs: Vital Signs Temp Pulse Resp BP Pulse Ox 01/04/19 07:31 98.2 F 105 17 142/83 98 01/04/19 04:07 16 100 01/04/19 03:59 98.4 F 106 14 129/83 100 01/03/19 22:36 16 98 01/03/19 22:14 99.6 F 88 16 124/74 95 01/03/19 19:44 98.0 F 121 17 137/92 98 01/03/19 16:41 20 97 01/03/19 11:17 98.5 F 114 18 137/83 96 01/03/19 11:04 20 99 Intake and Output 01/03/19 01/04/19 01/04/19 23:59 07:59 15:59 Intake Total 200 / 200 Balance 200 / 200 Intake: Oral 200 / 200 Other: # Voids 0 - Labs CBC & BMP: 01/04/19 04:30 01/04/19 04:30 Labs: Abnormal lab results RBC 2.96 M/mcL (3.82-4.97) L 01/04/19 04:30 Hgb 9.8 g/dL (11.5-15.4) L D 01/04/19 04:30 Hct 30.2 % (35.3-44.9) L 01/04/19 04:30 MCV 102.0 fL (83.0-100.0) H 01/04/19 04:30 MCHC 31.5 g/dL (31.6-35.5) L 01/02/19 05:00 RDW 14.9 % (11.5-14.5) H 01/04/19 04:30 Chloride 109 mEq/L (98-107) H 01/04/19 04:30 Carbon Dioxide 21 mEq/L (23-29) L 01/04/19 04:30 BUN 44 mg/dL (8-23) H 12/30/18 11:42 Creatinine 0.59 mg/dL (0.60-1.20) L 01/04/19 04:30 BUN/Creatinine Ratio 39 (6-26) H 01/04/19 04:30 Glucose 131 mg/dL (70-105) H 01/04/19 04:30 POC Glucose 120 mg/dL (70-99) H 01/02/19 06:57 Calculated Osmolality 302 (280-300) H 01/02/19 05:00 Calcium 8.5 mg/dL (8.6-10.3) L 01/02/19 05:00 Troponin I 0.05 ng/mL (< 0.04) H* 12/30/18 16:54 Consult Discharge Plan - Plan Referrals: NONE,PCP [Primary Care Provider] -
--- NOTE | 2019-01-04 08:38 | Pain Management Consultation ---
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 Otherwise, these are recommendations for oral analgesia. I reviewed the patient's state prescription drug report which indicates a recent prescription for morphine 100 mg extended release 3 times a day as well as oxycodone 60 mg every 4 hours when necessary. I discussed the treatment possibilities for upper thoracic compression fractures. The patient does not want more surgery, and because her neurologic exam is normal, I think we can treat her fractures conservatively. We are not even sure if they are acute at this stage because we do not have an MRI. I suggest placing the patient on her home doses of oral pain medication. Since she has been taken off these doses while admitted to the hospital for shoulder surgery, I would gradually titrate the dose of oxycodone back to her original dose. I suggest starting the oxycodone dose at 30 mg every 4 hours when necessary and increasing back to oxycodone 60 mg every 4 hours when necessary. The assessment and plan as outlined above was discussed with the patient and/or family members who expressed understanding and agreement. All questions were answered. The assessment and plan as outlined above was discussed with the patient and/or family members who expressed understanding and agreement. All questions were answered. History of Present Illness Chief complaint: back pain HPI: Ms. Hodge is a 73 year old female who has pain in the upper back that does not radiate into her arms. She had a fall approximately one year ago. Pain in her back has been a long-standing problem over a period of several years. Pain scor e in the upper back is 8/10. She is able to sit comfortably, eat, and sit up in bed without much increase in her pain. Pain is aching and sharp in nature. Past Med Surg Social Fam HX - Past Medical History Medical history: cancer, COPD, DVT, hypertension, osteoporosis, seizures, other Additional medical history: lung cancer Psychiatric history: anxiety, depression - Past Surgical History Surgical History: hip replacement, orthopedic, other, other Additional surgical history: carpal tunnel, left hip replacement. - Social History Smoking Status: Current every day smoker Packs per day: 1/2 Smokeless Tobacco Status: No (10 cigarretes/day) Alcohol use: none Drug use: none - Family History Mother Living Status: Age at : 72 Hx Family Respiratory Disorders: Yes (COPD, emphysema) Brother Hx Family Cardiac Disorders: Yes (CAD s/p PCI) Sister Hx Family Cardiac Disorders: Yes (CAD s/p PCI) Father Living Status: Age at : 68 Cause of : HI Hx Family Cardiac Disorders: Yes (HI) Medications and Allergies LORazepam [Ativan] 1 mg PO BID PRN 01/04/17 [History] Amitriptyline HCl 100 mg PO HS 04/22/18 [History] Ondansetron HCl 4 mg PO Q6H PRN 04/22/18 [History] OxyCODONE Immed Rel [Roxicodone 20 MG] 20 mg PO Q4H PRN 04/22/18 [History] OxyCODONE Immed Rel [Roxicodone 30 MG] 60 mg PO Q8H 04/22/18 [History] Docusate Sodium [Stool Softener] 100 mg PO BID 12/31/18 [History] Lisinopril [Zestril] 40 mg PO DAILY 12/31/18 [History] Morphine Sulfate [Morphine Sulfate ER] 100 mg PO TID 12/31/18 [History] Sertraline [Zoloft] 100 mg PO DAILY 12/31/18 [History] dexAMETHasone [Decadron] 4 mg PO TID 12/31/18 [History] levETIRAcetam [Roweepra] 500 mg PO BID 12/31/18 [History] Allergy/AdvReac Type Severity Reaction Status Date / Time No Known Allergies Allergy Verified 08/07/17 11:17 Review of Systems - Constitutional Constitutional ROS IM: no photophobia, no phonophobia, no daytime sleepiness, no fever(s), no stops breathing during sleep - EENT Nose, mouth and throat: no headache(s), no neck pain, no neck trauma - Cardiovascular Cardiovascular ROS: no chest pain, no leg edema, no lightheadedness - Respiratory Respiratory: no pain on inspiration, no pain with cough - Gastrointestinal Gastrointestinal: no abdominal pain, no constipation, no diarrhea, no heartburn - Genitourinary Genitourinary ROS: no difficulty urinating, no flank pain, no urinary hesitancy - Musculoskeletal Musculoskeletal ROS: no muscle weakness, no numbness, no radiating pain into limb, no tingling - Integumentary Integumentary: no erythema, no lesions, no swelling - Neurological Neurological ROS: no abnormal gait, no behavioral changes, no focal weakness, no radicular pain - Psychiatric Psychiatric general: no anxiety, no confusion, no depression - Hematologic/Lymphatic Hematologic/Lymphatic pediatric: no easy bleeding, no easy bruising Physical Exam Initial Vital Signs Temp Pulse Resp BP Pulse Ox 97.4 F L 126 18 135/98 92 12/29/18 20:33 12/29/18 20:33 12/29/18 20:33 12/29/18 20:33 12/29/18 20:33 - Additional Findings EYES:: pupils equal and round, no myosis. SKIN:: no areas of echymoses or petechiae CARDIOVASCULAR:: regular rate and rhythm PULMONARY:: Quiet, normal respiratory pattern. GASTROINTESTINAL:: soft, NT MUSCULOSKELETAL PALPATION:: Tender over spinous processes in the upper thoracic spine NEUROLOGIC SENSATION:: hypesthesia is not noted in the anterior chest wall there is mild hypesthesia in the right upper arm PSYCHIATRIC:: ORIENTATION:: awake and alert. INSIGHT:: good awareness of illness. AFFECT:: pleasant. Radiology Images Viewed By Me:: December 2018 CT of the chest shows new T2 and T5 compression deformity Recent troponin positive, platelets normal I have reviewed and agree with information documented in the scribed documentation, ROS, patient medications, allergies, medical history, surgical history, social history, and family history. Results - Labs 01/04/19 04:30 01/04/19 04:30 Abnormal lab results RBC 2.96 M/mcL (3.82-4.97) L 01/04/19 04:30 Hgb 9.8 g/dL (11.5-15.4) L D 01/04/19 04:30 Hct 30.2 % (35.3-44.9) L 01/04/19 04:30 MCV 102.0 fL (83.0-100.0) H 01/04/19 04:30 MCHC 31.5 g/dL (31.6-35.5) L 01/02/19 05:00 RDW 14.9 % (11.5-14.5) H 01/04/19 04:30 Chloride 109 mEq/L (98-107) H 01/04/19 04:30 Carbon Dioxide 21 mEq/L (23-29) L 01/04/19 04:30 BUN 44 mg/dL (8-23) H 12/30/18 11:42 Creatinine 0.59 mg/dL (0.60-1.20) L 01/04/19 04:30 BUN/Creatinine Ratio 39 (6-26) H 01/04/19 04:30 Glucose 131 mg/dL (70-105) H 01/04/19 04:30 POC Glucose 120 mg/dL (70-99) H 01/02/19 06:57 Calculated Osmolality 302 (280-300) H 01/02/19 05:00 Calcium 8.5 mg/dL (8.6-10.3) L 01/02/19 05:00 Troponin I 0.05 ng/mL (< 0.04) H* 12/30/18 16:54 Diabetes panel 01/04/19 Range/Units 04:30 Sodium 138 (136-145) mEq/L Potassium 3.7 (3.5-5.1) mEq/L Chloride 109 H (98-107) mEq/L Carbon Dioxide 21 L (23-29) mEq/L BUN 23 (8-23) mg/dL Creatinine 0.59 L (0.60-1.20) mg/dL Glucose 131 H (70-105) mg/dL Calcium 8.7 (8.6-10.3) mg/dL Calcium panel 01/04/19 Range/Units 04:30 Calcium 8.7 (8.6-10.3) mg/dL Pituitary panel 01/04/19 Range/Units 04:30 Sodium 138 (136-145) mEq/L Potassium 3.7 (3.5-5.1) mEq/L Chloride 109 H (98-107) mEq/L Carbon Dioxide 21 L (23-29) mEq/L BUN 23 (8-23) mg/dL Creatinine 0.59 L (0.60-1.20) mg/dL Glucose 131 H (70-105) mg/dL Calcium 8.7 (8.6-10.3) mg/dL Adrenal panel 01/04/19 Range/Units 04:30 Sodium 138 (136-145) mEq/L Potassium 3.7 (3.5-5.1) mEq/L Chloride 109 H (98-107) mEq/L Carbon Dioxide 21 L (23-29) mEq/L BUN 23 (8-23) mg/dL Creatinine 0.59 L (0.60-1.20) mg/dL Glucose 131 H (70-105) mg/dL Calcium 8.7 (8.6-10.3) mg/dL All other labs normal. Consult Discharge Plan - Plan Referrals: NONE,PCP [Primary Care Provider] -
[2019-01-04] MEDS: levETIRAcetam 250 MG TABLET PO SCH (08:52)
[2019-01-04] MEDS: Lisinopril 20 MG TABLET PO SCH (08:53)
[2019-01-04] MEDS: Acetaminophen 325 MG TABLET PO PRN (12:38)
--- NOTE | 2019-01-04 15:38 | Event Note ---
Date of Encounter: 01/04/19 Time of Encounter: 11:30 s/p left total shoulder reverse 01/02 Dr. Tabor Patient seen at bedside. A&Ox3 Dressing and incision c/d/i Brace in place No calf tenderness, erythema, or warmth. Neurovascularly intact b/l LE. Labwork, vitals, and medications reviewed. Pain control: Adequate Participating in therapy. All questions and concerns addressed. Educated on use of incentive spirometer, ambulation, and hydration. Patient educated on post-operative restrictions and care. Addressed: NO SHOULDER MOTION X 6 WEEKS POSTOPERATIVELY APPLY BRACE AT ALL TIMES X 6 WEEKS POSTOPERATIVELY REMOVE FOR HYGIENE AND HAND/ELBOW EXERCISES ONLY ICE and elevate extremity frequently throughout the day. PT/OT FOR ELBOW/WRIST MOTION ONLY, AGAIN, NO SHOULDER MOTION NONWEIGHTBEARING TO THE LEFT UPPER EXTREMITY Patient with known compression fractures noted on thoracic CT. Patient denies tenderness to palpation of these areas (T2, T5) however does admit to pain to palpation along the entire spine. *Discussed with Dr. Ambrosio who recommends resuming patient's previously prescribed Oxycodone as per hospice provider. See his consultation note for further explanation and recommendations. Patient course and disposition discussed with Dr. Tabor D/C plan: Appropriate for discharge from orthopedic perspective
--- NOTE | 2019-01-04 16:06 | Discharge Summary ---
- NOTES TO OUTPATIENT PROVIDER Notes to Outpatient Provider: SNF physician to titrate oxycodone up to 60 mg q4hrs per pain physician. Hospice to be restarted upon discharge from SNF Orders not resulted at time of discharge: Pending orders 01/02/19 18:38 Surgical Pathology [PTH] Routine Date of Encounter: 01/04/19 Time of Encounter: 15:58 - Discharge Diagnosis (1) Left humeral fracture Priority: Primary Status: Acute Qualifiers: Encounter type: initial encounter Humerus Location: proximal Fracture type: closed Fracture morphology: other fracture Fracture alignment: displaced Qualified Code(s): S42.292A - Other displaced fracture of upper end of left humerus, initial encounter for closed fracture (2) Chest pain Priority: Secondary Status: Acute Qualifiers: Chest pain type: unspecified Qualified Code(s): R07.9 - Chest pain, unspecified (3) Elevated troponin Priority: Secondary Status: Acute (4) Compression fracture Priority: Secondary Status: Acute (5) DVT prophylaxis Priority: Secondary Status: Acute (6) Fall Priority: Secondary Status: Acute Qualifiers: Encounter type: initial encounter Qualified Code(s): W19.XXXA - Unspecified fall, initial encounter (7) Lung cancer Priority: Secondary Status: Chronic Qualifiers: Laterality: left Lung location: unspecified part of lung Qualified Code(s): C34.92 - Malignant neoplasm of unspecified part of left bronchus or lung (8) Drop in hemoglobin Priority: Secondary Status: Acute (9) Acute respiratory failure with hypoxia Priority: Secondary Status: Acute Hospital course: Ms. Hodge is a 73 year old female with PMH of lung cancer on hospice admitted to hospital after fall and fracture of humerus. Patient underwent surgery per ortho. Imaging during admission showed T2 and T5 compression fractures of undetermined age that caused patient significant pain. Pain management was consulted by ortho that recommended starting patient on oxycodone 30 mg q6hrs PRN pain and titrating up to 60 mg q6hr PRN Pain. Prior to surgery, patient underwent stress test for cardiac clearance which was negative. Patient underwent surgery 01/02/2019. Patient was clinically stable on day of discharge. She was discharge to SNF. SNF physician to reevaluate meds and adjust pain meds as needed. When patient is discharged from SNF she would benefit from being back on hospice. - Time Spent with Patient Total time spent providing and/or coordinating discharge services: 40 minutes - Discharge Medications Prescriptions: Continued LORazepam [Ativan] 1 mg PO BID PRN PRN Reason: Anxiety Amitriptyline HCl 100 mg PO HS Ondansetron HCl 4 mg PO Q6H PRN PRN Reason: Nausea levETIRAcetam [Roweepra] 500 mg PO BID dexAMETHasone [Decadron] 4 mg PO TID Sertraline [Zoloft] 100 mg PO DAILY Docusate Sodium [Stool Softener] 100 mg PO BID Lisinopril [Zestril] 40 mg PO DAILY Morphine Sulfate [Morphine Sulfate ER] 100 mg PO TID Changed OxyCODONE Immed Rel [Roxicodone 30 MG] 30 mg PO Q6H PRN 14 Days #28 tab PRN Reason: Pain Discontinued OxyCODONE Immed Rel [Roxicodone 20 MG] 20 mg PO Q4H PRN PRN Reason: Breakthrough Pain Home Medications: LORazepam [Ativan] 1 mg PO BID PRN 01/04/17 [History] Amitriptyline HCl 100 mg PO HS 04/22/18 [History] Ondansetron HCl 4 mg PO Q6H PRN 04/22/18 [History] Docusate Sodium [Stool Softener] 100 mg PO BID 12/31/18 [History] Lisinopril [Zestril] 40 mg PO DAILY 12/31/18 [History] Morphine Sulfate [Morphine Sulfate ER] 100 mg PO TID 12/31/18 [History] Sertraline [Zoloft] 100 mg PO DAILY 12/31/18 [History] dexAMETHasone [Decadron] 4 mg PO TID 12/31/18 [History] levETIRAcetam [Roweepra] 500 mg PO BID 12/31/18 [History] OxyCODONE Immed Rel [Roxicodone 30 MG] 30 mg PO Q6H PRN 14 Days #28 tab 01/04/19 [Rx] Allergies/Adverse Reactions: Allergy/AdvReac Type Severity Reaction Status Date / Time No Known Allergies Allergy Verified 08/07/17 11:17 Date of admission: 12/31/18 12:50 Primary care physician: PCP NONE Consults: 12/30/18 02:59 Consult to Orthopedic Surgery [CONS] Stat Consulting Provider: Cooper Tabor Reason for Consult: L. humerus fx Time Notified: 02:30 Call Completed: Yes 12/30/18 04:53 Consult to Dust Collector Attendant [CONS] Routine Reason for SW Consult: discharge planning 12/30/18 07:51 Consult to Nurse Navigator [CONS] Routine Comment: 12/30/18 16:32 Consult to Cardiology [CONS] Routine Comment: Consulting Provider: Sj Sommers Reason for Consult: elevated troponins Needs surgery for the fractured humerus Call Completed: Yes 01/02/19 19:43 Consult to Occupational Therapy [CONS] Routine Comment: post shoulder surgery Reason for Consult: post shoulder surgery Does patient have active BEDREST order?: No Is patient medically & hemodynamically stable?: Yes Consult to Physical Therapy [CONS] Routine Comment: post shoulder surgery Reason for Consult: post shoulder surgery Does patient have active BEDREST order?: No Is patient medically & hemodynamically stable?: Yes Consult to Dust Collector Attendant [CONS] Routine Reason for SW Consult: shoulder surgery RT Post Op Consult [CONS] Routine Discharging clinician: Artie Renee Anticipated date of discharge: 01/04/19 - Constitutional Vitals: Temp Pulse Resp BP Pulse Ox 98.8 F 121 19 160/87 97 01/04/19 11:49 01/04/19 11:49 01/04/19 11:49 01/04/19 11:49 01/04/19 11:49 General appearance: Present: cooperative, A&O X 3, pleasant, no acute distress, answers questions appropriately Exam: General: Alert and oriented, no physical distress, able to follow commands. Respiratory: Normal vesicular breathing, no added sounds, breathing equal in both sides. on 2L NC. CVS: Normal heart sounds, no murmurs, regular rhthm, no edema Extremities: No peripheral edema, peripheral pulses intact. Left arm in sling. Gastrointestinal: Soft, nontender abdomen, normal abdominal sounds. No distention noted. Genitourinary: No paravertebral tenderness. Neurological: Alert and oriented. No focal deficits. Cranial nerves II-XII intact. - Patient Status Disposition: Transfer SNF Condition: Fair Functional capacity at discharge: uses cane/walker Overall status at discharge: patient is not back to baseline - Discharge Instructions Follow Up With: NONE,PCP [Primary Care Provider] - - Diet and Activity Activity: as per physical therapy Diet: advance to your usual diet
--- NOTE | 2019-01-04 16:44 | Physician Discharge Referral ---
ExtendedCare Referral Info Transfer To: SNF Provider in Charge after Transfer: Other (SNF physician) Institutional Level of Care: Skilled - Diagnosis (1) Left humeral fracture Priority: Primary Status: Acute (2) Chest pain Priority: Secondary Status: Acute (3) Elevated troponin Priority: Secondary Status: Acute (4) Compression fracture Priority: Secondary Status: Acute (5) DVT prophylaxis Priority: Secondary Status: Acute (6) Fall Priority: Secondary Status: Acute (7) Lung cancer Priority: Secondary Status: Chronic (8) Drop in hemoglobin Priority: Secondary Status: Acute (9) Acute respiratory failure with hypoxia Priority: Secondary Status: Acute - Transfer Medications Prescriptions: OxyCODONE Immed Rel [Roxicodone 30 MG] 30 mg PO Q6H PRN 14 Days #28 tab PRN Reason: Pain Prescription Printed Home Medications: LORazepam [Ativan] 1 mg PO BID PRN 01/04/17 [History] Amitriptyline HCl 100 mg PO HS 04/22/18 [History] Ondansetron HCl 4 mg PO Q6H PRN 04/22/18 [History] Docusate Sodium [Stool Softener] 100 mg PO BID 12/31/18 [History] Lisinopril [Zestril] 40 mg PO DAILY 12/31/18 [History] Morphine Sulfate [Morphine Sulfate ER] 100 mg PO TID 12/31/18 [History] Sertraline [Zoloft] 100 mg PO DAILY 12/31/18 [History] dexAMETHasone [Decadron] 4 mg PO TID 12/31/18 [History] levETIRAcetam [Roweepra] 500 mg PO BID 12/31/18 [History] OxyCODONE Immed Rel [Roxicodone 30 MG] 30 mg PO Q6H PRN 14 Days #28 tab 01/04/19 [Rx] Allergies/Adverse Reactions: Allergy/AdvReac Type Severity Reaction Status Date / Time No Known Allergies Allergy Verified 08/07/17 11:17 - Respiratory Orders Smoking Cessation: Smoking cessation has been advised. For more information, call the [place] Tobacco Quit Line at 2-829-IDCL-NOW. - Mobility Orders Ambulate (ambulate per PT) - Rehabiliation Orders Rehab Orders: Evaluation for Physical Therapy, Evaluation for Occupational Therapy - Diet Orders Regular CERTIFICATION: I certify that the transfer of the above named patient to an Extended Care Facility is necessary for the continuing treatment of the diagnosis listed. The above information is true and accurate reflection of patient's current condition. Confidential - Redisclosure prohibited without a patient's written consent.
[2019-01-04 18:27] VITALS: BP 121/74
== END 2019-01-04 18:53 | DRG 483 ==
LOC: 3NENU 20:32 → EMEROOARM 20:32 → SUATTDRO 12-30 03:55 → 3NENU 12-30 04:21 → SUATTDRO 12-31 12:50
PROVIDERS: ADMIT Internal Medicine; ATTEND Family Medicine